=== PATIENT | male | born 1960 | race American Indian/Alaskan Native ===

== ENCOUNTER 2016-11-25 07:31 | Day surgery (SDC) | payer MEDICARE ==
[2016-11-18 06:47] VITALS: BMI 37.3
[2016-11-25 08:10] VITALS: TEMP 98
[2016-11-25] MEDS ORDERED: Midazolam 2 MG/2 ML VIAL ONE (08:36)
[2016-11-25] MEDS ORDERED: Etomidate 20 mg/10ml Inj IV ONE (08:42)
[2016-11-25] MEDS ORDERED: Sodium Chloride 0.9% 1,000 ML IV SCH (09:30)
[2016-11-25 09:35] VITALS: PULSE 64; RESP 23
[2016-11-25 09:47] VITALS: BP 152/62; O2SAT 99
== END 2016-11-25 10:39 | disposition home or self-care (01) ==
LOC: ENDO 07:31
PROVIDERS: ATTEND Specialist
DX: Z12.11 Encounter for screening for malignant neoplasm of colon (principal); K57.30 Diverticulosis of large intestine without perforation or abscess without bleeding; K64.8 Other hemorrhoids; I25.10 Atherosclerotic heart disease of native coronary artery without angina pectoris; I10 Essential (primary) hypertension; E78.5 Hyperlipidemia, unspecified; I25.2 Old myocardial infarction

== ENCOUNTER 2017-06-08 13:42 | Inpatient (IN) | payer MEDICARE, OTHER ==
[2017-06-08 13:46] VITALS: BMI 38.0
--- NOTE | 2017-06-08 14:18 | ED PDOC ---
Arrival/HPI - General Historian: Patient - History of Present Illness Time/Duration: 24 hours Symptom Course: Worsening Activities at Onset: Rest Context: Sitting, Standing, Walking <Orion Rodriguez - Last Filed: 06/08/17 15:40> <Silvino Moe - Last Filed: 06/08/17 21:10> - General Chief Complaint: Shortness Of Breath Time Seen by Provider: 06/08/17 13:45 - History of Present Illness Narrative History of Present Illness (Text): 06/08/17 14:15 patient is a 56M with a PMH of sarcoidosis and [place] (2013 stent in mid RCA and Prox RCA) who comes in complaining of sob associated with chest pain described as tight. Usually when he is SOB it is relieved with rest. This time the SOB was not relieved with rest. It was made worse with minimal activity (walking approx 10 feet from bathroom to kitchen). The SOB has been constant since its onset. Patient denies any fever, chills, diaphoresis, lightheadedness, vision changes, syncope. (Orion Rodriguez) Past Medical History - Past History Past History: No Previous - Infectious Disease Hx of Infectious Diseases: None - Tetanus Immunization Tetanus Immunization: Unknown - Cardiac Hx Pacemaker: No - Pulmonary Hx Respiratory Disorders: Yes Hx Sleep Apnea: Yes Other/Comment: sarcoidosis - Neurological Hx Paralysis: No - HEENT Hx HEENT Disorder: No - Renal Hx Renal Failure: No - Endocrine/Metabolic Hx Hyperthyroidism: No Hx Hypothyroidism: No - Hematological/Oncological Hx Blood Transfusions: No Hx Blood Transfusion Reaction: No - Integumentary Hx Dermatological Disorder: No - Musculoskeletal/Rheumatological Hx Musculoskeletal Disorders: Yes - Gastrointestinal Hx Crohn's Disease: No Hx Diverticulitis: No Hx Gastroesophageal Reflux: No Hx Gastrointestinal Ulcer: No Hx Liver Failure: No - Genitourinary/Gynecological Hx Prostate Problems: Yes (cancer) - Psychiatric Hx Emotional Abuse: No Hx Physical Abuse: No Hx Substance Use: No - Surgical History Hx Amputation: No Hx Appendectomy: No Hx Cardiac Catheterization: No Hx Cholecystectomy: No Hx Coronary Stent: Yes (2) Hx Gastric Bypass Surgery: No Hx Hysterectomy: No Hx Inguinal Hernia Repair: No Hx Joint Replacement: No Hx Kidney Transplant: No Hx Liver Transplant: No Hx Mastectomy: No Hx Open Heart Surgery: No Hx Orthopedic Surgery: No Hx Splenectomy: No Hx Valve Replacement: No - Anesthesia Hx Anesthesia Reactions: Yes (DIFFICULTY WAKING UP;SEVERE NAUSEA) Hx Malignant Hyperthermia: No - Suicidal Assessment Feels Threatened In Home Enviroment: No <Orion Rodriguez - Last Filed: 06/08/17 15:40> Family/Social History Family/Social History: No Known Family HX Smoking Status: Never Smoked Hx Alcohol Use: No Hx Substance Use: No Hx Substance Use Treatment: No <Orion Rodriguez - Last Filed: 06/08/17 15:40> Allergies/Home Meds <Orion Rodriguez - Last Filed: 06/08/17 15:40> <Silvino Moe - Last Filed: 06/08/17 21:10> Allergies/Adverse Reactions: Allergies No Known Allergies Allergy (Verified 08/16/12 06:19) Home Medications: Home Meds Medication Instructions Recorded Confirmed Albuterol Sulfate [Proair 2 puff IH BID PRN 11/01/15 11/25/16 Respiclick] Amlodipine Besylate [Norvasc] 10 mg PO QAM 11/01/15 11/25/16 Aspirin [Aspirin EC] 81 mg PO DAILY 11/01/15 11/25/16 Benzonatate 200 mg PO TID PRN 11/01/15 11/25/16 Clopidogrel Bisulfate [Plavix] 75 mg PO DAILY 11/01/15 11/25/16 Cyanocobalamin [Vitamin B12 1000 1 ml IM Q30D 11/01/15 11/25/16 mcg/ml Inj] Ergocalciferol (Vitamin D2) 50,000 iu PO 2XW 11/01/15 11/25/16 [Vitamin D] Folic Acid 1 mg PO DAILY 11/01/15 11/25/16 Linaclotide [Linzess] 145 mcg PO QOTHERDAY 11/01/15 11/25/16 Nebivolol [Bystolic] 5 mg PO HS 11/01/15 11/18/16 Simvastatin 20 mg PO HS 11/01/15 11/18/16 Terazosin [Hytrin] 2 mg PO HS 11/01/15 11/18/16 cloNIDine 0.3 mg/24 hr 0.3 mg TD Wed11/01/15 11/18/16 [catapres-TTS3 0.3 mg/24 hr] Ranolazine [Ranexa] 500 mg PO DAILY 09/23/16 11/18/16 Potassium Chloride [K-Dur 20] 20 meq PO BID 11/18/16 11/18/16 Valsartan/Hydrochlorothiazide 1 tab PO DAILY 11/18/16 11/18/16 [Valsartan and Hydrochlorothiazide 25 mg-320 M] predniSONE [Prednisone] 10 mg PO DAILY PRN 11/18/16 11/18/16 Hydrocortisone 2.5% (Rectal) 1 appl [place] BID 11/25/16 11/25/16 [Anusol-Hc] Review of Systems - Review of Systems Constitutional: Normal. absent: Fevers, Night Sweats Eyes: absent: Vision Changes, Photophobia, Eye Pain ENT: Normal Respiratory: SOB. absent: Cough, Wheezing Cardiovascular: Chest Pain. absent: Palpitations, Syncope Gastrointestinal: absent: Abdominal Pain Genitourinary Male: absent: Dysuria, Frequency Musculoskeletal: Normal Skin: Normal Neurological: Normal Endocrine: Normal Hemo/Lymphatic: Normal Psychiatric: Normal <Orion Rodriguez - Last Filed: 06/08/17 15:40> Physical Exam Vital Signs Reviewed: Yes Temperature: Afebrile Blood Pressure: Hypertensive Pulse: Regular Respiratory Rate: Normal Appearance: Positive for: Well-Appearing Pain Distress: None Mental Status: Positive for: Alert and Oriented X 3 - Systems Exam Head: Present: Atraumatic Pupils: Present: PERRL Extroacular Muscles: Present: EOMI Conjunctiva: Present: Normal Mouth: Present: Moist Mucous Membranes Neck: Present: Normal Range of Motion Respiratory/Chest: Present: Clear to Auscultation, Accessory Muscle Use. No: Good Air Exchange, Respiratory Distress Cardiovascular: Present: Regular Rate and Rhythm Abdomen: Present: Normal Bowel Sounds. No: Tenderness, Distention, Peritoneal Signs Neurological: Present: GCS=15, CN II-XII Intact Skin: Present: Warm, Dry, Normal Color. No: Rashes Psychiatric: Present: Alert, Oriented x 3, Normal Insight <Orion Rodriguez - Last Filed: 06/08/17 15:40> - Systems Exam Respiratory/Chest: Present: Wheezes <Silvino Moe - Last Filed: 06/08/17 21:10> Vital Signs Temp Pulse Resp BP Pulse Ox 06/08/17 18:13 91 H 16 147/89 97 06/08/17 17:21 97 H 18 148/71 96 06/08/17 15:34 88 18 150/76 96 06/08/17 13:51 16 96 06/08/17 13:49 98.1 F 85 18 150/105 H 96 Medical Decision Making <Orion Rodriguez - Last Filed: 06/08/17 15:40> <Silvino Moe - Last Filed: 06/08/17 21:10> ED Course and Treatment: 06/08/17 21:06 Patient is a 56 yo male with past medical of sarcoidosis presents to ED with progressive shortness of breath for past several days. He was seen and examined with medical administrative. Patient is typically on 4 liters of nasal cannula. He denies any chest pain or acute leg pain or swelling. On exam he has bilateral expiratory wheezing. He is dyspneic with exertion. No pleuritic discomfort. Chest xray is abnormal, reveals interstitial changes although radiology interpretation is unchanged from previous. He has significant past cardiac history but denies chest pain. Initial BNP and EKG unremarakable. Initial troponin unremarkable. Case d/w Dr. Ceballos, will admit for monitoring, cardiac evaluation, nebuilzers, steroids, treatment for bronchospasm, sarcoid exacerbation. (Silvino Moe) - Lab Interpretations Lab Results: 06/08/17 14:08 06/08/17 14:08 Lab Results 06/08/17 14:08: NT-Pro-B Natriuret Pep 173 06/08/17 14:08: PT 12.1, INR 1.06, APTT 29.1 06/08/17 14:08: WBC 6.8, RBC 4.56, Hgb 11.3 L, Hct 36.6 L, MCV 80.3, MCH 24.8 L , MCHC 30.9 L, RDW 14.8 H, Plt Count 217, MPV 9.7, Gran % 65.7, Lymph % (Auto) 19.9 L, Lanier % (Auto) 7.6 H, Eos % (Auto) 6.2 H, Baso % (Auto) 0.6, Gran # 4.48 , Lymph # (Auto) 1.4, Lanier # (Auto) 0.5, Eos # (Auto) 0.4, Baso # (Auto) 0.04 06/08/17 14:08: Sodium 142, Potassium 3.5 L, Chloride 101, Carbon Dioxide 32, Anion Gap 12, BUN 14, Creatinine 1.1, Est GFR ( Amer) > 60, Est GFR (Non- Af Amer) > 60, Random Glucose 96, Calcium 9.7, Total Bilirubin 0.4, AST 28, ALT 18, Alkaline Phosphatase 82, Lactate Dehydrogenase 508, Total Creatine Kinase 107, Troponin I < 0.01, Total Protein 7.5, Albumin 3.9, Globulin 3.6, Albumin/ Globulin Ratio 1.1 06/08/17 14:08: Influenza Typ A,B (EIA) Negative for flu a/b - RAD Interpretation Radiology Orders: 06/08/17 13:48 CHEST PORTABLE [RAD] Stat - Medication Orders Current Medication Orders: Acetylcysteine (Acetylcysteine 20%) 4 ml IH [id number] [facility] Last Admin: 06/08/17 18:13 Dose: 4 ml Arformoterol Tartrate (Brovana) 15 mcg IH [id number] [facility] Aspirin (Ecotrin) 81 mg PO DAILY [facility] Last Admin: 06/08/17 18:03 Dose: 81 mg Atorvastatin Calcium (Lipitor) 10 mg PO HS [facility] Benzonatate (Tessalon Perles) 200 mg PO TID PRN PRN Reason: Cough Budesonide (Pulmicort Respules) 0.5 mg IH [id number] [facility] Clonidine HCl (Catapres-Tts3 0.3 Mg/24 Hr) 1 patch TD FRI [facility] Clopidogrel Bisulfate (Plavix) 75 mg PO DAILY [facility] Cyanocobalamin (Vitamin B12 1000 Mcg/Ml Inj) 1,000 mcg IM Q30D [facility] Docusate Sodium (Colace) 100 mg PO TID [facility] Ergocalciferol (Drisdol 50,000 Intl Units Cap) 1 cap PO 2XW [facility] Folic Acid (Folic Acid) 1 mg PO DAILY [facility] Last Admin: 06/08/17 18:04 Dose: 1 mg Furosemide (Lasix) 20 mg IVP DAILY [facility] Levalbuterol HCl (Xopenex) 0.63 mg IH [id number] [facility] Last Admin: 06/08/17 18:04 Dose: 0.63 mg Methylprednisolone (Solu-Medrol) 40 mg IVP Q8H [facility] Last Admin: 06/08/17 18:03 Dose: 40 mg IVP Administration Document 06/08/17 18:03 [place] (Rec: 06/08/17 18:03 [id number] Charges for Administration # of IVP Administrations 1 Non-Formulary Medication (Ranolazine [Ranexa]) 500 mg PO DAILY [facility] Non-Formulary Medication (Terazosin [Hytrin]) 2 mg PO HS [facility] Pantoprazole Sodium (Protonix Ec Tab) 20 mg PO 0600,1600 [facility] Potassium Chloride (K-Dur 20 Meq Er Tab) 20 meq PO BID [facility] Last Admin: 06/08/17 18:04 Dose: Valsartan (Diovan) 320 mg PO DAILY [facility] Discontinued Medications Albuterol/Ipratropium (Duoneb 3 Mg/0.5 Mg (3 Ml) Ud) 3 ml IH Q30M [facility] Stop: 06/08/17 15:01 Last Admin: 06/08/17 14:58 Dose: 3 ml Famotidine (Pepcid) 20 mg PO STAT [facility]A Stop: 06/08/17 14:48 Last Admin: 06/08/17 15:18 Dose: 20 mg Methylprednisolone (Solu-Medrol) 125 mg IVP STAT STA Stop: 06/08/17 14:06 Last Admin: 06/08/17 14:28 Dose: 125 mg IVP Administration Document 06/08/17 14:28 [place] (Rec: 06/08/17 14:28 [id number] Charges for Administration # of IVP Administrations 1 Potassium Chloride (K-Dur 20 Meq Er Tab) 40 meq PO STAT STA Stop: 06/08/17 14:47 Last Admin: 06/08/17 15:18 Dose: 40 meq Potassium Chloride (K-Dur 20 Meq Er Tab) 20 meq PO STAT STA Stop: 06/08/17 16:18 Last Admin: 06/08/17 16:22 Dose: - PA / SENIOR RESEARCH ASSOCIATE / Resident Statement THOMPSON has reviewed & agrees with the documentation as recorded. THOMPSON has examined the patient and agrees with the treatment plan. <Orion Rodriguez - Last Filed: 06/08/17 15:40> Disposition/Present on Arrival - Present on Arrival Any Indicators Present on Arrival: No History of DVT/PE: No History of Uncontrolled Diabetes: No Urinary Catheter: No History of Decub. Ulcer: No History Surgical Site Infection Following: None - Disposition Have Diagnosis and Disposition been Completed?: Yes Disposition Time: 15:41 Patient Plan: Observation <Orion Rodriguez - Last Filed: 06/08/17 15:40> - Disposition Patient Plan: Admission, Telemetry <Silvino Moe - Last Filed: 06/08/17 21:10> - Disposition Diagnosis: Sarcoidosis, Shortness of breath Disposition: HOSPITALIZED Condition: SERIOUS
[2017-06-08] MEDS: Albuterol-Ipratrop 3 mg / 0.5 (3 ml) UD IH SCH ×3 (14:28→14:58)
[2017-06-08 14:31] LABS: BASO # 0.04 K/mm3 (0.0-2.0); BASO % 0.6 % (0.0-3.0); EOS # 0.4 (0.0-0.7); EOS % 6.2 % (1.5-5.0); GRAN # 4.48 (1.4-6.5); GRAN % 65.7 % (50.0-68.0); HEMOGLOBIN 11.3 g/dL (14.0-18.0); LYMPH # 1.4 (1.2-3.4); LYMPH % 19.9 % (22.0-35.0); MEAN CELL VOLUME 80.3 fl (80.0-105.0); MEAN CORPUSCULAR HEMOGLOBIN 24.8 pg (25.0-35.0); MEAN CORPUSCULAR HGB CONC 30.9 g/dl (31.0-37.0); MEAN PLATELET VOLUME 9.7 fl (7.0-11.0); MONO # 0.5 (0.1-0.6); MONO % 7.6 % (1.0-6.0); RBC 4.56 10^6/uL (3.5-6.1); RED CELL DISTRIBUTION WIDTH 14.8 % (11.5-14.5); WHITE BLOOD COUNT 6.8 10^3/ul (4.5-11.0)
[2017-06-08 14:39] LABS: ALB/GLOB RATIO 1.1 (1.1-1.8); ALBUMIN 3.9 g/dL (3.0-4.8); ALT/SGPT 18 U/L (7-56); AST/SGOT 28 U/L (17-59); BLOOD UREA NITROGEN 14 mg/dL (7-21); CALCIUM 9.7 mg/dL (8.4-10.5); GFR AFRICAN-AMERICAN > 60; GFR NON-AFRICAN AMERICAN > 60
[2017-06-08 14:43] LABS: INR 1.06 (0.93-1.08); PARTIAL THROMBOPLASTIN TIME 29.1 Seconds (25.1-36.5); PROTHROMBIN TIME 12.1 SECONDS (9.4-12.5)
[2017-06-08] MEDS ORDERED: Potassium Chloride 20 mEq ER Tab PO STA ×2 (14:46→16:17)
[2017-06-08 14:50] LABS: TROPONIN I < 0.01 ng/mL
--- NOTE | 2017-06-08 15:52 | RAD ---
HISTORY: SOB COMPARISON: 07/19/2015 FINDINGS: LUNGS: There is a chronic interstitial infiltrate. Findings are unchanged. There is no acute infiltrate PLEURA: No significant pleural effusion identified, no pneumothorax apparent. CARDIOVASCULAR: Normal. OSSEOUS STRUCTURES: No significant abnormalities. VISUALIZED UPPER ABDOMEN: Normal. OTHER FINDINGS: None. IMPRESSION: There is a chronic interstitial infiltrate. Findings are unchanged. There is no acute infiltrate
[2017-06-08] MEDS: MethylPREDNISolone 40 mg Vial IVP SCH (18:03)
[2017-06-08] MEDS: Potassium Chloride 20 mEq ER Tab PO SCH (18:04)
[2017-06-08] MEDS: Levalbuterol 0.63 MG/3 ML Inhal Soln UD IH SCH (18:04)
[2017-06-08] MEDS: Acetylcysteine 20% Inhal Soln (4ml) IH SCH (18:13)
--- NOTE | 2017-06-08 20:02 | CT ---
EXAM: CT Chest Without Intravenous Contrast EXAM DATE/TIME: 06/08/2017 4:39 PM CLINICAL HISTORY: 56 years old, male; Signs and symptoms; Shortness of breath; Additional info: Sob/sarcoidosis TECHNIQUE: Axial computed tomography images of the chest without intravenous contrast. All CT scans at this facility use one or more dose reduction techniques, viz.: automated exposure control; ma/kV adjustment per patient size (including targeted exams where dose is matched to indication; i.e. head); or iterative reconstruction technique. Coronal and sagittal reformatted images were created and reviewed. COMPARISON: Prior CT chest of 2016-09-30 FINDINGS: LIMITATIONS: Mild streak/motion artifact. LUNGS: Stable appearance of abnormal cystic and bronchiectatic changes in the lungs bilaterally, greater in the right lung, and overall having an upper lobe predominance, especially involving the right upper lobe, which demonstrates extensive cystic changes. Stable appearance of a small density in the left lower lobe anteriorly, image 61/series 3, most likely representing a focus of scarring or chronic consolidation. This measures 1 cm kidney No definite focal consolidation/infiltrate is seen in the lungs. No evidence of diffuse pulmonary vascular congestion. PLEURAL SPACE: No pneumothorax or significant pleural effusions seen. HEART: Coronary artery calcification. Heart appears mildly enlarged. No evidence of significant pericardial effusion. BONES/JOINTS: No acute fractures or other acute bony abnormality noted. SOFT TISSUES: Bilateral gynecomastia. VASCULATURE: Main pulmonary artery segment again appears enlarged, a finding which can be seen with pulmonary hypertension. Exam is nondiagnostic for aortic dissection and pulmonary emboli, secondary to unenhanced technique. LYMPH NODES: Multiple small lymph nodes seen in the mediastinum, none appearing pathologically enlarged. This is a nonspecific finding. No evidence of diffuse pathologic lymphadenopathy. KIDNEYS AND URETERS: Nonobstructing left renal stone. IMPRESSION: - No definite acute process seen on this unenhanced exam. - Stable findings compared to a 09/30/[address] - Significant chronic-appearing cystic and bronchiectatic changes in the lungs bilaterally, greatest in the right upper lobe, where there are extensive cystic changes. Findings are presumably related to the known diagnosis of sarcoidosis. - Finding suspicious for pulmonary hypertension. - See above for remaining findings.
--- NOTE | 2017-06-08 20:26 | CP.PCM.HP ---
History of Present Illness - History of Present Illness History of Present Illness: CC: SOB HPI: Pt is a 56 yo M with PMH of sarcoidosis, O2 dependence on 4L at home, prostate CA, [place] (2012 with 2 stents in prox and mid RCA), HTN, HLD, and prostate CA presents to ED due to dyspnea on exertion. Pt states that at 2 am he went to the bathroom and became short of breath that lasted 5 minutes. Then throughout the day patient would get short of breath intermittently at rest. Patient became anxious and proceeded to the ED to be evaluated. Pt states that he is SOB at baseline, which is why he requires 4L of O2 via NC at home. However , this was worse than baseline. Pt denied CP, n/v/d, abdominal pain, fever, chills, THEODORE, or dizziness. PMH: as above PSH: Prostatectomy All: NKDA FHx: HTN, DM, CAD SH: Denied tobacco, EtOH, and illicit drug use PMD: Tucker Present on Admission - Present on Admission Any Indicators Present on Admission: No Review of Systems - Review of Systems Review of Systems: 12 point ROS reviewed and is negative other than what is stated in HPI. Past Patient History - Infectious Disease Hx of Infectious Diseases: None - Tetanus Immunizations Tetanus Immunization: Unknown - Past Social History Smoking Status: Never Smoked - CARDIAC Hx Pacemaker: No - PULMONARY Hx Respiratory Disorders: Yes Hx Sleep Apnea: Yes Other/Comment: sarcoidosis - NEUROLOGICAL Hx Paralysis: No - HEENT Hx HEENT Problems: No - RENAL Hx Renal Failure: No - ENDOCRINE/METABOLIC Hx Hyperthyroidism: No Hx Hypothyroidism: No - HEMATOLOGICAL/ONCOLOGICAL Hx Blood Transfusions: No Hx Blood Transfusion Reaction: No - INTEGUMENTARY Hx Dermatological Problems: No - MUSCULOSKELETAL/RHEUMATOLOGICAL Hx Musculoskeletal Disorders: Yes - GASTROINTESTINAL Hx Crohn's Disease: No Hx Diverticulitis: No Hx Gastroesophageal Reflux: No Hx Liver Failure: No - GENITOURINARY/GYNECOLOGICAL Hx Prostate Problems: Yes (cancer) - PSYCHIATRIC Hx Emotional Abuse: No Hx Physical Abuse: No Hx Substance Use: No - SURGICAL HISTORY Hx Amputation: No Hx Appendectomy: No Hx Cardiac Catheterization: No Hx Cholecystectomy: No Hx Coronary Stent: Yes (2) Hx Gastric Bypass Surgery: No Hx Hysterectomy: No Hx Joint Replacement: No Hx Kidney Transplant: No Hx Liver Transplant: No Hx Mastectomy: No Hx Open Heart Surgery: No Hx Orthopedic Surgery: No Hx Splenectomy: No Hx Valve Replacement: No - ANESTHESIA Hx Anesthesia Reactions: Yes (DIFFICULTY WAKING UP;SEVERE NAUSEA) Hx Malignant Hyperthermia: No Meds Allergies/Adverse Reactions: Allergies Allergy/AdvReac Type Severity Reaction Status Date / Time No Known Allergies Allergy Verified 08/16/12 06:19 Physical Exam - Head Exam Head Exam: NORMAL INSPECTION - Eye Exam Eye Exam: Normal appearance - ENT Exam ENT Exam: Normal Exam - Neck Exam Neck exam: Positive for: Normal Inspection - Respiratory Exam Respiratory Exam: Clear to Auscultation Bilateral. absent: Rales, Rhonchi, Wheezes - Cardiovascular Exam Cardiovascular Exam: RRR, +S1, +S2. absent: Diastolic murmur, Gallop, Rubs, Systolic Murmur - GI/Abdominal Exam GI & Abdominal Exam: Soft. absent: Distended, Guarding, Rebound - Back Exam Back exam: NORMAL INSPECTION - Neurological Exam Neurological exam: Alert, Oriented x3 - Psychiatric Exam Psychiatric exam: Normal Affect, Normal Mood - Skin Skin Exam: Dry, Intact, Normal Color, Warm Results - Vital Signs Recent Vital Signs: Last Vital Signs Temp 98.1 F 06/08/17 13:49 Pulse 91 H 06/08/17 18:13 Resp 16 06/08/17 18:13 BP 147/89 06/08/17 18:13 Pulse Ox 97 06/08/17 18:13 - Labs Result Diagrams: 06/08/17 14:08 06/08/17 14:08 Assessment & Plan - Assessment and Plan (Free Text) Assessment: 56 yo M admitted for evaluation and treatment for dyspnea at rest. Plan: 1. Dyspnea with h/o sarcoidosis - F/u ABG on room air - CXR showed chronic interstitial infiltrate - Chest CT showed stable findings suggestive of sarcoidosis: chronic cystic and bronchiectatic changes in lungs bilaterally, possible pulm HTN - Solumedrol 40mg Q8h - Colace 100 mg TID - Mucormyst, Brovana, Tessalon perles, pulmicort, Xopenex 2. HTN - Clonidine patch, Diovan 3. Possible CHF - Lasix, Ranexa - Echo - Cardio consulted 4. CAD - F/u troponin trend - F/u thyroid panel - F/u A1c - ASA 81 - Lipitor - Plavix 5. Anemia - F/u Anemia workup 6. H/o Prostate CA - F/u PSA - Terazosin GI/DVT PPx - Protonix Pt discussed in detail with Dr. Ceballos. Paresh Patterson, PGY1
[2017-06-08 20:50] LABS: ARTERIAL BLOOD GAS HCO3 24.1 mmol/L (21-28); ARTERIAL BLOOD GAS O2 SAT 93.4 % (95-98); ARTERIAL BLOOD GAS PCO2 38 mm/Hg (35-45); ARTERIAL BLOOD GAS TCO2 25.3 mmol.L (22-28)
[2017-06-08 20:57] LABS: ARTERIAL BLOOD GAS PH 7.41 (7.35-7.45)
[2017-06-08 21:30] LABS: TROPONIN I < 0.01 ng/mL
[2017-06-08] MEDS: TERAZOSIN 2 MG PO SCH (22:23)
[2017-06-08] MEDS: Magnesium Oxide 400 mg Tab UD PO SCH (23:16)
[2017-06-09 00:52] LABS: VENOUS BLOOD GAS PO2 47 mm/Hg (30-55)
[2017-06-09] MEDS: Levalbuterol 0.63 MG/3 ML Inhal Soln UD IH SCH ×4 (00:57→21:55)
[2017-06-09] MEDS: Acetylcysteine 20% Inhal Soln (4ml) IH SCH ×4 (00:57→21:54)
[2017-06-09] MEDS: MethylPREDNISolone 40 mg Vial IVP SCH ×4 (01:00→22:12)
[2017-06-09 01:08] LABS: TROPONIN I < 0.01 ng/mL
[2017-06-09 04:56] LABS: GRAN # 6.01 (1.4-6.5); GRAN % 89.6 % (50.0-68.0); HEMOGLOBIN 11.1 g/dL (14.0-18.0); LYMPH # 0.6 (1.2-3.4); LYMPH % 9.4 % (22.0-35.0); MEAN CORPUSCULAR HEMOGLOBIN 24.5 pg (25.0-35.0); MEAN PLATELET VOLUME 10.5 fl (7.0-11.0); MONO # 0.1 (0.1-0.6); RBC 4.53 10^6/uL (3.5-6.1); RED CELL DISTRIBUTION WIDTH 14.9 % (11.5-14.5); WHITE BLOOD COUNT 6.7 10^3/ul (4.5-11.0)
[2017-06-09 05:10] LABS: LDL CHOLESTEROL 63 mg/dL (0-129)
[2017-06-09 05:11] LABS: ALB/GLOB RATIO 1.1 (1.1-1.8); ALT/SGPT 20 U/L (7-56); AST/SGOT 34 U/L (17-59); BILIRUBIN,DIRECT 0.2 mg/dL (0.0-0.4); BLOOD UREA NITROGEN 20 mg/dL (7-21); CALCIUM 9.7 mg/dL (8.4-10.5); GFR AFRICAN-AMERICAN > 60; GFR NON-AFRICAN AMERICAN 57; HDL CHOLESTEROL 54 mg/dL (29-60)
[2017-06-09 05:12] LABS: TROPONIN I < 0.01 ng/mL
[2017-06-09] MEDS: Pantoprazole 20 mg EC Tab PO SCH ×2 (05:26→17:43)
[2017-06-09 05:54] LABS: FREE T4 0.96 ng/dL (0.78-2.19); T4 6.4 ug/dL (5.5-11.0)
--- NOTE | 2017-06-09 07:22 | CARD ---
APPROVED REPORT EKG Measurement Heart [id number] IA [id number] <Conclusion> Sinus rhythm with one premature ventricular complex Possible Left atrial enlargement IRBBB
--- NOTE | 2017-06-09 07:44 | HP ---
HISTORY OF PRESENT ILLNESS: The patient is a 56-year-old morbidly obese male, patient came into the emergency room as an ambulatory walk-in complaining of chest tightness, heaviness, shortness of breath despite oxygen therapy and nebulizer treatment. According to the triage note, patient reported above symptoms. According to the ER physician evaluation, patient reported symptoms of shortness of breath, chest pain, chest heaviness and shortness of breath relieved with rest. Patient also had dyspnea on exertion according to the medical services coordinator evaluation. Patient stated that he got up this morning around 2:00 in the morning to go to the bathroom and became very short of breath and during throughout the day, patient was short of breath with dyspnea on exertion and became anxious and came to the emergency room. Patient is taking oxygen 4 L at home continuous. REVIEW OF SYSTEMS: A 13-system review was done, pertinent positives and negatives dictated above. CODE STATUS: Full code. LIVING WILL ADVANCE DIRECTIVE: None. Height is 6 feet. Weight is 280 pounds. BMI is 38. OCCUPATIONAL HISTORY: Disabled. FAMILY HISTORY: Not available. HOME MEDICATIONS: 1. Catapres patch 0.3 mg weekly. 2. Diovan HCT 320/25 daily. 3. Hytrin 2 mg at bedtime. 4. Zocor 60 mg daily. 5. Ranexa 500 mg twice a day. 6. K-Dur 20 mEq twice a day. 7. Folic acid 1 mg daily. 8. Drisdol 50,000 units weekly. 9. Vitamin B12 of 1000 mcg. 10. . 11. Plavix 75 mg daily. 12. Tessalon Perles 200 three times a day. 13. Aspirin 81 mg daily. 14. Prednisone 10 mg daily. 15. Bystolic 5 mg daily. 16. Linzess 145 mcg daily. 17. Anusol suppository. 18. Norvasc 10 mg daily. 19. Albuterol 2 puffs twice a day. 20. Patient is also on nebulizer medicine, which he did not list. SOCIAL HISTORY: Never smoked. Never drank. No substance abuse. PAST MEDICAL AND SURGICAL HISTORY: History of coronary artery disease, history of myocardial infarction, history of code heart, history of angioplasty and stent placement, history of morbid obesity, history of sarcoidosis, history of hypertension, history of vitamin B12 deficiency, history of iron-deficiency anemia, history of probable stage III sarcoidosis, history of unstable angina, history of hypokalemia, history of hypovitaminosis D, history of constipation, history of pulmonary fibrosis, history of interstitial lung disease secondary to sarcoidosis, history of prostatectomy, history of severe interstitial lung disease with honeycombing, history of distended gallbladder, history of bilateral non-obstructing nephrolithiasis, history of inguinal hernia, history of right renal dromedary hump, history of code heart in 2013, history of angina, history of successful angioplasty and stent placement of the occluded RCA, history of left ventricular ejection fraction of 55%, history of pulmonary arterial hypertension with elevated right ventricular systolic pressure of 44 mmHg, history of concentric left ventricular hypertrophy, history of acute inferior wall myocardial infarction, history of post cardiac catheterization and angioplasty, right groin hematoma, history of hypoxemia, history of bilateral upper lobe interstitial fibrosis, history of prostate carcinoma, history of incomplete right bundle-branch block, history of hypercholesterolemia, history of sigmoid and descending colon diverticulosis and history of bleeding internal hemorrhoid. PHYSICAL EXAMINATION: GENERAL: The patient is seen in room 260, bed 1. Patient is sitting up in the bed. VITAL SIGNS: T-max 98.1. Telemetry shows sinus rhythm. Heart rate 93, 92, 91 and 88; blood pressure is 150/105, 150/76, 148/71, 147/89 and 152/95; respirations 16 to 18 and O2 sat 97% to 96%. HEENT: Head examination, normocephalic and atraumatic. HEENT examination shows pinkish pale conjunctivae. Anicteric sclerae. No oropharyngeal lesion. NECK: No neck rigidity. CHEST: Kyphosis. LUNGS: Shows decreased air entry. While he was in the ER, patient's pulmonary examination was significant for decreased breath sound, positive rhonchi and wheezing. CARDIOVASCULAR: S1, S2, regular rhythm. ABDOMEN: Protuberant, obese. Positive bowel sound. GENITALIA: Male. RECTAL: Deferred. EXTREMITIES: Lower extremity shows trace to 1+ pitting edema of the lower extremity. No calf tenderness, no Homans sign. NEUROLOGIC: Patient is alert, awake, oriented x3. Cranial nerves II through XII grossly intact. Gait examination is not tested. MUSCULOSKELETAL: Shows a body mass index of 38. DIAGNOSTICS: Abnormal diagnostics. Hemoglobin and hematocrit 11.3 and 36.6. PT/PTT is normal. ABG on room air pH of 7.41, pCO2 of 38, pO2 of 54, bicarb 24, saturation 94% on room air. Chemistry is significant for 3.5 potassium. Troponin is negative. BNP is negative. Influenza A and B negative. Patient had a chest x-ray and CAT scan of the chest done. EKG was done, the results which were reviewed. The patient was treated in the emergency room by the ER physician, Dr. Silvino Moe. Patient was treated with Solu-Medrol 125 in the emergency room. Patient was given nebulizer treatment. Patient was given potassium supplementation and was admitted. IMPRESSION AND PLAN: 1. Acute exacerbation of interstitial lung disease and pulmonary fibrosis with history of possible stage III versus stage IV sarcoidosis. 2. Tachycardia. 3. Hypoxemia. 4. Morbid obesity with the elevated body mass index of 38. 5. Vitamin B deficient. 5. History of iron deficiency anemia. 6. Vitamin B12 deficiency. 7. Bilateral lower extremity venous stasis. 8. Lactic acidosis. 9. Hypokalemia. 10. Morbid obesity. 11. Bilateral pulmonary cystic and bronchiectatic changes of the lungs, right more than the left with upper lobe predominance, including right upper lobe with extensive cystic changes. 12. Left lower lobe density with scarring. 13. Cardiomegaly with coronary artery calcification. 14. Pulmonary hypertension. 15. Mediastinal lymphadenopathy. 16. Non-obstructing left nephrolithiasis. 17. Oxygen-dependent sarcoidosis. 18. Sinus tachycardia with possible incomplete right bundle-branch block. 19. Hypokalemia. 20. Normocytic iron-deficiency anemia with history of vitamin B12 deficiency. Plan at this time, patient is to be admitted to telemetry. Patient has been ordered iron profile, vitamin B12, serial CPK, serial troponin, repeat CMP, LFTs, magnesium, phosphorus, lipid panel, hemoglobin A1c. PSA has been ordered. Thyroid panel has been ordered. Vitamin D level ordered. Repeat CBC ordered. Lactic acid will be ordered for the morning. Patient has been ordered blood cultures, urine cultures. Consultation, Cardiology. Referral to TCU ordered. Patient is started on, 1. Mucomyst nebulizer with Xopenex nebulizer every 6 hours [id number]. 2. Patient is started on Brovana 15 mcg nebulizer q.12 hours. 3. Clonidine patch 0.3 mg weekly. 4. Colace 100 mg three times a day. 5. Diovan 320 mg daily with vitamin D 50,000 twice a week. 6. Ecotrin 81 mg daily. 7. Folic acid 1 mg daily. 8. Patient is resumed on K-Dur 20 mEq twice a day. 9. Lasix 20 mg IV daily. 10. Lipitor 10 mg at bedtime. 11. Magnesium oxide 400 mg twice a day. 12. Plavix 75 mg daily. 13. Protonix 40 mg daily. 14. Pulmicort nebulizer 0.5 mg q.12 hours. 15. Ranexa 500 mg daily. 16. Patient received Solu-Medrol 125 in the ER. Patient is started on Solu-Medrol 40 mg IV q.8. 17. Hytrin 2 mg at bedtime. 18. Tessalon Perles 200 mg three times a day [id number] for coughing. The patient will be also ordered chest PT. Homocysteine level has been ordered. Patient has been ordered head of the bed at 30 degrees, out of bed, KEVIN stockings, sequential compression devices. Occupational therapy and physical therapy ordered. Patient has been explained about the details of his medical condition, need for continuation of the treatment, need for Cardiology evaluation, need for further testing and workup. Patient was also advised the need for echocardiogram. Patient at present has been ordered repeat EKG also. Patient will be ordered chest PT q.6 hours. At present, patient's further management will be dependent upon the patient's clinical condition, hemodynamic status and as per the patient response to therapeutic intervention, as per the patient's diagnostic test results and as per further recommendation by Cardiology. Patient's condition, diagnoses, need for further diagnostic therapeutic intervention and need for inpatient treatment was discussed and explained to the patient and the patient's who was present at the bedside. All of the above details patient's acknowledged and understood and all questions answered. Dictated and electronically signed, not read. Britton Ceballos MD
[2017-06-09] MEDS: Budesonide 0.5 mg/2 ml Inhal Susp UD IH SCH ×2 (07:55→21:55)
[2017-06-09] MEDS: Arformoterol 15 mcg/2 ml Inh Sol IH SCH ×2 (07:55→21:54)
[2017-06-09] MEDS: Potassium Chloride 20 mEq ER Tab PO SCH ×2 (09:24→17:43)
[2017-06-09] MEDS: Magnesium Oxide 400 mg Tab UD PO SCH ×2 (09:24→17:43)
--- NOTE | 2017-06-09 09:26 | CP.PCM.PN ---
Subjective - Date & Time of Evaluation Date of Evaluation: 06/09/17 Time of Evaluation: 09:20 - Subjective Subjective: Medicine Progress Note for Dr. Ceballos Pt seen and examined at bedside. No acute overnight events. Pt currently using CPAP during exam. Pt reports no episodes of dyspnea overnight. Pt offers no complaints at this time. Pt denied CP, SOB, n/v/d, abdominal pain, fever, chills , THEODORE, or dizziness. Objective - Vital Signs/Intake and Output Vital Signs (last 24 hours): Temp Pulse Resp BP Pulse Ox 97.8 F 80 20 135/84 97 06/09/17 06:00 06/09/17 06:00 06/09/17 06:00 06/09/17 06:00 06/09/17 06:00 Intake and Output: 06/09/17 06/09/17 06:59 18:59 Intake Total 240 Balance 240 - Medications Medications: Current Medications Acetylcysteine (Acetylcysteine 20%) 4 ml IH [id number] [facility] Last Admin: 06/09/17 00:57 Dose: Not Given Arformoterol Tartrate (Brovana) 15 mcg IH [id number] [facility] Last Admin: 06/09/17 07:55 Dose: 15 mcg Aspirin (Ecotrin) 81 mg PO DAILY [facility] Last Admin: 06/08/17 18:03 Dose: 81 mg Atorvastatin Calcium (Lipitor) 10 mg PO HS [facility] Last Admin: 06/08/17 22:20 Dose: 10 mg Benzonatate (Tessalon Perles) 200 mg PO TID [facility] Budesonide (Pulmicort Respules) 0.5 mg IH [id number] [facility] Last Admin: 06/09/17 07:55 Dose: 0.5 mg Clonidine HCl (Catapres-Tts3 0.3 Mg/24 Hr) 1 patch TD FRI [facility] Clopidogrel Bisulfate (Plavix) 75 mg PO DAILY [facility] Cyanocobalamin (Vitamin B12 1000 Mcg/Ml Inj) 1,000 mcg IM DAILY [facility] Stop: 06/11/17 10:01 Docusate Sodium (Colace) 100 mg PO TID [facility] Ergocalciferol (Drisdol 50,000 Intl Units Cap) 1 cap PO 2XW ARLEN Folic Acid (Folic Acid) 1 mg PO DAILY [facility] Last Admin: 06/08/17 18:04 Dose: 1 mg Furosemide (Lasix) 20 mg IVP DAILY [facility] Iron Sucrose 200 mg/ Sodium (Chloride) 110 mls @ 110 mls/hr IVPB DAILY [facility] Stop: 06/11/17 10:59 Levalbuterol HCl (Xopenex) 0.63 mg IH [id number] [facility] Last Admin: 06/09/17 07:58 Dose: 0.63 mg Magnesium Oxide (Mag-Ox) 400 mg PO BID [facility] Last Admin: 06/08/17 23:16 Dose: 400 mg Methylprednisolone (Solu-Medrol) 40 mg IVP Q8H [facility] Last Admin: 06/09/17 01:00 Dose: 40 mg Non-Formulary Medication (Ranolazine [Ranexa]) 500 mg PO DAILY [facility] Non-Formulary Medication (Terazosin [Hytrin]) 2 mg PO HS [facility] Last Admin: 06/08/17 22:23 Dose: Not Given Pantoprazole Sodium (Protonix Ec Tab) 20 mg PO 0600,1600 [facility] Last Admin: 06/09/17 05:26 Dose: 20 mg Potassium Chloride (K-Dur 20 Meq Er Tab) 20 meq PO BID [facility] Last Admin: 06/08/17 18:04 Dose: Not Given Valsartan (Diovan) 320 mg PO DAILY [facility] - Labs Labs: 06/09/17 04:08 06/09/17 04:08 PT 12.1 SECONDS (9.4-12.5) 06/08/17 14:08 INR 1.06 (0.93-1.08) 06/08/17 14:08 APTT 29.1 Seconds (25.1-36.5) 06/08/17 14:08 - Constitutional Appears: No Acute Distress - Head Exam Head Exam: NORMAL INSPECTION - Eye Exam Eye Exam: Normal appearance - ENT Exam ENT Exam: Mucous Membranes Moist - Neck Exam Neck Exam: Normal Inspection - Respiratory Exam Respiratory Exam: Clear to Ausculation Bilateral. absent: Rales, Rhonchi, Wheezes - Cardiovascular Exam Cardiovascular Exam: RRR, +S1, +S2. absent: Gallop, Rubs, Murmur - GI/Abdominal Exam GI & Abdominal Exam: Soft. absent: Distended, Guarding, Tenderness, Rebound - Rectal Exam Rectal Exam: NORMAL INSPECTION - Extremities Exam Extremities Exam: Normal Inspection - Back Exam Back Exam: NORMAL INSPECTION - Neurological Exam Neurological Exam: Alert, Awake, Oriented x3 - Psychiatric Exam Psychiatric exam: Normal Affect, Normal Mood - Skin Skin Exam: Dry, Intact, Normal Color, Warm Assessment and Plan - Assessment and Plan (Free Text) Assessment: 56 yo M admitted for evaluation and treatment for dyspnea at rest. Plan: 1. Dyspnea with h/o sarcoidosis - ABG showed normal pH with some hypoxia, lactate 3.5 - CXR showed chronic interstitial infiltrate - Chest CT showed stable findings suggestive of sarcoidosis: chronic cystic and bronchiectatic changes in lungs bilaterally, possible pulm HTN - Decreased Solumedrol to 30mg Q8h - Colace 100 mg TID - Mucormyst, Brovana, Tessalon perles, pulmicort, Xopenex - Cont CPAP 2. HTN - Clonidine patch, Diovan 3. Possible CHF - Lasix, Ranexa - Echo - Cardio consulted - BNP normal 4. CAD - Troponin negative x4 - Thyroid panel WNL - F/u A1c - ASA 81 - Lipitor - Plavix 5. Anemia - Likely 2/2 iron deficiency Fe 16, TIBC 390, %sat 4 - F/u Anemia workup 6. H/o Prostate CA - PSA WNL - Terazosin GI/DVT PPx - Protonix - AE hose, SCD Pt discussed in detail with Dr. Ceballos. Paresh Patterson, PGY1
[2017-06-09] MEDS: Non Formulary Medication (Ranolazine [Ranexa] 500 MG) PO SCH (09:28)
[2017-06-09] MEDS: POLYETHYLENE GLYCOL 3350 17 GM/Dose PACKET PO SCH (10:39)
[2017-06-09 13:03] LABS: FERRITIN 6.5 ng/mL
[2017-06-09 13:33] LABS: FOLATE > 20.0 ng/mL
--- NOTE | 2017-06-09 15:48 | CARD ---
APPROVED REPORT EXAM: Two-dimensional and M-mode echocardiogram with Doppler and color Doppler. INDICATION Dyspnea 2D DIMENSIONS Left Atrium (2D)4.9 (1.6-4.0cm)IVSd1.5 (0.7-1.1cm) LVDd4.3 (3.9-5.9cm)PWd1.4 (0.7-1.1cm) LVDs2.7 (2.5-4.0cm)FS (%) 36.4 % LVEF (%)66.3 (>50%) M-Mode DIMENSIONS Aortic Root3.70 (2.2-3.7cm)Aortic Cusp Exc.2.10 (1.5-2.0cm) Aortic Valve AoV Peak Zmykykgc848.0cm/sAoV VTI32.4cmAO Peak GR.16mmHg LVOT Peak Rciqfxak612.0cm/sLVOT VTI30.30cmAO Mean GR.8mmHg Mitral Valve MV E Hygrvswn83.8cm/sMV A Esedvbgr39.9cm/sE/A ratio0.7 TDI Lateral E' Peak V6.04cm/sMedial E' Peak V4.68cm/sE/Lateral E'9.6 E/Medial E'12.4 Pulmonary Valve PV Peak Iejqezwm92.3cm/sPV Peak Grad.4mmHg Tricuspid Valve TR Peak Pkqokjps894si/sRAP [id number] Peak Gr.42mmHg [id number] LEFT VENTRICLE There is mild concentric left ventricular hypertrophy. The left ventricular function is normal. The left ventricular ejection fraction is within the normal range. RIGHT VENTRICLE The right ventricle is normal size. ATRIA The left atrium is mildly dilated. The right atrium size is normal. AORTIC VALVE The aortic valve is thickened but opens well. MITRAL VALVE The mitral valve is thickened but opens well. TRICUSPID VALVE The tricuspid valve leaflets are thickened , but open well. There is mild tricuspid regurgitation. There is mild to moderate pulmonary hypertension. PULMONIC VALVE The pulmonic valve is mildly thickened. PERICARDIAL EFFUSION There is no pericardial effusion. <Conclusion> LVH with good LV function Dilated LA Mild TR Mild to moderate pulmonary hypertension
--- NOTE | 2017-06-09 18:18 | CON ---
DATE: 06/09/2017 CARDIOLOGY CONSULTATION HISTORY OF PRESENT ILLNESS: The patient is a 56-year-old male who presents with progressive shortness of breath. PAST MEDICAL HISTORY: Notable for sarcoidosis. In 2014, the patient suffered an inferior wall NC, treated with emergency PTCA and stent of the RCA. His cardiac risk factors includes hypertension, hypercholesterolemia, and documented CAD in the past. Negative diabetes mellitus. He does complain of occasional exertional pressure in his chest. SOCIAL HISTORY: The patient does not smoke. REVIEW OF SYSTEMS: A 14-point review of systems reviewed in detail. Other than the exertional chest pain, the patient denies edema in the lower extremities. He does complain of chest pain. PHYSICAL EXAMINATION: VITAL SIGNS: Blood pressure is 135/84, the heart rate is in the 80s. NECK: Negative JVD. LUNGS: Without rales. HEART: S1, S2. EXTREMITIES: Without edema. LABORATORY DATA: EKG shows nonspecific ST-T changes. Troponins are negative x2. Hemoglobin is 11.1. IMPRESSION: 1. Sarcoidosis. 2. Exertional angina. 3. Coronary artery disease. 4. Old inferior wall myocardial infarction. 5. Anemia. 6. Hypertension. 7. Hypercholesterolemia. PLAN: Given these findings, depending on the patient's symptoms, the patient may need to proceed to cardiac catheterization once his breathing is better. Wood Rainey MD
[2017-06-09] MEDS: TERAZOSIN 2 MG PO SCH (22:14)
[2017-06-10] MEDS: Acetylcysteine 20% Inhal Soln (4ml) IH SCH ×5 (04:35→19:29)
[2017-06-10] MEDS: Levalbuterol 0.63 MG/3 ML Inhal Soln UD IH SCH ×4 (04:37→19:29)
--- NOTE | 2017-06-10 04:37 | PN ---
DATE: 06/09/2017 SUBJECTIVE: Patient is seen in room 260, bed 1. Patient is lying in the bed. Patient appears to be much comfortable from breathing perspective. Patient is lying in the bed communicating to the family. Patient does not appear to be in any distress. Overnight nurse's notes were reviewed. PHYSICAL EXAMINATION: VITAL SIGNS: T-max 98.7 to 97.1. Telemetry shows sinus rhythm, heart rate in 70s and 80s. Heart rate 79, 82 , 89, 92, 96, 95. Blood pressure 147/92, 137/88, 151/97, 135/84; respirations 20; O2 sat is 95% to 97% on oxygen. HEENT: Head examination normocephalic, atraumatic. HEENT examination shows pinkish conjunctivae. Anicteric sclerae. No oropharyngeal lesion. No neck rigidity. CHEST: Kyphosis. LUNGS: Examination shows improved air entry. No wheezing, rales or crackles. CARDIOVASCULAR: S1, S2, regular rhythm. Questionable soft systolic murmur left sternal border, right second intercostal space, left second intercostal space. ABDOMEN: Protuberant. Positive bowel sounds. No hepatosplenomegaly noted. GENITALIA: Male. RECTAL: Deferred. EXTREMITIES: Still shows trace swelling of the lower extremity. Positive ankle swelling. MUSCULOSKELETAL: Shows a body mass index of 38.5. Cranial nerves II through XII grossly intact. Gait examination is not tested. VASCULAR: Palpable pulses. DIAGNOSTICS: On 06/09, WBC 6.7, hemoglobin/hematocrit 11.1 and 35.8, platelet 243. Granulocytes, 89% segs. Sodium 139, potassium 4.3, chloride 101, CO2 31, anion gap 11, BUN 20, creatinine 1.3, GFR greater than 60, glucose 136, hemoglobin A1c 6.0, lactic acid is 1.6, iron 16, saturation is 4. C-reactive protein is 10.6. Cardiac enzymes four sets are negative. Cholesterol 147, LDL 63, HDL 54. PSA is less than 0.1. B12 534. Vitamin D 33.1, folate greater than 20. Thyroid profile shows TSH of slightly low. Influenza negative. Blood cultures, no growth. IMPRESSION AND PLAN: 1. Acute exacerbation of oxygen-dependent interstitial lung disease and pulmonary fibrosis with history of possible stage III versus stage IV sarcoidosis. 2. Tachycardia. 3. Hypoxemia. 4. Hypertension. 5. Normocytic iron-deficiency anemia with granulocytosis. 6. History of vitamin B12 deficiency. 7. Lactic acidosis. 8. Steroid-induced hyperglycemia with prediabetes and hemoglobin A1c of 6.0. 9. Elevated C-reactive protein. 10. Decreased thyroid stimulating hormone level. 11. Questionable incomplete right bundle-branch block versus right ventricular conduction delay. 12. Left ventricular ejection fraction of 66%. 13. Moderate pulmonary arterial hypertension with right ventricular systolic pressure of 52 mmHg. 14. Mild tricuspid regurgitation. 15. Exertional angina. 16. History of coronary artery disease, history of code heart and history of old inferior wall myocardial infarction. 17. Morbid obesity with elevated body mass index of 39. 18. Bilateral lower extremity venous stasis. 19. Right-sided diastolic congestive heart failure with pulmonary arterial hypertension and elevated right ventricular systolic pressure. 20. History of prostate carcinoma status post prostatectomy. 21. Questionable incomplete right bundle-branch block versus right ventricular conduction delay. 22. Hypovitaminosis D. 23. Iron deficiency. 24. Hypokalemia. 25. Dyslipidemia. 26. Hypomagnesemia. 27. Constipation. 28. Angina pectoris. 29. Prostatic hypertrophy. 1. Acute exacerbation of interstitial lung disease and pulmonary fibrosis with history of possible stage III versus stage IV sarcoidosis. 2. Tachycardia. 3. Hypoxemia. 4. Morbid obesity with the elevated body mass index of 38. 5. Vitamin B deficient. 5. History of iron deficiency anemia. 6. Vitamin B12 deficiency. 7. Bilateral lower extremity venous stasis. 8. Lactic acidosis. 9. Hypokalemia. 10. Morbid obesity. 11. Bilateral pulmonary cystic and bronchiectatic changes of the lungs, right more than the left with upper lobe predominance, including right upper lobe with extensive cystic changes. 12. Left lower lobe density with scarring. 13. Cardiomegaly with coronary artery calcification. 14. Pulmonary hypertension. 15. Mediastinal lymphadenopathy. 16. Non-obstructing left nephrolithiasis. 17. Oxygen-dependent sarcoidosis. 18. Sinus tachycardia with possible incomplete right bundle-branch block. 19. Hypokalemia. 20. Normocytic iron-deficiency anemia with history of vitamin B12 deficiency. Plan at this time, patient was seen with the er medical technician. Patient was evaluated by physical therapist, their recommendation is home with services. Patient seen by Cardiology. Their recommendation is to have a cardiac catheterization once pulmonary status is improved and better. Patient is ordered serial labs. Blood urine cultures, final report pending. Cardiology recommendations noted. TCU referral made. CURRENT MEDICATIONS: Patient is on current medications: 1. Mucomyst nebulizer 20% 4 mL q. 6 hours. 2. Brovana 15 mcg q. 12. 3. Clonidine patch 0.3 mg weekly. 4. Colace 100 mg three times a day. 5. Diovan 320 mg daily. 6. Drisdol 50,000 units twice a week. 7. Aspirin 81 mg daily. 8. Folic acid 1 mg daily. 9. Venofer 200 mg IV daily. 10. K-Dur 20 mEq twice a day. 11. Lasix 20 mg IV push daily. 12. Lipitor 10 mg at bedtime. 13. Magnesium oxide 400 mg twice a day. 14. MiraLax 17 g daily. 15. Plavix 75 mg daily. 16. Protonix 40 mg daily. 17. Pulmicort nebulizer 0.5 mg q. 12 hours. 18. Ranexa 500 mg daily. 19. Solu-Medrol decreased to 30 mg IV q. 8 because patient's breathing status has improved significantly. 20. Hytrin 2 mg at bedtime. 21. Tessalon Perles 200 three times a day. 22. Vitamin B12 1000 mcg IM daily. 23. Xopenex nebulizer 0.63 mg every 6 hours. The patient is on CPAP at night at CPAP pressure of 12. Patient has been ordered out of bed to chair. The patient has been ordered elevation of the lower extremity on two pillows, SCDs, KEVIN stockings, occupational therapy, physical therapy ordered. Dictated and electronically signed, not read. Britton Ceballos MD [id number]
[2017-06-10] MEDS: MethylPREDNISolone 40 mg Vial IVP SCH ×4 (05:07→23:32)
[2017-06-10] MEDS: Pantoprazole 20 mg EC Tab PO SCH ×2 (05:08→15:51)
[2017-06-10 05:48] LABS: GRAN # 12.76 (1.4-6.5); GRAN % 90.7 % (50.0-68.0); HEMOGLOBIN 10.7 g/dL (14.0-18.0); LYMPH # 0.6 (1.2-3.4); LYMPH % 4.3 % (22.0-35.0); MEAN CELL VOLUME 78.7 fl (80.0-105.0); MEAN CORPUSCULAR HEMOGLOBIN 23.9 pg (25.0-35.0); MEAN CORPUSCULAR HGB CONC 30.4 g/dl (31.0-37.0); MEAN PLATELET VOLUME 10.1 fl (7.0-11.0); MONO # 0.7 (0.1-0.6); PLATELET COUNT 252 10^3/uL (120.0-450.0); RBC 4.47 10^6/uL (3.5-6.1); RED CELL DISTRIBUTION WIDTH 15.1 % (11.5-14.5); WHITE BLOOD COUNT 14.1 10^3/ul (4.5-11.0)
[2017-06-10 06:40] LABS: LYMPHOCYTE 2 % (22.0-35.0); MONOCYTE 1 % (1.0-6.0); NEUTROPHIL 96 % (50.0-70.0)
[2017-06-10 06:41] LABS: EOSINOPHIL 1 % (0.0-3.0); PLATELET ESTIMATE NORMAL (NORMAL)
[2017-06-10] MEDS ORDERED: Iodixanol 320 MG/ML 200 ML BOTTLE IV ONE (06:41)
[2017-06-10] MEDS ORDERED: Iodixanol 320 MG/ML 100 ML BOTTLE IV ONE (06:41)
[2017-06-10] MEDS ORDERED: Phenylephrine 10 mg/ml Inj ONE (06:41)
[2017-06-10] MEDS ORDERED: Iohexol 350mgl/ml 50 ML ONE (06:41)
[2017-06-10] MEDS ORDERED: Lidocaine 2% Inj (20ml) ONE (06:41)
[2017-06-10] MEDS ORDERED: HEPARIN SODIUM/NS 2,000 ML IV ONE (06:42)
[2017-06-10] MEDS ORDERED: Midazolam 2 MG/2 ML VIAL ONE ×2 (07:11→07:23)
[2017-06-10 07:19] LABS: ALB/GLOB RATIO 1.1 (1.1-1.8); ALBUMIN 3.8 g/dL (3.0-4.8); BILIRUBIN,DIRECT 0.2 mg/dL (0.0-0.4); CALCIUM 9.5 mg/dL (8.4-10.5)
--- NOTE | 2017-06-10 07:38 | CP.PCM.PN ---
Subjective - Date & Time of Evaluation Date of Evaluation: 06/10/17 Time of Evaluation: 07:35 - Subjective Subjective: Medicine Progress Note for Dr. Ceballos: Pt seen and examined at bedside. No acute overnight events. Pt seen after cardiac catherization today. Pt denies CP, SOB, n/v/d, abdominal pain, fevers, THEODORE, or dizziness. Objective - Vital Signs/Intake and Output Vital Signs (last 24 hours): Temp Pulse Resp BP Pulse Ox 98.0 F 67 20 148/92 H 95 06/10/17 06:00 06/10/17 06:00 06/10/17 06:00 06/10/17 06:00 06/10/17 06:00 Intake and Output: 06/10/17 06/10/17 06:59 18:59 Intake Total 0 Output Total 400 Balance -400 - Medications Medications: Current Medications Acetylcysteine (Acetylcysteine 20%) 4 ml IH [id number] [facility] Last Admin: 06/10/17 04:35 Dose: Not Given Arformoterol Tartrate (Brovana) 15 mcg IH [id number] [facility] Last Admin: 06/09/17 21:54 Dose: 15 mcg Aspirin (Ecotrin) 81 mg PO DAILY [facility] Last Admin: 06/10/17 06:35 Dose: 81 mg Atorvastatin Calcium (Lipitor) 10 mg PO HS [facility] Last Admin: 06/09/17 22:11 Dose: 10 mg Benzonatate (Tessalon Perles) 200 mg PO TID [facility] Last Admin: 06/09/17 17:43 Dose: 200 mg Budesonide (Pulmicort Respules) 0.5 mg IH [id number] [facility] Last Admin: 06/09/17 21:55 Dose: 0.5 mg Clonidine HCl (Catapres-Tts3 0.3 Mg/24 Hr) 1 patch TD FRI [facility] Clopidogrel Bisulfate (Plavix) 75 mg PO DAILY [facility] Last Admin: 06/10/17 06:35 Dose: 75 mg Cyanocobalamin (Vitamin B12 1000 Mcg/Ml Inj) 1,000 mcg IM DAILY [facility] Stop: 06/11/17 10:01 Last Admin: 06/09/17 09:30 Dose: 1,000 mcg Docusate Sodium (Colace) 100 mg PO TID [facility] Last Admin: 06/09/17 17:42 Dose: 100 mg Ergocalciferol (Drisdol 50,000 Intl Units Cap) 1 cap PO 2XW [facility] Folic Acid (Folic Acid) 1 mg PO DAILY [facility] Last Admin: 06/09/17 09:24 Dose: 1 mg Furosemide (Lasix) 20 mg IVP DAILY [facility] Last Admin: 06/09/17 09:31 Dose: 20 mg Iron Sucrose 200 mg/ Sodium (Chloride) 110 mls @ 110 mls/hr IVPB DAILY [facility] Stop: 06/11/17 10:59 Last Admin: 06/09/17 10:35 Dose: 110 mls/hr Levalbuterol HCl (Xopenex) 0.63 mg IH [id number] [facility] Last Admin: 06/10/17 04:37 Dose: 0.63 mg Magnesium Oxide (Mag-Ox) 400 mg PO BID [facility] Last Admin: 06/09/17 17:43 Dose: 400 mg Methylprednisolone (Solu-Medrol) 30 mg IVP Q8H [facility] Last Admin: 06/10/17 05:07 Dose: 30 mg Non-Formulary Medication (Ranolazine [Ranexa]) 500 mg PO DAILY [facility] Last Admin: 06/09/17 09:28 Dose: Not Given Non-Formulary Medication (Terazosin [Hytrin]) 2 mg PO HS [facility] Last Admin: 06/09/17 22:14 Dose: Not Given Pantoprazole Sodium (Protonix Ec Tab) 20 mg PO 0600,1600 [facility] Last Admin: 06/10/17 05:08 Dose: 20 mg Polyethylene Glycol (Miralax) 17 gm PO DAILY [facility] Last Admin: 06/09/17 10:39 Dose: 17 gm Potassium Chloride (K-Dur 20 Meq Er Tab) 20 meq PO BID [facility] Last Admin: 06/09/17 17:43 Dose: 20 meq Valsartan (Diovan) 320 mg PO DAILY [facility] Last Admin: 06/09/17 09:25 Dose: 320 mg - Labs Labs: 06/10/17 05:20 06/10/17 05:20 PT 12.1 SECONDS (9.4-12.5) 06/08/17 14:08 INR 1.06 (0.93-1.08) 06/08/17 14:08 APTT 29.1 Seconds (25.1-36.5) 06/08/17 14:08 - Constitutional Appears: No Acute Distress - Head Exam Head Exam: NORMAL INSPECTION - Eye Exam Eye Exam: Normal appearance - ENT Exam ENT Exam: Normal Exam - Neck Exam Neck Exam: Normal Inspection - Respiratory Exam Respiratory Exam: Clear to Ausculation Bilateral. absent: Rales, Rhonchi, Wheezes, Respiratory Distress - Cardiovascular Exam Cardiovascular Exam: RRR, +S1, +S2. absent: Gallop, Rubs, Murmur - GI/Abdominal Exam GI & Abdominal Exam: Soft. absent: Distended, Guarding, Tenderness, Rebound - Extremities Exam Additional comments: Right groin catherization site dressings clean, dry, intact. No signs of bleeding or hematoma. - Back Exam Back Exam: NORMAL INSPECTION - Neurological Exam Neurological Exam: Alert, Awake, Oriented x3 - Psychiatric Exam Psychiatric exam: Normal Affect, Normal Mood - Skin Skin Exam: Dry, Intact, Normal Color, Warm Assessment and Plan - Assessment and Plan (Free Text) Assessment: 56 yo M admitted for evaluation and treatment for progressive dyspnea with h/o sarcoidosis. Plan: 1. Dyspnea with h/o sarcoidosis - ABG showed normal pH with some hypoxia Lactate 3.5 initially, now 1.7 - CXR showed chronic interstitial infiltrate - Chest CT showed stable findings suggestive of sarcoidosis: chronic cystic and bronchiectatic changes in lungs bilaterally, possible pulm HTN - Solumedrol 30mg Q8h - Colace 100 mg TID - Mucormyst, Brovana, Tessalon perles, pulmicort, Xopenex - Cont CPAP 2. CAD - Cardio consulted Cardiac catherization showed 50% stenosis of RCA, medical therapy indicated - Echo showed EF 66.35, dilated RA, mild to moderate pulm HTN, LVH, mild TR - Troponin negative x4, BNP WNL - Thyroid panel WNL - A1c 6.0 - ASA 81 - Lipitor, Plavix, Lasix, Ranexa 3. Anemia - Likely 2/2 iron deficiency Fe 16, TIBC 390, %sat 4 - B12, folate WNL 4. HTN - Clonidine patch, Diovan 5. H/o Prostate CA - PSA WNL - Terazosin GI/DVT PPx - Protonix - AE hose, SCD Pt discussed in detail with Dr. Ceballos. Paresh Patterson, PGY1
[2017-06-10] MEDS ORDERED: Sodium Chloride 0.9% 1,000 ML IV SCH (08:00)
[2017-06-10] MEDS: Budesonide 0.5 mg/2 ml Inhal Susp UD IH SCH ×2 (08:17→19:32)
[2017-06-10] MEDS: Arformoterol 15 mcg/2 ml Inh Sol IH SCH ×2 (08:17→19:28)
[2017-06-10] MEDS: Magnesium Oxide 400 mg Tab UD PO SCH ×2 (09:45→17:38)
[2017-06-10] MEDS: POLYETHYLENE GLYCOL 3350 17 GM/Dose PACKET PO SCH (09:53)
[2017-06-10] MEDS: Non Formulary Medication (Ranolazine [Ranexa] 500 MG) PO SCH (10:00)
--- NOTE | 2017-06-10 10:48 | CARD ---
APPROVED REPORT EKG Measurement Heart [id number] MA [id number] <Conclusion> Normal sinus rhythm Possible Left atrial enlargement RVCD Q in 3 No change
--- NOTE | 2017-06-10 12:45 | CARDCATH ---
PROCEDURE DATE: 06/10/2017 HISTORY: The patient is a 56-year-old male who presents with exacerbation of sarcoidosis. In addition, the patient complains of exertional angina including angina at rest. The patient has had documented coronary artery disease with stents placed in the past. Because of this, a cardiac catheterization was recommended. PROCEDURE: Left heart catheterization with coronary arteriography and left ventriculogram and supra-aortic valvular injection. The right femoral artery was cannulated with a 6-Russian sheath. There were no complications. I performed moderate sedation which included the presence of an independent trained observer who assisted in monitoring the patient's level of consciousness and physiologic status. After administration of Versed and fentanyl, my intra-service time was 15 minutes. The findings on catheterization revealed a left ventricle that contracted normally. Estimated ejection fraction was 70%. Supra-aortic valvular injection revealed no aortic insufficiency. The patient's coronary arteries revealed a right dominant circulation. The RCA was a kywwa-tn-gejaadfr vessel with a patent stent in the mid portion. The left main artery was unremarkable. The LAD revealed diffuse atherosclerosis throughout its course with 50% stenosis in the distal portion. The diagonal vessels revealed intimal irregularities without critical lesions. The circumflex artery and obtuse marginal branches revealed diffuse atherosclerosis. There was 50% to 60% stenosis in the proximal portion of OM1. The patient tolerated the procedure well. Angio-Seal was used to close the femoral artery site. In summary, the procedure revealed a patent stent in the mebgx-zf-oehfsnct sized RCA. There was 50% stenosis in OM1 as well as 50% stenosis in distal LAD. LV function was normal. Given these findings, the patient's treatment will be medical therapy. We will increase his statin therapy dosage. In addition, the patient needs to participate in a cardiac risk-reduction program which needs aggressive weight loss. Wood Rainey MD
--- NOTE | 2017-06-10 14:03 | PN ---
DATE: 06/10/2017 SUBJECTIVE: The patient is seen in now 266, bed 2. The patient is post cardiac catheterization, which the patient tolerated well. The patient is lying in the bed. The patient is comfortable. The patient underwent cardiac catheterization. PHYSICAL EXAMINATION: VITAL SIGNS: At this time, the patient's T-max is 99.7. Telemetry shows normal sinus rhythm. Heart rate is 67, 73, 74. Blood pressure in the last 24 hours averaging around systolic average 130s and 140s, diastolic in 70s and 80s. Respiration 18, O2 sat on overnight CPAP and nasal cannula 95-97%. Intake/output does not seem to be accurate or documented incorrectly, which appears to be 600 yesterday, 400 today. HEENT: Head examination normocephalic, atraumatic. HEENT examination shows pinkish pale conjunctivae. Anicteric sclerae. No oropharyngeal lesion. No neck rigidity. CHEST: Kyphosis. LUNGS: Shows improved air entry since admission and even yesterday. There is no audible wheezing, rhonchi, rales, crackles. CARDIOVASCULAR: S1, S2. Regular rhythm. ABDOMEN: Protuberant, obese. GENITALIA: Male. Positive right groin dressing noted. No palpable hematoma noted. EXTREMITIES: Show no pitting edema, no calf tenderness. No ankle swelling noted. MUSCULOSKELETAL: Shows a body mass index of 39. Gait examination is not tested as the patient is on post cardiac catheterization bedrest. DIAGNOSTICS: On 06/10/2017, WBC count is 14.1, hemoglobin and hematocrit are 10.7 and 35.2, platelets 252. Granulocytes 91% segs. ESR is 45. Sodium 141, potassium 4.7, chloride 102, CO2 of 32, anion gap 11, BUN 37, creatinine 1.5, GFR 58, creatinine 1.5 which has gone up from 1.1, glucose 125, hemoglobin A1c 6.0. Lactic acid is 1.7, magnesium 2.6. LFTs are normal. C-reactive protein is greater than 10 and 11. Influenza serologies are negative. Blood cultures are negative. IMPRESSION AND PLAN: 1. Status post cardiac catheterization. 2. Patent right coronary artery stent with 50% obtuse marginal 1 lesion. 3. Acute exacerbation of oxygen-dependent interstitial lung disease and pulmonary fibrosis and possible stage III versus stage IV sarcoidosis. 4. Morbid obesity with elevated body mass index of 38.5. 5. Leukocytosis and granulocytosis, probably reactive secondary to intravenous steroids. 6. Elevated ESR of 45. 7. Lactic acidosis. 8. Prerenal kidney injury with underlying chronic kidney disease stage 3. 9. Prediabetes with hyperglycemia and hemoglobin A1c of 6.0. 10. Elevated C-reactive protein. 11. Iron-deficiency anemia. 12. Status post cardiac catheterization. 13. Incomplete right bundle-branch block versus right ventricular conduction delay. 1. Acute exacerbation of oxygen-dependent interstitial lung disease and pulmonary fibrosis with history of possible stage III versus stage IV sarcoidosis. 2. Tachycardia. 3. Hypoxemia. 4. Hypertension. 5. Normocytic iron-deficiency anemia with granulocytosis. 6. History of vitamin B12 deficiency. 7. Lactic acidosis. 8. Steroid-induced hyperglycemia with prediabetes and hemoglobin A1c of 6.0. 9. Elevated C-reactive protein. 10. Decreased thyroid stimulating hormone level. 11. Questionable incomplete right bundle-branch block versus right ventricular conduction delay. 12. Left ventricular ejection fraction of 66%. 13. Moderate pulmonary arterial hypertension with right ventricular systolic pressure of 52 mmHg. 14. Mild tricuspid regurgitation. 15. Exertional angina. 16. History of coronary artery disease, history of code heart and history of old inferior wall myocardial infarction. 17. Morbid obesity with elevated body mass index of 39. 18. Bilateral lower extremity venous stasis. 19. Right-sided diastolic congestive heart failure with pulmonary arterial hypertension and elevated right ventricular systolic pressure. 20. History of prostate carcinoma status post prostatectomy. 21. Questionable incomplete right bundle-branch block versus right ventricular conduction delay. 22. Hypovitaminosis D. 23. Iron deficiency. 24. Hypokalemia. 25. Dyslipidemia. 26. Hypomagnesemia. 27. Constipation. 28. Angina pectoris. 29. Prostatic hypertrophy. 1. Acute exacerbation of interstitial lung disease and pulmonary fibrosis with history of possible stage III versus stage IV sarcoidosis. 2. Tachycardia. 3. Hypoxemia. 4. Morbid obesity with the elevated body mass index of 38. 5. Vitamin B deficient. 5. History of iron deficiency anemia. 6. Vitamin B12 deficiency. 7. Bilateral lower extremity venous stasis. 8. Lactic acidosis. 9. Hypokalemia. 10. Morbid obesity. 11. Bilateral pulmonary cystic and bronchiectatic changes of the lungs, right more than the left with upper lobe predominance, including right upper lobe with extensive cystic changes. 12. Left lower lobe density with scarring. 13. Cardiomegaly with coronary artery calcification. 14. Pulmonary hypertension. 15. Mediastinal lymphadenopathy. 16. Non-obstructing left nephrolithiasis. 17. Oxygen-dependent sarcoidosis. 18. Sinus tachycardia with possible incomplete right bundle-branch block. 19. Hypokalemia. 20. Normocytic iron-deficiency anemia with history of vitamin B12 deficiency. Plan at this time, the patient is on post cardiac catheterization bedrest. Repeat labs ordered. Awaiting final results of blood cultures and urine cultures. Referral to TCU. Current medications: Mucomyst nebulizer 20% 4 mL q. 6, Brovana 15 mcg q. 12, Catapres patch 0.3 mg weekly, Colace 100 mg three times a day, Diovan 320 mg daily, Drisdol 50,000 twice a week, IV Lasix was discontinued by Dr. Wood Rainey yesterday. The patient is on aspirin 81 mg daily, folic acid 1 mg daily, Venofer 200 mg IV daily, Lipitor 40 mg daily, magnesium oxide 400 twice a day, MiraLax 17 g daily, Plavix 75 mg daily, Protonix 20 mg twice a day, Pulmicort 0.5 mg inhaler q. 12, Ranexa 500 mg daily. The patient is on post cardiac cath IV fluid 0.9 normal saline at 100 mL an hour. Solu-Medrol is to be kept at 30 IV q. 8. We will consider decreasing the Solu-Medrol tomorrow once the patient is relatively more stable. At present, the patient is on bedrest post cardiac cath - 2 mg daily, Tessalon 200 three times a day, vitamin B12 at 1000 mcg IM daily for three doses, Xopenex nebulizer 0.63 q. 6. The patient will be followed up later in the day or tomorrow. The patient will be resumed on physical therapy after post cardiac catheterization stability criteria met. The patient is updated about his diagnosis, test results, recommendation. Advised weight loss. Advised strict diet. Advised weight loss to under 200 pounds. Dictated and electronically signed, not read. Britton Ceballos MD [facility] # [id number] [place]
[2017-06-11] MEDS: Levalbuterol 0.63 MG/3 ML Inhal Soln UD IH SCH ×5 (01:26→20:52)
[2017-06-11] MEDS: TERAZOSIN 2 MG PO SCH ×2 (03:32→21:33)
[2017-06-11] MEDS: Pantoprazole 20 mg EC Tab PO SCH ×2 (05:10→15:43)
[2017-06-11 06:58] LABS: GRAN # 10.46 (1.4-6.5); GRAN % 86.9 % (50.0-68.0); HEMOGLOBIN 10.4 g/dL (14.0-18.0); LYMPH # 0.7 (1.2-3.4); LYMPH % 5.4 % (22.0-35.0); MEAN CELL VOLUME 79.9 fl (80.0-105.0); MEAN CORPUSCULAR HEMOGLOBIN 23.8 pg (25.0-35.0); MEAN CORPUSCULAR HGB CONC 29.8 g/dl (31.0-37.0); MEAN PLATELET VOLUME 10.2 fl (7.0-11.0); MONO # 0.9 (0.1-0.6); MONO % 7.7 % (1.0-6.0); RBC 4.37 10^6/uL (3.5-6.1); RED CELL DISTRIBUTION WIDTH 15.4 % (11.5-14.5)
[2017-06-11] MEDS: Budesonide 0.5 mg/2 ml Inhal Susp UD IH SCH (07:15)
[2017-06-11] MEDS: Acetylcysteine 20% Inhal Soln (4ml) IH SCH ×3 (07:15→20:55)
[2017-06-11] MEDS: Arformoterol 15 mcg/2 ml Inh Sol IH SCH ×2 (07:15→20:55)
[2017-06-11 07:43] LABS: ALB/GLOB RATIO 1.1 (1.1-1.8); ALBUMIN 3.4 g/dL (3.0-4.8); ALT/SGPT 22 U/L (7-56); AST/SGOT 25 U/L (17-59); BLOOD UREA NITROGEN 30 mg/dL (7-21); CALCIUM 8.8 mg/dL (8.4-10.5); GFR AFRICAN-AMERICAN > 60; GFR NON-AFRICAN AMERICAN > 60
--- NOTE | 2017-06-11 08:05 | CP.PCM.PN ---
Subjective - Date & Time of Evaluation Date of Evaluation: 06/11/17 Time of Evaluation: 08:02 - Subjective Subjective: Medicine Progress Note for Dr. Ceballos: Pt seen and examined at bedside. No acute overnight events. Pt states that breathing has improved. Pt prefers home CPAP to hospital provided one. Pt denies CP, SOB, n/v/d, abdominal pain, fever, chills, THEODORE, and dizziness. Objective - Vital Signs/Intake and Output Vital Signs (last 24 hours): Temp Pulse Resp BP Pulse Ox 97.8 F 86 19 154/97 H 98 06/11/17 05:23 06/11/17 05:23 06/11/17 05:23 06/11/17 05:23 06/11/17 05:23 Intake and Output: 06/11/17 06/11/17 06:59 18:59 Intake Total 120 Output Total 0 Balance 120 - Medications Medications: Current Medications Acetylcysteine (Acetylcysteine 20%) 4 ml IH [id number] [facility] Last Admin: 06/11/17 07:15 Dose: Not Given Arformoterol Tartrate (Brovana) 15 mcg IH [id number] [facility] Last Admin: 06/11/17 07:15 Dose: 15 mcg Aspirin (Ecotrin) 81 mg PO DAILY [facility] Last Admin: 06/10/17 06:35 Dose: 81 mg Atorvastatin Calcium (Lipitor) 40 mg PO HS [facility] Last Admin: 06/10/17 22:05 Dose: 40 mg Benzonatate (Tessalon Perles) 200 mg PO TID [facility] Last Admin: 06/10/17 17:37 Dose: 200 mg Budesonide (Pulmicort Respules) 0.5 mg IH [id number] [facility] Last Admin: 06/11/17 07:15 Dose: 0.5 mg Clonidine HCl (Catapres-Tts3 0.3 Mg/24 Hr) 1 patch TD FRI [facility] Clopidogrel Bisulfate (Plavix) 75 mg PO DAILY [facility] Last Admin: 06/10/17 06:35 Dose: 75 mg Cyanocobalamin (Vitamin B12 1000 Mcg/Ml Inj) 1,000 mcg IM DAILY [facility] Stop: 06/11/17 10:01 Last Admin: 06/10/17 09:46 Dose: 1,000 mcg Docusate Sodium (Colace) 100 mg PO TID [facility] Last Admin: 06/10/17 17:38 Dose: 100 mg Ergocalciferol (Drisdol 50,000 Intl Units Cap) 1 cap PO 2XW [facility] Folic Acid (Folic Acid) 1 mg PO DAILY [facility] Last Admin: 06/10/17 09:45 Dose: 1 mg Iron Sucrose 200 mg/ Sodium (Chloride) 110 mls @ 110 mls/hr IVPB DAILY [facility] Stop: 06/11/17 10:59 Last Admin: 06/10/17 09:46 Dose: 110 mls/hr Levalbuterol HCl (Xopenex) 0.63 mg IH [id number] [facility] Last Admin: 06/11/17 07:15 Dose: 0.63 mg Magnesium Oxide (Mag-Ox) 400 mg PO BID [facility] Last Admin: 06/10/17 17:38 Dose: 400 mg Methylprednisolone (Solu-Medrol) 20 mg IVP Q8H [facility] Last Admin: 06/10/17 23:32 Dose: Not Given Non-Formulary Medication (Ranolazine [Ranexa]) 500 mg PO DAILY [facility] Last Admin: 06/10/17 10:00 Dose: Not Given Non-Formulary Medication (Terazosin [Hytrin]) 2 mg PO HS [facility] Last Admin: 06/11/17 03:32 Dose: Not Given Pantoprazole Sodium (Protonix Ec Tab) 20 mg PO 0600,1600 [facility] Last Admin: 06/11/17 05:10 Dose: 20 mg Polyethylene Glycol (Miralax) 17 gm PO DAILY [facility] Last Admin: 06/10/17 09:53 Dose: 17 gm Valsartan (Diovan) 320 mg PO DAILY [facility] Last Admin: 06/10/17 09:46 Dose: 320 mg - Labs Labs: 06/11/17 06:30 06/11/17 06:30 PT 12.1 SECONDS (9.4-12.5) 06/08/17 14:08 INR 1.06 (0.93-1.08) 06/08/17 14:08 APTT 29.1 Seconds (25.1-36.5) 06/08/17 14:08 - Constitutional Appears: No Acute Distress - Head Exam Head Exam: NORMAL INSPECTION - Eye Exam Eye Exam: Normal appearance - ENT Exam ENT Exam: Normal Exam - Neck Exam Neck Exam: Normal Inspection - Respiratory Exam Respiratory Exam: Clear to Ausculation Bilateral. absent: Rales, Rhonchi, Wheezes - Cardiovascular Exam Cardiovascular Exam: RRR, +S1, +S2. absent: Gallop, Rubs, Murmur - GI/Abdominal Exam GI & Abdominal Exam: Soft. absent: Distended, Guarding, Tenderness, Rebound - Extremities Exam Extremities Exam: Normal Inspection - Back Exam Back Exam: NORMAL INSPECTION - Neurological Exam Neurological Exam: Alert, Awake, Oriented x3 - Psychiatric Exam Psychiatric exam: Normal Affect, Normal Mood - Skin Skin Exam: Dry, Intact, Normal Color, Warm Assessment and Plan - Assessment and Plan (Free Text) Assessment: 56 yo M admitted for evaluation and treatment for progressive dyspnea with h/o sarcoidosis. Plan: 1. Dyspnea with h/o sarcoidosis - ABG showed normal pH with some hypoxia (lactate 1.7) - CXR showed chronic interstitial infiltrate - Chest CT showed stable findings suggestive of sarcoidosis: chronic cystic and bronchiectatic changes in lungs bilaterally, possible pulm HTN - Decrease Solumedrol to 20mg Q8H - Colace 100 mg TID - Mucormyst, Brovana, Tessalon perles, pulmicort, Xopenex - Cont CPAP 2. CAD - D/c tele - Cardio consulted Cardiac cath showed patent stent in RCA, 50% stenosis of OM1 and distal LAD, medical therapy indicated - Echo showed EF 66.35, dilated RA, mild to moderate pulm HTN, LVH, mild TR - Troponin negative x4, BNP WNL - Thyroid panel WNL - A1c 6.0 - ASA 81 - Lipitor, Plavix, Lasix, Ranexa 3. Anemia - Likely 2/2 iron deficiency Fe 16, TIBC 390, %sat 4 - B12, folate WNL 4. HTN - Clonidine patch, Diovan 5. H/o Prostate CA - PSA WNL - Terazosin GI/DVT PPx - Protonix - AE hose, SCD Pt discussed in detail with Dr. Ceballos. Paresh Patterson, PGY1
[2017-06-11 08:32] LABS: BILIRUBIN,DIRECT 0.1 mg/dL (0.0-0.4)
[2017-06-11] MEDS: MethylPREDNISolone 40 mg Vial IVP SCH ×3 (08:53→22:02)
[2017-06-11] MEDS ORDERED: Ergocalciferol 50,000 Intl Units Cap PO SCH (10:00)
--- NOTE | 2017-06-11 10:16 | CARD ---
APPROVED REPORT EKG Measurement Heart [id number] <Conclusion> Normal sinus rhythm RVCD No change
[2017-06-11] MEDS: Non Formulary Medication (Ranolazine [Ranexa] 500 MG) PO SCH (10:27)
[2017-06-11] MEDS: POLYETHYLENE GLYCOL 3350 17 GM/Dose PACKET PO SCH (10:28)
[2017-06-11] MEDS: Magnesium Oxide 400 mg Tab UD PO SCH ×2 (10:32→18:06)
--- NOTE | 2017-06-11 12:28 | PN ---
DATE: 06/11/2017 SUBJECTIVE: The patient is seen in room 266, bed 2. The patient is sitting up in the bed. The patient is alert, awake, responsive. Overnight nurse's notes were reviewed. The patient was without any adverse event overnight. The patient tolerated post cardiac catheterization protocol. Right groin site was intact. PHYSICAL EXAMINATION: VITAL SIGNS: T-max 97.8; telemetry normal sinus rhythm, heart rate 65, 66, 79, 86; blood pressure is 154/97, 154/89, 128/73, 136/77; respirations 19; O2 sat on nasal cannula 98%. HEENT: Head examination normocephalic, atraumatic. HEENT examination shows pinkish pale conjunctivae. Anicteric sclerae. No oropharyngeal lesion. No neck rigidity. CHEST: Kyphosis. LUNGS: As mentioned, shows improved air entry as compared to day of admission. No wheezing, rhonchi, crackles, rales. CARDIOVASCULAR: S1, S2, regular rhythm. ABDOMEN: Protuberant, obese. Positive bowel sound. GENITALIA: Male. RECTAL: Deferred. EXTREMITY: Shows complete resolution of the pitting edema of the lower extremity. No ankle swelling. MUSCULOSKELETAL: Shows a body mass index of 37. Gait examination is not tested. Right groin examination is intact. DIAGNOSTICS: From 06/11/2017, WBC 12.0, hemoglobin and hematocrit 10.4 and 35, platelets 241. Granulocytes 87% segs. Sodium 144, potassium 4.6, chloride 105, CO2 of 33, anion gap 10, BUN 30, creatinine 1.2, GFR greater than 60, glucose 116, calcium 8.8, magnesium 2.6. LFTs are normal. Influenza serologies negative. Microbiology is negative. The patient's cardiac catheterization official report is available, which is reviewed. IMPRESSION AND PLAN: 1. 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 2. Status post cardiac catheterization. 3. Left ventricular ejection fraction of 70% on cardiac catheterization. 4. Patent stent in the mid right coronary artery. 5. 50% stenosis of the distal left anterior descending artery with diffuse atherosclerosis. 6. 50-60% stenosis of the proximal obtuse marginal 1 artery. 7. Morbid obesity with elevated body mass index of 37.4. 8. Bilateral lower extremity venous stasis (resolved). 9. Hypertension. 10. Moderate pulmonary arterial hypertension with tricuspid regurgitation. 11. Mildly dilated left atrium. 12. Concentric left ventricular hypertrophy. 13. Thickened aortic and mitral valve. 14. Normocytic anemia. 15. Elevated erythrocyte sedimentation rate of 45. 16. Granulocytosis. 17. Transient lactic acidosis. 18. History of iron-deficiency anemia and vitamin B12 deficiency. 19. Elevated C-reactive protein of greater than 10. 20. Hyperglycemia with prediabetes and hemoglobin A1c of 6.0. 21. Right ventricular conduction delay versus incomplete right bundle-branch block. 22. Morbid obesity. 23. History of coronary artery disease, history of code heart, history of angioplasty and stent placement. 24. Constipation. 25. Hypovitaminosis D. 26. Hyperlipidemia. 27. Hypomagnesemia. 1. Status post cardiac catheterization. 2. Patent right coronary artery stent with 50% obtuse marginal 1 lesion. 3. Acute exacerbation of oxygen-dependent interstitial lung disease and pulmonary fibrosis and possible stage III versus stage IV sarcoidosis. 4. Morbid obesity with elevated body mass index of 38.5. 5. Leukocytosis and granulocytosis, probably reactive secondary to intravenous steroids. 6. Elevated ESR of 45. 7. Lactic acidosis. 8. Prerenal kidney injury with underlying chronic kidney disease stage 3. 9. Prediabetes with hyperglycemia and hemoglobin A1c of 6.0. 10. Elevated C-reactive protein. 11. Iron-deficiency anemia. 12. Status post cardiac catheterization. 13. Incomplete right bundle-branch block versus right ventricular conduction delay. 1. Acute exacerbation of oxygen-dependent interstitial lung disease and pulmonary fibrosis with history of possible stage III versus stage IV sarcoidosis. 2. Tachycardia. 3. Hypoxemia. 4. Hypertension. 5. Normocytic iron-deficiency anemia with granulocytosis. 6. History of vitamin B12 deficiency. 7. Lactic acidosis. 8. Steroid-induced hyperglycemia with prediabetes and hemoglobin A1c of 6.0. 9. Elevated C-reactive protein. 10. Decreased thyroid stimulating hormone level. 11. Questionable incomplete right bundle-branch block versus right ventricular conduction delay. 12. Left ventricular ejection fraction of 66%. 13. Moderate pulmonary arterial hypertension with right ventricular systolic pressure of 52 mmHg. 14. Mild tricuspid regurgitation. 15. Exertional angina. 16. History of coronary artery disease, history of code heart and history of old inferior wall myocardial infarction. 17. Morbid obesity with elevated body mass index of 39. 18. Bilateral lower extremity venous stasis. 19. Right-sided diastolic congestive heart failure with pulmonary arterial hypertension and elevated right ventricular systolic pressure. 20. History of prostate carcinoma status post prostatectomy. 21. Questionable incomplete right bundle-branch block versus right ventricular conduction delay. 22. Hypovitaminosis D. 23. Iron deficiency. 24. Hypokalemia. 25. Dyslipidemia. 26. Hypomagnesemia. 27. Constipation. 28. Angina pectoris. 29. Prostatic hypertrophy. 1. Acute exacerbation of interstitial lung disease and pulmonary fibrosis with history of possible stage III versus stage IV sarcoidosis. 2. Tachycardia. 3. Hypoxemia. 4. Morbid obesity with the elevated body mass index of 38. 5. Vitamin B deficient. 5. History of iron deficiency anemia. 6. Vitamin B12 deficiency. 7. Bilateral lower extremity venous stasis. 8. Lactic acidosis. 9. Hypokalemia. 10. Morbid obesity. 11. Bilateral pulmonary cystic and bronchiectatic changes of the lungs, right more than the left with upper lobe predominance, including right upper lobe with extensive cystic changes. 12. Left lower lobe density with scarring. 13. Cardiomegaly with coronary artery calcification. 14. Pulmonary hypertension. 15. Mediastinal lymphadenopathy. 16. Non-obstructing left nephrolithiasis. 17. Oxygen-dependent sarcoidosis. 18. Sinus tachycardia with possible incomplete right bundle-branch block. 19. Hypokalemia. 20. Normocytic iron-deficiency anemia with history of vitamin B12 deficiency. Plan at this time, the patient's steroid, Solu-Medrol will be tapered down to 20 mg IV q. 8. The patient will be continued on Mucomyst nebulizer. The patient's case was referred to [employer]. The patient was recommended discharge plan as home. The patient's current medications: Mucomyst nebulizer 20% 4 mL q. 6 hours with Xopenex nebulizer every 6 hours, Brovana 15 mcg q. 12, clonidine patch 0.3 mg 24 hours, Colace 100 mg three times a day, Diovan 320 mg p.o. daily, Drisdol 50,000 weekly, Ecotrin 81 mg daily, folic acid 1 mg daily. The patient is currently on iron, Venofer 200 mg daily for a total of 3 bags, today will be the last day; Lipitor 40 mg daily; magnesium oxide 400 mg twice a day; MiraLax 17 g p.o. daily; Plavix 75 mg daily; Protonix 40 mg daily; Pulmicort nebulizer 0.5 mg q. 12; Ranexa 500 mg daily; Solu-Medrol decreased to 20 mg IV q. 8; Hytrin 2 mg at bedtime; Tessalon Perles 200 three times a day, Xopenex 0.63 mg every 6 hours; continuous positive airway pressure to be placed at night. Chest physical therapy, oxygen nasal cannula, out of bed. Elevate legs, lower extremity. Occupational therapy, physical therapy ordered. It seems like the patient's antibiotic has been stopped. The patient will be discharged in the very near future once the patient starts improving further. The patient will be considered for discharge very soon. The patient will be discharged once the patient is more stable, possibly in the next 24-48 hours. Dictated and electronically signed, not read. Britton Ceballos MD [facility]
[2017-06-12 00:36] VITALS: RESP 20
[2017-06-12] MEDS: Acetylcysteine 20% Inhal Soln (4ml) IH SCH ×2 (01:37→09:24)
[2017-06-12] MEDS: Levalbuterol 0.63 MG/3 ML Inhal Soln UD IH SCH ×2 (01:38→09:25)
[2017-06-12 05:56] VITALS: BP 148/75; PULSE 76; TEMP 97.8; O2SAT 97
[2017-06-12] MEDS: Pantoprazole 20 mg EC Tab PO SCH (06:27)
[2017-06-12] MEDS: MethylPREDNISolone 40 mg Vial IVP SCH (06:27)
[2017-06-12] MEDS: Arformoterol 15 mcg/2 ml Inh Sol IH SCH (09:24)
[2017-06-12] MEDS: Budesonide 0.5 mg/2 ml Inhal Susp UD IH SCH (09:24)
--- NOTE | 2017-06-13 02:06 | DS ---
FINAL PROGRESS NOTE AND DISCHARGE SUMMARY HISTORY OF PRESENT ILLNESS: The patient was seen in room 266, bed 2. The patient's is at bedside. The patient is seen sitting up in the bed. The patient is alert, awake, responsive. The patient states that his breathing is much significantly improved and he feels that his breathing is beyond the baseline of his. The patient denies any chest pain. Denies shortness of breath. Denies any hemoptysis and denies melena. Overnight nurse's notes were reviewed. The patient slept well without any adverse reaction. PHYSICAL EXAMINATION: VITAL SIGNS: T-max 97.5; heart rate 75; blood pressure 147/93, 148/78; O2 sat 97% on 2-3 L of nasal cannula. HEENT: Head examination normocephalic, atraumatic. HEENT examination shows pinkish pale conjunctivae. Anicteric sclerae. No oropharyngeal lesion. No jugular venous distention. CHEST: Kyphosis. LUNGS: Shows significantly improved air entry. No wheezing, rhonchi, crackles noted. No rales noted. CARDIOVASCULAR: S1, S2. Regular rhythm. Questionable soft systolic murmur, left sternal border, left second intercostal space, right second intercostal space. ABDOMEN: Obese, protuberant. Positive bowel sound. GENITALIA: Male. RECTAL: Deferred. EXTREMITY: Shows very faint swelling of the ankles. No pitting edema noted of the legs. Right groin cardiac catheterization site is intact without any hematoma with positive pulses. Gait examination is independent. The patient was able to ambulate independently without assistance. DIAGNOSTICS: None. MICROBIOLOGY: None. IMAGING: None. The patient was seen by [facility] [facility]. Their recommendation was noted. FINAL IMPRESSION, PLAN AND DISCHARGE DIAGNOSES: 1. Acute exacerbation of interstitial lung disease and pulmonary fibrosis secondary to stage III/stage IV sarcoidosis with severe interstitial lung disease and fibrosis. 2. Hypoxemia. 3. Severe symptomatic acute exacerbation of interstitial lung disease and fibrotic lung disease and acute exacerbation of stage III or stage IV sarcoidosis. 4. Hypertension. 5. Morbid obesity. 6. Steroid-induced leukocytosis. 7. Normocytic anemia. 8. Status post cardiac catheterization. 9. Coronary artery disease. 10. History of right coronary artery angioplasty. 11. Left anterior descending and obtuse marginal 1, 50-60% stenosis. 12. Hypokalemia. 13. Normocytic anemia. 14. Hyperlipidemia. 15. Vitamin B12 deficiency. 16. History of iron deficiency. 17. History of iron-deficiency anemia. 18. Hypercholesteremia. 19. Coronary artery disease. 20. History of myocardial infarction. Plan at this time, the patient was cleared by Cardiology for discharge. The patient is tolerating low-dose steroids. The patient will be discharged home with steroid tapering. The patient will be discharged home on updated revised ambulatory with medication ordered. In addition, the patient will be advised to resume Brovana nebulizer treatment twice a day and Xopenex nebulizer treatment 0.63 mg four times a day and q. 2 hours p.r.n. for shortness of breath. In addition, the patient was given prednisone 40 mg daily for 3 days, 30 mg daily for 3 days, 20 mg daily for 3 days and then 10 mg daily to be maintained. The patient was advised to resume all home medications as per ambulatory orders. Discharge followup with Dr. Ceballos within 1 week. The patient was advised weight loss of about 50 pounds. The patient was advised Cardiology followup, Hematology followup and Gastroenterology followup for evaluation of anemia. The patient was advised strict compliance with diet, medications, increased activity. Time spent in the entire discharge process more than 45 minutes. Dictated and electronically signed, not read. Britton Ceballos MD
== END 2017-06-12 10:03 | disposition home or self-care (01) | DRG 197 ==
LOC: ED 13:42 → ERH 16:39 → 2RNO 18:59
PROVIDERS: ADMIT Internal Medicine; ATTEND Internal Medicine
PROC: 4A023N7 Measurement of Cardiac Sampling and Pressure, Left Heart, Percutaneous Approach (ICD-10-PCS; principal; 2017-06-10)
PROC: B2111ZZ Fluoroscopy of Multiple Coronary Arteries using Low Osmolar Contrast (ICD-10-PCS; 2017-06-10)
PROC: B2151ZZ Fluoroscopy of Left Heart using Low Osmolar Contrast (ICD-10-PCS; 2017-06-10)
DX: D86.0 Sarcoidosis of lung (principal); E87.2 Acidosis; E11.22 Type 2 diabetes mellitus with diabetic chronic kidney disease; E11.65 Type 2 diabetes mellitus with hyperglycemia; E66.01 Morbid (severe) obesity due to excess calories; I07.1 Rheumatic tricuspid insufficiency; I13.0 Hypertensive heart and chronic kidney disease with heart failure and stage 1 through stage 4 chronic kidney disease, or unspecified chronic kidney disease; I50.40 Unspecified combined systolic (congestive) and diastolic (congestive) heart failure; J84.10 Pulmonary fibrosis, unspecified; D50.9 Iron deficiency anemia, unspecified; D72.829 Elevated white blood cell count, unspecified; N18.3 Chronic kidney disease, stage 3 (moderate); E53.8 Deficiency of other specified B group vitamins; E55.9 Vitamin D deficiency, unspecified; E78.00 Pure hypercholesterolemia, unspecified; E78.5 Hyperlipidemia, unspecified; E83.42 Hypomagnesemia; E87.6 Hypokalemia; G47.30 Sleep apnea, unspecified; I25.119 Atherosclerotic heart disease of native coronary artery with unspecified angina pectoris; I25.2 Old myocardial infarction; I27.21 Secondary pulmonary arterial hypertension; I87.8 Other specified disorders of veins; J47.9 Bronchiectasis, uncomplicated; K57.30 Diverticulosis of large intestine without perforation or abscess without bleeding; K59.00 Constipation, unspecified; N20.0 Calculus of kidney; N40.0 Benign prostatic hyperplasia without lower urinary tract symptoms; R09.02 Hypoxemia; T38.0X5A Adverse effect of glucocorticoids and synthetic analogues, initial encounter; Z68.39 Body mass index [BMI] 39.0-39.9, adult; Z79.02 Long term (current) use of antithrombotics/antiplatelets; Z79.82 Long term (current) use of aspirin; Z79.899 Other long term (current) drug therapy; Z85.46 Personal history of malignant neoplasm of prostate; Z87.442 Personal history of urinary calculi; Z90.79 Acquired absence of other genital organ(s); Z95.5 Presence of coronary angioplasty implant and graft; Z99.81 Dependence on supplemental oxygen

== ENCOUNTER 2017-07-26 16:13 | Inpatient (IN) | payer MEDICARE, OTHER ==
[2017-07-26 16:13] VITALS: BMI 38.0
--- NOTE | 2017-07-26 16:51 | ED PDOC ---
Arrival/HPI - General Chief Complaint: Shortness Of Breath Time Seen by Provider: 07/26/17 16:25 - History of Present Illness Narrative History of Present Illness (Text): 07/26/17 16:49 57 yo male, hx of cad s/p stent, sarcoid, presents with sob/cough/right sided cp. cough productive of yellow sputum. recent cardiac cath s/p stent. no fevers , no vomiting, no abd pain. no other complaitns. Past Medical History - Past History Past History: No Previous - Infectious Disease Hx of Infectious Diseases: None - Tetanus Immunization Tetanus Immunization: Unknown - Cardiac Hx Cardiac Disorders: Yes Hx Hypertension: Yes - Pulmonary Hx Respiratory Disorders: Yes Hx Asthma: Yes Hx Sleep Apnea: Yes Other/Comment: sarcoidosis - Neurological Hx Neurological Disorder: No - HEENT Hx HEENT Disorder: No - Renal Hx Renal Disorder: Yes Hx Kidney Stones: Yes - Endocrine/Metabolic Hx Endocrine Disorders: No - Hematological/Oncological Hx Blood Disorders: No - Integumentary Hx Dermatological Disorder: No - Musculoskeletal/Rheumatological Hx Falls: No - Gastrointestinal Hx Gastrointestinal Disorders: Yes - Genitourinary/Gynecological Hx Genitourinary Disorders: No - Psychiatric Hx Emotional Abuse: No Hx Physical Abuse: No Hx Substance Use: No - Surgical History Hx Cardiac Catheterization: Yes Hx Coronary Stent: Yes - Anesthesia Hx Anesthesia Reactions: Yes (DIFFICULTY WAKING UP;SEVERE NAUSEA) Hx Malignant Hyperthermia: No - Suicidal Assessment Feels Threatened In Home Enviroment: No Family/Social History Family/Social History: Unknown Family HX Smoking Status: Never Smoked Hx Alcohol Use: No Hx Substance Use: No Hx Substance Use Treatment: No Allergies/Home Meds Allergies/Adverse Reactions: Allergies No Known Allergies Allergy (Verified 08/16/12 06:19) Home Medications: Home Meds Medication Instructions Recorded Confirmed Albuterol Sulfate [Proair 2 puff IH BID PRN 11/01/15 11/25/16 Respiclick] Amlodipine Besylate [Norvasc] 10 mg PO QAM 11/01/15 11/25/16 Aspirin [Aspirin EC] 81 mg PO DAILY 11/01/15 11/25/16 Benzonatate 200 mg PO TID PRN 11/01/15 11/25/16 Clopidogrel Bisulfate [Plavix] 75 mg PO DAILY 11/01/15 11/25/16 Cyanocobalamin [Vitamin B12 1000 1 ml IM Q30D 11/01/15 11/25/16 mcg/ml Inj] Ergocalciferol (Vitamin D2) 50,000 iu PO 2XW 11/01/15 11/25/16 [Vitamin D2] Folic Acid 1 mg PO DAILY 11/01/15 11/25/16 Linaclotide [Linzess] 145 mcg PO QOTHERDAY 11/01/15 11/25/16 Nebivolol [Bystolic] 5 mg PO HS 11/01/15 11/18/16 Terazosin [Hytrin] 2 mg PO HS 11/01/15 11/18/16 cloNIDine 0.3 mg/24 hr 0.3 mg TD Wed11/01/15 11/18/16 [catapres-TTS3 0.3 mg/24 hr] Potassium Chloride [K-Dur 20 mEq 20 meq PO BID 11/18/16 11/18/16 ER Tab] Valsartan/Hydrochlorothiazide 1 tab PO DAILY 11/18/16 11/18/16 [Valsartan-Hctz 320-25 mg Tab] Hydrocortisone 2.5% (Rectal) 1 appl TX BID 11/25/16 11/25/16 [Anusol-Hc] Review of Systems - Review of Systems Constitutional: Normal Eyes: Normal ENT: Normal Respiratory: SOB, Cough, Sputum Cardiovascular: Normal Gastrointestinal: Normal Genitourinary Male: Normal Musculoskeletal: Normal Skin: Normal Neurological: Normal Endocrine: Normal Hemo/Lymphatic: Normal Psychiatric: Normal Physical Exam Vital Signs Temp Pulse Resp BP Pulse Ox 07/26/17 21:40 98.2 F 82 18 121/81 94 L 07/26/17 20:58 76 18 93 L 07/26/17 17:00 21 07/26/17 16:40 99.7 F H 91 H 26 H 110/65 93 L Temperature: Afebrile Blood Pressure: Normal Pulse: Regular Respiratory Rate: Normal Appearance: Positive for: Well-Appearing, Non-Toxic, Comfortable Pain Distress: None Mental Status: Positive for: Alert and Oriented X 3 - Systems Exam Head: Present: Atraumatic, Normocephalic Pupils: Present: PERRL Extroacular Muscles: Present: EOMI Conjunctiva: Present: Normal Mouth: Present: Moist Mucous Membranes Neck: Present: Normal Range of Motion Respiratory/Chest: Present: Good Air Exchange, Rales (right base). No: Respiratory Distress, Accessory Muscle Use, Wheezes Cardiovascular: Present: Regular Rate and Rhythm, Normal S1, S2. No: Murmurs Abdomen: No: Tenderness, Distention, Peritoneal Signs Back: Present: Normal Inspection Upper Extremity: Present: Normal Inspection. No: Cyanosis, Edema Lower Extremity: Present: Normal Inspection. No: Edema Neurological: Present: GCS=15, CN II-XII Intact, Speech Normal Skin: Present: Warm, Dry, Normal Color. No: Rashes Psychiatric: Present: Alert, Oriented x 3, Normal Insight, Normal Concentration Medical Decision Making ED Course and Treatment: 07/26/17 17:04 ekg nsr 92 incompletet rbbb. 07/27/17 17:55 pt with interstitla lung disese, possible undelrying infiltrate vs chronic interstital changes on cxr. antibiotics, steriods started. accepted by dr koo. - Lab Interpretations Lab Results: 07/26/17 17:30 07/26/17 17:30 Lab Results 07/26/17 17:30: Influenza Typ A,B (EIA) Negative for flu a/b 07/26/17 17:30: Sodium 142, Potassium 4.2, Chloride 100, Carbon Dioxide 33, Anion Gap 13, BUN 21, Creatinine 1.5, Est GFR ( Amer) 58, Est GFR (Non- Af Amer) 48, Random Glucose 194 H, Calcium 9.1, Magnesium 2.3 H, Total Bilirubin 0.3, AST 46, ALT 14, Alkaline Phosphatase 82, Lactate Dehydrogenase 540, Total Creatine Kinase 36, Troponin I < 0.01, NT-Pro-B Natriuret Pep 470 H, Total Protein 6.9, Albumin 3.7, Globulin 3.2, Albumin/Globulin Ratio 1.2 07/26/17 17:30: PT 14.1 H, INR 1.23 H, APTT 28.3 07/26/17 17:30: WBC 9.8, RBC 4.55, Hgb 11.1 L, Hct 35.6 L, MCV 78.2 L, MCH 24.4 L, MCHC 31.2, RDW 17.8 H, Plt Count 288, MPV 10.5, Gran % 88.0 H, Lymph % (Auto ) 5.2 L, [place] % (Auto) 6.5 H, Eos % (Auto) 0.2 L, Baso % (Auto) 0.1, Gran # 8.62 H, Lymph # (Auto) 0.5 L, [place] # (Auto) 0.6, Eos # (Auto) 0.0, Baso # (Auto ) 0.01 - RAD Interpretation Radiology Orders: 07/26/17 16:43 CHEST PORTABLE [RAD] Stat - Medication Orders Current Medication Orders: Acetylcysteine (Acetylcysteine 20%) 4 ml IH [id number] [facility] Last Admin: 07/27/17 13:46 Dose: 4 ml Amlodipine Besylate (Norvasc) 10 mg PO QAM [facility] Last Admin: 07/27/17 10:02 Dose: 10 mg MAR Blood Pressure Document 07/27/17 10:02 (Rec: 07/27/17 10:02 [id number]) Blood Pressure Blood Pressure (100/60-150/90) 131/80 Arformoterol Tartrate (Brovana) 15 mcg IH [id number] [facility] Last Admin: 07/27/17 07:54 Dose: 15 mcg Aspirin (Ecotrin) 81 mg PO DAILY [facility] Last Admin: 07/27/17 10:01 Dose: 81 mg Atorvastatin Calcium (Lipitor) 40 mg PO DIN [facility] Last Admin: 07/27/17 17:17 Dose: 40 mg Benzonatate (Tessalon Perles) 200 mg PO TID [facility] Last Admin: 07/27/17 17:47 Dose: 200 mg Budesonide (Pulmicort Respules) 0.5 mg IH [id number] [facility] Last Admin: 07/27/17 07:54 Dose: 0.5 mg Clonidine HCl (Catapres-Tts3 0.3 Mg/24 Hr) 1 patch TD Q7D@1000 [facility] Clopidogrel Bisulfate (Plavix) 75 mg PO DAILY [facility] Last Admin: 07/27/17 10:01 Dose: 75 mg Cyanocobalamin (Vitamin B12 1000 Mcg/Ml Inj) 1,000 mcg IM Q30D [facility] Last Admin: 07/27/17 10:00 Dose: 1,000 mcg IM Administration Charges Document 07/27/17 10:00 KL (Rec: 07/27/17 10:00 [id number]) Injection Site MAR Injection Site Right Arm Charges for Administration # of IM Administrations 1 Docusate Sodium (Colace) 100 mg PO TID [facility] Last Admin: 07/27/17 17:17 Dose: 100 mg Ergocalciferol (Drisdol 50,000 Intl Units Cap) 1 cap PO 2XW [facility] Last Admin: 07/27/17 10:02 Dose: 1 cap Folic Acid (Folic Acid) 1 mg PO DAILY [facility] Last Admin: 07/27/17 10:01 Dose: 1 mg Hydrocortisone (Anusol-Hc) 0 gm TX BID [facility] Last Admin: 07/27/17 17:18 Dose: Not Given Non-Admin Reason: Patient Refused Doxycycline Hyclate 100 mg/ (Sodium Chloride) 100 mls @ 100 mls/hr IVPB Q12 [facility] PRN Reason: Protocol Last Admin: 07/27/17 08:45 Dose: 100 mls/hr eMAR Start Stop Document 07/27/17 08:45 KL (Rec: 07/27/17 08:45 [place] [facility] [id number] Intravenous Solution Start Date 07/27/17 Start Time 08:45 Cefepime HCl (Maxipime 2gm) 2 gm in 100 mls @ 100 mls/hr IVPB Q12 [facility] PRN Reason: Protocol Stop: 08/01/17 10:01 Last Admin: 07/27/17 13:15 Dose: 100 mls/hr eMAR Start Stop Document 07/27/17 13:15 KL (Rec: 07/27/17 13:15 [place] [facility] [id number][place] Intravenous Solution Start Date 07/27/17 Start Time 13:15 Levalbuterol HCl (Xopenex) 0.63 mg IH [id number] [facility] Last Admin: 07/27/17 13:46 Dose: 0.63 mg Magnesium Oxide (Mag-Ox) 400 mg PO BID [facility] Last Admin: 07/27/17 17:18 Dose: 400 mg Methylprednisolone (Solu-Medrol) 40 mg IVP Q12 [facility] Last Admin: 07/27/17 10:00 Dose: 40 mg IVP Administration Document 07/27/17 10:00 KL (Rec: 07/27/17 10:00 [id number]) Charges for Administration # of IVP Administrations 1 Terazosin [Hytrin] 2 (Mg) 2 mg PO [facility] (Linaclotide [ Linzess] 145 Mcg ( Home Med) 145 mcg PO QOTHERDAY [facility] Last Admin: 07/27/17 10:03 Dose: Ranolazine [Ranexa] (500 Mg (Home Med)) 500 mg PO DAILY [facility] Last Admin: 07/27/17 10:03 Dose: Pantoprazole Sodium (Protonix Ec Tab) 20 mg PO 0600,1600 [facility] Last Admin: 07/27/17 17:18 Dose: 20 mg Polyethylene Glycol (Miralax) 17 gm PO TID [facility] Last Admin: 07/27/17 17:16 Dose: Not Given Non-Admin Reason: Patient Refused Potassium Chloride (K-Dur 20 Meq Er Tab) 20 meq PO BID [facility] Last Admin: 07/27/17 17:17 Dose: 20 meq Discontinued Medications Benzonatate (Tessalon Perles) 100 mg PO TID PRN PRN Reason: Cough Vancomycin HCl (Vancomycin 1gm) 1 gm in 250 mls @ 167 mls/hr IVPB STAT STA PRN Reason: Protocol Stop: 07/26/17 18:30 Last Admin: 07/26/17 19:46 Dose: 167 mls/hr eMAR Start Stop Document 07/26/17 19:46 IT (Rec: 07/26/17 19:46 IT [id number]) Intravenous Solution Start Date 07/26/17 Start Time 19:46 Piperacillin Sod/Tazobactam Sod (Zosyn 3.375 In Ns 100ml) 100 mls @ 200 mls/hr IVPB STAT STA PRN Reason: Protocol Stop: 07/26/17 17:30 Last Admin: 07/26/17 17:09 Dose: 200 mls/hr eMAR Start Stop Document 07/26/17 17:09 OCS (Rec: 07/26/17 17:10 OCS [id number]) Intravenous Solution Start Date 07/26/17 Start Time 17:09 End Date 07/26/17 End time 17:39 Total Infusion Time 30 Magnesium Hydroxide (Milk Of Magnesia) 30 ml PO STAT STA Stop: 07/27/17 10:16 Last Admin: 07/27/17 10:22 Dose: 30 ml Methylprednisolone (Solu-Medrol) 125 mg IVP STAT STA Stop: 07/26/17 17:02 Last Admin: 07/26/17 17:09 Dose: 125 mg IVP Administration Document 07/26/17 17:09 OCS (Rec: 07/26/17 17:09 OCS [id number]) Charges for Administration # of IVP Administrations 1 Pneumococcal Polyvalent Vaccine (Pneumovax 23 Vaccine) 0.5 ml IM .ONCE ONE Stop: 07/27/17 03:49 Disposition/Present on Arrival - Present on Arrival Any Indicators Present on Arrival: No History of DVT/PE: No History of Uncontrolled Diabetes: No Urinary Catheter: No History of Decub. Ulcer: No History Surgical Site Infection Following: None - Disposition Have Diagnosis and Disposition been Completed?: Yes Diagnosis: Interstitial lung disease Disposition: HOSPITALIZED Disposition Time: 05:00 Condition: FAIR
[2017-07-26] MEDS ORDERED: Vancomycin 1gm in NS 250ml 1 GM/250 ML BAG IVPB STA (17:01)
[2017-07-26] MEDS ORDERED: Piperacillin/Tazobact 3.375 gm 100 ML IVPB STA (17:01)
[2017-07-26 17:49] LABS: BASO # 0.01 K/mm3 (0.0-2.0); BASO % 0.1 % (0.0-3.0); EOS % 0.2 % (1.5-5.0); GRAN # 8.62 (1.4-6.5); HEMOGLOBIN 11.1 g/dL (14.0-18.0); LYMPH # 0.5 (1.2-3.4); LYMPH % 5.2 % (22.0-35.0); MEAN CELL VOLUME 78.2 fl (80.0-105.0); MEAN CORPUSCULAR HEMOGLOBIN 24.4 pg (25.0-35.0); MEAN CORPUSCULAR HGB CONC 31.2 g/dl (31.0-37.0); MEAN PLATELET VOLUME 10.5 fl (7.0-11.0); MONO # 0.6 (0.1-0.6); MONO % 6.5 % (1.0-6.0); RBC 4.55 10^6/uL (3.5-6.1); RED CELL DISTRIBUTION WIDTH 17.8 % (11.5-14.5); WHITE BLOOD COUNT 9.8 10^3/ul (4.5-11.0)
[2017-07-26 17:56] LABS: ALB/GLOB RATIO 1.2 (1.1-1.8); ALBUMIN 3.7 g/dL (3.0-4.8); ALT/SGPT 14 U/L (7-56); AST/SGOT 46 U/L (17-59); BLOOD UREA NITROGEN 21 mg/dL (7-21); CALCIUM 9.1 mg/dL (8.4-10.5); GFR AFRICAN-AMERICAN 58; GFR NON-AFRICAN AMERICAN 48
[2017-07-26 18:05] LABS: B-TYPE NATRIURETIC PEPTIDE 470 pg/mL (0-450)
[2017-07-26 18:10] LABS: TROPONIN I < 0.01 ng/mL
[2017-07-26 18:30] LABS: INR 1.23 (0.93-1.08); PARTIAL THROMBOPLASTIN TIME 28.3 Seconds (25.1-36.5); PROTHROMBIN TIME 14.1 SECONDS (9.4-12.5)
--- NOTE | 2017-07-26 18:53 | RAD ---
HISTORY: Shortness of breath COMPARISON: 06/08/2017. FINDINGS: LUNGS: Again seen are cystic changes/bronchiectasis in the lungs, worse in the right lung. PLEURA: No significant pleural effusion identified, no pneumothorax apparent. CARDIOVASCULAR: The cardiomediastinal silhouette is stable with mild cardiomegaly. OSSEOUS STRUCTURES: No significant abnormalities. VISUALIZED UPPER ABDOMEN: Normal. OTHER FINDINGS: None. IMPRESSION: Stable cystic changes/bronchiectasis in the lungs, worse on the right. No acute findings.
[2017-07-26] MEDS ORDERED: TERAZOSIN 2 MG PO SCH (22:00)
[2017-07-26] MEDS: MethylPREDNISolone 40 mg Vial IVP SCH (23:03)
[2017-07-27] MEDS ORDERED: Pneumococcal 23-Valent Vaccine IM ONE (03:48)
--- NOTE | 2017-07-27 06:11 | HP ---
HISTORY OF PRESENT ILLNESS: The patient is a 57-year-old man. He was seen in the emergency room with shortness of breath, cough, and patient also has a history of recent constipation, and patient has past history of chronic constipation also. Patient has shortness of breath and patient was evaluated in the emergency room by the emergency room physician. PAST MEDICAL HISTORY: Patient's past history is significant. Patient has history of chronic lung disease from sarcoidosis. Patient also has history of coronary artery disease, has one stent placed. Patient is on Ranexa for unstable angina. Patient also takes medication for blood pressure, constipation. Patient is on medications for chronic obstructive lung disease and bronchiectasis. MEDICATIONS: Patient's list of medication is broad. He does have multiple medicines for blood pressure, multiple medications for chronic lung disease, and medications for hyperlipidemia. PHYSICAL EXAMINATION: GENERAL: He is comfortable. He has treatment in the emergency room and he is breathing well. VITAL SIGNS: The pulse is 91, blood pressure was 110/65, respirations are 26 per minute. The patient's temperature is 99.7. Blood cultures were taken in the emergency room. Patient was started on antibiotics by the emergency room physician. Vancomycin and Zosyn were given to the patient for pulmonary infection. LUNGS: Bilateral rhonchi and crepitations are heard. HEART: Normal sinus rhythm. Sinus tachycardia. ABDOMEN: Soft. Liver and spleen not palpable. No ascites. No masses. CENTRAL NERVOUS SYSTEM: Conscious, rational, oriented. No focal deficit. LABORATORY DATA: Patient's blood work done in the emergency room shows a white count of 9800, hemoglobin of 11.1. Patient's differential shows shift to the left with 88% granulocytes. Patient also has 8.6% toxic granulocytes. Chemistry: Patient's sodium is 142, patient's glucose is 194, magnesium is 2.3, patient's BNP is . Patient was treated with respiratory treatment in the emergency room. Oxygen was given. Antibiotic was given. Patient is admitted for further management and further evaluation of the clinical condition. Patient will be seen by Infectious Disease furniture sales consultant and followup care for pulmonary condition will be done with a stock checker of choice by Dr. Ceballos in the a.m. The patient's medications at this time, patient is on Brovana 15 mcg every 12 hours by inhalation therapy. Patient gets clonidine patch 0.3 mg TTS-3 once a week. Patient will get Colace for constipation, aspirin 81 mg daily, folic acid 1 mg daily, potassium chloride 20 mEq b.i.d., Lipitor 40 mg daily, methylprednisolone 40 mg every 12 hours. Patient will be getting Tessalon 100 mg t.i.d. for cough, and patient will get medications for blood pressure. The patient was on Norvasc. We will introduce that. Patient is also getting bisoprolol, but we will hold that medicine right now. The patient's blood pressure seemed to be very reasonably controlled. Patient's clinical condition is acute. We will provide current therapy plan, then followup with aftercare. Jeyson Livingston MD
[2017-07-27 07:00] LABS: GRAN # 8.83 (1.4-6.5); GRAN % 89.2 % (50.0-68.0); HEMOGLOBIN 11.9 g/dL (14.0-18.0); LYMPH # 0.8 (1.2-3.4); LYMPH % 7.7 % (22.0-35.0); MEAN CELL VOLUME 77.8 fl (80.0-105.0); MEAN CORPUSCULAR HEMOGLOBIN 24.3 pg (25.0-35.0); MEAN CORPUSCULAR HGB CONC 31.2 g/dl (31.0-37.0); MEAN PLATELET VOLUME 10.1 fl (7.0-11.0); MONO # 0.3 (0.1-0.6); MONO % 3.1 % (1.0-6.0); RBC 4.9 10^6/uL (3.5-6.1); RED CELL DISTRIBUTION WIDTH 17.9 % (11.5-14.5); WHITE BLOOD COUNT 9.9 10^3/ul (4.5-11.0)
[2017-07-27 07:45] LABS: ALB/GLOB RATIO 1.2 (1.1-1.8); ALBUMIN 4.3 g/dL (3.0-4.8); CALCIUM 9.3 mg/dL (8.4-10.5)
[2017-07-27] MEDS: Arformoterol 15 mcg/2 ml Inh Sol IH SCH ×2 (07:54→19:31)
[2017-07-27] MEDS: Levalbuterol 0.63 MG/3 ML Inhal Soln UD IH SCH ×3 (07:54→19:31)
[2017-07-27] MEDS: Budesonide 0.5 mg/2 ml Inhal Susp UD IH SCH ×2 (07:54→19:31)
[2017-07-27] MEDS: Acetylcysteine 20% Inhal Soln (4ml) IH SCH ×3 (07:55→19:30)
[2017-07-27] MEDS ORDERED: cefTRIAXone 2 GM IN NS 2 GM/100 ML BAG IVPB SCH (08:00)
[2017-07-27] MEDS: Pantoprazole 20 mg EC Tab PO SCH ×2 (08:45→17:18)
[2017-07-27] MEDS ORDERED: Ergocalciferol 50,000 Intl Units Cap PO SCH (10:00)
[2017-07-27] MEDS ORDERED: POLYETHYLENE GLYCOL 3350 17 GM/Dose PACKET PO SCH (10:00)
[2017-07-27] MEDS: MethylPREDNISolone 40 mg Vial IVP SCH ×2 (10:00→21:07)
[2017-07-27] MEDS: Potassium Chloride 20 mEq ER Tab PO SCH ×2 (10:01→17:17)
[2017-07-27] MEDS: POLYETHYLENE GLYCOL 3350 17 GM/Dose PACKET PO SCH ×3 (10:01→17:16)
[2017-07-27] MEDS: Magnesium Oxide 400 mg Tab UD PO SCH ×2 (10:01→17:18)
[2017-07-27] MEDS: Ranolazine [Ranexa] 500 MG (HOME MED) PO SCH (10:03)
[2017-07-27] MEDS: Hydrocortisone 2.5% Rectal Cream(30 gm) PR SCH ×2 (10:03→17:18)
[2017-07-27] MEDS: LINACLOTIDE 145 MCG PO SCH (10:03)
[2017-07-27] MEDS ORDERED: Magnesium Hydroxide Susp 30 ml UD PO STA (10:15)
--- NOTE | 2017-07-27 12:55 | CP.PCM.CON ---
History of Present Illness - History of Present Illness History of Present Illness: 57 year old male with PMH of sarcoidosis, oxygen dependence at home, prostate cancer, CAD S/P PCI, HTN, dyslipidemia, obesity with BMI 34 came in to [facility] complaining of shortness of breath at rest and dyspnea on exertion, which started 4 days ago, and has been worsening. He also has been having productive cough with yellowish phlegm. He denies sick contacts but has been in the hospital last month. He denies fever but has chills, no headache or dizziness, no nausea or vomiting, no chest pain, no rhinorrhea, no sore throat, no abdominal pain, no diarrhea, no dysuria. CXR is showing cystic changes and chronic bronchiectasis. Infectious diseases consult is requested to further evaluate and manage. Review of Systems - Review of Systems All systems: reviewed and no additional remarkable complaints except (as per HPI ) Past Patient History - Infectious Disease Hx of Infectious Diseases: None - Tetanus Immunizations Tetanus Immunization: Unknown - Past Social History Smoking Status: Former Smoker - CARDIAC Hx Cardiac Disorders: Yes Hx Hypertension: Yes - PULMONARY Hx Respiratory Disorders: Yes Hx Asthma: Yes Hx Sleep Apnea: Yes Other/Comment: sarcoidosis - NEUROLOGICAL Hx Neurological Disorder: No - HEENT Hx HEENT Problems: No - RENAL Hx Chronic Kidney Disease: Yes Hx Kidney Stones: Yes - ENDOCRINE/METABOLIC Hx Endocrine Disorders: No - HEMATOLOGICAL/ONCOLOGICAL Hx Blood Disorders: No - INTEGUMENTARY Hx Dermatological Problems: No - MUSCULOSKELETAL/RHEUMATOLOGICAL Hx Falls: No - GASTROINTESTINAL Hx Gastrointestinal Disorders: Yes - GENITOURINARY/GYNECOLOGICAL Hx Genitourinary Disorders: No - PSYCHIATRIC Hx Emotional Abuse: No Hx Physical Abuse: No Hx Substance Use: Yes - SURGICAL HISTORY Hx Amputation: No Hx Appendectomy: No Hx Cardiac Catheterization: Yes Hx Cholecystectomy: No Hx Coronary Stent: Yes Hx Gastric Bypass Surgery: No Hx Hysterectomy: No Hx Joint Replacement: No Hx Kidney Transplant: No Hx Liver Transplant: No Hx Mastectomy: No Hx Open Heart Surgery: No Hx Orthopedic Surgery: No Hx Splenectomy: No Hx Valve Replacement: No - ANESTHESIA Hx Anesthesia Reactions: Yes (DIFFICULTY WAKING UP;SEVERE NAUSEA) Hx Malignant Hyperthermia: No Meds Allergies/Adverse Reactions: Allergies Allergy/AdvReac Type Severity Reaction Status Date / Time No Known Allergies Allergy Verified 08/16/12 06:19 - Medications Medications: Current Medications Acetylcysteine (Acetylcysteine 20%) 4 ml IH [id number] [facility] Amlodipine Besylate (Norvasc) 10 mg PO QAM [facility] Arformoterol Tartrate (Brovana) 15 mcg IH [id number] [facility] Aspirin (Ecotrin) 81 mg PO DAILY [facility] Atorvastatin Calcium (Lipitor) 40 mg PO DIN [facility] Benzonatate (Tessalon Perles) 100 mg PO TID PRN PRN Reason: Cough Budesonide (Pulmicort Respules) 0.5 mg IH [id number] [facility] Clonidine HCl (Catapres-Tts3 0.3 Mg/24 Hr) 1 patch TD Q7D@1000 [facility] Clopidogrel Bisulfate (Plavix) 75 mg PO DAILY [facility] Cyanocobalamin (Vitamin B12 1000 Mcg/Ml Inj) mcg IM Q30D [facility] Docusate Sodium (Colace) 100 mg PO TID [facility] Ergocalciferol (Drisdol 50,000 Intl Units Cap) cap PO 2XW [facility] Folic Acid (Folic Acid) 1 mg PO DAILY [facility] Hydrocortisone (Anusol-Hc) gm MO BID [facility] Doxycycline Hyclate 100 mg/ (Sodium Chloride) 100 mls @ 100 mls/hr IVPB Q12 [facility] PRN Reason: Protocol Ceftriaxone Sodium (Rocephin 2 Gm Ivpb) 2 gm in 100 mls @ 100 mls/hr IVPB DAILY [facility] PRN Reason: Protocol Levalbuterol HCl (Xopenex) 0.63 mg IH Q2CFUOD [facility] Magnesium Oxide (Mag-Ox) 400 mg PO BID [facility] Methylprednisolone (Solu-Medrol) 40 mg IVP Q12 [facility] Last Admin: 07/26/17 23:03 Dose: 40 mg Non-Formulary Medication (Terazosin [Hytrin]) 2 mg PO HS [facility] Non-Formulary Medication (Linaclotide [Linzess]) 145 mcg PO QOTHERDAY [facility] Non-Formulary Medication (Ranolazine [Ranexa]) 500 mg PO DAILY [facility] Non-Formulary Medication (Valsartan/Hydrochlorothiazide [Valsartan-Hctz 320-25 Mg Tab]) 1 tab PO DAILY [facility] Pantoprazole Sodium (Protonix Ec Tab) 20 mg PO 0600,1600 [facility] Polyethylene Glycol (Miralax) 17 gm PO DAILY [facility] Potassium Chloride (K-Dur 20 Meq Er Tab) 20 meq PO BID [facility] Physical Exam - Constitutional Appears: Non-toxic, Chronically Ill - Head Exam Head Exam: NORMAL INSPECTION - ENT Exam ENT Exam: Mucous Membranes Moist - Neck Exam Neck exam: Negative for: Lymphadenopathy, Meningismus - Respiratory Exam Respiratory Exam: Rales (scattered) - Cardiovascular Exam Cardiovascular Exam: +S1, +S2 - GI/Abdominal Exam GI & Abdominal Exam: Soft. absent: Tenderness Results - Vital Signs Recent Vital Signs: Last Vital Signs Temp 98.8 F 07/27/17 00:01 Pulse 67 07/27/17 02:00 Resp 20 07/27/17 00:01 BP 124/74 07/27/17 00:01 Pulse Ox 95 07/27/17 00:01 - Labs Result Diagrams: 07/27/17 05:30 07/27/17 05:30 Assessment & Plan - Assessment and Plan (Free Text) Plan: Assessment consider lower respiratory tract infection, acute, in this patient with chronic bronchiectasis sarcoidosis, oxygen dependence at home prostate cancer CAD S/P PCI HTN dyslipidemia obesity with BMI 34 Plan Started the patient on a dose of IV Vancomycin and started Cefepime and Doxycycline pending blood, sputum cx, PCT; reviewed CXR will monitor clinically
[2017-07-27] MEDS: Cefepime IV 2 gm in NS 2 GM/100 ML BAG IVPB SCH ×2 (13:15→21:07)
--- NOTE | 2017-07-27 19:08 | CARD ---
APPROVED REPORT EKG Measurement Heart [id number] <Conclusion> Normal sinus rhythm Possible Left atrial enlargement Incomplete right bundle branch block Borderline ECG
--- NOTE | 2017-07-27 19:50 | PN ---
DATE: 07/27/2017 LOCATION: The patient is seen in room 268, bed 1. SUBJECTIVE: The patient is lying in the bed. The patient states that his breathing is better, but complaining of constipation. Overnight nurse's notes were reviewed. The patient is requesting to use CPAP from home, which was placed at CPAP of 12. The patient denies any chest pain. PHYSICAL EXAMINATION: VITAL SIGNS: T-max in the last 24 hour 98.8, telemetry shows sinus rhythm, heart rate 70, 77, 67, blood pressure in the last 24 hours, 127/78, 131/80, 121/81, 124/74, O2 sat is averaging 93-95% on oxygen nasal cannula 3 liters per minute. HEENT: Head: Normocephalic, atraumatic. HEENT examination shows pinkish conjunctivae. Anicteric sclerae. No oropharyngeal lesion. No neck rigidity. CHEST: Kyphosis. LUNGS: Shows decreasing rhonchi with decreasing wheezing. CARDIOVASCULAR: S1 and S2, regular rhythm. Questionable soft systolic murmur, left sternal border, right second intercostal space. ABDOMEN: Protuberant. Positive bowel sounds. No hepatosplenomegaly noted. GENITALIA: Male. RECTAL: Deferred. EXTREMITIES: Shows trace swelling of the lower extremity. No pitting edema, no calf tenderness, no Homans' signs. NEUROLOGICAL: The patient is alert, awake and oriented x3. Cranial nerves II through XII intact. MUSCULOSKELETAL: Shows a body mass index of 34. Motor strength is 5/5 in upper and lower extremity. Gait examination is not tested. VASCULAR: Palpable pulses. DIAGNOSTIC DATA: On July 27, hemoglobin and hematocrit 11.9 and 38.1, MCV 77.8, platelets 301. Chemistry: Significant for BUN 30, creatinine 1.8, glucose 144. Rest of the chemistry is normal. Procalcitonin level 0.12. Influenza serology negative. The patient's chest x-ray was reviewed. EKG was reviewed. IMPRESSION: 1. Acute exacerbation of sarcoidosis with symptoms of shortness of breath and cough. 2. Constipation. 3. Hypoxemia oxygen-dependent. 4. History of sleep apnea, continuous positive airway pressure dependent. 5. Bronchiectasis versus acute exacerbation of bronchiectasis. 6. Hypertension. 7. Hypoxemia. 8. Microcytic anemia. 9. Granulocytosis. 10. Acute kidney injury. 11. Hyperglycemia. 12. Bilateral cystic and bronchiectasis of the lungs, right more than the left. 13. Mild cardiomegaly. 14. Incomplete right bundle-branch block. 15. Obesity. 16. Constipation. 17. History of coronary artery disease and history of myocardial infarction and angioplasty. 18. Deconditioning. 19. Hypovitaminosis D. 20. Hyperlipidemia. 21. Hypomagnesemia. 22. Hypertension. 23. History of coronary artery disease. 24. History of vitamin B12 deficiency. PLAN AT THIS TIME: The patient is to be continued to be monitored on telemetry. The patient has been ordered repeat labs, CMP, lipid panel, vitamin D and B12. Blood cultures are received. Sputum cultures are still pending. Consultation Cardiology regarding need for continuation of Plavix, Infectious Disease. The patient's case referred to TCU. The patient was started on Xopenex nebulizer plus Mucomyst nebulizer 20% every 6 hours, Anusol suppository per rectum twice a day, Brovana nebulizer 15 mcg every 12, clonidine TTS patch 0.3 mg weekly, Colace 100 three times a day, Vibramycin 100 mg twice a day, Drisdol 50,000 units twice a week, aspirin 81 mg daily, folic acid 1 mg daily, K-Dur 20 mEq twice a day, Linzess 145 mcg every other day, Lipitor 40 mg daily, magnesium oxide 400 twice a day, cefepime 2 g IV every 12. The patient was given a stat dose of milk of magnesia 30 mL, MiraLax 17 g three times a day, Norvasc 10 mg daily, Plavix 75 daily till further recommendation by Cardiology whether we can discontinue or continue it, Protonix 40 mg daily. The patient is to be resumed on Pulmicort 0.5 every 12, Ranexa 500 daily. The patient is on Solu-Medrol 40 mg IV every 12, which will be considered to decrease by tomorrow, Hytrin 2 mg at bedtime, Tessalon Perles 200 mg three times a day. The patient has also been ordered vitamin B12 1000 mcg monthly. The patient received in the ER Zosyn 3.375 yesterday, vancomycin 1 g in the emergency room yesterday. The patient has been ordered chest PT, CPAP ordered at 12. The patient has been ordered heart-healthy diet, KEVIN stockings, SCDs, occupational therapy, physical therapy ordered. At present, the patient's further management will be dependent upon the patient's clinical condition, hemodynamic status and as per the patient's response to therapeutic intervention, as per the patient's diagnostic test results and as per recommendation by Cardiology and Infectious Disease. Dictated and electronically signed, not read. Britton Ceballos MD
[2017-07-28] MEDS: Levalbuterol 0.63 MG/3 ML Inhal Soln UD IH SCH ×4 (01:07→20:21)
[2017-07-28] MEDS: Acetylcysteine 20% Inhal Soln (4ml) IH SCH ×4 (01:07→20:21)
[2017-07-28] MEDS: Pantoprazole 20 mg EC Tab PO SCH ×2 (05:39→16:38)
[2017-07-28 07:04] LABS: LDL CHOLESTEROL 84 mg/dL (0-129)
[2017-07-28 07:07] LABS: ALB/GLOB RATIO 1.1 (1.1-1.8); ALT/SGPT 26 U/L (7-56); AST/SGOT 28 U/L (17-59); BLOOD UREA NITROGEN 44 mg/dL (7-21); CALCIUM 9.7 mg/dL (8.4-10.5); GFR AFRICAN-AMERICAN 44; GFR NON-AFRICAN AMERICAN 36; HDL CHOLESTEROL 42 mg/dL (29-60)
[2017-07-28] MEDS: Arformoterol 15 mcg/2 ml Inh Sol IH SCH ×2 (07:18→20:21)
[2017-07-28] MEDS: Budesonide 0.5 mg/2 ml Inhal Susp UD IH SCH ×2 (07:18→20:21)
[2017-07-28] MEDS: MethylPREDNISolone 40 mg Vial IVP SCH ×3 (08:21→21:27)
[2017-07-28] MEDS ORDERED: Sodium Chloride 0.9% 1,000 ML IV SCH (09:45)
[2017-07-28] MEDS: Magnesium Oxide 400 mg Tab UD PO SCH ×2 (09:50→18:11)
[2017-07-28] MEDS: Potassium Chloride 20 mEq ER Tab PO SCH ×2 (09:51→18:11)
[2017-07-28] MEDS: POLYETHYLENE GLYCOL 3350 17 GM/Dose PACKET PO SCH ×3 (09:51→18:12)
[2017-07-28] MEDS: Hydrocortisone 2.5% Rectal Cream(30 gm) PR SCH ×2 (09:52→19:03)
[2017-07-28] MEDS: Ranolazine [Ranexa] 500 MG (HOME MED) PO SCH (09:52)
[2017-07-28] MEDS: Cefepime IV 2 gm in NS 2 GM/100 ML BAG IVPB SCH ×2 (11:46→22:19)
[2017-07-28 12:54] LABS: FOLATE > 20.0 ng/mL
--- NOTE | 2017-07-28 13:09 | PN ---
DATE: 07/28/2017 LOCATION: The patient is seen in room 268, bed 1. SUBJECTIVE: Overnight nurse's notes were reviewed. The patient refused KEVIN stocking and SCDs. The patient did not offer any complaints of shortness of breath or chest pain. PHYSICAL EXAMINATION: VITAL SIGNS: T-max 97.9; telemetry shows sinus rhythm, heart rate 70, 74, 75; blood pressure 126/76, 132/84; respirations 18-20; O2 sat is 94-95%. HEENT: Head examination normocephalic, atraumatic. HEENT examination shows pinkish pale conjunctivae. Anicteric sclerae. No oropharyngeal lesion. No neck rigidity. CHEST: Kyphosis. LUNGS: Shows no wheezing, but occasional rhonchi bilaterally. CARDIOVASCULAR: S1, S2. Regular rhythm. Questionable soft systolic murmur, left sternal border, right second intercostal space. ABDOMEN: Soft, protuberant. Positive bowel sound. No hepatosplenomegaly noted. GENITALIA: Male. RECTAL: Deferred. EXTREMITY: Shows trace swelling of the lower extremity. No pitting edema, no calf tenderness, no Homans' sign. NEUROLOGIC: The patient is alert, awake, oriented x3. Cranial nerves II through XII grossly intact. MUSCULOSKELETAL: Shows a body mass index of almost 37. Gait examination is not tested. VASCULAR: Palpable pulses. DIAGNOSTICS: CBC, none from today. Chemistry shows significant abnormal chemistry, BUN 44, creatinine 1.9, GFR 44, glucose 144, uric acid 8.8. LFTs are normal. Cholesterol 159, LDL 84, HDL 42, triglyceride 64. Blood cultures negative. IMPRESSION AND PLAN: 1. Questionable acute lower respiratory tract infection with acute exacerbation of chronic bronchiectasis and sarcoidosis. 2. Oxygen-dependent sarcoidosis. 3. Acute kidney injury. 4. Microcytic anemia. 5. History of iron-deficiency vitamin B12 deficiency. 6. Acute kidney injury with underlying chronic kidney disease stage 3. 7. Steroid-induced hyperglycemia. 8. Hyperuricemia. 9. Morbid obesity with elevated body mass index of 37. 10. Bilateral cystic bronchiectasis of the lung, right more than the left. 11. Mild cardiomegaly. 12. History of coronary artery disease. 13. Left ventricular ejection fraction of 70% by cardiac catheterization. 14. Patent stent of the mid right coronary artery. 15. 50% stenosis of the distal left anterior descending artery. 16. 50-60% stenosis of the proximal obtuse marginal 1. 17. Coronary artery disease. 18. Morbid obesity. 19. Constipation. 20. Hypertension. 21. Incomplete right bundle-branch block. 22. Hypokalemia. 23. Hypercholesteremia. 24. Hypomagnesemia. 25. History of angina. 26. History of prostate carcinoma. Plan at this time, the patient's telemetry will be considered to be discontinued. The patient will be transferred off the telemetry. The patient has been ordered repeat labs. CURRENT CONSULTATION: Cardiology and Infectious Disease. CURRENT MEDICATIONS: Mucomyst nebulizer every 6 hours, hydrocortisone suppository per rectal twice a day, Brovana nebulizer 15 mcg every 12, clonidine patch 0.3 mg weekly, Colace 100 mg three times a day, doxycycline 100 mg IV every 12, Drisdol 50,000 twice a week, Ecotrin 162 mg daily. As per Cardiology, Dr. Rainey, Plavix stopped as per Dr. Rainey's recommendation. Folic acid 1 mg daily, K-Dur 20 mEq twice a day, Linzess 145 mcg every other day, Lipitor 40 mg daily, magnesium oxide 400 twice a day, cefepime 2 g IV every 12, MiraLax 17 g three times a day, Norvasc 10 mg daily, Protonix 40 mg daily, Pulmicort nebulizer 0.5 mg every 12, Ranexa 500 mg daily, Solu-Medrol decreased to 30 mg IV every 12, Hytrin 2 mg at bedtime, Tessalon Perles 200 three times a day, vitamin B12 of 1000 mcg IM monthly, Xopenex nebulizer 0.63 mg every 6 hours, allopurinol 100 mg daily. Renal ultrasound ordered for elevated creatinine. Chest PT ordered. The patient is on CPAP. Oxygen 2 L continuous. Out of bed, KEVIN sapp, SCDs, occupational therapy, physical therapy ordered. Dictated and electronically signed, not read. Britton Ceballos MD
--- NOTE | 2017-07-28 13:37 | US ---
PROCEDURE: Ultrasound of the Kidneys HISTORY: elevated creatinine COMPARISON: 12/07/2012 renal ultrasound. 12/01/2016 CT abdomen and pelvis. TECHNIQUE: Sonogram of the kidneys. FINDINGS: RIGHT KIDNEY: Measures: 5.3 x 10.6 cm. Normal in size, contour and echogenicity. Midpole calculus 1 x 0.5 cm nonobstructing Incidental finding(s): Upper pole cyst 1.1 x 1.3 cm and 1.8 x 1.6 cm LEFT KIDNEY: Measures: 5.2 x 10 cm. Normal in size, contour and echogenicity. Lower pole stone 5 x 7 mm. Incidental finding(s): Midpole cyst 1.4 x 1.3 cm OTHER FINDINGS: None. IMPRESSION: Bilateral nonobstructing renal calculus. Additional benign and/or incidental findings described above.
--- NOTE | 2017-07-28 16:37 | CP.PCM.PN ---
Subjective - Date & Time of Evaluation Date of Evaluation: 07/28/17 Time of Evaluation: 10:45 - Subjective Subjective: Breathing better, no fevers, no nausea, no diarrhea. Objective - Vital Signs/Intake and Output Vital Signs (last 24 hours): Temp Pulse Resp BP Pulse Ox 97.5 F L 74 20 132/84 92 L 07/28/17 05:33 07/28/17 05:33 07/28/17 05:33 07/28/17 05:33 07/28/17 05:33 Intake and Output: 07/28/17 07/28/17 06:59 18:59 Intake Total 0 Balance 0 - Medications Medications: Current Medications Acetylcysteine (Acetylcysteine 20%) 4 ml IH [id number] [facility] Last Admin: 07/28/17 07:17 Dose: 4 ml Amlodipine Besylate (Norvasc) 10 mg PO QAM [facility] Last Admin: 07/27/17 10:02 Dose: 10 mg Arformoterol Tartrate (Brovana) 15 mcg IH [id number] [facility] Last Admin: 07/28/17 07:18 Dose: 15 mcg Aspirin (Ecotrin) 81 mg PO DAILY [facility] Last Admin: 07/27/17 10:01 Dose: 81 mg Atorvastatin Calcium (Lipitor) 40 mg PO DIN [facility] Last Admin: 07/27/17 17:17 Dose: 40 mg Benzonatate (Tessalon Perles) 200 mg PO TID [facility] Last Admin: 07/27/17 17:47 Dose: 200 mg Budesonide (Pulmicort Respules) 0.5 mg IH [id number] [facility] Last Admin: 07/28/17 07:18 Dose: 0.5 mg Clonidine HCl (Catapres-Tts3 0.3 Mg/24 Hr) 1 patch TD Q7D@1000 [facility] Clopidogrel Bisulfate (Plavix) 75 mg PO DAILY [facility] Last Admin: 07/27/17 10:01 Dose: 75 mg Cyanocobalamin (Vitamin B12 1000 Mcg/Ml Inj) 1,000 mcg IM Q30D [facility] Last Admin: 07/27/17 10:00 Dose: 1,000 mcg Docusate Sodium (Colace) 100 mg PO TID [facility] Last Admin: 07/27/17 17:17 Dose: 100 mg Ergocalciferol (Drisdol 50,000 Intl Units Cap) 1 cap PO 2XW [facility] Last Admin: 07/27/17 10:02 Dose: 1 cap Folic Acid (Folic Acid) 1 mg PO DAILY [facility] Last Admin: 07/27/17 10:01 Dose: 1 mg Hydrocortisone (Anusol-Hc) 0 gm MA BID [facility] Last Admin: 07/27/17 17:18 Dose: Not Given Doxycycline Hyclate 100 mg/ (Sodium Chloride) 100 mls @ 100 mls/hr IVPB Q12 [facility] PRN Reason: Protocol Last Admin: 07/27/17 21:56 Dose: 100 mls/hr Cefepime HCl (Maxipime 2gm) 2 gm in 100 mls @ 100 mls/hr IVPB Q12 [facility] PRN Reason: Protocol Stop: 08/01/17 10:01 Last Admin: 07/27/17 21:07 Dose: 100 mls/hr Levalbuterol HCl (Xopenex) 0.63 mg IH [id number] [facility] Last Admin: 07/28/17 07:18 Dose: 0.63 mg Magnesium Oxide (Mag-Ox) 400 mg PO BID [facility] Last Admin: 07/27/17 17:18 Dose: 400 mg Methylprednisolone (Solu-Medrol) 30 mg IVP Q12 [facility] Last Admin: 07/28/17 08:21 Dose: 30 mg Terazosin [Hytrin] 2 (Mg) 2 mg PO HS [facility] Last Admin: 07/27/17 21:07 Dose: Not Given (Linaclotide [ Linzess] 145 Mcg ( Home Med) 145 mcg PO QOTHERDAY [facility] Last Admin: 07/27/17 10:03 Dose: Not Given Ranolazine [Ranexa] (500 Mg (Home Med)) 500 mg PO DAILY [facility] Last Admin: 07/27/17 10:03 Dose: Not Given Terazosin [Hytrin] 2 (Mg) 0 mg PO HS [facility] Pantoprazole Sodium (Protonix Ec Tab) 20 mg PO 0600,1600 [facility] Last Admin: 07/28/17 05:39 Dose: 20 mg Polyethylene Glycol (Miralax) 17 gm PO TID [facility] Last Admin: 07/27/17 17:16 Dose: Not Given Potassium Chloride (K-Dur 20 Meq Er Tab) 20 meq PO BID [facility] Last Admin: 07/27/17 17:17 Dose: 20 meq - Labs Labs: 07/27/17 05:30 07/28/17 06:15 PT 14.1 SECONDS (9.4-12.5) H 07/26/17 17:30 INR 1.23 (0.93-1.08) H 07/26/17 17:30 APTT 28.3 Seconds (25.1-36.5) 07/26/17 17:30 - Constitutional Appears: Chronically Ill - Head Exam Head Exam: NORMAL INSPECTION - ENT Exam ENT Exam: Mucous Membranes Moist - Respiratory Exam Respiratory Exam: Decreased Breath Sounds - Cardiovascular Exam Cardiovascular Exam: +S1, +S2 - GI/Abdominal Exam GI & Abdominal Exam: Soft. absent: Tenderness Assessment and Plan - Assessment and Plan (Free Text) Plan: Assessment consider lower respiratory tract infection, acute, in this patient with chronic bronchiectasis sarcoidosis, oxygen dependence at home prostate cancer CAD S/P PCI HTN dyslipidemia obesity with BMI 34 Plan continue Cefepime and Doxycycline day 2 to complete 4-7 days of therapy - may switch to PO antibiotics (ie. Levaquin) when ready for discharge
[2017-07-28 17:20] LABS: PH,URINE 5.5 (4.7-8.0); URINE BILIRUBIN NEGATIVE (NEGATIVE); URINE BLOOD NEGATIVE (NEGATIVE); URINE GLUCOSE (UA) NEGATIVE (NEGATIVE); URINE LEUKOCYTE ESTERASE NEGATIVE Leu/uL (NEGATIVE); URINE PROTEIN TRACE mg/dL (<30 mg/dL); URINE UROBILINOGEN 0.2 E.U./dL (<1 E.U./dL)
[2017-07-28 17:23] LABS: URINE APPEARANCE CLEAR (CLEAR); URINE COLOR YELLOW (YELLOW)
[2017-07-28 18:00] LABS: URINE RBC NEGATIVE /hpf (0-2)
[2017-07-28 18:01] LABS: URINE BACTERIA MOD (NEG)
[2017-07-28 18:02] LABS: URINE WHITE BLOOD CELL CAST 0 - 2 /hpf
[2017-07-28] MEDS ORDERED: TERAZOSIN 2 MG PO SCH ×2 (22:00)
[2017-07-29] MEDS: Levalbuterol 0.63 MG/3 ML Inhal Soln UD IH SCH ×2 (01:14→07:56)
[2017-07-29] MEDS: Acetylcysteine 20% Inhal Soln (4ml) IH SCH ×2 (01:14→07:56)
[2017-07-29] MEDS: Pantoprazole 20 mg EC Tab PO SCH (06:34)
--- NOTE | 2017-07-29 07:41 | CON ---
DATE: 07/28/2017 CARDIOLOGY CONSULTATION HISTORY OF PRESENT ILLNESS: The patient is a 56-year-old male who presented with shortness of breath. The patient's past cardiac history includes a history of an old inferior wall OK. Patient underwent cardiac catheterization on 06/10/2017 in which his stent in the RCA was found to be patent. There was a 50% stenosis in the obtuse marginal branch as well as a 50% stenosis in the distal LAD. His overall ejection fraction was greater than 65%. Patient denies chest pain, but complains of shortness of breath and is much better since yesterday. His cardiac risk factors include hypertension, hypercholesterolemia. SOCIAL HISTORY: He denies smoking. REVIEW OF SYSTEMS: Fourteen-point review of systems was reviewed in detail. Other than dyspnea, there is no other cardiac symptoms. PHYSICAL EXAMINATION: VITAL SIGNS: Blood pressure is 126/76, heart rate is in the 70s. NECK: Negative JVD. LUNGS: No rales noted. No wheezing noted. HEART: Reveal S1, S2. EXTREMITIES: Without edema. LABORATORY DATA: EKG shows no acute changes from his previous. Hemoglobin is 11.9. BUN and creatinine is 44 and 1.9. IMPRESSION: 1. Dyspnea, likely secondary to exacerbation of his sarcoidosis. 2. No evidence for congestive heart failure. 3. Stable angina. 4. Old inferior wall myocardial infarction. 5. Patent stents in the right coronary artery. 6. Renal insufficiency. 7. History of hypertension. 8. History of hypercholesterolemia. PLAN: Given these findings, the patient's cardiac status is stable. We will discontinue his Plavix. We will continue on aspirin. From a cardiac perspective, his telemetry can be discontinued. Wood Rainey MD
[2017-07-29] MEDS: Arformoterol 15 mcg/2 ml Inh Sol IH SCH (07:55)
[2017-07-29] MEDS: Budesonide 0.5 mg/2 ml Inhal Susp UD IH SCH (07:56)
[2017-07-29 08:13] VITALS: BP 119/82; PULSE 74; RESP 20; TEMP 97.7; O2SAT 98
[2017-07-29] MEDS: Potassium Chloride 20 mEq ER Tab PO SCH (10:40)
[2017-07-29] MEDS: Magnesium Oxide 400 mg Tab UD PO SCH (10:40)
[2017-07-29] MEDS: MethylPREDNISolone 40 mg Vial IVP SCH (10:41)
[2017-07-29] MEDS: Cefepime IV 2 gm in NS 2 GM/100 ML BAG IVPB SCH (10:42)
[2017-07-29] MEDS: POLYETHYLENE GLYCOL 3350 17 GM/Dose PACKET PO SCH ×2 (10:45→10:53)
[2017-07-29] MEDS: LINACLOTIDE 145 MCG PO SCH (10:52)
[2017-07-29] MEDS: Hydrocortisone 2.5% Rectal Cream(30 gm) PR SCH (10:52)
[2017-07-29] MEDS: Ranolazine [Ranexa] 500 MG (HOME MED) PO SCH (10:53)
--- NOTE | 2017-07-29 12:38 | DS ---
FINAL PROGRESS NOTE AND DISCHARGE SUMMARY LOCATION: The patient is seen in room 574, bed 1. HISTORY OF PRESENT ILLNESS: The patient is sitting up in the bed, anxiously wanting to go home. The patient denies any chest pain. Denies any shortness of breath. Denies nausea, vomiting, diarrhea, constipation. Overnight nurse's notes documented that the patient slept well without any respiratory complaints. PHYSICAL EXAMINATION: VITAL SIGNS: T-max 97.8, heart rate 74 and 82, blood pressure 119/82, respiration 18, O2 sat 94-98% on 2-3 L of nasal cannula. Intake/output not documented. HEENT: Head examination normocephalic, atraumatic. The patient is seen sitting up in the bed in room 574, bed 1. HEENT examination shows pinkish conjunctivae. Anicteric sclerae. No oropharyngeal lesion. No neck rigidity. CHEST: Kyphosis. LUNGS: Shows no audible wheezing or rhonchi. Decreased breath sounds. CARDIOVASCULAR: S1, S2. Regular rhythm. Questionable soft systolic murmur. ABDOMEN: Protuberant, obese. Positive bowel sound. No hepatosplenomegaly noted. GENITALIA: Male. RECTAL: Examination is deferred. EXTREMITY: Shows no pitting edema, no calf tenderness, no Homans' sign. MUSCULOSKELETAL: Shows a body mass index of 37. NEUROLOGIC: The patient is alert, awake, oriented x3. Cranial nerves II through XII grossly intact. Motor strength is 5/5. DIAGNOSTICS: On 07/29/2017, diagnostics none. Uric acid was 8.8 yesterday. Renal ultrasound was reviewed. FINAL IMPRESSION, PLAN AND DISCHARGE DIAGNOSES: 1. Acute exacerbation of sarcoidosis and acute exacerbation of bronchiectasis. 2. Acute exacerbation of asthmatic bronchitis (resolved). 3. Hypertension. 4. Hypoxemia. 5. Microcytic anemia. 6. Granulocytosis. 7. History of vitamin B12 deficiency and iron deficiency. 8. Acute kidney injury with underlying chronic kidney disease stage 3. 9. Hyperuricemia. 10. Hyperglycemia. 11. History of vitamin B12 deficiency. 12. Hypovitaminosis D. 13. Hyperlipidemia. 14. Trace proteinuria, ketonuria. 15. Bacteriuria. 16. Bilateral renal cyst. 17. Bilateral nonobstructing nephrolithiasis. 18. History of coronary artery disease, history of [id number] myocardial infarction, history of angioplasty and stent placement. 19. Incomplete right bundle-branch block. 20. Morbid obesity with elevated body mass index of 37. 21. Constipation. 22. Hypokalemia. 23. Hypomagnesemia. 24. Unstable angina. 25. History of prostate carcinoma. 26. Hyperuricemia. Plan at this time, the patient is presently being treated in the hospital with Mucomyst nebulizer 20% 4 mL every 6 hours, Anusol suppository twice a day, Brovana nebulizer 15 mcg every 12, clonidine patch 0.3 mg weekly, Colace 100 mg three times a day, doxycycline 100 mg p.o. every 12, Drisdol 50,000 twice a week, Ecotrin 162 mg daily which is increased from 81, folic acid 1 mg daily, K-Dur 20 mEq twice a day, Linzess 145 mcg every other day, Lipitor 40 mg daily, magnesium oxide 400 twice a day, cefepime 2 g IV every 12, MiraLax 17 g three times a day, Norvasc 10 mg daily, Protonix 40 mg daily, Pulmicort 0.5 mg nebulizer every 12 hours, Ranexa 500 mg daily, Solu-Medrol 30 IV every 12, Hytrin 2 mg at bedtime, Tessalon 200 three times a day, vitamin B12 of 1000 mcg IM monthly, Xopenex nebulizer 0.63 mg every 6 hours and allopurinol 100 mg daily. The patient is discharged home today with discharge medications as per the ambulatory orders, which are Mucomyst nebulizer every 6 hours, ProAir HFA, allopurinol 100 mg daily, Norvasc 10 mg daily, Brovana 15 mcg every 12, Ecotrin 162 mg daily, Lipitor 40 mg daily, Tessalon Perles 200 three times a day, Pulmicort nebulizer 0.5 mg every 12 hours, clonidine patch 0.3 mg weekly, vitamin B12 of 1000 mcg monthly, Colace 100 mg three times a day, Drisdol 50,000 weekly or twice weekly, folic acid 1 mg daily, Anusol rectal suppository twice a day, Xopenex nebulizer 0.63 mg every 6 hours, Levaquin 500 mg daily for 7 days, Linzess 145 mcg once daily or every 48 hours, magnesium oxide 400 twice a day, Bystolic 5 mg daily, Protonix 40 mg daily, MiraLax 17 g daily 2-3 times a day or K-Dur 20 mEq twice a day. Prednisone tapering dose 40 mg daily for 5 days, 30 mg daily for 5 days, 20 mg daily for 5 days, 10 mg daily for 5 days. Ranexa 500 mg once or twice a day, Hytrin 2 mg at bedtime, Diovan HCTZ 320/25 daily. The patient is discharged home. Discharge followup with Dr. Ceballos within 1 week. Discharge referral to [facility] home health aide and home PT. Copy of the diet to the patient upon discharge. Time spent in the entire discharge process more than 45 minutes. During this hospitalization, the patient was extensively explained about the details of his medical condition, diagnosis, test results, recommendation, limitations, restrictions, activity. All details discussed and explained to the patient at length. All questions concerned answered. Time spent in the entire discharge process more than 45 minutes. Dictated and electronically signed, not read. Britton Ceballos MD cc: MD Megan (Delete if not dictated.)
--- NOTE | 2017-07-29 16:26 | PN ---
DATE: 07/29/2017 SUBJECTIVE: The patient was seen earlier this morning in room 574, bed 1. The patient is in bed, in no acute distress, nontoxic, ready to go home. PHYSICAL EXAMINATION: VITAL SIGNS: Temperature is 98, blood pressure is 119/80, respiratory rate is 20, heart rate of 74. HEENT: Unremarkable. NECK: Supple. LUNGS: Decreased breath sounds. HEART: Normal S1, S2. ABDOMEN: Soft, nontender. LABORATORY EXAMINATION: Reveals a white count of 9.8, hemoglobin of 11. Chemistries are noted and creatinine is 1.9. Urinalysis is noted. Serology: Influenza is negative. Microbiology: The cultures are negative. ASSESSMENT AND PLAN: This is a 57-year-old male seen earlier today in 574, bed 1, with acute bronchitis, chronic bronchiectasis and sarcoidosis, chronic respiratory failure on oxygen dependence at home, with a prostate cancer, coronary artery disease status post percutaneous coronary intervention, hypertension, dyslipidemia, obesity with body mass index of 34. Now, may switch to p.o. Levaquin for discharge. The patient is doing better. Flash Magdaleno MD
== END 2017-07-29 13:19 | disposition home or self-care (01) | DRG 197 ==
LOC: ED 16:13 → ERH 18:36 → 2RNO 21:45 → 5RSO 07-28 17:21
PROVIDERS: ADMIT Internal Medicine; ATTEND Internal Medicine
DX: D86.9 Sarcoidosis, unspecified (principal); J47.1 Bronchiectasis with (acute) exacerbation; J45.901 Unspecified asthma with (acute) exacerbation; J96.11 Chronic respiratory failure with hypoxia; N17.9 Acute kidney failure, unspecified; J20.9 Acute bronchitis, unspecified; I12.9 Hypertensive chronic kidney disease with stage 1 through stage 4 chronic kidney disease, or unspecified chronic kidney disease; N18.3 Chronic kidney disease, stage 3 (moderate); E55.9 Vitamin D deficiency, unspecified; E66.01 Morbid (severe) obesity due to excess calories; D50.9 Iron deficiency anemia, unspecified; E53.8 Deficiency of other specified B group vitamins; N20.0 Calculus of kidney; N28.1 Cyst of kidney, acquired; C61 Malignant neoplasm of prostate; I45.10 Unspecified right bundle-branch block; I25.119 Atherosclerotic heart disease of native coronary artery with unspecified angina pectoris; E87.6 Hypokalemia; K59.00 Constipation, unspecified; E78.5 Hyperlipidemia, unspecified; R73.9 Hyperglycemia, unspecified; G47.30 Sleep apnea, unspecified; E78.00 Pure hypercholesterolemia, unspecified; Z95.5 Presence of coronary angioplasty implant and graft; I25.2 Old myocardial infarction; Z99.81 Dependence on supplemental oxygen; Z79.82 Long term (current) use of aspirin; Z68.37 Body mass index [BMI] 37.0-37.9, adult; Z87.891 Personal history of nicotine dependence

== ENCOUNTER 2017-08-16 13:24 | Inpatient (IN) | payer MEDICARE, OTHER ==
--- NOTE | 2017-08-16 14:13 | ED PDOC ---
Arrival/HPI - General Chief Complaint: Chest Pain Time Seen by Provider: 08/16/17 13:53 Historian: Patient - History of Present Illness Narrative History of Present Illness (Text): 08/16/17 14:09 A 57 year old male, whose past medical history includes sarcoidosis, O2 dependence on 4L at home, prostate CA, GA (2012 with 2 stents in prox and mid RCA), HTN, HLD, and prostate CA, presents to the emergency department complaining of shortness of breath and sub-sternal chest tightness over the last 24 hours. The patient states that he attempted to sleep with his symptoms last night but was unable to sleep well. He notes that he has never been diagnosed with arrhythmias, but has been evaluated in the past for acute chest syndrome. He was sent into the emergency department for further evaluation. The patient denies fevers, chills, LOC, headache, dizziness, palpitations, dyspnea on exertion, cough, abdominal pain, nausea, vomiting, diarrhea, back pain, neck pain, urinary/bowel changes, or any other complaint. pt denied other complaints pt is here for further eval PMD: Dr. Ceballos Surgical Assistant Certified: Dr. Rainey Time/Duration: Other (24 hours) Symptom Onset: Sudden Symptom Course: Unchanged Activities at Onset: Rest, Light Context: Home Past Medical History - Provider Review Nursing Documentation Reviewed: Yes - Travel History Have you recently traveled outside [place] w/in the past 3 mons?: No - Past History Past History: No Previous - Infectious Disease Hx of Infectious Diseases: None - Tetanus Immunization Tetanus Immunization: Unknown - Cardiac Hx Cardiac Disorders: Yes Hx GA: Yes Hx Hypertension: Yes - Pulmonary Hx Respiratory Disorders: Yes Hx Asthma: Yes Hx Sleep Apnea: Yes Other/Comment: sarcoidosis - Neurological Hx Neurological Disorder: No - HEENT Hx HEENT Disorder: No - Renal Hx Renal Disorder: Yes Hx Kidney Stones: Yes - Endocrine/Metabolic Hx Endocrine Disorders: No - Hematological/Oncological Hx Blood Disorders: No - Integumentary Hx Dermatological Disorder: No - Musculoskeletal/Rheumatological Hx Falls: No - Gastrointestinal Hx Gastrointestinal Disorders: Yes - Genitourinary/Gynecological Hx Genitourinary Disorders: No - Psychiatric Hx Emotional Abuse: No Hx Physical Abuse: No Hx Substance Use: No - Surgical History Hx Cardiac Catheterization: Yes Hx Coronary Stent: Yes - Anesthesia Hx Anesthesia Reactions: Yes (DIFFICULTY WAKING UP;SEVERE NAUSEA) Hx Malignant Hyperthermia: No - Suicidal Assessment Feels Threatened In Home Enviroment: No Family/Social History - Physician Review Nursing Documentation Reviewed: Yes Family/Social History: No Known Family HX Smoking Status: Never Smoked Hx Alcohol Use: No Hx Substance Use: No Hx Substance Use Treatment: No Allergies/Home Meds Allergies/Adverse Reactions: Allergies No Known Allergies Allergy (Verified 08/16/17 13:34) Home Medications: Home Meds Medication Instructions Recorded Confirmed Albuterol Sulfate [Proair 2 puff IH BID PRN 11/01/15 11/25/16 Respiclick] Amlodipine Besylate [Norvasc] 10 mg PO QAM 11/01/15 11/25/16 Benzonatate 200 mg PO TID PRN 11/01/15 11/25/16 Cyanocobalamin [Vitamin B12 1000 1 ml IM Q30D 11/01/15 11/25/16 mcg/ml Inj] Ergocalciferol (Vitamin D2) 50,000 iu PO 2XW 11/01/15 11/25/16 [Vitamin D2] Folic Acid 1 mg PO DAILY 11/01/15 11/25/16 Linaclotide [Linzess] 145 mcg PO QOTHERDAY 11/01/15 11/25/16 Nebivolol [Bystolic] 5 mg PO HS 11/01/15 11/18/16 Terazosin [Hytrin] 2 mg PO HS 11/01/15 11/18/16 cloNIDine 0.3 mg/24 hr 0.3 mg TD Wed11/01/15 11/18/16 [catapres-TTS3 0.3 mg/24 hr] Potassium Chloride [K-Dur 20 mEq 20 meq PO BID 11/18/16 11/18/16 ER Tab] Valsartan/Hydrochlorothiazide 1 tab PO DAILY 11/18/16 11/18/16 [Valsartan-Hctz 320-25 mg Tab] Hydrocortisone 2.5% (Rectal) 1 appl OH BID 11/25/16 11/25/16 [Anusol-Hc] Review of Systems - Physician Review All systems were reviewed & negative as marked: Yes - Review of Systems Constitutional: absent: Fevers, Night Sweats Eyes: Normal ENT: Normal Respiratory: SOB Cardiovascular: Chest Pain (Sub-sternal chest tightness). absent: Palpitations , CARNEY Gastrointestinal: absent: Abdominal Pain, Stool Changes, Diarrhea, Nausea, Vomiting Genitourinary Male: absent: Urinary Output Changes Musculoskeletal: absent: Back Pain, Neck Pain Skin: Normal Neurological: absent: Headache, Dizziness Endocrine: Normal Hemo/Lymphatic: Normal Psychiatric: Normal Physical Exam - Physical Exam Narrative Physical Exam (Text): 08/16/17 14:14 General: alert/awake, GCS = 15, oriented x 3, resting in bed, uncomfortable, cooperative, interactive; NAD Head: NC/AT EYE: PERRLA, EOMI, sclera anicteric, no nystagmus, no photophobia; visual field intact b/l Facial: WNL Oral: uvula/tongue are midline, no exudate/lesions, no drooling/stridor, no dysphonia; intact dentitions NECK: intact ROM, no midline tenderness, no nuchal rigidity, no meningeal signs ; no step off Chest: CTA b/l, no w/r/r; no tachypenia, no accessory muscle use noted Cardiac: +S1, +S2, regularly irregular, no m/r/r, + tachycardia Abdominal: +BS, soft/nd/nt, well nourished patient; no masses/rebound/guarding/ rigidity; no white's sign, no mcburney's point tenderness Extremities: intact ROM, strength 5/5 grossly intact in all limbs, neurovasc intact b/l; + ambulatory; reflex +2/2; no pitting edema noted b/l BACK: no step off, no midline tenderness, NO crepitus, no gross deformities noted; Intact ROM SKIN: cap refill < 1 sec, no ulcerations, no petechiae, no rashes; mild pallor is noted NEURO: CNII-XII WNL, no facial asymmetries, no slurr speech, oriented x 3 NIH stroke scale ~ 0 Psych: normal insight, normal affect; follows command with ease Vital Signs Reviewed: Yes Vital Signs Temp Pulse Resp BP Pulse Ox 08/16/17 15:16 94 H 18 119/69 95 08/16/17 13:38 97.9 F 114 H 20 126/67 94 L Temperature: Afebrile Blood Pressure: Normal Pulse: Tachycardic Respiratory Rate: Normal Appearance: Positive for: Well-Appearing, Non-Toxic, Uncomfortable, Other ( mildly uncomfortable, resting in bed, alert/awake, GCS = 15, oriented x 3) Pain Distress: None Mental Status: Positive for: Alert and Oriented X 3 - Systems Exam Head: Present: Atraumatic, Normocephalic Medical Decision Making ED Course and Treatment: 08/16/17 14:14 Impression: A 57 year old male presents to the emergency department complaining of 24 hour duration shortness of breath and sub-sternal chest tightness. r/o ACS, unlikely coagulopathy, new onset arrhythmia Plan: -- EKG -- Chest X-ray -- Labs -- Cardizem -- Urinalysis -- Reassess and disposition Progress Notes: 08/16/17 14:15: Patient states that he took his Aspirin and Plavix prior to arrival to the emergency department. pt is currently chest pain free 08/16/17 15:02: Case discussed in detail with Dr. Rainey who agrees with emergency department management. He has been made aware. Recommends Q1 hour x 3 of 0.25mg Digoxin and start anticoagulation and will continue to monitor as well. pt's hr is < 100 with verapamil pt remained chest pain free pt is not in acute distress vital signs are stable 08/16/17 [address] Ceballos, made aware, agrees with Emergency department mgt/txt and will admit patient; would like his resident paged and will continue to monitor patient 1611 I spoke to resident service coordinator, made aware, will see patient in the ED Re-evaluation Time: 15:45 Reassessment Condition: Improved - Critical Care Critical Care Minutes: 45 minutes Critical Care Time: Excluding Proc Time Narrative Critical Care (Text): 08/16/17 16:06 critical care time: 45min, excluding procedure time, excluding time teaching residents/students/mid-level providers; including initial eval/diagnosis, diagnostic interpretation, re-eval, consultations, final disposition - Lab Interpretations Lab Results: 08/16/17 13:40 08/16/17 13:40 Lab Results 08/16/17 13:40: Sodium 144, Potassium 4.2, Chloride 104, Carbon Dioxide 30, Anion Gap 14, BUN 24 H, Creatinine 1.2, Est GFR ( Amer) > 60, Est GFR ( Non-Af Amer) > 60, Random Glucose 120 H, Calcium 9.0, Magnesium 1.8, Total Bilirubin 0.3, AST 27, ALT 27, Alkaline Phosphatase 54, Lactate Dehydrogenase 525, Total Creatine Kinase 52, Troponin I 0.01, NT-Pro-B Natriuret Pep 2280 H, Total Protein 6.6, Albumin 3.7, Globulin 2.9, Albumin/Globulin Ratio 1.3 08/16/17 13:40: PT 11.0, INR 0.97, APTT 37.2 H 08/16/17 13:40: WBC 7.5 D, RBC 4.65, Hgb 11.3 L, Hct 36.5 L, MCV 78.5 L, MCH 24.3 L, MCHC 31.0, RDW 20.0 H, Plt Count 218, MPV 10.3, Gran % 92.3 H, Lymph % ( Auto) 4.9 L, Roberts % (Auto) 2.7, Eos % (Auto) 0.1 L, Baso % (Auto) 0.0, Gran # 6.90 H, Lymph # (Auto) 0.4 L, Roberts # (Auto) 0.2, Eos # (Auto) 0.0, Baso # (Auto ) 0.00, Neutrophils % (Manual) 91 H, Lymphocytes % (Manual) 7 L, Monocytes % ( Manual) 2, Platelet Evaluation Normal, Large Platelets Present, Poikilocytosis ( manual Slight, Anisocytosis (manual) Slight I have reviewed the lab results: Yes Interpretation: Abnormal lab values (elevated BNP) - RAD Interpretation Narrative RAD Interpretations (Text): Chest X-ray Dictator : José Miguel Mcclure MD Report Date : 08/16/2017 14:46:27 IMPRESSION: Improvement in right upper lobe infiltrate. Chronic interstitial infiltrate Radiology Orders: 08/16/17 14:03 CHEST PORTABLE [RAD] Stat Board Filler: Radiologist - EKG Interpretation EKG Interpretation (Text): 08/16/17 14:26 Aftrial fib at 140 bpm, normal axis, + ectopy, non-specific st-t changes, ABNL EKG; changes compare with old ekg 06/2017 Interpreted by ED Physician: Yes Type: 12 lead EKG Comparison: Different from prev. EKG - Medication Orders Current Medication Orders: Heparin Sodium/Sodium Chloride (Heparin 02821 Units/250ml 1/2 Normal Saline) 25 ,000 units in 250 mls @ 22.861 mls/hr IV .[id number] PRN; Protocol; 18 UNITS/KG/HR PRN Reason: ADJUST RATE PER PROTOCOL Discontinued Medications Digoxin (Lanoxin) 0.25 mg IVP ONCE ONE Stop: 08/16/17 15:01 Digoxin (Lanoxin) 0.25 mg IVP ONCE ONE Stop: 08/16/17 16:01 Heparin Sodium (Porcine) (Heparin) 5,000 units IV ONCE ONE PRN Reason: Protocol Stop: 08/16/17 16:01 Verapamil HCl (Verapamil Inj) 5 mg IVP STAT STA Stop: 08/16/17 14:57 - Scribe Statement The provider has reviewed the documentation as recorded by the Liliaibburton Bernardo Provider Scribe Attestation: All medical record entries made by the Scribe were at my direction and personally dictated by me. I have reviewed the chart and agree that the record accurately reflects my personal performance of the history, physical exam, medical decision making, and the department course for this patient. I have also personally directed, reviewed, and agree with the discharge instructions and disposition. Disposition/Present on Arrival - Present on Arrival Any Indicators Present on Arrival: No History of DVT/PE: No History of Uncontrolled Diabetes: No Urinary Catheter: No History of Decub. Ulcer: No History Surgical Site Infection Following: None - Disposition Have Diagnosis and Disposition been Completed?: Yes Diagnosis: New onset atrial fibrillation, Chest pain with moderate risk of acute coronary syndrome, Shortness of breath, CHF (congestive heart failure), Sarcoidosis Disposition: HOSPITALIZED Disposition Time: 15:45 Patient Plan: Admission, Telemetry Patient Problems: Current Active Problems Problem Status Onset New onset atrial fibrillation Acute Condition: STABLE Discharge Instructions (ExitCare): Chest Pain (ED), Heart Failure (ED) Print Language: CITIZEN OF [place] Forms: [employer] ([place] ([place])
[2017-08-16 14:20] LABS: EOS % 0.1 % (1.5-5.0); GRAN % 92.3 % (50.0-68.0); HEMOGLOBIN 11.3 g/dL (14.0-18.0); LYMPH # 0.4 (1.2-3.4); LYMPH % 4.9 % (22.0-35.0); MEAN CELL VOLUME 78.5 fl (80.0-105.0); MEAN CORPUSCULAR HEMOGLOBIN 24.3 pg (25.0-35.0); MEAN PLATELET VOLUME 10.3 fl (7.0-11.0); MONO # 0.2 (0.1-0.6); MONO % 2.7 % (1.0-6.0); PLATELET COUNT 218 10^3/uL (120.0-450.0); RBC 4.65 10^6/uL (3.5-6.1); WHITE BLOOD COUNT 7.5 10^3/ul (4.5-11.0)
[2017-08-16 14:41] LABS: B-TYPE NATRIURETIC PEPTIDE 2280 pg/mL (0-450); TROPONIN I 0.01 ng/mL
--- NOTE | 2017-08-16 14:48 | RAD ---
HISTORY: sob/palpitations/chest pain COMPARISON: 07/26/2017 FINDINGS: LUNGS: There is improvement in the right upper lobe infiltrate. There is a persistent interstitial infiltrate bilaterally. PLEURA: No significant pleural effusion identified, no pneumothorax apparent. CARDIOVASCULAR: Mild cardiomegaly. Prominent pulmonary arteries OSSEOUS STRUCTURES: No significant abnormalities. VISUALIZED UPPER ABDOMEN: Normal. OTHER FINDINGS: None. IMPRESSION: Improvement in right upper lobe infiltrate. Chronic interstitial infiltrate
[2017-08-16 14:59] LABS: INR 0.97 (0.93-1.08); PARTIAL THROMBOPLASTIN TIME 37.2 Seconds (25.1-36.5)
[2017-08-16] MEDS ORDERED: Digoxin 500 mcg/2ml (0.5 mg/2ml) Inj IVP ONE ×3 (15:00→17:00)
[2017-08-16 15:13] LABS: ANISOCYTOSIS SLIGHT; LARGE PLATELETS PRESENT; LYMPHOCYTE 7 % (22.0-35.0); MONOCYTE 2 % (1.0-6.0); NEUTROPHIL 91 % (50.0-70.0); POIKILOCYTOSIS SLIGHT
[2017-08-16 15:14] LABS: PLATELET ESTIMATE NORMAL (NORMAL)
[2017-08-16 16:52] LABS: ALB/GLOB RATIO 1.3 (1.1-1.8); ALBUMIN 3.7 g/dL (3.0-4.8); ALT/SGPT 27 U/L (7-56); AST/SGOT 27 U/L (17-59); BLOOD UREA NITROGEN 24 mg/dL (7-21); GFR AFRICAN-AMERICAN > 60; GFR NON-AFRICAN AMERICAN > 60
[2017-08-16] MEDS: Heparin25000 units/250ml 1/2NS 25,000 UNITS/250 ML BAG IV PRN (16:56)
--- NOTE | 2017-08-16 17:41 | CP.PCM.HP ---
<Orion Rodriguez - Last Filed: 08/16/17 18:12> History of Present Illness - History of Present Illness History of Present Illness: HPI: Patient is a 57M with a PMH of end stage sarcoidosis, CAD with 2 stents, HTN, HLD who comes in with a CC of SOB associated with chest tightness. States that it started this morning around 1 am and progressively became worse. He states that the SOB is worse with exertion and was not relieved with his nebulized albuterol as it usually is. He describes the chest pain as "tightness ". Denies radiation. It has been constant since its onset. He states he ran out of his albuterol today and had previously been taking it 2-3 times per day for about one month. Denies any palpations or diaphoresis. No nausea, vomiting or abdominal pain. No diarrhea, fevers or chills. He states that his legs are swollen but no more than usual. No other complaints at this time. On 4 L NC at home and CPAP. PMH: end stage sarcoidosis, CAD with 2 stents, HTN, HLD PSH: Radical Prostatectomy FH: denies SH: Denies smoking, drinking or illegal drugs All: none PMD: Tucker Cardio: Redd Present on Admission - Present on Admission Any Indicators Present on Admission: No Review of Systems - Review of Systems Review of Systems: per HPI Past Patient History - Infectious Disease Hx of Infectious Diseases: None - Tetanus Immunizations Tetanus Immunization: Unknown - Past Social History Smoking Status: Never Smoked - CARDIAC Hx Cardiac Disorders: Yes Hx Heart Attack: Yes Hx Hypertension: Yes - PULMONARY Hx Respiratory Disorders: Yes Hx Asthma: Yes Hx Sleep Apnea: Yes Other/Comment: sarcoidosis - NEUROLOGICAL Hx Neurological Disorder: No - HEENT Hx HEENT Problems: No - RENAL Hx Chronic Kidney Disease: Yes Hx Kidney Stones: Yes - ENDOCRINE/METABOLIC Hx Endocrine Disorders: No - HEMATOLOGICAL/ONCOLOGICAL Hx Blood Disorders: No - INTEGUMENTARY Hx Dermatological Problems: No - MUSCULOSKELETAL/RHEUMATOLOGICAL Hx Falls: No - GASTROINTESTINAL Hx Gastrointestinal Disorders: Yes - GENITOURINARY/GYNECOLOGICAL Hx Genitourinary Disorders: No - PSYCHIATRIC Hx Emotional Abuse: No Hx Physical Abuse: No Hx Substance Use: No - SURGICAL HISTORY Hx Cardiac Catheterization: Yes Hx Coronary Stent: Yes - ANESTHESIA Hx Anesthesia Reactions: Yes (DIFFICULTY WAKING UP;SEVERE NAUSEA) Hx Malignant Hyperthermia: No Meds Allergies/Adverse Reactions: Allergies Allergy/AdvReac Type Severity Reaction Status Date / Time No Known Allergies Allergy Verified 08/16/17 13:34 Physical Exam - Constitutional Appears: Well - Head Exam Head Exam: ATRAUMATIC, NORMAL INSPECTION, NORMOCEPHALIC - Eye Exam Eye Exam: EOMI, Normal appearance, PERRL Pupil Exam: NORMAL ACCOMODATION, PERRL - ENT Exam ENT Exam: Mucous Membranes Moist, Normal Exam - Neck Exam Neck exam: Positive for: Normal Inspection - Respiratory Exam Respiratory Exam: Clear to Auscultation Bilateral, NORMAL BREATHING PATTERN - Cardiovascular Exam Cardiovascular Exam: Tachycardia, Irregular Rhythm - GI/Abdominal Exam GI & Abdominal Exam: Normal Bowel Sounds, Soft. absent: Distended, Tenderness - Extremities Exam Extremities exam: Positive for: normal inspection - Back Exam Back exam: NORMAL INSPECTION - Neurological Exam Neurological exam: Alert, CN II-XII Intact, Normal Gait, Oriented x3, Reflexes Normal - Psychiatric Exam Psychiatric exam: Normal Affect, Normal Mood - Skin Skin Exam: Dry, Intact, Normal Color, Warm Results - Vital Signs Recent Vital Signs: Last Vital Signs Temp 97.9 F 08/16/17 13:38 Pulse 80 08/16/17 17:01 Resp 18 08/16/17 17:01 BP 118/77 08/16/17 17:01 Pulse Ox 94 L 08/16/17 17:01 - Labs Result Diagrams: 08/16/17 13:40 08/16/17 13:40 Labs: Laboratory Results - last 24 hr 08/16/17 16:10 Blood Type A POSITIVE Antibody Screen Negative BBK History Checked Patient has bt Assessment & Plan (1) New onset atrial fibrillation Assessment and Plan: Cardio (Rainey) Admit to tele F/U D-Dimer, If positive will need CTA F/U Venous Doppler F/U Trops Q4H x3 Daily EKGs Verapamil 5 mg Once Dig 0.25 Q1H x3 Heparin Drip Status: Acute Priority: High (2) Sarcoidosis Assessment and Plan: F/U ABG Duonebs Q6H PRN Brovana Q12H Pulmicort Q12 Home o2 4L CPAP at home, prefers to bring his personal CPAP to hospital Status: Acute (3) CAD (coronary artery disease) Assessment and Plan: ASA 162 PO QD Status: Chronic Priority: Medium (4) HTN (hypertension) Assessment and Plan: Norvasc 10mg PO QD Clonidine patch Valsartan 320 PO QD Status: Acute (5) Hyperlipidemia Assessment and Plan: Lipitor 10mg PO HS Zetia 10 PO QD Status: Chronic Priority: Medium (6) Prophylactic measure Status: Acute <Britton Ceballos - Last Filed: 08/17/17 20:12> Results - Vital Signs Recent Vital Signs: Last Vital Signs Temp 98 F 08/17/17 17:22 Pulse 81 08/17/17 18:38 Resp 20 08/17/17 17:22 BP 126/76 08/17/17 18:38 Pulse Ox 93 L 08/17/17 06:00 - Labs Result Diagrams: 08/17/17 06:00 08/17/17 06:00 Labs: Laboratory Results - last 24 hr 08/16/17 08/16/17 08/17/17 21:35 21:35 01:25 WBC RBC Hgb Hct MCV MCH MCHC RDW Plt Count MPV Gran % Lymph % (Auto) Davidson % (Auto) Eos % (Auto) Baso % (Auto) Gran # Lymph # (Auto) Davidson # (Auto) Eos # (Auto) Baso # (Auto) APTT 92.4 H Sodium Potassium Chloride Carbon Dioxide Anion Gap BUN Creatinine Est GFR ( Amer) Est GFR (Non-Af Amer) Random Glucose Calcium Phosphorus Magnesium Total Bilirubin AST ALT Alkaline Phosphatase Troponin I 0.03 D 0.04 D Total Protein Albumin Globulin Albumin/Globulin Ratio 08/17/17 08/17/17 08/17/17 06:00 06:00 06:00 WBC 7.2 RBC 4.57 Hgb 11.1 L Hct 35.7 L MCV 78.1 L MCH 24.3 L MCHC 31.1 RDW 20.3 H Plt Count 223 MPV 10.6 Gran % 92.0 H Lymph % (Auto) 6.2 L Davidson % (Auto) 1.8 Eos % (Auto) 0.0 L Baso % (Auto) 0.0 Gran # 6.65 H Lymph # (Auto) 0.5 L Davidson # (Auto) 0.1 Eos # (Auto) 0.0 Baso # (Auto) 0.00 APTT 143.1 H* Sodium 144 Potassium 4.2 Chloride 103 Carbon Dioxide 32 Anion Gap 13 BUN 28 H Creatinine 1.2 Est GFR ( Amer) > 60 Est GFR (Non-Af Amer) > 60 Random Glucose 123 H Calcium 8.9 Phosphorus 3.1 Magnesium 2.2 Total Bilirubin 0.3 AST 21 ALT 26 Alkaline Phosphatase 58 Troponin I Total Protein 6.4 Albumin 3.4 Globulin 3.0 Albumin/Globulin Ratio 1.1 Assessment & Plan - Assessment and Plan (Free Text) Assessment: IMPRESSION & PLAN: 1.New Onset atrial fibrillation with rapid ventricle response, and questionable incomplete right bundle branch block with right ventricular conduction delay. 2. New-onset paroxysmal atrial fibrillation 3. Acute exacerbation of sarcoidosis and acute exacerbation of interstitial pulmonary fibrosis. 4. Stage III-stage IV sarcoidosis, oxygen and steroid dependent. 5. Obstructive sleep apnea, CPAP dependent. 6. History of coronary artery disease, history of angioplasty, history of myocardial infarction. 7. Hypertension. 8. Microcytic anemia with granulocytosis. 9. Elevated D-dimer. 10. Hyperglycemia. 11. Pulmonary hypertension. 12. Bilateral extensive interstitial lung disease with cystic honeycombing and bronchiectasis, right more than the left. 13. Coronary artery disease. 14. Thoracic spondylosis. 15. Right renal cyst. 16. Bilateral nonobstructing nephrolithiasis. 17. Extensive bilateral pulmonary parenchymal cystic honeycombing changes with traction bronchiectasis and linear pulmonary fibrosis, right more than the left. 18. Bilateral nonobstructing nephrolithiasis with right renal cystic mass and left renal cyst. 19. Morbid obesity with elevated body mass index. 20. Hypertension. 21. Hypovitaminosis D. 22. History of iron deficiency and vitamin B12 deficiency. 23. History of prostate carcinoma, status post prostatectomy. 24. Hypokalemia. 25. Constipation. 26. Dyslipidemia. 27. Unstable angina. 28. Vitamin B12 deficiency. 29. Deconditioning secondary to advanced stage III versus stage IV sarcoidosis. plan: as per orders
[2017-08-16] MEDS ORDERED: Albuterol-Ipratrop 3 mg / 0.5 (3 ml) UD IH SCH ×2 (18:00→19:30)
[2017-08-16] MEDS: Magnesium Oxide 400 mg Tab UD PO SCH (18:18)
[2017-08-16] MEDS: Potassium Chloride 20 mEq ER Tab PO SCH (18:18)
--- NOTE | 2017-08-16 18:21 | CARD ---
APPROVED REPORT EKG Measurement Heart [id number] <Conclusion> Atrial fibrillation with rapid ventricular response with premature ventricular or aberrantly conducted complexes RSR' or QR pattern in V1 suggests right ventricular conduction delay Abnormal ECG
[2017-08-16 19:00] VITALS: PULSE 101
[2017-08-16] MEDS ORDERED: Iohexol 350 MG/100 ML VIAL ONE (19:03)
[2017-08-16] MEDS ORDERED: Promethazine DM 6.25 mg-15 mg/5 ml Syrup PO PRN (19:09)
[2017-08-16] MEDS: Arformoterol 15 mcg/2 ml Inh Sol IH SCH (19:58)
[2017-08-16] MEDS: Budesonide 0.5 mg/2 ml Inhal Susp UD IH SCH (19:58)
[2017-08-16] MEDS: Levalbuterol 0.63 MG/3 ML Inhal Soln UD IH SCH (19:59)
[2017-08-16] MEDS ORDERED: TERAZOSIN 2 MG PO SCH (22:00)
[2017-08-16] MEDS: MethylPREDNISolone 40 mg Vial IVP SCH (22:13)
[2017-08-16] MEDS: POLYETHYLENE GLYCOL 3350 17 GM/Dose PACKET PO SCH (22:17)
[2017-08-16 23:54] VITALS: BMI 32.3
[2017-08-16] MEDS ORDERED: Pneumococcal 23-Valent Vaccine IM ONE (23:55)
[2017-08-16] MEDS: Non Formulary Medication (Ranolazine [Ranexa] 500 MG) PO SCH (23:58)
[2017-08-17] MEDS: Levalbuterol 0.63 MG/3 ML Inhal Soln UD IH SCH ×4 (02:41→20:35)
[2017-08-17] MEDS: Heparin25000 units/250ml 1/2NS 25,000 UNITS/250 ML BAG IV PRN (05:50)
[2017-08-17 06:27] LABS: GRAN # 6.65 (1.4-6.5); HEMOGLOBIN 11.1 g/dL (14.0-18.0); LYMPH # 0.5 (1.2-3.4); LYMPH % 6.2 % (22.0-35.0); MEAN CELL VOLUME 78.1 fl (80.0-105.0); MEAN CORPUSCULAR HEMOGLOBIN 24.3 pg (25.0-35.0); MEAN CORPUSCULAR HGB CONC 31.1 g/dl (31.0-37.0); MEAN PLATELET VOLUME 10.6 fl (7.0-11.0); MONO # 0.1 (0.1-0.6); MONO % 1.8 % (1.0-6.0); RBC 4.57 10^6/uL (3.5-6.1); RED CELL DISTRIBUTION WIDTH 20.3 % (11.5-14.5); WHITE BLOOD COUNT 7.2 10^3/ul (4.5-11.0)
[2017-08-17 07:21] LABS: ALB/GLOB RATIO 1.1 (1.1-1.8); ALBUMIN 3.4 g/dL (3.0-4.8); ALT/SGPT 26 U/L (7-56); AST/SGOT 21 U/L (17-59); BLOOD UREA NITROGEN 28 mg/dL (7-21); CALCIUM 8.9 mg/dL (8.4-10.5); GFR AFRICAN-AMERICAN > 60; GFR NON-AFRICAN AMERICAN > 60
[2017-08-17] MEDS: Non Formulary Medication (Ranolazine [Ranexa] 500 MG) PO SCH ×2 (07:55→22:39)
[2017-08-17] MEDS: Arformoterol 15 mcg/2 ml Inh Sol IH SCH ×2 (07:57→20:35)
[2017-08-17] MEDS: Budesonide 0.5 mg/2 ml Inhal Susp UD IH SCH ×2 (07:58→20:35)
--- NOTE | 2017-08-17 09:29 | CT ---
PROCEDURE: CT Chest with contrast (Pulmonary Angiogram) HISTORY: Elevated D Dimer new onset Afib COMPARISON: 06/08/2017 TECHNIQUE: Axial computed tomography images were obtained of the chest in the pulmonary arterial phase of enhancement. Coronal and sagittal reformatted images were created and reviewed. Intravenous contrast dose: 100 mL of Omnipaque 350 administered intravenously. Radiation dose: Total exam DLP = 574 mGy-cm. This CT exam was performed using one or more of the following dose reduction techniques: Automated exposure control, adjustment of the mA and/or kV according to patient size, and/or use of iterative reconstruction technique. FINDINGS: PULMONARY ARTERIES: Main pulmonary artery borderline prominent - pulmonary arterial hypertension-a consideration. . No pulmonary embolism. AORTA: No acute findings. No thoracic aortic aneurysm. LUNGS: As before there is extensive bilateral interstitial lung disease mostly manifesting as cystic/honeycomb like changes and bronchiectasis. The right lung is most notably affected and mostly nearly completely replaced by the cystic changes. There is much lesser involvement of the left lung. These findings are similar to the prior study. Traction bronchiectasis and scattered linear fibrotic like changes at each lung base also noted -an element of pulmonary fibrosis is inferred. PLEURAL SPACES: No pneumothorax seen. HEART: Mild cardiomegaly. A few atherosclerotic coronary artery vascular calcifications are present No pericardial effusion. . No significant pericardial effusion. LYMPH NODES: No lymphadenopathy. BONES, CHEST WALL: Minimal thoracic spondylosis. No fracture or destructive lesion OTHER FINDINGS: Unremarkable. Upper pole the right kidney a partially visualize low-density probable cystic mass is present. As per the 07/28/2017 renal ultrasound study an incidental right upper renal pole cyst here is present. Also noted are bilateral renal calculi -full extent of which are not visually included on this exam. At least some left renal calculi were noted on the prior CT. The renal ultrasound from 07/28/2017 references midpole calculus nonobstructing as well. IMPRESSION: No central or segmental pulmonary arterial emboli noted. Similar extensive pulmonary parenchymal cystic/honeycomb like changes, blending traction bronchiectasis and associated linear pulmonary fibrotic like changes. Findings have been present previously and are much more notable and extensive throughout the right lung. No interval pneumothorax or gross consolidation noted. No interval significant appearing pleural effusion Bilateral renal calculi. For this exam a right renal cyst cystic mass is noted this was noted on the prior renal ultrasound. Also noted on the same renal ultrasound study was a left midpole renal cyst which is not visually included on this field of view Regarding pulmonary emboli, the preliminary V rad interpretation results are concordant. Additional findings regarding the kidneys are as noted above.
[2017-08-17] MEDS: cefTRIAXone 2 GM IN NS 2 GM/100 ML BAG IVPB SCH (09:34)
[2017-08-17] MEDS: Magnesium Oxide 400 mg Tab UD PO SCH ×2 (09:42→18:38)
[2017-08-17] MEDS: Potassium Chloride 20 mEq ER Tab PO SCH ×3 (09:42→18:38)
[2017-08-17] MEDS: MethylPREDNISolone 40 mg Vial IVP SCH ×2 (09:43→22:39)
[2017-08-17] MEDS: POLYETHYLENE GLYCOL 3350 17 GM/Dose PACKET PO SCH ×2 (09:48→18:38)
[2017-08-17] MEDS ORDERED: Non Formulary Medication (Nebivolol [Bystolic] 10 MG) PO SCH (10:00)
[2017-08-17] MEDS: Non Formulary Medication (Linaclotide [Linzess] 290 MCG) PO SCH (10:07)
--- NOTE | 2017-08-17 10:14 | CON ---
DATE: 08/17/2017 CARDIOLOGY CONSULTATION HISTORY: The patient is a 57-year-old male who presented with an episode of chest discomfort, dyspnea and is found to be in rapid atrial fibrillation. The patient's past medical history includes a history of sarcoidosis and severe COPD, for which he is on home O2. The patient underwent cardiac catheterization in May of this year, which revealed a patent stent in RCA. There was a 50% stenosis in the obtuse marginal branch as well as 50% stenosis in the distal LAD. His ejection fraction was normal with an EF of 65%. He suffers from hypertension as well as hypercholesterolemia. Currently, the patient is asymptomatic and is back to normal sinus rhythm. SOCIAL HISTORY: The patient does not smoke. The 14-point review of systems was reviewed in detail. No cardiac symptoms are noted. PHYSICAL EXAMINATION: VITAL SIGNS: Blood pressure is 145/89, heart rate is in the 80s. NECK: Negative JVD. LUNGS: Without rales. HEART: Reveal S1, S2. EXTREMITIES: Without edema. DATA: EKG on admission yesterday showed atrial fibrillation with nonspecific ST-T changes. Currently, the patient is in normal sinus rhythm. LABORATORY DATA: BUN and creatinine are unremarkable. Glucose is 123. Troponins are indeterminate. Hemoglobin is 11.1. IMPRESSION: 1. New-onset atrial fibrillation, which is now converted back to normal sinus rhythm. 2. Coronary artery disease with a documented patent stent in the right coronary artery and 50% lesions in the distal left anterior descending artery. 3. Hypertension. 4. Sarcoidosis. 5. Hypercholesterolemia. 6. Lung disease, which is home oxygen dependent. Given these findings, we will start the patient on p.o. Cardizem. We will avoid amiodarone because of his preexisting lung disease. We will discontinue anticoagulation. Wood Rainey MD
--- NOTE | 2017-08-17 10:38 | CARD ---
APPROVED REPORT EKG Measurement Heart [id number] <Conclusion> Normal sinus rhythm Possible Left atrial enlargement Nonspecific T wave abnormality Abnormal ECG
--- NOTE | 2017-08-17 10:38 | CARD ---
APPROVED REPORT EKG Measurement Heart [id number] <Conclusion> Atrial fibrillation with rapid ventricular response with premature ventricular or aberrantly conducted complexes RSR' or QR pattern in V1 suggests right ventricular conduction delay Abnormal ECG
--- NOTE | 2017-08-17 11:12 | US ---
HISTORY: Leg pain and swelling. Evaluate for DVT PHYSICIAN(S): Wood Paez MD. TECHNIQUE: Duplex sonography and color-flow Doppler with graded compression were used to evaluate the deep venous systems of both lower extremities. FINDINGS: The visualized deep venous systems of both lower extremities are sonographically normal and compressible. Normal wave forms and augmentation are seen. There is no sonographic evidence for deep venous thrombosis in the visualized segments of both lower extremities. IMPRESSION: No sonographic evidence for deep venous thrombosis in the visualized segments of both lower extremities.
--- NOTE | 2017-08-17 13:18 | CP.PCM.PN ---
Subjective - Date & Time of Evaluation Date of Evaluation: 08/17/17 Time of Evaluation: 14:47 - Subjective Subjective: Medicine progress note: Dr. Ceballos Patient seen and examined at bedside. Patient states that he feels much better today after medications and that his shortness of breath is improved. No new complaints. Objective - Vital Signs/Intake and Output Vital Signs (last 24 hours): Temp Pulse Resp BP Pulse Ox 97.6 F 73 20 122/73 93 L 08/17/17 12:00 08/17/17 12:00 08/17/17 12:00 08/17/17 12:00 08/17/17 06:00 Intake and Output: 08/17/17 08/17/17 06:59 18:59 Intake Total 1242.0 200 Output Total 1200 Balance 42.0 200 - Medications Medications: Current Medications Acetaminophen (Tylenol 325mg Tab) 650 mg PO Q6 PRN PRN Reason: TEMP>=99.5F Acetaminophen (Tylenol 650 Mg Supp) 650 mg RC Q6H PRN PRN Reason: TEMP>=99.5F Arformoterol Tartrate (Brovana) 15 mcg IH [id number] [facility] Last Admin: 08/17/17 07:57 Dose: 15 mcg Aspirin (Ecotrin) 81 mg PO DAILY [facility] Last Admin: 08/17/17 09:42 Dose: 81 mg Atorvastatin Calcium (Lipitor) 10 mg PO HS [facility] Benzonatate (Tessalon Perles) 200 mg PO TID [facility] Last Admin: 08/17/17 10:30 Dose: 200 mg Budesonide (Pulmicort Respules) 0.5 mg IH [id number] [facility] Last Admin: 08/17/17 07:58 Dose: 0.5 mg Clonidine HCl (Catapres-Tts3 0.3 Mg/24 Hr) 1 patch TD FRI [facility] Cyanocobalamin (Vitamin B12 1000 Mcg/Ml Inj) 1,000 mcg IM Q30D [facility] Diltiazem HCl (Cardizem) 60 mg PO TID [facility] Last Admin: 08/17/17 09:42 Dose: 60 mg Docusate Sodium (Colace) 100 mg PO TID [facility] Doxycycline Hyclate (Doryx) 100 mg PO Q12 [facility] Ezetimibe (Zetia) 10 mg PO DAILY [facility] Last Admin: 08/17/17 09:42 Dose: 10 mg Ergocalciferol (Drisdol 50,000 Intl Units Cap) 1 cap PO SuTh@1000 [facility] Folic Acid (Folic Acid) 1 mg PO DAILY [facility] Last Admin: 08/17/17 09:42 Dose: 1 mg Ceftriaxone Sodium (Rocephin 2 Gm Ivpb) 2 gm in 100 mls @ 100 mls/hr IVPB DAILY [facility] PRN Reason: Protocol Last Admin: 08/17/17 09:34 Dose: 100 mls/hr Levalbuterol HCl (Xopenex) 0.63 mg IH [id number] [facility] Last Admin: 08/17/17 07:58 Dose: 0.63 mg Magnesium Oxide (Mag-Ox) 400 mg PO BID [facility] Last Admin: 08/17/17 09:42 Dose: 400 mg Methylprednisolone (Solu-Medrol) 40 mg IVP Q12 [facility] Last Admin: 08/17/17 09:43 Dose: 40 mg Non-Formulary Medication (Linaclotide [Linzess]) 290 mcg PO DAILY [facility] Last Admin: 08/17/17 10:07 Dose: Not Given Non-Formulary Medication (Ranolazine [Ranexa]) 500 mg PO Q12H [facility] Last Admin: 08/17/17 07:55 Dose: Not Given Non-Formulary Medication (Terazosin [Hytrin]) 2 mg PO HS [facility] Last Admin: 08/16/17 23:58 Dose: Not Given Ondansetron HCl (Zofran Inj) 4 mg IVP Q4H PRN PRN Reason: Nausea/Vomiting Polyethylene Glycol (Miralax) 17 gm PO BID [facility] Last Admin: 08/17/17 09:48 Dose: 17 gm Potassium Chloride (K-Dur 20 Meq Er Tab) 20 meq PO TID [facility] Last Admin: 08/17/17 09:42 Dose: 20 meq Promethazine HCl/Dextromethorphan (Phenergan Dm Syrup) 5 ml PO QID PRN PRN Reason: Cough Valsartan (Diovan) 320 mg PO DAILY [facility] Last Admin: 08/17/17 09:42 Dose: 320 mg - Labs Labs: 08/17/17 06:00 08/17/17 06:00 PT 11.0 SECONDS (9.4-12.5) 08/16/17 13:40 INR 0.97 (0.93-1.08) 08/16/17 13:40 APTT 143.1 Seconds (25.1-36.5) H* 08/17/17 06:00 - Constitutional Appears: Well - Head Exam Head Exam: ATRAUMATIC, NORMAL INSPECTION, NORMOCEPHALIC - Eye Exam Eye Exam: EOMI, Normal appearance, PERRL Pupil Exam: NORMAL ACCOMODATION, PERRL - ENT Exam ENT Exam: Mucous Membranes Moist, Normal Exam - Neck Exam Neck Exam: Full ROM, Normal Inspection. absent: Lymphadenopathy - Respiratory Exam Respiratory Exam: Clear to Ausculation Bilateral, NORMAL BREATHING PATTERN - Cardiovascular Exam Cardiovascular Exam: REGULAR RHYTHM, +S1, +S2. absent: Murmur - GI/Abdominal Exam GI & Abdominal Exam: Soft, Normal Bowel Sounds. absent: Tenderness - Extremities Exam Extremities Exam: Full ROM, Normal Capillary Refill, Normal Inspection. absent : Joint Swelling, Pedal Edema - Back Exam Back Exam: NORMAL INSPECTION - Neurological Exam Neurological Exam: Alert, Awake, CN II-XII Intact, Normal Gait, Oriented x3 - Psychiatric Exam Psychiatric exam: Normal Affect, Normal Mood - Skin Skin Exam: Dry, Intact, Normal Color, Warm Assessment and Plan - Assessment and Plan (Free Text) Assessment: 57 year old male presented with shortness of breath. Further evaluation revealed new onset atrial fibrillation with RVR, and patient was started on a heparin drip, given verapamil and digoxin X 3, and was back in normal sinus rhythm this morning. Troponins were trended X 3, and trended upwards but within an indeterminate range, likely secondary to ischemia from RVR. BNP was mildly elevated, likely secondary to A-Fib. D-Dimer mildly elevated, suspicion for pulmonary embolism is low, and patient was started on heparin drip for A- Fib anyway. Patient's shortness of breath was also likely 2/2 to his Stage 4 Sarcoidosis. Chronic medical problems as below. Plan: New Onset A-Fib, likely 2/2 duoneb use - Continue Diltiazem tid, Discontinue heparin drip - Cardiology Consult: Dr. Rainey - Daily EKGs Dyspnea, likely 2/2 A-Fib and Sarcoidsois - As per other assessments History CAD - Ecotrin; Ranexa for symptomatic relief History of Sarcoidosis - Xopenex Q6H PRN, Brovana Q12H, Pulmicort Q12, Tessalon Perles, Mg Oxide - NC O2 4L History HTN - Norvasc 10mg PO QD, Clonidine patch, Valsartan 320 PO QD History Hyperlipidemia - Lipitor 10mg PO HS, Zetia 10 PO QD History LAYLA - CPAP daily History BPH - Terazosin History Irritable Bowel Syndrome - Linzess Prophylaxis - Heparin/Protonix
--- NOTE | 2017-08-17 15:54 | PN ---
DATE: 08/17/2017 SUBJECTIVE: The patient is seen lying in the bed in room 260 bed 2. The patient is comfortable. Denies chest pain or shortness of breath. The patient's symptoms improved significantly since yesterday. REVIEW OF SYSTEMS: The 13 system review was done, pertinent positive and negative are dictated above. OBJECTIVE: VITAL SIGNS: T-max 98.7. Telemetry shows the patient converted to sinus rhythm overnight between 11:00 to 02:00 a.m. last night. Pulse rate 82 to 87; blood pressure 123/68, 145/89, 129/87; respirations 20, O2 sat on nasal cannula 4 liters. Intake and output, output is 1200. HEENT: Head examination, normocephalic and atraumatic. HEENT examination shows pinkish pale conjunctivae. Anicteric sclerae. No oropharyngeal lesion. No neck rigidity. CHEST: Examination, kyphosis. LUNGS: Examination shows decreased air entry. Occasional rhonchi, upper lung shipman predominantly anteriorly more than posteriorly. CARDIOVASCULAR: S1, S2. Regular rhythm. Positive systolic murmur, right second intercostal space, left second intercostal space and left sternal border. No audible S3, S4 gallop noted at present. ABDOMEN: Soft, protuberant. Positive bowel sounds. GENITALIA: Male. RECTAL: Examination is deferred. EXTREMITIES: Shows positive swelling of the lower extremity. VASCULAR: Palpable pulses. MUSCULOSKELETAL: Shows a body mass index of 38. NEUROLOGIC: The patient is alert, awake, oriented x3. Cranial nerves II-XII grossly intact. Gait examination is not tested. DIAGNOSTIC DATA: 08/17, WBC 7.2, hemoglobin and hematocrit 11.1 and 35.7, platelets 223. Granulocytes 92% segs. PTT is 143.1. The patient is now off heparin drip. Chemistry: Sodium 144, potassium 4.2, chloride 103, CO2 32, anion gap 13, BUN 28, creatinine 1.2. GFR greater than 60, glucose 123, calcium 8.9, phosphorus 3.1, magnesium 2.2. LFTs are normal. Peak troponin is 0.04. Blood type is A+. CAT scan of the chest: We had reading of pulmonary hypertension and interstitial pulmonary fibrosis with honeycombing with left ventricle hypertrophy and bilateral nonobstructing nephrolithiasis with right renal cyst. Final CT chest reading was negative for pulmonary embolism. Extensive bilateral interstitial lung disease with cystic and honeycombing like changes with bronchiectasis, right more than the left. Findings similar to prior studies, positive bronchiectasis noted. Repeat EKG is pending from this morning. The patient's last EKG was done yesterday at 05:15 p.m. IMPRESSION AND PLAN: 1. Paroxysmal atrial fibrillation with rapid ventricle response, converting to normal sinus rhythm and questionable incomplete right bundle branch block with right ventricular conduction delay. 2. New-onset paroxysmal atrial fibrillation, converting to normal sinus rhythm. 3. Acute exacerbation of sarcoidosis and acute exacerbation of interstitial pulmonary fibrosis. 4. Stage III-stage IV sarcoidosis, oxygen and steroid dependent. 5. Obstructive sleep apnea, CPAP dependent. 6. History of coronary artery disease, history of angioplasty, history of myocardial infarction. 7. Hypertension. 8. Microcytic anemia with granulocytosis. 9. Elevated D-dimer. 10. Hyperglycemia. 11. Pulmonary hypertension. 12. Bilateral extensive interstitial lung disease with cystic honeycombing and bronchiectasis, right more than the left. 13. Coronary artery disease. 14. Thoracic spondylosis. 15. Right renal cyst. 16. Bilateral nonobstructing nephrolithiasis. 17. Extensive bilateral pulmonary parenchymal cystic honeycombing changes with traction bronchiectasis and linear pulmonary fibrosis, right more than the left. 18. Bilateral nonobstructing nephrolithiasis with right renal cystic mass and left renal cyst. 19. Morbid obesity with elevated body mass index. 20. Hypertension. 21. Hypovitaminosis D. 22. History of iron deficiency and vitamin B12 deficiency. 23. History of prostate carcinoma, status post prostatectomy. 24. Hypokalemia. 25. Constipation. 26. Dyslipidemia. 27. Unstable angina. 28. Vitamin B12 deficiency. 29. Deconditioning secondary to advanced stage III versus stage IV sarcoidosis. PLAN: At this time, the patient's IV heparin drip stopped. CURRENT MEDICATIONS: Brovana 15 mcg every 12 hours, Cardizem 60 three times a day, clonidine patch 0.3 mg weekly, Colace 100 mg three times a day, Diovan 320 mg daily, Vibramycin 100 mg IV every 12 hours, Drisdol 50,000 units weekly, Ecotrin 81 mg daily, folic acid 1 mg daily, K-Dur 20 mEq three times a day, Linzess 290 mcg daily, Lipitor 10 mg at bedtime, magnesium oxide 400 twice a day, MiraLax 17 g twice a day, Phenergan DM 5 mL four times a day p.r.n., Pulmicort nebulizer 0.5 mg every 12 hours, Ranexa 500 mg every 12 hours, Rocephin 2 g IV daily, Solu-Medrol 40 mg IV every 12 hours, Hytrin 2 mg at bedtime, Tessalon Perles 200 three times a day scheduled, Tylenol p.o. or suppository every 6 hours p.r.n., vitamin B12 1000 mcg monthly, Xopenex nebulizer 0.63 mg every 6 hours, Zetia 10 mg daily, Zofran 4 mg IV every 4 hours p.r.n. The patient will be maintained on the present dose of IV steroids and antibiotics. The patient has been started by Cardiology on Cardizem p.o. 60 every 8 hours three times a day. The patient will be monitored on Telemetry for changes in any rhythm. Venous Doppler results preliminary was reviewed, this was negative for DVT. Chest PT, incentive spirometry, oxygen has been ordered. Repeat EKG has been ordered. Heart-healthy diet, out of bed, KEVIN stockings, SCDs, physical therapy, occupational therapy and TCU evaluation ordered. The patient updated about his condition, diagnosis, treatment plan, management plan at length and all questions concerned answered to his satisfaction. Dictated and electronically signed, not read. Britton Ceballos MD
[2017-08-17] MEDS: TERAZOSIN 2 MG PO SCH (22:39)
[2017-08-18] MEDS: Levalbuterol 0.63 MG/3 ML Inhal Soln UD IH SCH ×4 (02:40→20:30)
[2017-08-18] MEDS: Pantoprazole 40 mg EC Tab PO SCH (06:28)
[2017-08-18] MEDS: Budesonide 0.5 mg/2 ml Inhal Susp UD IH SCH ×2 (08:22→20:30)
[2017-08-18] MEDS: Arformoterol 15 mcg/2 ml Inh Sol IH SCH ×2 (08:22→20:30)
[2017-08-18] MEDS: cefTRIAXone 2 GM IN NS 2 GM/100 ML BAG IVPB SCH (09:22)
[2017-08-18] MEDS: POLYETHYLENE GLYCOL 3350 17 GM/Dose PACKET PO SCH ×2 (09:23→18:00)
[2017-08-18] MEDS: diltiaZEM 180 mg/24 Hours CD Cap PO SCH (09:23)
[2017-08-18] MEDS: Magnesium Oxide 400 mg Tab UD PO SCH ×2 (09:24→18:00)
[2017-08-18] MEDS: Potassium Chloride 20 mEq ER Tab PO SCH ×3 (09:26→17:18)
[2017-08-18] MEDS: MethylPREDNISolone 40 mg Vial IVP SCH ×2 (09:27→22:36)
--- NOTE | 2017-08-18 10:52 | PN ---
DATE: 08/18/2017 CARDIOLOGY FOLLOWUP SUBJECTIVE: The patient remains in normal sinus rhythm. He is being receiving bronchodilators for his dyspnea. PHYSICAL EXAMINATION: VITAL SIGNS: Blood pressure is 129/71, heart rates in the 60s, normal sinus rhythm. NECK: Negative JVD. LUNGS: Without rales. HEART: Reveals S1, S2. EXTREMITIES: Without edema. LABORATORY DATA: Laboratories were not drawn. IMPRESSION: 1. Transient atrial fibrillation, patient remains in normal sinus rhythm. 2. History of sarcoidosis. 3. Hypercholesterolemia. 4. Stable angina. 5. Hypertension. PLAN: Given these findings, the patient's blood pressure is better, he remains in normal sinus rhythm. We will change the short-acting Cardizem to long-acting Cardizem. Wood Rainey MD
[2017-08-18] MEDS: Non Formulary Medication (Linaclotide [Linzess] 290 MCG) PO SCH (11:46)
[2017-08-18] MEDS: Non Formulary Medication (Ranolazine [Ranexa] 500 MG) PO SCH ×2 (11:47→23:12)
--- NOTE | 2017-08-18 12:02 | CARD ---
APPROVED REPORT EKG Measurement Heart [id number] <Conclusion> Normal sinus rhythm Possible Left atrial enlargement Incomplete RBBB Pattern.
--- NOTE | 2017-08-18 19:45 | CP.PCM.PN ---
Subjective - Date & Time of Evaluation Date of Evaluation: 08/18/17 Time of Evaluation: 10:30 - Subjective Subjective: Medicine progress note: Dr. Ceballos Patient seen and examined at bedside. Patient is doing well and shortness of breath has resolved. Patient denies any symptoms at present. Objective - Vital Signs/Intake and Output Vital Signs (last 24 hours): Temp Pulse Resp BP Pulse Ox 97.4 F L 64 18 122/67 98 08/18/17 18:00 08/18/17 18:00 08/18/17 18:00 08/18/17 18:00 08/18/17 06:00 Intake and Output: 08/18/17 08/19/17 18:59 06:59 Intake Total 480 Output Total 500 Balance -20 - Medications Medications: Current Medications Acetaminophen (Tylenol 325mg Tab) 650 mg PO Q6 PRN PRN Reason: TEMP>=99.5F Acetaminophen (Tylenol 650 Mg Supp) 650 mg RC Q6H PRN PRN Reason: TEMP>=99.5F Arformoterol Tartrate (Brovana) 15 mcg IH [id number] [facility] Last Admin: 08/18/17 08:22 Dose: 15 mcg Aspirin (Ecotrin) 81 mg PO DAILY [facility] Last Admin: 08/18/17 09:23 Dose: 81 mg Atorvastatin Calcium (Lipitor) 10 mg PO HS [facility] Last Admin: 08/17/17 22:38 Dose: 10 mg Benzonatate (Tessalon Perles) 200 mg PO TID [facility] Last Admin: 08/18/17 17:15 Dose: 200 mg Budesonide (Pulmicort Respules) 0.5 mg IH [id number] [facility] Last Admin: 08/18/17 08:22 Dose: 0.5 mg Clonidine HCl (Catapres-Tts3 0.3 Mg/24 Hr) 1 patch TD FRI [facility] Cyanocobalamin (Vitamin B12 1000 Mcg/Ml Inj) 1,000 mcg IM Q30D [facility] Diltiazem HCl (Cardizem Cd) 180 mg PO DAILY [facility] Last Admin: 08/18/17 09:23 Dose: 180 mg Docusate Sodium (Colace) 100 mg PO TID [facility] Last Admin: 08/18/17 17:17 Dose: 100 mg Doxycycline Hyclate (Doryx) 100 mg PO Q12 [facility] Last Admin: 08/18/17 09:25 Dose: 100 mg Ezetimibe (Zetia) 10 mg PO DAILY [facility] Last Admin: 08/18/17 09:24 Dose: 10 mg Ergocalciferol (Drisdol 50,000 Intl Units Cap) 1 cap PO SuTh@1000 [facility] Folic Acid (Folic Acid) 1 mg PO DAILY [facility] Last Admin: 08/18/17 09:25 Dose: 1 mg Heparin Sodium (Porcine) (Heparin) 5,000 units SC Q12 [facility] PRN Reason: Protocol Last Admin: 08/18/17 09:26 Dose: 5,000 units Ceftriaxone Sodium (Rocephin 2 Gm Ivpb) 2 gm in 100 mls @ 100 mls/hr IVPB DAILY [facility] PRN Reason: Protocol Last Admin: 08/18/17 09:22 Dose: 100 mls/hr Levalbuterol HCl (Xopenex) 0.63 mg IH [id number] [facility] Last Admin: 08/18/17 13:07 Dose: 0.63 mg Magnesium Oxide (Mag-Ox) 400 mg PO BID [facility] Last Admin: 08/18/17 18:00 Dose: 400 mg Methylprednisolone (Solu-Medrol) 40 mg IVP Q12 [facility] Last Admin: 08/18/17 09:27 Dose: 40 mg Non-Formulary Medication (Linaclotide [Linzess]) 290 mcg PO DAILY [facility] Last Admin: 08/18/17 11:46 Dose: Not Given Non-Formulary Medication (Ranolazine [Ranexa]) 500 mg PO Q12H [facility] Last Admin: 08/18/17 11:47 Dose: Not Given Terazosin [Hytrin] 2 (Mg) 2 mg PO HS [facility] Last Admin: 08/17/17 22:39 Dose: 2 mg Ondansetron HCl (Zofran Inj) 4 mg IVP Q4H PRN PRN Reason: Nausea/Vomiting Pantoprazole Sodium (Protonix Ec Tab) 40 mg PO 0600 [facility] Last Admin: 08/18/17 06:28 Dose: 40 mg Polyethylene Glycol (Miralax) 17 gm PO BID [facility] Last Admin: 08/18/17 18:00 Dose: 17 gm Potassium Chloride (K-Dur 20 Meq Er Tab) 20 meq PO TID [facility] Last Admin: 08/18/17 17:18 Dose: 20 meq Promethazine HCl/Dextromethorphan (Phenergan Dm Syrup) 5 ml PO QID PRN PRN Reason: Cough Valsartan (Diovan) 320 mg PO DAILY [facility] Last Admin: 08/18/17 09:24 Dose: 320 mg - Labs Labs: 08/17/17 06:00 08/17/17 06:00 PT 11.0 SECONDS (9.4-12.5) 08/16/17 13:40 INR 0.97 (0.93-1.08) 08/16/17 13:40 APTT 143.1 Seconds (25.1-36.5) H* 08/17/17 06:00 - Constitutional Appears: Well - Head Exam Head Exam: ATRAUMATIC, NORMAL INSPECTION, NORMOCEPHALIC - Eye Exam Eye Exam: EOMI, Normal appearance, PERRL Pupil Exam: NORMAL ACCOMODATION, PERRL - ENT Exam ENT Exam: Mucous Membranes Moist, Normal Exam - Neck Exam Neck Exam: Full ROM, Normal Inspection. absent: Lymphadenopathy - Respiratory Exam Respiratory Exam: Clear to Ausculation Bilateral, NORMAL BREATHING PATTERN - Cardiovascular Exam Cardiovascular Exam: REGULAR RHYTHM, +S1, +S2. absent: Murmur - GI/Abdominal Exam GI & Abdominal Exam: Soft, Normal Bowel Sounds. absent: Tenderness - Extremities Exam Extremities Exam: Full ROM, Normal Capillary Refill, Normal Inspection. absent : Joint Swelling, Pedal Edema - Back Exam Back Exam: NORMAL INSPECTION - Neurological Exam Neurological Exam: Alert, Awake, CN II-XII Intact, Normal Gait, Oriented x3 - Psychiatric Exam Psychiatric exam: Normal Affect, Normal Mood - Skin Skin Exam: Dry, Intact, Normal Color, Warm Assessment and Plan - Assessment and Plan (Free Text) Assessment: 57 year old male presented with shortness of breath. Further evaluation revealed new onset atrial fibrillation with RVR, and patient was started on a heparin drip, given verapamil and digoxin X 3, and was back in normal sinus rhythm this morning. Troponins were trended X 3, and trended upwards but within an indeterminate range, likely secondary to ischemia from RVR. BNP was mildly elevated, likely secondary to A-Fib. D-Dimer mildly elevated, suspicion for pulmonary embolism is low, and patient was started on heparin drip for A- Fib anyway. Patient's shortness of breath was also likely 2/2 to his Stage 4 Sarcoidosis. Chronic medical problems as below. Plan: New Onset A-Fib, likely 2/2 duoneb use - - Continue Diltiazem tid, Discontinue heparin drip - Cardiology Consult: Dr. Rainey - Daily EKGs Dyspnea, likely 2/2 A-Fib and Sarcoidsois - As per other assessments History CAD - Ecotrin; Ranexa for symptomatic relief History of Sarcoidosis - Xopenex Q6H PRN, Brovana Q12H, Pulmicort Q12, Tessalon Perles, Mg Oxide - NC O2 4L History HTN - Norvasc 10mg PO QD, Clonidine patch, Valsartan 320 PO QD History Hyperlipidemia - Lipitor 10mg PO HS, Zetia 10 PO QD History LAYLA - CPAP daily History BPH - Terazosin History Irritable Bowel Syndrome - Linzess Prophylaxis - Heparin/Protonix
[2017-08-18] MEDS: TERAZOSIN 2 MG PO SCH (22:34)
--- NOTE | 2017-08-19 00:39 | PN ---
DATE: 08/18/2017 SUBJECTIVE: Patient is seen lying in room 260, bed 2. Patient's overnight nurse's notes were reviewed.. Telemetry shows sinus rhythm. Patient converted to sinus rhythm from AFib more than 24 hours ago. REVIEW OF SYSTEMS: Thirteen system review was positive for rhonchi and cough today. PHYSICAL EXAMINATION: VITAL SIGNS: T max is 97.4, pulse 64, 73, 69, blood pressure 132/79, 122/67, respiration is 18 to 20 to 16, O2 sat is 93%, 94%, 98%. HEENT: Head examination normocephalic, atraumatic. HEENT examination shows pinkish conjunctivae. Anicteric sclerae. No oropharyngeal lesion. NECK: No neck rigidity. CHEST: Kyphosis. LUNGS: Shows positive rhonchi upper lung shipman anteriorly. Decreased breath sounds bilaterally. CARDIOVASCULAR: S1, S2, regular rhythm. Positive systolic murmur left sternal border, right second intercostal space, left second intercostal space. ABDOMEN: Protuberant, obese. Positive bowel sounds. GENITALIA: Male. RECTAL: Deferred. EXTREMITIES: Shows trace swelling of the lower extremity. MUSCULOSKELETAL: Shows a body mass index of 38.5. NEUROLOGIC: Cranial nerves II-XII intact. Gait examination is independent. VASCULAR: Palpable pulses. DIAGNOSTICS: None from today. IMPRESSION: 1. Acute exacerbation of sarcoidosis with acute exacerbation of interstitial pulmonary fibrosis and bronchiectasis. 2. Paroxysmal atrial fibrillation, converting to normal sinus rhythm. 3. Probable stage III/stage IV sarcoidosis. 4. Dyslipidemia. 5. Incomplete right bundle-branch block. 6. Pulmonary hypertension. 7. Extensive bilateral interstitial lung disease with cystic and honeycombing and bronchiectasis, right more than the left. 8. Bibasilar traction bronchiectasis and interstitial pulmonary fibrosis. 9. Cardiomegaly with coronary artery calcification. 10. Thoracic spondylosis. 11. Right renal cystic mass. 12. Bilateral nephrolithiasis. 13. Morbid obesity. 14. Microcytic anemia. 15. granulocytosis. 16. Prerenal kidney injury. 17. Hyperglycemia. PLAN: At this time, patient's repeat EKG continues to shows the patient is staying in sinus rhythm. The patient is seen by Human Resources Coordinator. Their recommendation was to continue patient on Cardizem at present and aspirin. CURRENT MEDICATIONS: Brovana 15 mcg twice a day; Cardizem is now changed to Cardizem CD 180 mg daily; clonidine 0.3 mg patch weekly, Colace 100 mg three times a day, Diovan 320 mg daily, doxycycline 100 mg p.o. every 12 hours, Drisdol 50,000 units weekly, Ecotrin 81 mg daily, folic acid 1 mg daily, heparin 5000 subcu every 12 hours, K-Dur 20 mEq three times a day, Linzess 290 mcg daily, Lipitor 10 mg at bedtime., magnesium oxide 400 mg twice a day, MiraLax 17 g twice a day, Phenergan DM 5 mL four times a day p.r.n., Protonix 40 mg daily, Pulmicort nebulizer 0.5 mg every 12 hours, Ranexa 500 mg every 12 hours, Rocephin 2 g IV daily, Solu-Medrol 40 mg IV every 12 hours, Hytrin 2 mg at bedtime, Tessalon Perles 200 mg three times a day, Tylenol 650 mg every 6 hours p.r.n., vitamin B12 1000 mcg IM monthly, Xopenex nebulizer 0.63 mg every 6 hours, Zetia 10 mg daily, Zofran 4 mg IV every 4 hours p.r.n. Chest PT, incentive spirometry, nasal cannula, EKG. Heart healthy diet ordered. Out of bed, Liz Wiggins. ordered. Patient will be continued on above therapeutic intervention as the patient has been complaining of shortness of breath and examination shows rhonchi. Patient's steroids will not be tapered today. Patient will be continued on the above therapeutic intervention until patient improves significantly. Dictated and electronically signed, not read. Britton Ceballos MD
[2017-08-19] MEDS: Levalbuterol 0.63 MG/3 ML Inhal Soln UD IH SCH ×5 (02:05→19:23)
[2017-08-19] MEDS: Pantoprazole 40 mg EC Tab PO SCH (05:41)
[2017-08-19] MEDS: Budesonide 0.5 mg/2 ml Inhal Susp UD IH SCH ×2 (07:25→19:23)
[2017-08-19] MEDS: Arformoterol 15 mcg/2 ml Inh Sol IH SCH ×2 (07:25→19:23)
--- NOTE | 2017-08-19 08:49 | CARD ---
APPROVED REPORT EKG Measurement Heart [id number] <Conclusion> Normal sinus rhythm Nonspecific T wave abnormality Incomplete RBBB.
[2017-08-19] MEDS: cefTRIAXone 2 GM IN NS 2 GM/100 ML BAG IVPB SCH (09:11)
[2017-08-19] MEDS: POLYETHYLENE GLYCOL 3350 17 GM/Dose PACKET PO SCH ×2 (09:12→17:49)
[2017-08-19] MEDS: Magnesium Oxide 400 mg Tab UD PO SCH ×2 (09:12→17:49)
[2017-08-19] MEDS: diltiaZEM 180 mg/24 Hours CD Cap PO SCH (09:12)
[2017-08-19] MEDS: Potassium Chloride 20 mEq ER Tab PO SCH ×3 (09:12→17:49)
[2017-08-19] MEDS: Non Formulary Medication (Ranolazine [Ranexa] 500 MG) PO SCH ×2 (09:13→19:27)
[2017-08-19] MEDS: Ergocalciferol 50,000 Intl Units Cap PO SCH (09:13)
[2017-08-19] MEDS: MethylPREDNISolone 40 mg Vial IVP SCH ×2 (09:13→21:35)
[2017-08-19] MEDS: Non Formulary Medication (Linaclotide [Linzess] 290 MCG) PO SCH (09:14)
[2017-08-19 09:54] LABS: GRAN # 8.64 (1.4-6.5); GRAN % 90.4 % (50.0-68.0); HEMOGLOBIN 11.1 g/dL (14.0-18.0); LYMPH # 0.7 (1.2-3.4); LYMPH % 7.3 % (22.0-35.0); MEAN CELL VOLUME 78.7 fl (80.0-105.0); MEAN CORPUSCULAR HEMOGLOBIN 24.4 pg (25.0-35.0); MEAN PLATELET VOLUME 10.2 fl (7.0-11.0); MONO # 0.2 (0.1-0.6); MONO % 2.3 % (1.0-6.0); RBC 4.55 10^6/uL (3.5-6.1); RED CELL DISTRIBUTION WIDTH 19.8 % (11.5-14.5); WHITE BLOOD COUNT 9.6 10^3/ul (4.5-11.0)
[2017-08-19 10:03] LABS: ALB/GLOB RATIO 1.3 (1.1-1.8); ALBUMIN 3.7 g/dL (3.0-4.8); ALT/SGPT 29 U/L (7-56); AST/SGOT 15 U/L (17-59); BILIRUBIN,DIRECT 0.1 mg/dL (0.0-0.4); BLOOD UREA NITROGEN 38 mg/dL (7-21); CALCIUM 8.9 mg/dL (8.4-10.5); GFR AFRICAN-AMERICAN > 60; GFR NON-AFRICAN AMERICAN 57
--- NOTE | 2017-08-19 10:39 | PN ---
DATE: 08/19/2017 CARDIOLOGY FOLLOWUP SUBJECTIVE: The patient's breathing is much improved. PHYSICAL EXAMINATION: VITAL SIGNS: Blood pressure is 120/60, the heart rate remains in normal sinus rhythm in the 70s. NECK: Negative JVD. LUNGS: Without rales. HEART: Reveals S1, S2. EXTREMITIES: Without edema. LABORATORY DATA: Hemoglobin is 11.1. Chemistries: BUN and creatinine are unremarkable. IMPRESSION: 1. Paroxysmal atrial fibrillation, which the patient has remained in normal sinus rhythm. 2. Sarcoidosis. 3. Diabetes mellitus. 4. Hypertension. 5. Resolution of palpitations. PLAN: Given these findings, we will discontinue telemetry today. We will continue on his Cardizem. Wood Rainey MD
[2017-08-19] MEDS: Acetylcysteine 20% Inhal Soln (4ml) IH SCH ×2 (13:09→19:25)
[2017-08-19] MEDS: BENZONATATE 200 MG PO SCH ×2 (14:39→17:49)
--- NOTE | 2017-08-19 17:24 | PN ---
DATE: 08/19/2017 SUBJECTIVE: The patient is seen lying in the bed in room 260, bed 2. The patient is lying in the bed watching videos on the phone. The patient is comfortable. The patient complains of some cough and phlegm, which he is unable to expectorate and requesting Mucomyst nebulizer. Overnight nurses' notes were reviewed. OBJECTIVE: VITAL SIGNS: T-max 98.4. Telemetry shows sinus rhythm, heart rate 60s and 70s. Blood pressure 135/75, 120/60, 132/84, 122/73, 132/79; respirations 18; O2 sat 97%. HEENT: Head examination, normocephalic and atraumatic. HEENT examination shows pinkish conjunctivae. Anicteric sclerae. No oropharyngeal lesion. No neck rigidity. CHEST: Examination, kyphosis. LUNGS: Examination shows positive crackles, crepitus, rhonchi in upper lung shipman are bilaterally. Questionable decreased breath sound at the bases, left more than the right. CARDIOVASCULAR: S1, S2, regular rhythm. Positive systolic murmur, left sternal border, right second intercostal space. ABDOMEN: Soft. Positive bowel sound. GENITALIA: Male. RECTAL: Examination is deferred. EXTREMITIES: Shows 1+ pitting edema of the lower extremity. VASCULAR: Examination, palpable pulses. PSYCHIATRIC: Examination is negative. MUSCULOSKELETAL: Examination shows elevated body mass index of 38.5. NEUROLOGIC: The patient is alert, awake, oriented x3. Motor strength is 5/5. Gait examination not tested. DIAGNOSTICS: 08/19, WBC 9.6, hemoglobin and hematocrit 11.1, 35.8; MCV 78.7, platelets 203. Granulocytes 90.4. Sodium 144, potassium 4.4, chloride 104, CO2 of 29, anion gap 15, BUN 38, creatinine 1.3, GFR greater than 60, glucose 153, calcium 8.9, magnesium 2.5. LFTs are normal. Troponin all three sets are negative. Microbiology is negative. Blood type A+. EKG done on 08/19 shows sinus rhythm, incomplete right bundle-branch block. IMPRESSION AND PLAN: 1. Paroxysmal atrial fibrillation with rapid ventricle response converting to normal sinus rhythm. 2. Incomplete right bundle-branch block. 3. History of stage III to IV sarcoidosis. 4. Hypertension. 5. Prerenal kidney injury. 6. Steroid-induced hyperglycemia. 7. Questionable volume overload versus congestive heart failure. 8. Microcytic anemia with granulocytosis. 9. Difficulty expectoration of phlegm. 10. Bilateral lower extremity venous stasis. 11. Constipation. 12. Acute exacerbation of interstitial pulmonary fibrosis. 13. Hyperlipidemia. 14. Hypomagnesemia. 15. History of coronary artery disease, coronary angioplasty and angina. 16. History of prostate carcinoma, status post surgery. 17. History of vitamin B12 deficiency. 18. History of iron deficiency. PLAN: At this time, the patient is to be continued on . The patient's Telemetry has been discontinued. The patient has been added Mucomyst 20% 4 mL to the Xopenex nebulizer treatment every 6 hours, aspirin 325 mg daily, Brovana 15 mcg every 12 hours, Cardizem CD 180 mg daily, clonidine patch 0.3 mg weekly, Colace 100 mg three times a day, Diovan 320 mg daily, doxycycline 100 mg p.o. every 12 hours, Drisdol 50,000 units weekly, folic acid 1 mg daily, heparin 5000 subcutaneous every 12 hours, K-Dur 20 mEq twice a day, Lasix 40 mg IV x1 stat, Linzess 290 mcg daily, Lipitor 10 mg at bedtime, magnesium oxide 400 mg twice a day, MiraLax 17 g twice a day, Phenergan DM 5 mL four times a day p.r.n., Protonix 40 mg daily, Pulmicort nebulizer 0.5 mg twice a day, Ranexa 500 mg twice a day, Rocephin 2 g IV daily, Solu-Medrol decreased to 30 mg IV every 12 hours, Hytrin 2 mg at bedtime, Tessalon Perles 200 three times a day, Tylenol 650 mg p.o. every 6 hours suppository and p.o. every 6 hours p.r.n. for temperature greater than 99.5, vitamin B12 1000 mcg monthly, Xopenex nebulizer 0.63 mg four times a day, Zetia 10 mg daily, Zofran 4 mg IV every 4 hours p.r.n. Chest PT, incentive spirometry all ordered. The patient will be considered for early discharge if the patient is cleared by Cardiology for discharge. The patient at present is to be continued on above therapeutic intervention which was discussed. The patient updated about his condition, diagnosis, treatment plan, management plan at length. All questions concerned answered. Dictated and electronically signed, not read. Britton Ceballos MD
--- NOTE | 2017-08-19 17:27 | CP.PCM.PN ---
Subjective - Date & Time of Evaluation Date of Evaluation: 08/19/17 Time of Evaluation: 08:00 - Subjective Subjective: Medicine progress note: Dr. Ceballos Patient seen and examined at bedside. No acute overnight events. Patient states that his breathing is fine, but he does feel a little congestion. No further complaints. Objective - Vital Signs/Intake and Output Vital Signs (last 24 hours): Temp Pulse Resp BP Pulse Ox 97.6 F 66 18 135/75 97 08/19/17 06:00 08/19/17 10:00 08/19/17 06:00 08/19/17 11:45 08/19/17 06:00 Intake and Output: 08/19/17 08/19/17 06:59 18:59 Intake Total 480 300 Output Total 200 600 Balance 280 -300 - Medications Medications: Current Medications Acetaminophen (Tylenol 325mg Tab) 650 mg PO Q6 PRN PRN Reason: TEMP>=99.5F Acetaminophen (Tylenol 650 Mg Supp) 650 mg RC Q6H PRN PRN Reason: TEMP>=99.5F Acetylcysteine (Acetylcysteine 20%) 4 ml IH [id number] [facility] Last Admin: 08/19/17 13:09 Dose: 4 ml Arformoterol Tartrate (Brovana) 15 mcg IH [id number] [facility] Last Admin: 08/19/17 07:25 Dose: 15 mcg Aspirin (Aspirin) 325 mg PO DAILY [facility] Last Admin: 08/19/17 11:46 Dose: 325 mg Atorvastatin Calcium (Lipitor) 10 mg PO HS [facility] Last Admin: 08/18/17 22:35 Dose: 10 mg Budesonide (Pulmicort Respules) 0.5 mg IH [id number] [facility] Last Admin: 08/19/17 07:25 Dose: 0.5 mg Clonidine HCl (Catapres-Tts3 0.3 Mg/24 Hr) 1 patch TD FRI [facility] Cyanocobalamin (Vitamin B12 1000 Mcg/Ml Inj) 1,000 mcg IM Q30D [facility] Diltiazem HCl (Cardizem Cd) 180 mg PO DAILY [facility] Last Admin: 08/19/17 09:12 Dose: 180 mg Docusate Sodium (Colace) 100 mg PO TID [facility] Last Admin: 08/19/17 14:39 Dose: 100 mg Doxycycline Hyclate (Doryx) 100 mg PO Q12 [facility] Last Admin: 08/19/17 09:12 Dose: 100 mg Ezetimibe (Zetia) 10 mg PO DAILY [facility] Last Admin: 08/19/17 09:12 Dose: 10 mg Ergocalciferol (Drisdol 50,000 Intl Units Cap) 1 cap PO SuTh@1000 [facility] Last Admin: 08/19/17 09:13 Dose: 1 cap Folic Acid (Folic Acid) 1 mg PO DAILY [facility] Last Admin: 08/19/17 09:12 Dose: 1 mg Heparin Sodium (Porcine) (Heparin) 5,000 units SC Q12 [facility] PRN Reason: Protocol Last Admin: 08/19/17 09:13 Dose: 5,000 units Home Med (Home Med) 1 unit PO TID [facility] Last Admin: 08/19/17 14:39 Dose: 1 unit Ceftriaxone Sodium (Rocephin 2 Gm Ivpb) 2 gm in 100 mls @ 100 mls/hr IVPB DAILY [facility] PRN Reason: Protocol Last Admin: 08/19/17 09:11 Dose: 100 mls/hr Levalbuterol HCl (Xopenex) 0.63 mg IH [id number] [facility] Last Admin: 08/19/17 13:10 Dose: 0.63 mg Magnesium Oxide (Mag-Ox) 400 mg PO BID [facility] Last Admin: 08/19/17 09:12 Dose: 400 mg Methylprednisolone (Solu-Medrol) 30 mg IVP Q12 [facility] Non-Formulary Medication (Linaclotide [Linzess]) 290 mcg PO DAILY [facility] Last Admin: 08/19/17 09:14 Dose: Not Given Non-Formulary Medication (Ranolazine [Ranexa]) 500 mg PO Q12H [facility] Last Admin: 08/19/17 09:13 Dose: Not Given Terazosin [Hytrin] 2 (Mg) 2 mg PO HS [facility] Last Admin: 08/18/17 22:34 Dose: 2 mg Ondansetron HCl (Zofran Inj) 4 mg IVP Q4H PRN PRN Reason: Nausea/Vomiting Pantoprazole Sodium (Protonix Ec Tab) 40 mg PO 0600 [facility] Last Admin: 08/19/17 05:41 Dose: 40 mg Polyethylene Glycol (Miralax) 17 gm PO BID [facility] Last Admin: 08/19/17 09:12 Dose: 17 gm Potassium Chloride (K-Dur 20 Meq Er Tab) 20 meq PO TID [facility] Last Admin: 08/19/17 14:39 Dose: 20 meq Promethazine HCl/Dextromethorphan (Phenergan Dm Syrup) 5 ml PO QID PRN PRN Reason: Cough Valsartan (Diovan) 320 mg PO DAILY [facility] Last Admin: 08/19/17 09:13 Dose: 320 mg - Labs Labs: 08/19/17 09:40 08/19/17 09:40 PT 11.0 SECONDS (9.4-12.5) 08/16/17 13:40 INR 0.97 (0.93-1.08) 08/16/17 13:40 APTT 143.1 Seconds (25.1-36.5) H* 08/17/17 06:00 - Constitutional Appears: Well - Head Exam Head Exam: ATRAUMATIC, NORMAL INSPECTION, NORMOCEPHALIC - Eye Exam Eye Exam: EOMI, Normal appearance, PERRL Pupil Exam: NORMAL ACCOMODATION, PERRL - ENT Exam ENT Exam: Mucous Membranes Moist, Normal Exam - Neck Exam Neck Exam: Full ROM, Normal Inspection. absent: Lymphadenopathy - Respiratory Exam Respiratory Exam: Clear to Ausculation Bilateral, NORMAL BREATHING PATTERN - Cardiovascular Exam Cardiovascular Exam: REGULAR RHYTHM, +S1, +S2. absent: Murmur - GI/Abdominal Exam GI & Abdominal Exam: Soft, Normal Bowel Sounds. absent: Tenderness - Extremities Exam Extremities Exam: Full ROM, Normal Capillary Refill, Normal Inspection. absent : Joint Swelling, Pedal Edema - Back Exam Back Exam: NORMAL INSPECTION - Neurological Exam Neurological Exam: Alert, Awake, CN II-XII Intact, Normal Gait, Oriented x3 - Psychiatric Exam Psychiatric exam: Normal Affect, Normal Mood - Skin Skin Exam: Dry, Intact, Normal Color, Warm Assessment and Plan - Assessment and Plan (Free Text) Assessment: 57 year old male presented with shortness of breath. Further evaluation revealed new onset atrial fibrillation with RVR, and patient was started on a heparin drip, given verapamil and digoxin X 3, and was back in normal sinus rhythm this morning. Troponins were trended X 3, and trended upwards but within an indeterminate range, likely secondary to ischemia from RVR. BNP was mildly elevated, likely secondary to A-Fib. D-Dimer mildly elevated, suspicion for pulmonary embolism is low, and patient was started on heparin drip for A- Fib anyway. Patient's shortness of breath was also likely 2/2 to his Stage 4 Sarcoidosis. Chronic medical problems as below. Today, patient has been in NSR for over 24 hours. His labs and vitals are stable. New Onset A-Fib, likely 2/2 duoneb use - Resolved - Cardiology Consult: Dr. Rainey - Daily EKGs - Discontinue telemetry - Added ASA 325, discontinued ASA 81; Discontinue Diltiazem tid, changed to Diltiazem 180 daily Dyspnea, likely 2/2 A-Fib and Sarcoidsois - As per other assessments History CAD - ASA 325 (changed from ASA 81); Ranexa for symptomatic relief History of Sarcoidosis - Xopenex Q6H PRN, Brovana Q12H, Pulmicort Q12, Tessalon Perles, Mg Oxide; add mucomyst - NC O2 4L History HTN - Norvasc 10mg PO QD, Clonidine patch, Valsartan 320 PO QD History Hyperlipidemia - Lipitor 10mg PO HS, Zetia 10 PO QD History LAYLA - CPAP daily History BPH - Terazosin History Irritable Bowel Syndrome - Linzess Prophylaxis - Heparin/Protonix
[2017-08-19] MEDS: TERAZOSIN 2 MG PO SCH (21:36)
[2017-08-20] MEDS: Levalbuterol 0.63 MG/3 ML Inhal Soln UD IH SCH ×4 (01:01→19:59)
[2017-08-20] MEDS: Acetylcysteine 20% Inhal Soln (4ml) IH SCH ×4 (01:01→19:55)
[2017-08-20] MEDS: Pantoprazole 40 mg EC Tab PO SCH (05:58)
[2017-08-20] MEDS: Arformoterol 15 mcg/2 ml Inh Sol IH SCH ×2 (07:58→19:55)
[2017-08-20] MEDS: Budesonide 0.5 mg/2 ml Inhal Susp UD IH SCH ×2 (07:58→19:55)
[2017-08-20] MEDS: Non Formulary Medication (Ranolazine [Ranexa] 500 MG) PO SCH ×2 (08:36→20:01)
[2017-08-20] MEDS: BENZONATATE 200 MG PO SCH ×3 (10:17→17:24)
[2017-08-20] MEDS: cefTRIAXone 2 GM IN NS 2 GM/100 ML BAG IVPB SCH (10:17)
[2017-08-20] MEDS: MethylPREDNISolone 40 mg Vial IVP SCH ×2 (10:17→21:23)
[2017-08-20] MEDS: POLYETHYLENE GLYCOL 3350 17 GM/Dose PACKET PO SCH ×2 (10:17→17:26)
[2017-08-20] MEDS: diltiaZEM 180 mg/24 Hours CD Cap PO SCH (10:18)
[2017-08-20] MEDS: Potassium Chloride 20 mEq ER Tab PO SCH ×3 (10:18→17:25)
[2017-08-20] MEDS: Magnesium Oxide 400 mg Tab UD PO SCH ×2 (10:19→17:27)
[2017-08-20] MEDS: Non Formulary Medication (Linaclotide [Linzess] 290 MCG) PO SCH (10:20)
--- NOTE | 2017-08-20 12:59 | PN ---
DATE: 08/20/2017 CARDIOLOGY FOLLOWUP SUBJECTIVE: The patient is comfortable. No shortness of breath, no chest pain. PHYSICAL EXAMINATION: VITAL SIGNS: Blood pressure 127/73, heart rate is in the 70s, normal sinus rhythm. NECK: Negative JVD. LUNGS: Without rales. HEART: Reveal S1 and S2. EXTREMITIES: Without edema. LABORATORY DATA: Hemoglobin is 11.1. Chemistries, BUN and creatinine are unremarkable. IMPRESSION: 1. Paroxysmal atrial fibrillation. The patient remains in normal sinus rhythm. 2. History of sarcoidosis. 3. Diabetes mellitus. 4. Hypertension. 5. No more palpitations. Given these findings, the patient is doing well, from a cardiac perspective. No anticoagulation is necessary at this time. The patient is to follow up as an outpatient in four to five weeks. Wood Rainey MD
--- NOTE | 2017-08-20 16:34 | CP.PCM.PN ---
Subjective - Date & Time of Evaluation Date of Evaluation: 08/20/17 Time of Evaluation: 07:00 - Subjective Subjective: Medicine progress note: Dr. Ceballos Patient seen and examined at bedside. No acute events overnight. Patient states his breathing is better, but he states that he does have some dyspnea on exertion. Objective - Vital Signs/Intake and Output Vital Signs (last 24 hours): Temp Pulse Resp BP Pulse Ox 97.2 F L 74 20 127/73 99 08/20/17 07:46 08/20/17 13:22 08/20/17 07:46 08/20/17 13:22 08/20/17 10:00 Intake and Output: 08/20/17 08/20/17 06:59 18:59 Intake Total 240 Balance 240 - Medications Medications: Current Medications Acetaminophen (Tylenol 325mg Tab) 650 mg PO Q6 PRN PRN Reason: TEMP>=99.5F Acetaminophen (Tylenol 650 Mg Supp) 650 mg RC Q6H PRN PRN Reason: TEMP>=99.5F Acetylcysteine (Acetylcysteine 20%) 4 ml IH [id number] [facility] Last Admin: 08/20/17 13:45 Dose: 4 ml Arformoterol Tartrate (Brovana) 15 mcg IH [id number] [facility] Last Admin: 08/20/17 07:58 Dose: 15 mcg Aspirin (Aspirin) 325 mg PO DAILY [facility] Last Admin: 08/20/17 10:19 Dose: 325 mg Atorvastatin Calcium (Lipitor) 10 mg PO HS [facility] Last Admin: 08/19/17 21:36 Dose: 10 mg Budesonide (Pulmicort Respules) 0.5 mg IH [id number] [facility] Last Admin: 08/20/17 07:58 Dose: 0.5 mg Clonidine HCl (Catapres-Tts3 0.3 Mg/24 Hr) 1 patch TD FRI [facility] Last Admin: 08/20/17 13:22 Dose: Not Given Cyanocobalamin (Vitamin B12 1000 Mcg/Ml Inj) 1,000 mcg IM Q30D [facility] Diltiazem HCl (Cardizem Cd) 180 mg PO DAILY [facility] Last Admin: 08/20/17 10:18 Dose: 180 mg Docusate Sodium (Colace) 100 mg PO TID [facility] Last Admin: 08/20/17 13:52 Dose: 100 mg Doxycycline Hyclate (Doryx) 100 mg PO Q12 [facility] Last Admin: 08/20/17 10:18 Dose: 100 mg Ezetimibe (Zetia) 10 mg PO DAILY [facility] Last Admin: 08/20/17 10:18 Dose: 10 mg Ergocalciferol (Drisdol 50,000 Intl Units Cap) 1 cap PO SuTh@1000 [facility] Last Admin: 08/19/17 09:13 Dose: 1 cap Folic Acid (Folic Acid) 1 mg PO DAILY [facility] Last Admin: 08/20/17 10:19 Dose: 1 mg Heparin Sodium (Porcine) (Heparin) 5,000 units SC Q12 [facility] PRN Reason: Protocol Last Admin: 08/20/17 13:23 Dose: Not Given Home Med (Home Med) 1 unit PO TID [facility] Last Admin: 08/20/17 13:53 Dose: 1 unit Ceftriaxone Sodium (Rocephin 2 Gm Ivpb) 2 gm in 100 mls @ 100 mls/hr IVPB DAILY [facility] PRN Reason: Protocol Stop: 08/21/17 10:59 Last Admin: 08/20/17 10:17 Dose: 100 mls/hr Levalbuterol HCl (Xopenex) 0.63 mg IH [id number] [facility] Last Admin: 08/20/17 13:45 Dose: 0.63 mg Magnesium Oxide (Mag-Ox) 400 mg PO BID [facility] Last Admin: 08/20/17 10:19 Dose: 400 mg Methylprednisolone (Solu-Medrol) 30 mg IVP Q12 [facility] Last Admin: 08/20/17 10:17 Dose: 30 mg Non-Formulary Medication (Linaclotide [Linzess]) 290 mcg PO DAILY [facility] Last Admin: 08/20/17 10:20 Dose: Not Given Non-Formulary Medication (Ranolazine [Ranexa]) 500 mg PO Q12H [facility] Last Admin: 08/20/17 08:36 Dose: Not Given Terazosin [Hytrin] 2 (Mg) 2 mg PO HS [facility] Last Admin: 08/19/17 21:36 Dose: 2 mg Ondansetron HCl (Zofran Inj) 4 mg IVP Q4H PRN PRN Reason: Nausea/Vomiting Pantoprazole Sodium (Protonix Ec Tab) 40 mg PO 0600 [facility] Last Admin: 08/20/17 05:58 Dose: 40 mg Polyethylene Glycol (Miralax) 17 gm PO BID [facility] Last Admin: 08/20/17 10:17 Dose: 17 gm Potassium Chloride (K-Dur 20 Meq Er Tab) 20 meq PO TID [facility] Last Admin: 08/20/17 13:52 Dose: 20 meq Promethazine HCl/Dextromethorphan (Phenergan Dm Syrup) 5 ml PO QID PRN PRN Reason: Cough Valsartan (Diovan) 320 mg PO DAILY [facility] Last Admin: 08/20/17 10:18 Dose: 320 mg - Labs Labs: 08/19/17 09:40 08/19/17 09:40 PT 11.0 SECONDS (9.4-12.5) 08/16/17 13:40 INR 0.97 (0.93-1.08) 08/16/17 13:40 APTT 143.1 Seconds (25.1-36.5) H* 08/17/17 06:00 - Constitutional Appears: Well - Head Exam Head Exam: ATRAUMATIC, NORMAL INSPECTION, NORMOCEPHALIC - Eye Exam Eye Exam: EOMI, Normal appearance, PERRL Pupil Exam: NORMAL ACCOMODATION, PERRL - ENT Exam ENT Exam: Mucous Membranes Moist, Normal Exam - Neck Exam Neck Exam: Full ROM, Normal Inspection. absent: Lymphadenopathy - Respiratory Exam Respiratory Exam: Clear to Ausculation Bilateral, NORMAL BREATHING PATTERN - Cardiovascular Exam Cardiovascular Exam: REGULAR RHYTHM, +S1, +S2. absent: Murmur - GI/Abdominal Exam GI & Abdominal Exam: Soft, Normal Bowel Sounds. absent: Tenderness - Extremities Exam Extremities Exam: Full ROM, Normal Capillary Refill, Normal Inspection. absent : Joint Swelling, Pedal Edema - Back Exam Back Exam: NORMAL INSPECTION - Neurological Exam Neurological Exam: Alert, Awake, CN II-XII Intact, Normal Gait, Oriented x3 - Psychiatric Exam Psychiatric exam: Normal Affect, Normal Mood - Skin Skin Exam: Dry, Intact, Normal Color, Warm Assessment and Plan - Assessment and Plan (Free Text) Assessment: 57 year old male presented with shortness of breath. Further evaluation revealed new onset atrial fibrillation with RVR, and patient was started on a heparin drip, given verapamil and digoxin X 3, and was back in normal sinus rhythm this morning. Troponins were trended X 3, and trended upwards but within an indeterminate range, likely secondary to ischemia from RVR. BNP was mildly elevated, likely secondary to A-Fib. D-Dimer mildly elevated, suspicion for pulmonary embolism is low, and patient was started on heparin drip for A- Fib anyway. Patient's shortness of breath was also likely 2/2 to his Stage 4 Sarcoidosis. Chronic medical problems as below. Today, patient has been in NSR for over 48 hours. His labs and vitals are stable. Patient will benefit for a few more days of inpatient treatment and steroids before he is discharged. Will be discharged on steroid taper. New Onset A-Fib, likely 2/2 duoneb use - Resolved - Daily EKGs - Continue ASA 325, Diltiazem 180 daily Dyspnea, likely 2/2 A-Fib and Sarcoidosis - Added one dose of solumedrol 125 today - Mucormyst, xopenex treatments History CAD - ASA 325; Ranexa for symptomatic relief History of Sarcoidosis - Xopenex Q6H PRN, Brovana Q12H, Pulmicort Q12, Tessalon Perles, Mg Oxide; add mucomyst - [place] O2 4L History HTN - Norvasc 10mg PO QD, Clonidine patch, Valsartan 320 PO QD History Hyperlipidemia - Lipitor 10mg PO HS, Zetia 10 PO QD History LAYLA - CPAP daily History BPH - Terazosin History Irritable Bowel Syndrome - Linzess Prophylaxis - Heparin/Protonix
[2017-08-20] MEDS: TERAZOSIN 2 MG PO SCH (21:29)
[2017-08-21] MEDS: Levalbuterol 0.63 MG/3 ML Inhal Soln UD IH SCH ×4 (01:34→20:01)
[2017-08-21] MEDS: MethylPREDNISolone 40 mg Vial IVP SCH ×3 (07:09→20:53)
[2017-08-21] MEDS: Acetylcysteine 20% Inhal Soln (4ml) IH SCH ×2 (07:21→20:00)
[2017-08-21] MEDS: Arformoterol 15 mcg/2 ml Inh Sol IH SCH ×2 (07:21→20:00)
[2017-08-21] MEDS: Budesonide 0.5 mg/2 ml Inhal Susp UD IH SCH ×2 (07:21→20:01)
[2017-08-21] MEDS: Pantoprazole 40 mg EC Tab PO SCH (07:45)
[2017-08-21] MEDS: diltiaZEM 180 mg/24 Hours CD Cap PO SCH (10:08)
[2017-08-21] MEDS: POLYETHYLENE GLYCOL 3350 17 GM/Dose PACKET PO SCH ×2 (10:08→17:30)
[2017-08-21] MEDS: Potassium Chloride 20 mEq ER Tab PO SCH ×3 (10:09→17:30)
[2017-08-21] MEDS: cefTRIAXone 2 GM IN NS 2 GM/100 ML BAG IVPB SCH (10:10)
[2017-08-21] MEDS: Non Formulary Medication (Ranolazine [Ranexa] 500 MG) PO SCH ×2 (10:11→20:47)
[2017-08-21] MEDS: Non Formulary Medication (Linaclotide [Linzess] 290 MCG) PO SCH (10:11)
[2017-08-21] MEDS: BENZONATATE 200 MG PO SCH ×3 (10:15→17:30)
[2017-08-21] MEDS: Magnesium Oxide 400 mg Tab UD PO SCH ×2 (10:16→17:30)
--- NOTE | 2017-08-21 12:36 | PN ---
DATE: 08/21/2017 SUBJECTIVE: The patient is seen in room 365, bed #1. The patient is seen lying in the bed. The patient is alert, awake, responsive. The patient is using CPAP. The patient complained to me that the patient has been having wheezing episodes, and also the patient still has. PHYSICAL EXAMINATION: VITAL SIGNS: T-max 97.7, pulse of 64 and 74, blood pressure 114/72 to 127/73, respiration 20, O2 sat 96%. HEENT: Head examination normocephalic, atraumatic. HEENT examination shows pinkish pale conjunctivae, anicteric sclerae. No oropharyngeal lesion. NECK: No neck rigidity. CHEST: Examination kyphosis. LUNGS: Shows positive rhonchi and wheezing, upper lung shipman bilaterally, anterior, posteriorly and some wheezing at the left base posteriorly. CARDIOVASCULAR: S1, S2, regular rhythm. Positive systolic murmur left sternal border, right second intracostal space, left second intercostal space. ABDOMEN: Soft. Positive bowel sounds. No hepatosplenomegaly noted. No guarding. No rigidity. No rebound tenderness. GENITALIA: Male. RECTAL: Examination deferred. Extremity shows no pitting edema, no calf tenderness, no Homans' sign. NEUROLOGIC: The patient is alert, awake, oriented x3, is able to move upper and lower extremity without assistance. MUSCULOSKELETAL: Examination shows a body mass index of 39. Cranial nerves II-XII intact. Gait examination is independent. VASCULAR: Examination palpable pulses. DIAGNOSTICS: None from today. IMPRESSION AND PLAN: 1. Acute exacerbation of sarcoidosis and interstitial pulmonary disease with episodic wheezing and possible bronchospasm. 2. Morbid obesity with elevated body mass index of 39. 3. Microcytic anemia. 4. Granulocytosis. 5. Steroid-induced hyperglycemia. 6. Prerenal kidney injury. 7. A+ blood type. 8. Pulmonary hypertension. 9. Advanced stage III versus stage IV sarcoidosis with extensive bilateral interstitial lung disease with cystic and honeycombing bronchiectasis, right more than the left. 10. Traction bronchiectasis and scattered with pulmonary fibrosis. 11. Cardiomegaly. 12. Coronary artery calcification. 13. Thoracic spondylosis. 14. Bilateral renal cyst. 15. Bilateral nonobstructing nephrolithiasis. 16. New onset paroxysmal atrial fibrillation converted to normal sinus rhythm. 17. Incomplete right bundle-branch block. 18. Atrial fibrillation with rapid ventricular response. 19. Constipation. 20. Hypovitaminosis D. 21. Hypokalemia. 22. Constipation. 23. Hyperlipidemia. 24. Hypomagnesemia. 25. History of coronary artery disease, history of non-ST elevation myocardial infarction, history of angioplasty stent placement, history of angina. 26. Vitamin B12 deficiency. PLAN: At this time, the patient will be kept in the hospital with adjustment of IV Solu-Medrol up to 40 mg IV every 8 hours. The patient will be continued on: 1. Mucomyst nebulizer 20% 4 ml every 6 hours to be mixed with Xopenex nebulizer 0.63 mg every 6 hours. 2. Aspirin 325 mg p.o. daily. 3. Brovana 15 mcg every 12 hours. 4. Cardizem CD 180 mg daily. 5. Clonidine patch 0.3 mg weekly. 6. Colace 100 mg three times a day. 7. Diovan 320 mg daily. 8. Doxycycline 100 mg p.o. every 12 hours. 9. Drisdol 50,000 weekly. 10. Folic acid 1 mg daily. 11. Heparin 5000 subcu every 12 hours. 12. Tessalon Perles 200 mg three times a day. 13. K-Dur 20 mEq three times a day. 14. Linzess 290 mcg daily. 15. Lipitor 10 mg at bedtime. 16. Magnesium oxide 400 mg twice a day. 17. MiraLax 17 g twice a day. 18. Phenergan DM 5 mL 4 times a day p.r.n. 19. Protonix 40 mg daily. 20. Pulmicort nebulizer 0.5 mg every 12 hours. 21. Ranexa 500 mg every 12 hours. 22. Rocephin 2 g IV daily. 23. Solu-Medrol 40 mg IV every 8 hours. 24. Hytrin 2 mg every bedtime. 25. Tylenol 650 p.o. every 6 hours suppository, every 6 hours p.r.n. 26. Vitamin B12 1000 mcg IM monthly. 27. Xopenex nebulizer 0.63 mg every 6 hours. 28. Zetia 10 mg daily. 29. Zofran 4 mg IV every 4 hours p.r.n. In addition, the patient has been ordered out of bed, KEVIN stockings, SCDs, occupational therapy, physical therapy ordered. The patient at present will be continued to be treated with the above therapeutic intervention with close monitoring of his pulmonary and cardiac status. If the patient improves with the above therapeutic intervention, the patient will be considered for discharge soon. The patient updated about his condition, diagnosis, test results, recommendation and reinforced about all above which has been done almost on a daily basis. Today, I also spoke to the patient's and explained and reinforced all the patient's diagnostic details, test results and recommendation by all the physicians involved in the care of the patient. Dictated and electronically signed, not read. . Britton Ceballos MD
[2017-08-21] MEDS: TERAZOSIN 2 MG PO SCH (21:28)
[2017-08-22] MEDS: Levalbuterol 0.63 MG/3 ML Inhal Soln UD IH SCH ×4 (01:58→21:30)
[2017-08-22] MEDS: Acetylcysteine 20% Inhal Soln (4ml) IH SCH ×4 (01:59→21:30)
[2017-08-22] MEDS: MethylPREDNISolone 40 mg Vial IVP SCH ×3 (05:01→20:40)
[2017-08-22] MEDS: Pantoprazole 40 mg EC Tab PO SCH (05:05)
[2017-08-22] MEDS: Arformoterol 15 mcg/2 ml Inh Sol IH SCH ×2 (07:59→21:30)
[2017-08-22] MEDS: Budesonide 0.5 mg/2 ml Inhal Susp UD IH SCH ×2 (07:59→21:30)
--- NOTE | 2017-08-22 08:47 | CP.PCM.PN ---
Subjective - Date & Time of Evaluation Date of Evaluation: 08/22/17 Time of Evaluation: 08:15 - Subjective Subjective: (covering for Dr. Ceballos) Patient is seen this morning in room 365 bed 1. He is feeling better he says, although he has cough and shortness of breath. Objective - Vital Signs/Intake and Output Vital Signs (last 24 hours): Temp Pulse Resp BP Pulse Ox 97.0 F L 73 20 142/83 98 08/22/17 06:00 08/22/17 06:00 08/22/17 06:00 08/22/17 06:00 08/22/17 06:00 Intake and Output: 08/22/17 08/22/17 06:59 18:59 Intake Total 480 Balance 480 - Medications Medications: Current Medications Acetaminophen (Tylenol 325mg Tab) 650 mg PO Q6 PRN PRN Reason: TEMP>=99.5F Acetaminophen (Tylenol 650 Mg Supp) 650 mg RC Q6H PRN PRN Reason: TEMP>=99.5F Acetylcysteine (Acetylcysteine 20%) 4 ml IH [id number] [facility] Last Admin: 08/22/17 07:59 Dose: 4 ml Arformoterol Tartrate (Brovana) 15 mcg IH [id number] [facility] Last Admin: 08/22/17 07:59 Dose: 15 mcg Aspirin (Aspirin) 325 mg PO DAILY [facility] Last Admin: 08/21/17 10:09 Dose: 325 mg Atorvastatin Calcium (Lipitor) 10 mg PO HS [facility] Last Admin: 08/21/17 21:27 Dose: 10 mg Budesonide (Pulmicort Respules) 0.5 mg IH [id number] [facility] Last Admin: 08/22/17 07:59 Dose: 0.5 mg Clonidine HCl (Catapres-Tts3 0.3 Mg/24 Hr) 1 patch TD FRI [facility] Last Admin: 08/20/17 13:22 Dose: Not Given Cyanocobalamin (Vitamin B12 1000 Mcg/Ml Inj) 1,000 mcg IM Q30D [facility] Diltiazem HCl (Cardizem Cd) 180 mg PO DAILY [facility] Last Admin: 08/21/17 10:08 Dose: 180 mg Docusate Sodium (Colace) 100 mg PO TID [facility] Last Admin: 08/21/17 17:30 Dose: 100 mg Doxycycline Hyclate (Doryx) 100 mg PO Q12 [facility] Last Admin: 08/21/17 21:24 Dose: 100 mg Ezetimibe (Zetia) 10 mg PO DAILY [facility] Last Admin: 08/21/17 10:08 Dose: 10 mg Ergocalciferol (Drisdol 50,000 Intl Units Cap) 1 cap PO SuTh@1000 [facility] Last Admin: 08/19/17 09:13 Dose: 1 cap Folic Acid (Folic Acid) 1 mg PO DAILY [facility] Last Admin: 08/21/17 10:08 Dose: 1 mg Heparin Sodium (Porcine) (Heparin) 5,000 units SC Q12 [facility] PRN Reason: Protocol Last Admin: 08/21/17 21:24 Dose: 5,000 units Home Med (Home Med) 1 unit PO TID [facility] Last Admin: 08/21/17 17:30 Dose: 1 unit Levalbuterol HCl (Xopenex) 0.63 mg IH [id number] [facility] Last Admin: 08/22/17 07:59 Dose: 0.63 mg Magnesium Oxide (Mag-Ox) 400 mg PO BID [facility] Last Admin: 08/21/17 17:30 Dose: 400 mg Methylprednisolone (Solu-Medrol) 40 mg IVP Q8H [facility] Last Admin: 08/22/17 05:01 Dose: 40 mg Non-Formulary Medication (Linaclotide [Linzess]) 290 mcg PO DAILY [facility] Last Admin: 08/21/17 10:11 Dose: Not Given Non-Formulary Medication (Ranolazine [Ranexa]) 500 mg PO Q12H [facility] Last Admin: 08/21/17 20:47 Dose: Not Given Terazosin [Hytrin] 2 (Mg) 2 mg PO HS [facility] Last Admin: 08/21/17 21:28 Dose: 2 mg Ondansetron HCl (Zofran Inj) 4 mg IVP Q4H PRN PRN Reason: Nausea/Vomiting Pantoprazole Sodium (Protonix Ec Tab) 40 mg PO 0600 [facility] Last Admin: 08/22/17 05:05 Dose: 40 mg Polyethylene Glycol (Miralax) 17 gm PO BID [facility] Last Admin: 08/21/17 17:30 Dose: 17 gm Potassium Chloride (K-Dur 20 Meq Er Tab) 20 meq PO TID [facility] Last Admin: 08/21/17 17:30 Dose: 20 meq Promethazine HCl/Dextromethorphan (Phenergan Dm Syrup) 5 ml PO QID PRN PRN Reason: Cough Valsartan (Diovan) 320 mg PO DAILY [facility] Last Admin: 08/21/17 10:09 Dose: 320 mg - Labs Labs: 08/19/17 09:40 08/19/17 09:40 PT 11.0 SECONDS (9.4-12.5) 08/16/17 13:40 INR 0.97 (0.93-1.08) 08/16/17 13:40 APTT 143.1 Seconds (25.1-36.5) H* 08/17/17 06:00 - Constitutional Appears: No Acute Distress - Head Exam Head Exam: ATRAUMATIC, NORMOCEPHALIC - Respiratory Exam Respiratory Exam: Rhonchi, Wheezes - Cardiovascular Exam Cardiovascular Exam: REGULAR RHYTHM, +S1, +S2 - GI/Abdominal Exam GI & Abdominal Exam: Soft, Normal Bowel Sounds. absent: Tenderness - Neurological Exam Neurological Exam: Alert, Awake, Oriented x3 Assessment and Plan - Assessment and Plan (Free Text) Assessment: Acute exacerbation of sarcoidosis and interstitial lung disease Obesity Diabetes HTN AFib now in sinus rhythm Plan: Patient was seen this morning while receiving nebulizer treatment. continue respiratory treatments and solumedrol IV. Patient continues to wheeze. Patient is now in sinus rhythm. Heart rate controlled with cardizem. continue PT. Dr. Ceballos will see the patient tomorrow.
[2017-08-22] MEDS: BENZONATATE 200 MG PO SCH ×3 (09:42→17:08)
[2017-08-22] MEDS: POLYETHYLENE GLYCOL 3350 17 GM/Dose PACKET PO SCH ×2 (09:43→17:08)
[2017-08-22] MEDS: diltiaZEM 180 mg/24 Hours CD Cap PO SCH (09:43)
[2017-08-22] MEDS: Magnesium Oxide 400 mg Tab UD PO SCH ×2 (09:45→17:08)
[2017-08-22] MEDS: Ergocalciferol 50,000 Intl Units Cap PO SCH (09:46)
[2017-08-22] MEDS: Potassium Chloride 20 mEq ER Tab PO SCH ×3 (09:47→17:07)
[2017-08-22] MEDS: Non Formulary Medication (Linaclotide [Linzess] 290 MCG) PO SCH (09:47)
[2017-08-22] MEDS: Non Formulary Medication (Ranolazine [Ranexa] 500 MG) PO SCH ×2 (09:48→19:15)
[2017-08-22] MEDS: TERAZOSIN 2 MG PO SCH (21:48)
[2017-08-23] MEDS: Acetylcysteine 20% Inhal Soln (4ml) IH SCH ×4 (02:12→20:45)
[2017-08-23] MEDS: Levalbuterol 0.63 MG/3 ML Inhal Soln UD IH SCH ×4 (02:13→20:45)
[2017-08-23] MEDS: Pantoprazole 40 mg EC Tab PO SCH (05:20)
[2017-08-23] MEDS: MethylPREDNISolone 40 mg Vial IVP SCH ×4 (05:20→21:16)
[2017-08-23] MEDS: Arformoterol 15 mcg/2 ml Inh Sol IH SCH ×2 (07:38→20:45)
[2017-08-23] MEDS: Budesonide 0.5 mg/2 ml Inhal Susp UD IH SCH ×2 (07:38→20:45)
[2017-08-23] MEDS: POLYETHYLENE GLYCOL 3350 17 GM/Dose PACKET PO SCH ×2 (10:34→17:03)
[2017-08-23] MEDS: diltiaZEM 180 mg/24 Hours CD Cap PO SCH (10:36)
[2017-08-23] MEDS: Magnesium Oxide 400 mg Tab UD PO SCH ×2 (10:37→17:03)
[2017-08-23] MEDS: Potassium Chloride 20 mEq ER Tab PO SCH ×3 (10:37→17:03)
[2017-08-23] MEDS: BENZONATATE 200 MG PO SCH ×3 (10:38→17:03)
[2017-08-23] MEDS: Non Formulary Medication (Ranolazine [Ranexa] 500 MG) PO SCH ×2 (10:40→21:16)
[2017-08-23] MEDS: Non Formulary Medication (Linaclotide [Linzess] 290 MCG) PO SCH (10:40)
--- NOTE | 2017-08-23 11:20 | PN ---
DATE: 08/23/2017 CARDIOLOGY FOLLOWUP SUBJECTIVE: The patient's breathing is unchanged. PHYSICAL EXAMINATION: VITAL SIGNS: Blood pressure is 127/73, heart rates in the 60s, regular. NECK: Negative JVD. LUNGS: Decreased breath sounds. HEART: Reveals S1, S2. EXTREMITIES: Without edema. LABORATORY DATA: Laboratories were not done. IMPRESSION: 1. Paroxysmal atrial fibrillation. The patient remains in normal sinus rhythm. 2. Sarcoidosis. 3. Interstitial lung disease. 4. Diabetes mellitus. 5. Hypertension. PLAN: Given these findings, the patient's heart rhythm remained stable on p.o. Cardizem. Wood Rainey MD
[2017-08-23 13:29] LABS: GRAN # 7.08 (1.4-6.5); GRAN % 88.1 % (50.0-68.0); LYMPH # 0.7 (1.2-3.4); LYMPH % 8.7 % (22.0-35.0); MEAN CORPUSCULAR HEMOGLOBIN 24.3 pg (25.0-35.0); MEAN CORPUSCULAR HGB CONC 30.8 g/dl (31.0-37.0); MEAN PLATELET VOLUME 10.2 fl (7.0-11.0); MONO # 0.3 (0.1-0.6); MONO % 3.2 % (1.0-6.0); RBC 4.52 10^6/uL (3.5-6.1)
[2017-08-23 13:46] LABS: ALB/GLOB RATIO 1.2 (1.1-1.8); ALBUMIN 3.3 g/dL (3.0-4.8); ALT/SGPT 33 U/L (7-56); AST/SGOT 20 U/L (17-59); BILIRUBIN,DIRECT 0.1 mg/dL (0.0-0.4); BLOOD UREA NITROGEN 31 mg/dL (7-21); CALCIUM 8.6 mg/dL (8.4-10.5); GFR AFRICAN-AMERICAN > 60; GFR NON-AFRICAN AMERICAN > 60
--- NOTE | 2017-08-23 19:16 | PN ---
DATE: 08/23/2017 SUBJECTIVE: The patient is seen sitting up in the bed, playing cards with his . The patient is sitting up in the bed. Patient is alert, awake, responsive. Overnight nurse's notes were reviewed. The patient had some wheezing overnight, but now the patient is feeling better. PHYSICAL EXAMINATION: VITAL SIGNS: T-max is 97.9. Telemetry shows sinus rhythm. Blood pressure 130/75, 127/73, respiration 20, O2 sat 97-98%. HEENT: Head: Normocephalic, atraumatic. HEENT examination shows pink conjunctivae. Anicteric sclerae. No oropharyngeal lesion. NECK: No neck rigidity. CHEST: Kyphosis. LUNGS: Shows no wheezing noted. Occasional rhonchi in upper lung shipman. Improved air entry noted. CARDIOVASCULAR: S1 and S2, regular rhythm. ABDOMEN: Protuberant, obese. Positive bowel sound. GENITALIA: Male. RECTAL: Deferred. EXTREMITIES: Shows trace swelling of the lower extremity. No pitting edema, no calf numbness, no Homans' sign. MUSCULOSKELETAL: Shows a body mass index of 38.5. Cranial nerves II-XII limited. Gait examination is independent. VASCULAR: Palpable pulses. PSYCHIATRIC: Not applicable. DIAGNOSTICS: On 08/23/2017, WBC 8, hemoglobin and hematocrit 11 and 35.7, platelet 172. Granulocytes 88% segs. Sodium 144, potassium 4.8, chloride 102, CO2 34, anion gap 13, BUN 31, creatinine 1.1, GFR greater than 60, glucose 140, calcium 8.6, phosphorus 2.8, magnesium 2.8. LFTs are normal. IMPRESSION: 1. Acute exacerbation of sarcoidosis and interstitial lung disease. 2. Paroxysmal atrial fibrillation converted to normal sinus rhythm. 3. Advanced age of 1 or 4 sarcoidosis. 4. Interstitial pulmonary disease and lung disease. 5. Bronchospasm. 6. Hypoxemia. 7. Microcytic anemia. 8. Granulocytosis. 9. Prerenal kidney injury. 10. Steroid-induced hyperglycemia. 11. A+ blood type. 12. Pulmonary hypertension. 13. Bilateral extensive interstitial lung disease with cystic and honeycombing and bronchiectasis, right more than the left. 14. Traction bronchiectasis and linear fibrotic scars of the bases and pulmonary fibrosis. 15. Coronary artery disease with coronary artery calcification. 16. Mild cardiomegaly. 17. Minimal thoracic spondylosis. 18. Bilateral renal cyst. 19. Bilateral nonobstructing nephrolithiasis. 20. Morbid obesity with elevated body mass index of 39. 21. Paroxysmal atrial fibrillation converted to normal sinus rhythm. 22. Incomplete right bundle-branch block. 23. Atrial fibrillation with rapid ventricular response. 24. Incomplete right bundle-branch block and right ventricular conduction delay. 25. Constipation. 26. Hyperlipidemia. 27. Vitamin B12 deficiency. 28. Hypovitaminosis D. 29. Hypomagnesemia. 30. Hypokalemia. 31. Hypertension. PLAN AT THIS TIME: The patient's lab work were from 08/23/2017 were reviewed. The patient's current medications are Tylenol 650 mg p.o. suppository every 6 p.r.n., Mucomyst nebulizer 20% 4 mL every 6 hours to be mixed with Xopenex nebulizer 0.63 mg every 6 hours, Brovana 15 mcg every 12, aspirin 325 mg daily, Lipitor 10 mg daily, Pulmicort nebulizer 0.5 mg every 12, clonidine patch 0.3 mg weekly, vitamin B12 1000 mcg IM monthly, Cardizem CD 180 mg daily, Colace 100 mg three times a day, doxycycline 100 mg p.o. every 12, Drisdol 50,000 units weekly, Zetia 10 mg daily, folic acid 1 mg daily, heparin 5000 subcu every 12, Tessalon Perles 200 three times a day, Xopenex nebulizer 0.63 mg every 6 hours, Linzess 290 mcg daily, magnesium oxide 400 mg twice a day, Solu-Medrol decreased to 30 mg IV every 8 starting today, Zofran 4 IV every 4, Protonix 40 mg daily, MiraLax 17 g twice a day, K-Dur 20 mEq three times a day, Phenergan DM 5 mL q.i.d. p.r.n., Ranexa 500 mg every 12, Hytrin 2 mg at bedtime, Diovan 320 mg daily. Chest PT ordered. Incentive spirometer and oxygen 2-4 liters nasal cannula 4 liters continuous humidified ordered. KEVIN stockings, SCDs, out of bed, physical therapy, occupational therapy ordered. The patient's condition, diagnosis, management, treatment plan, titration of medication discussed and explained with the patient and the patient's at length and all questions concern answered. Dictated and electronically signed, not read. Britton Ceballos MD
[2017-08-23] MEDS: TERAZOSIN 2 MG PO SCH (21:21)
[2017-08-24] MEDS: Acetylcysteine 20% Inhal Soln (4ml) IH SCH ×4 (02:55→19:44)
[2017-08-24] MEDS: Levalbuterol 0.63 MG/3 ML Inhal Soln UD IH SCH ×4 (02:55→19:44)
[2017-08-24] MEDS: Pantoprazole 40 mg EC Tab PO SCH (05:20)
[2017-08-24] MEDS: MethylPREDNISolone 40 mg Vial IVP SCH ×3 (05:21→21:38)
[2017-08-24] MEDS: Budesonide 0.5 mg/2 ml Inhal Susp UD IH SCH ×2 (07:40→19:44)
[2017-08-24] MEDS: Arformoterol 15 mcg/2 ml Inh Sol IH SCH ×2 (07:40→19:44)
--- NOTE | 2017-08-24 09:44 | PN ---
DATE: 08/20/2017 SUBJECTIVE: The patient is seen in room 365 bed 1. The patient is lying in the bed. The patient was made to stand up and take a few steps. The patient was found to be dyspneic on exertion with minimal exertion. The patient still has some cough with clear phlegm. Overnight nurses' notes were reviewed. The patient slept well without any adverse event. OBJECTIVE: VITAL SIGNS: T-max is 98, heart rate 74-69, blood pressure 127/73, 115/79, 135/75, 120/60; respirations 20; O2 sat 95, 99% on 3 to 4 liters. HEENT: Head examination, normocephalic and atraumatic. HEENT examination shows pinkish conjunctivae. Anicteric sclerae. No oropharyngeal lesion. No neck rigidity. CHEST: Examination, kyphosis. LUNGS: Examination shows positive upper lung shipman rhonchi. Decreased air entry at the bases. CARDIOVASCULAR: Examination, S1, S2, regular rhythm. Questionable soft systolic murmur, left sternal border, right second intercostal space, left second intercostal space. ABDOMEN: Soft, protuberant. Positive bowel sounds. GENITALIA: Male. RECTAL: Examination, deferred. EXTREMITIES: Shows trace swelling of the lower extremity. MUSCULOSKELETAL: Examination shows a body mass index of 39. NEUROLOGIC: The patient is alert, awake, oriented x3. Cranial nerves II-XII intact. Motor strength is 5/5 in upper and lower extremities. PSYCHIATRIC: Examination, not applicable. VASCULAR: Examination, palpable pulses. DIAGNOSTICS: None from today. Microbiology, none. Blood type A+. IMPRESSION AND PLAN: 1. New-onset paroxysmal atrial fibrillation, converting to normal sinus rhythm. 2. Advanced sarcoidosis and interstitial pulmonary disease, oxygen requiring and steroid dependent. 3. Dyspnea on exertion secondary to advanced sarcoidosis. 4. Coronary artery disease. 5. Coronary angioplasty. 6. Incomplete right bundle-branch block. 7. Hypertension. 8. History of prostate carcinoma. 9. Microcytic anemia. 10. Granulocytosis. 11. Prerenal kidney injury. 12. Morbid obesity with elevated body mass index of 39. 13. Constipation. 14. Hypovitaminosis D. 15. Hypokalemia. 16. Hyperlipidemia. 17. Hypomagnesemia. 18. Unstable angina. 19. Vitamin B12 deficiency. PLAN: At this time, the patient will be given a stat dose of Solu-Medrol 125 booster dose. The patient will be continued on Mucomyst nebulizer with Xopenex nebulizer every 6 hours, aspirin 325 daily Brovana 15 mcg every 12 hours, Cardizem CD 180 mg daily, clonidine 0.3 mg patch weekly, Colace 100 mg three times a day, Diovan 320 mg daily, doxycycline 100 mg p.o. every 12 hours, Drisdol 50,000 weekly, folic acid 1 mg daily, heparin 5000 subcutaneously every 12 hours, K-Dur 20 mEq three times a day, Tessalon Perles 200 mg three times a day, Linzess 290 mcg daily, Lipitor 10 mg daily, magnesium oxide 400 twice a day, MiraLax 17 g twice a day, Phenergan DM 5 mL four times a day p.r.n., Protonix 40 mg daily, Pulmicort 0.5 mg every 12 hours , Ranexa 500 every 12 hours, Rocephin 2 g IV daily, Solu-Medrol 125 mg IV booster dose ordered, Solu-Medrol 30 mg IV every 12 hours to be maintained, Hytrin 2 mg p.o. at bedtime, Tylenol 650 p.o. suppository every 6 hours p.r.n., vitamin B12 1000 mcg IM monthly, Xopenex nebulizer 0.63 mg every 6 hours, Zetia 10 mg daily, Zofran 4 mg IV every 4 hours p.r.n.; chest PT every 6 hours, incentive spirometry, out of bed to chair, KEVIN stockings, occupational therapy, physical therapy, SCDs. At present, the patient will be continued to be observed and maintained on the above therapy. The patient will be monitored closely. If the patient's respiratory status improves over the next 48 hours, the patient will be considered for discharge soon. Dictated and electronically signed, not read. Britton Ceballos MD
[2017-08-24] MEDS: Potassium Chloride 20 mEq ER Tab PO SCH ×3 (11:03→19:40)
[2017-08-24] MEDS: diltiaZEM 180 mg/24 Hours CD Cap PO SCH (11:03)
[2017-08-24] MEDS: POLYETHYLENE GLYCOL 3350 17 GM/Dose PACKET PO SCH ×2 (11:03→19:40)
[2017-08-24] MEDS: Magnesium Oxide 400 mg Tab UD PO SCH ×2 (11:04→19:40)
[2017-08-24] MEDS: BENZONATATE 200 MG PO SCH ×3 (11:05→19:40)
[2017-08-24] MEDS: Non Formulary Medication (Ranolazine [Ranexa] 500 MG) PO SCH ×2 (11:06→21:38)
[2017-08-24] MEDS: Non Formulary Medication (Linaclotide [Linzess] 290 MCG) PO SCH (11:06)
--- NOTE | 2017-08-24 13:30 | CP.PCM.PN ---
Subjective - Date & Time of Evaluation Date of Evaluation: 08/24/17 Time of Evaluation: 06:00 - Subjective Subjective: Medicine progress note: Dr. Ceballos Patient seen and examined at bedside. No acute overnight events. Patient states he is feeling well and is not feeling short of breath, sputum production is decreased. No acute complaints. Objective - Vital Signs/Intake and Output Vital Signs (last 24 hours): Temp Pulse Resp BP Pulse Ox 97.6 F 74 21 140/82 96 08/24/17 07:40 08/24/17 07:40 08/24/17 07:40 08/24/17 07:40 08/24/17 07:40 Intake and Output: 08/24/17 08/24/17 06:59 18:59 Intake Total 300 240 Balance 300 240 - Medications Medications: Current Medications Acetaminophen (Tylenol 325mg Tab) 650 mg PO Q6 PRN PRN Reason: TEMP>=99.5F Acetaminophen (Tylenol 650 Mg Supp) 650 mg RC Q6H PRN PRN Reason: TEMP>=99.5F Acetylcysteine (Acetylcysteine 20%) 4 ml IH [id number] [facility] Last Admin: 08/24/17 07:39 Dose: 4 ml Arformoterol Tartrate (Brovana) 15 mcg IH [id number] [facility] Last Admin: 08/24/17 07:40 Dose: 15 mcg Aspirin (Aspirin) 325 mg PO DAILY [facility] Last Admin: 08/24/17 11:04 Dose: 325 mg Atorvastatin Calcium (Lipitor) 10 mg PO HS [facility] Last Admin: 08/23/17 21:14 Dose: 10 mg Budesonide (Pulmicort Respules) 0.5 mg IH [id number] [facility] Last Admin: 08/24/17 07:40 Dose: 0.5 mg Clonidine HCl (Catapres-Tts3 0.3 Mg/24 Hr) 1 patch TD FRI [facility] Last Admin: 08/20/17 13:22 Dose: Not Given Cyanocobalamin (Vitamin B12 1000 Mcg/Ml Inj) 1,000 mcg IM Q30D [facility] Diltiazem HCl (Cardizem Cd) 180 mg PO DAILY [facility] Last Admin: 08/24/17 11:03 Dose: 180 mg Docusate Sodium (Colace) 100 mg PO TID [facility] Last Admin: 08/24/17 11:03 Dose: 100 mg Doxycycline Hyclate (Doryx) 100 mg PO Q12 [facility] Last Admin: 08/24/17 11:03 Dose: 100 mg Ezetimibe (Zetia) 10 mg PO DAILY [facility] Last Admin: 08/24/17 11:03 Dose: 10 mg Ergocalciferol (Drisdol 50,000 Intl Units Cap) 1 cap PO SuTh@1000 [facility] Last Admin: 08/22/17 09:46 Dose: 1 cap Folic Acid (Folic Acid) 1 mg PO DAILY [facility] Last Admin: 08/24/17 11:03 Dose: 1 mg Heparin Sodium (Porcine) (Heparin) 5,000 units SC Q12 [facility] PRN Reason: Protocol Last Admin: 08/24/17 11:04 Dose: 5,000 units Home Med (Home Med) 1 unit PO TID [facility] Last Admin: 08/24/17 11:05 Dose: 1 unit Levalbuterol HCl (Xopenex) 0.63 mg IH [id number] [facility] Last Admin: 08/24/17 07:40 Dose: 0.63 mg Magnesium Oxide (Mag-Ox) 400 mg PO BID [facility] Last Admin: 08/24/17 11:04 Dose: 400 mg Methylprednisolone (Solu-Medrol) 30 mg IVP Q8 [facility] Last Admin: 08/24/17 05:21 Dose: 30 mg Non-Formulary Medication (Linaclotide [Linzess]) 290 mcg PO DAILY [facility] Last Admin: 08/24/17 11:06 Dose: Not Given Non-Formulary Medication (Ranolazine [Ranexa]) 500 mg PO Q12H [facility] Last Admin: 08/24/17 11:06 Dose: Not Given Terazosin [Hytrin] 2 (Mg) 2 mg PO HS [facility] Last Admin: 08/23/17 21:21 Dose: 2 mg Ondansetron HCl (Zofran Inj) 4 mg IVP Q4H PRN PRN Reason: Nausea/Vomiting Pantoprazole Sodium (Protonix Ec Tab) 40 mg PO 0600 [facility] Last Admin: 08/24/17 05:20 Dose: 40 mg Polyethylene Glycol (Miralax) 17 gm PO BID [facility] Last Admin: 08/24/17 11:03 Dose: 17 gm Potassium Chloride (K-Dur 20 Meq Er Tab) 20 meq PO TID [facility] Last Admin: 08/24/17 11:03 Dose: 20 meq Promethazine HCl/Dextromethorphan (Phenergan Dm Syrup) 5 ml PO QID PRN PRN Reason: Cough Valsartan (Diovan) 320 mg PO DAILY [facility] Last Admin: 08/24/17 11:03 Dose: 320 mg - Labs Labs: 08/23/17 13:00 08/23/17 13:00 PT 11.0 SECONDS (9.4-12.5) 08/16/17 13:40 INR 0.97 (0.93-1.08) 08/16/17 13:40 APTT 143.1 Seconds (25.1-36.5) H* 08/17/17 06:00 - Constitutional Appears: Well - Head Exam Head Exam: ATRAUMATIC, NORMAL INSPECTION, NORMOCEPHALIC - Eye Exam Eye Exam: EOMI, Normal appearance, PERRL Pupil Exam: NORMAL ACCOMODATION, PERRL - ENT Exam ENT Exam: Mucous Membranes Moist, Normal Exam - Neck Exam Neck Exam: Full ROM, Normal Inspection. absent: Lymphadenopathy - Respiratory Exam Respiratory Exam: Decreased Breath Sounds, Rales, NORMAL BREATHING PATTERN - Cardiovascular Exam Cardiovascular Exam: REGULAR RHYTHM, +S1, +S2. absent: Murmur - GI/Abdominal Exam GI & Abdominal Exam: Soft, Normal Bowel Sounds. absent: Tenderness - Extremities Exam Extremities Exam: Full ROM, Normal Capillary Refill, Normal Inspection. absent : Joint Swelling, Pedal Edema - Back Exam Back Exam: NORMAL INSPECTION - Neurological Exam Neurological Exam: Alert, Awake, CN II-XII Intact, Normal Gait, Oriented x3 - Psychiatric Exam Psychiatric exam: Normal Affect, Normal Mood - Skin Skin Exam: Dry, Intact, Normal Color, Warm Assessment and Plan - Assessment and Plan (Free Text) Assessment: 57 year old male presented with shortness of breath. Further evaluation revealed new onset atrial fibrillation with RVR, and patient was started on a heparin drip, given verapamil and digoxin X 3, and was back in normal sinus rhythm the following weekend. Troponins were trended X 3, and trended upwards but within an indeterminate range, likely secondary to ischemia from RVR. BNP was mildly elevated, likely secondary to A-Fib. D-Dimer mildly elevated but suspicion for pulmonary embolism was low because there was a secondary explanation for shortness of breath. Patient was started on heparin drip for A- Fib anyway, so CTA was unnecessary. Patient's shortness of breath was also likely 2/2 to his Stage 4 Sarcoidosis. Chronic medical problems as below. Patient was seen over the weekend by Dr. Livingston, who stated that patient was wheezing. Patient is currently on 4L of oxygen satting at 96%. Plan: New Onset A-Fib, likely 2/2 duoneb use - Resolved - Daily EKGs - Continue ASA 325, Diltiazem 180 daily Dyspnea, likely 2/2 A-Fib and Sarcoidosis - Improving - Maintain solu-medrol dose today, may start tapering tomorrow - Mucormyst, xopenex treatments History CAD - ASA 325; Ranexa for symptomatic relief History of Sarcoidosis - Xopenex Q6H PRN, Brovana Q12H, Pulmicort Q12, Tessalon Perles, Mg Oxide, Mucormyst - NC O2 4L History HTN - Norvasc 10mg PO QD, Clonidine patch, Valsartan 320 PO QD History Hyperlipidemia - Lipitor 10mg PO HS, Zetia 10 PO QD History LAYLA - CPAP daily History BPH - Terazosin History Irritable Bowel Syndrome - Linzess Prophylaxis - Heparin/Protonix
--- NOTE | 2017-08-24 15:46 | PN ---
DATE: 08/24/2017 CARDIOLOGY FOLLOWUP SUBJECTIVE: The patient is without dyspnea. No chest pain noted. PHYSICAL EXAMINATION: VITAL SIGNS: Blood pressure is 140/82, the heart rates in 70s and regular. NECK: Negative JVD. LUNGS: Without rales. HEART: Reveals S1, S2. EXTREMITIES: Without edema. LABORATORY DATA: Hemoglobin is 11. Chemistries, BUN and creatinine are 31 and 1.1. IMPRESSION: 1. Paroxysmal atrial fibrillation in which the patient remains in normal sinus rhythm. 2. Sarcoidosis. 3. Bronchospasm. 4. Diabetes mellitus. 5. Hypertension. Given these findings, we will continue the patient on p.o. Cardizem. No indication for anticoagulation at this time. Wood Rainey MD
[2017-08-24] MEDS: TERAZOSIN 2 MG PO SCH (21:39)
[2017-08-25] MEDS: Acetylcysteine 20% Inhal Soln (4ml) IH SCH ×4 (01:40→19:33)
--- NOTE | 2017-08-25 02:12 | PN ---
DATE: 08/24/2017 LOCATION: Patient is seen in room 365, bed 1. SUBJECTIVE: Patient is out lying in the bed watching a video on his phone. Overnight nurse's notes were reviewed. Patient slept well without any adverse events noted. OBJECTIVE: VITAL SIGNS: T-max 97.8 to 97.6; heart rate 74 to 78; blood pressure 130/75, 140/82, 135/83; respiration 20; O2 sat 97 to 96% on 3 to 4 liters of nasal cannula. HEENT: Head: Normocephalic, atraumatic. HEENT examination shows pinkish conjunctivae. Anicteric sclerae. No oropharyngeal lesion. NECK: No neck rigidity. CHEST: Kyphosis. LUNGS: Shows occasional rhonchi in the upper lung field posteriorly. No wheezing noted today. CARDIOVASCULAR: S1, S2, regular rhythm. No questionable soft systolic murmur, left sternal border, right second intercostal space, left second intercostal space. ABDOMEN: Soft, positive bowel sounds, protuberant. No hepatosplenomegaly noted. No guarding. No rigidity. No rebound tenderness. GENITALIA: Male. RECTAL: Deferred. EXTREMITY: Shows no pitting edema, no calf numbness, no Homans' sign. MUSCULOSKELETAL: Shows a body mass index of 38.5. Cranial nerves II through XII intact and limited. Gait examination is independent. VASCULAR: Palpable pulses. DIAGNOSTICS STUDIES: On August 23 was reviewed and discussed with the patient. IMPRESSION: 1. Acute exacerbation of interstitial lung disease and pulmonary fibrosis with bronchospasm and wheezing. 2. New-onset paroxysmal atrial fibrillation, converted to normal sinus rhythm. 3. Stage III or IV sarcoidosis. 4. Bronchospasm. 5. Hypertension. 6. History of coronary artery disease, coronary angioplasty and stent placement. 7. History of [id number] myocardial function. 8. Hypoxemia. 9. Normocytic anemia. 10. History of prostate carcinoma. 11. Microcytic anemia. 12. Granulocytosis. 13. History of iron deficiency. 14. Vitamin B12 deficiency. 15. Prerenal kidney injury. 16. Steroid-induced hyperglycemia. 17. Constipation. 18. Hypovitaminosis D. 19. Hypokalemia. 20. History of unstable angina. PLAN: At this time, patient is to be continued . CURRENT MEDICATIONS: 1. Mucomyst nebulizer treatment 20%, 4 mL every 6 hours. 2. Aspirin 325 daily. 3. Brovana 15 mcg every 12. 4. Cardizem CD 180 mg daily. 5. Clonidine patch 0.3 mg weekly. 6. Colace 100 mg three times a day. 7. Diovan 320 mg daily. 8. Doxycycline 100 mg p.o. every 12. 9. Drisdol 50,000 weekly. 10. Folic acid 1 mg daily. 11. Heparin 5000 subcu every 12. 12. Tessalon Perles 200 three times a day. 13. K-Dur 20 mEq three times a day. 14. Linzess 290 mcg daily. 15. Lipitor 10 mg at bedtime. 16. Magnesium oxide 400 mg twice a day. 17. MiraLax 17 g twice a day. 18. Phenergan DM 5 mL four times a day p.r.n. 19. Protonix enteric-coated 40 mg daily. 20. Pulmicort nebulizer 0.5 mg every 12. 21. Ranexa 500 every 12. 22. Solu-Medrol is to be kept at 30 IV every eight which will be considered for decrease tomorrow if the patient has no wheezing and patient's pulmonary status is stable. 23. Patient is on Hytrin 2 mg at bedtime. 24. Tylenol 650 p.r.n. 25. Vitamin B12 1000 mcg IM monthly. 26. Xopenex nebulizer 0.63 mg every 6 hours. 27. Zetia 10 mg daily. 28. Zofran 4 IV every 4 hours. Chest PT, incentive spirometry. Patient has been ordered out of bed, KEVIN stockings, ambulation out of bed to chair, increased activity. Patient updated about his condition, diagnosis, treatment plan, management plan at length and all questions concerned answered to the patient's satisfaction. Dictated and electronically signed, not read. Britton Ceballos MD
[2017-08-25] MEDS: Pantoprazole 40 mg EC Tab PO SCH (05:33)
[2017-08-25] MEDS: MethylPREDNISolone 40 mg Vial IVP SCH ×3 (05:33→21:26)
[2017-08-25] MEDS: Levalbuterol 0.63 MG/3 ML Inhal Soln UD IH SCH ×2 (07:50→13:30)
[2017-08-25] MEDS: Budesonide 0.5 mg/2 ml Inhal Susp UD IH SCH ×2 (07:50→19:33)
[2017-08-25] MEDS: Arformoterol 15 mcg/2 ml Inh Sol IH SCH ×2 (07:50→19:33)
[2017-08-25] MEDS: diltiaZEM 180 mg/24 Hours CD Cap PO SCH (10:05)
[2017-08-25] MEDS: Magnesium Oxide 400 mg Tab UD PO SCH ×2 (10:05→19:06)
[2017-08-25] MEDS: BENZONATATE 200 MG PO SCH ×3 (10:05→19:07)
[2017-08-25] MEDS: Potassium Chloride 20 mEq ER Tab PO SCH ×3 (10:06→19:06)
[2017-08-25] MEDS: POLYETHYLENE GLYCOL 3350 17 GM/Dose PACKET PO SCH ×2 (10:06→19:06)
[2017-08-25] MEDS: Non Formulary Medication (Ranolazine [Ranexa] 500 MG) PO SCH ×2 (10:07→19:57)
[2017-08-25] MEDS: Non Formulary Medication (Linaclotide [Linzess] 290 MCG) PO SCH (10:07)
--- NOTE | 2017-08-25 12:55 | CP.PCM.PN ---
Subjective - Date & Time of Evaluation Date of Evaluation: 08/25/17 Time of Evaluation: 07:00 - Subjective Subjective: Medicine progress note: Dr. Ceballos Patient seen and examined at bedside. No acute overnight events. Patient states he is ready to go home. No acute complaints. Objective - Vital Signs/Intake and Output Vital Signs (last 24 hours): Temp Pulse Resp BP Pulse Ox 97.2 F L 74 21 138/80 95 08/25/17 06:00 08/25/17 10:05 08/25/17 06:00 08/25/17 10:05 08/25/17 06:00 Intake and Output: 08/25/17 08/25/17 06:59 18:59 Intake Total 240 Balance 240 - Medications Medications: Current Medications Acetaminophen (Tylenol 325mg Tab) 650 mg PO Q6 PRN PRN Reason: TEMP>=99.5F Acetaminophen (Tylenol 650 Mg Supp) 650 mg RC Q6H PRN PRN Reason: TEMP>=99.5F Acetylcysteine (Acetylcysteine 20%) 4 ml IH [id number] [facility] Last Admin: 08/25/17 07:50 Dose: 4 ml Arformoterol Tartrate (Brovana) 15 mcg IH [id number] [facility] Last Admin: 08/25/17 07:50 Dose: 15 mcg Aspirin (Aspirin) 325 mg PO DAILY [facility] Last Admin: 08/25/17 10:05 Dose: 325 mg Atorvastatin Calcium (Lipitor) 10 mg PO HS [facility] Last Admin: 08/24/17 21:37 Dose: 10 mg Budesonide (Pulmicort Respules) 0.5 mg IH [id number] [facility] Last Admin: 08/25/17 07:50 Dose: 0.5 mg Clonidine HCl (Catapres-Tts3 0.3 Mg/24 Hr) 1 patch TD FRI [facility] Last Admin: 08/20/17 13:22 Dose: Not Given Cyanocobalamin (Vitamin B12 1000 Mcg/Ml Inj) 1,000 mcg IM Q30D [facility] Diltiazem HCl (Cardizem Cd) 180 mg PO DAILY [facility] Last Admin: 08/25/17 10:05 Dose: 180 mg Docusate Sodium (Colace) 100 mg PO TID [facility] Last Admin: 08/25/17 10:06 Dose: 100 mg Doxycycline Hyclate (Doryx) 100 mg PO Q12 [facility] Last Admin: 08/25/17 10:05 Dose: 100 mg Ezetimibe (Zetia) 10 mg PO DAILY [facility] Last Admin: 08/25/17 10:05 Dose: 10 mg Ergocalciferol (Drisdol 50,000 Intl Units Cap) 1 cap PO SuTh@1000 [facility] Last Admin: 08/22/17 09:46 Dose: 1 cap Folic Acid (Folic Acid) 1 mg PO DAILY [facility] Last Admin: 08/25/17 10:05 Dose: 1 mg Heparin Sodium (Porcine) (Heparin) 5,000 units SC Q12 [facility] PRN Reason: Protocol Last Admin: 08/25/17 10:06 Dose: 5,000 units Home Med (Home Med) 1 unit PO TID [facility] Last Admin: 08/25/17 10:05 Dose: 1 unit Levalbuterol HCl (Xopenex) 0.63 mg IH [id number] [facility] Last Admin: 08/25/17 07:50 Dose: 0.63 mg Magnesium Oxide (Mag-Ox) 400 mg PO BID [facility] Last Admin: 08/25/17 10:05 Dose: 400 mg Methylprednisolone (Solu-Medrol) 20 mg IVP Q8 [facility] Non-Formulary Medication (Linaclotide [Linzess]) 290 mcg PO DAILY [facility] Last Admin: 08/25/17 10:07 Dose: Not Given Non-Formulary Medication (Ranolazine [Ranexa]) 500 mg PO Q12H [facility] Last Admin: 08/25/17 10:07 Dose: Not Given Terazosin [Hytrin] 2 (Mg) 2 mg PO HS [facility] Last Admin: 08/24/17 21:39 Dose: 2 mg Ondansetron HCl (Zofran Inj) 4 mg IVP Q4H PRN PRN Reason: Nausea/Vomiting Pantoprazole Sodium (Protonix Ec Tab) 40 mg PO 0600 [facility] Last Admin: 08/25/17 05:33 Dose: 40 mg Polyethylene Glycol (Miralax) 17 gm PO BID [facility] Last Admin: 08/25/17 10:06 Dose: 17 gm Potassium Chloride (K-Dur 20 Meq Er Tab) 20 meq PO TID [facility] Last Admin: 08/25/17 10:06 Dose: 20 meq Promethazine HCl/Dextromethorphan (Phenergan Dm Syrup) 5 ml PO QID PRN PRN Reason: Cough Valsartan (Diovan) 320 mg PO DAILY [facility] Last Admin: 08/25/17 10:05 Dose: 320 mg - Labs Labs: 08/23/17 13:00 08/23/17 13:00 PT 11.0 SECONDS (9.4-12.5) 08/16/17 13:40 INR 0.97 (0.93-1.08) 08/16/17 13:40 APTT 143.1 Seconds (25.1-36.5) H* 08/17/17 06:00 - Constitutional Appears: Well - Head Exam Head Exam: ATRAUMATIC, NORMAL INSPECTION, NORMOCEPHALIC - Eye Exam Eye Exam: EOMI, Normal appearance, PERRL Pupil Exam: NORMAL ACCOMODATION, PERRL - ENT Exam ENT Exam: Mucous Membranes Moist, Normal Exam - Neck Exam Neck Exam: Full ROM, Normal Inspection. absent: Lymphadenopathy - Respiratory Exam Respiratory Exam: Clear to Ausculation Bilateral, NORMAL BREATHING PATTERN - Cardiovascular Exam Cardiovascular Exam: REGULAR RHYTHM, +S1, +S2. absent: Murmur - GI/Abdominal Exam GI & Abdominal Exam: Soft, Normal Bowel Sounds. absent: Tenderness - Extremities Exam Extremities Exam: Full ROM, Normal Capillary Refill, Normal Inspection. absent : Joint Swelling, Pedal Edema - Back Exam Back Exam: NORMAL INSPECTION - Neurological Exam Neurological Exam: Alert, Awake, CN II-XII Intact, Normal Gait, Oriented x3 - Psychiatric Exam Psychiatric exam: Normal Affect, Normal Mood - Skin Skin Exam: Dry, Intact, Normal Color, Warm Assessment and Plan - Assessment and Plan (Free Text) Assessment: 57 year old male presented with shortness of breath. Further evaluation revealed new onset atrial fibrillation with RVR, and patient was started on a heparin drip, given verapamil and digoxin X 3, and was back in normal sinus rhythm the following weekend. Troponins were trended X 3, and trended upwards but within an indeterminate range, likely secondary to ischemia from RVR. BNP was mildly elevated, likely secondary to A-Fib. D-Dimer mildly elevated but suspicion for pulmonary embolism was low because there was a secondary explanation for shortness of breath. Patient was started on heparin drip for A- Fib anyway, so CTA was unnecessary. Patient's shortness of breath was also likely 2/2 to his Stage 4 Sarcoidosis. Chronic medical problems as below. Patient is satting well right now at rest on 3L O2 NC and on exertion 4L O2 NC. Plan: New Onset A-Fib, likely 2/2 duoneb use - Resolved - Continue ASA 325, Diltiazem 180 daily Dyspnea, likely 2/2 A-Fib and Sarcoidosis - Improving - Started soumederol taper - 20 q12 today - Mucormyst, xopenex treatments History CAD - ASA 325; Ranexa for symptomatic relief History of Sarcoidosis - Xopenex Q6H PRN, Brovana Q12H, Pulmicort Q12, Tessalon Perles, Mg Oxide, Mucormyst - NC O2 4L History HTN - Norvasc 10mg PO QD, Clonidine patch, Valsartan 320 PO QD History Hyperlipidemia - Lipitor 10mg PO HS, Zetia 10 PO QD History LAYLA - CPAP daily History BPH - Terazosin History Irritable Bowel Syndrome - Linzess Prophylaxis - Heparin/Protonix
[2017-08-25] MEDS: TERAZOSIN 2 MG PO SCH (21:27)
[2017-08-26] MEDS: Acetylcysteine 20% Inhal Soln (4ml) IH SCH ×3 (01:10→13:25)
[2017-08-26] MEDS: Levalbuterol 0.63 MG/3 ML Inhal Soln UD IH SCH ×3 (01:10→13:25)
[2017-08-26] MEDS: Pantoprazole 40 mg EC Tab PO SCH (05:46)
[2017-08-26] MEDS: MethylPREDNISolone 40 mg Vial IVP SCH (05:47)
[2017-08-26 05:55] VITALS: BP 149/88
[2017-08-26 07:35] VITALS: PULSE 64; RESP 20; TEMP 97.7; O2SAT 96
[2017-08-26] MEDS: Budesonide 0.5 mg/2 ml Inhal Susp UD IH SCH (07:35)
[2017-08-26] MEDS: Arformoterol 15 mcg/2 ml Inh Sol IH SCH (07:35)
[2017-08-26] MEDS: Non Formulary Medication (Ranolazine [Ranexa] 500 MG) PO SCH (08:03)
[2017-08-26] MEDS: BENZONATATE 200 MG PO SCH (10:00)
[2017-08-26] MEDS: Potassium Chloride 20 mEq ER Tab PO SCH (10:01)
[2017-08-26] MEDS: Ergocalciferol 50,000 Intl Units Cap PO SCH (10:02)
[2017-08-26] MEDS: diltiaZEM 180 mg/24 Hours CD Cap PO SCH (10:02)
[2017-08-26] MEDS: Magnesium Oxide 400 mg Tab UD PO SCH (10:03)
[2017-08-26] MEDS: Non Formulary Medication (Linaclotide [Linzess] 290 MCG) PO SCH (10:03)
[2017-08-26] MEDS: POLYETHYLENE GLYCOL 3350 17 GM/Dose PACKET PO SCH (10:03)
--- NOTE | 2017-08-26 13:17 | PN ---
DATE: 08/26/2017 SUBJECTIVE: The patient is feeling well. No shortness of breath. PHYSICAL EXAMINATION: VITAL SIGNS: Blood pressure is 149/88, heart rate is in the 60s, normal sinus rhythm. NECK: Negative JVD. LUNGS: Without rales. HEART: S1 and S2. EXTREMITIES: Without edema. LABORATORY DATA: Hemoglobin is 11. Chemistries: BUN and creatinine are unchanged. IMPRESSION: 1. Paroxysmal atrial fibrillation, which the patient has remained in normal sinus rhythm. 2. Sarcoidosis. 3. Resolution of bronchospasm. 4. Hypertension. PLAN: Given these findings, the patient is doing well. He is scheduled for discharge today. Followup instructions have been given to the patient in detail. We will track his blood pressure at home. Wood Rainey MD
--- NOTE | 2017-08-26 20:11 | PN ---
DATE: 08/25/2017 SUBJECTIVE: The patient is seen in room 365, bed 1. The patient is seen sitting up in the bed. The patient's T-max is 97.6. The overnight nurse's notes were reviewed. No adverse events were documented. OBJECTIVE: VITAL SIGNS: Heart rate 74, 68, 69, 78; blood pressure is 138/80, 140/82; respirations 20; O2 sat is 95%, 96%. HEENT: Head: Normocephalic, atraumatic. Pinkish conjunctivae. Anicteric sclerae. No oropharyngeal lesion. NECK: No neck rigidity. CHEST: Symmetrical. LUNGS: Show no wheezing or rhonchi, improved air entry. CARDIOVASCULAR: Shows S1 and S2, regular rhythm. Questionable soft systolic murmur at the left sternal border, right second intercostal space, left second intercostal space. ABDOMEN: Protuberant. Positive bowel sounds. No hepatosplenomegaly noted. No guarding. No rigidity. No rebound tenderness. GENITALIA: Male. RECTAL: Deferred. EXTREMITIES: Show positive swelling of the lower extremity. Trace pitting edema. MUSCULOSKELETAL: Shows a body mass index of 39. NEUROLOGIC: The patient is alert, awake, AND oriented x3. Cranial nerves II-XII is intact. Gait examination is independent. PSYCHIATRIC: Not applicable. DIAGNOSTICS: From 08/23/2017, noted and explained to the patient. IMPRESSION: 1. Slow resolving acute exacerbation of interstitial lung disease and exacerbation of stage III/stage IV sarcoidosis with wheezing and bronchospasm. 2. Bilateral lower extremity mild venous stasis. 3. Hypertension. 4. Microcytic anemia. 5. Granulocytosis. 6. History of prostate carcinoma. 7. History of iron-deficiency anemia, vitamin B12 deficiency. 8. New onset paroxysmal atrial fibrillation, converting to normal sinus rhythm. 9. Prerenal kidney injury. 10. Steroid-induced hyperglycemia. 11. Morbid obesity. 12. Constipation. 13. History of obstructive sleep apnea. 14. Continuous positive airway pressure dependent obstructive sleep apnea. 15. Hypovitaminosis D. 16. Hypokalemia. 17. Hyperlipidemia. 18. Hypomagnesemia. PLAN: At this time, The patient will be given a dose of IV Lasix 40 mg x1. The patient will be considered for decreasing the Solu-Medrol to 20 IV every 8 hours. The patient will be continued on Mucomyst nebulizer 20% 4 mL every 6 hours with Xopenex nebulizer 0.63 mg every 6 hours, aspirin 325 mg daily, Brovana 15 mcg every 12 hours, Cardizem CD 180 mg daily, clonidine patch 0.3 mg weekly. The patient is to be continued on Colace 100 three times a day, Diovan 320 mg daily, doxycycline 100 mg p.o. every 12 hours, vitamin D 50,000 units weekly, folic acid 1 mg daily, heparin 5000 subcu every 12 hours, Tessalon Perles 200 mg three times a day, K-Dur 20 mEq three times a day, Lasix 40 mg IV x1 dose, Linzess 290 mcg daily, Lipitor 10 mg daily, magnesium oxide 400 mg twice a day, MiraLax 17 g twice a day, Phenergan DM 5 mL four times daily p.r.n., Protonix 40 mg daily, Pulmicort nebulizer 0.5 mg every 12, Ranexa 500 mg every 12 hours, Solu-Medrol decreased to 20 mg IV every 8 hours, Hytrin 2 mg daily, Tylenol 650 mg p.o. suppository every 6 hours p.r.n., vitamin B12 of 1000 mcg IM monthly, Xopenex nebulizer 0.63 mg every 6 hours, Zetia 10 mg daily, Zofran 4 mg IV every 4 hours p.r.n. At present, the above intervention will be continued. The patient's further management will be continues to improve, patient will be considered for discharge within the next 24 to 48 hours. Dictated and electronically signed, not read. Britotn Ceballos MD
--- NOTE | 2017-08-28 03:28 | DS ---
FINAL PROGRESS NOTE AND DISCHARGE SUMMARY SUBJECTIVE: The patient is seen in room 365, bed 1. Patient is sitting up in the bed. Patient is alert, awake and responsive, does not appear to be in any distress, although having shortness of breath. Overnight nurse's notes were reviewed. Patient refused bed alarm according to the nurse's note. Patient slept overnight with BiPAP/CPAP on. PHYSICAL EXAMINATION: VITAL SIGNS: T-max 97.7, 97.6; heart rate 64 to 68, blood pressure 149/88, respirations 20 and O2 sat is 96%. HEENT: Head examination, normocephalic and atraumatic. HEENT examination shows pinkish conjunctivae. Anicteric sclerae. No oropharyngeal lesion. NECK: No neck rigidity. CHEST: Kyphosis. LUNGS: Show no wheezing, rhonchi or crackles. Improved air entry. CARDIOVASCULAR: S1, S2, regular rhythm. Questionable soft systolic murmur at left sternal border, right second intercostal space, left second intercostal space. ABDOMEN: Soft, protuberant. Positive bowel sound. No hepatosplenomegaly noted. GENITALIA: Male. RECTAL: Examination is deferred. EXTREMITIES: Show trace swelling of the lower extremity. No pitting edema, no calf tenderness. No Deny sign. NEUROLOGIC: The patient is alert, awake, oriented x3. Cranial nerves II through XII intact. Gait examination is not tested. There is no gross deficit noted. PSYCHIATRIC: Examination is not applicable. No labs noted. FINAL IMPRESSION, PLAN AND DISCHARGE DIAGNOSES: 1. Acute exacerbation of interstitial lung disease and acute exacerbation of stage III and stage IV sarcoidosis with bronchospasm, wheezing. 2. New onset paroxysmal atrial fibrillation converted to normal sinus rhythm. 3. Hypertension. 4. Microcytic anemia. 5. Granulocytosis. 6. Prerenal kidney injury. 7. Steroid-induced hyperglycemia. 8. Atrial fibrillation with rapid ventricular response. 9. Right bundle-branch block. 10. History of stage III, stage IV sarcoidosis. 11. History of coronary artery disease, history of coronary angioplasty. 12. Constipation. 13. Hypovitaminosis D. 14. Vitamin B12 deficiency. 15. Hypokalemia. 16. Hyperlipidemia. 17. Hypomagnesemia. 18. Stable angina. Plan at this time, patient was cleared for discharge by all subspecialties. Patient is to be discharged home on following discharge medications. 1. Mucomyst nebulizer 20% 4 mL every 6 hours with Xopenex nebulizer 0.63 mg every 6 hours and every 2 hours p.r.n. 2. Brovana nebulizer 15 mcg every 12 hours. 3. Ecotrin 325 mg daily. 4. Tessalon Perles 200 mg three times a day. 5. Pulmicort nebulizer 0.5 mg every 12 hours. 6. Patient is also on Symbicort 160/4.5 mcg inhaler. 7. Patient is on clonidine patch 0.3 mg weekly. 8. Vitamin B12 of 1000 mcg IM monthly. 9. Cardizem CD 180 mg daily. 10. Colace 100 mg three times a day. 11. Doxycycline 100 mg p.o. every 12 hours for 7 days. 12. Vitamin D 50,000 units once or twice a week. 13. Zetia 10 mg daily. 14. Folic acid 1 mg daily. 15. Linzess 290 mcg daily. 16. Magnesium oxide 400 mg twice a day. 17. Protonix 40 mg daily. 18. K-Dur 20 mEq three times a day. 19. Phenergan DM 5 mL four times daily p.r.n. 20. Ranexa 500 mg every 12 hours. 21. Zocor 20 mg daily. 22. Hytrin 2 mg at bedtime. 23. Diovan HCTZ 320/25 mg daily. The patient is to be discharged home. The patient is advised to stop Norvasc, amlodipine and Bystolic. Patient is also given prednisone tapering with prednisone taper 60 mg daily for 3 days and 50 mg daily for 3 days, then 40 mg daily for 3 days, 30 mg daily for 3 days and 20 mg daily for 3 days and to be maintained 10 mg p.o. daily. In addition, patient is to be followed up within [address] Ceballos's office. During this hospitalization, patient was extensively explained about the details of his medical condition; diagnoses, treatment plan, management plan were discussed and explained to the patient at length and all questions concerned answered. Time spent in the entire discharge process more than 45 minutes. Dictated and electronically signed, not read. Britton Ceballos MD
== END 2017-08-26 13:39 | disposition home or self-care (01) | DRG 310 ==
LOC: ED 13:24 → ERH 16:03 → 2RNO 17:43 → 3RNO 08-19 16:52
PROVIDERS: ADMIT Internal Medicine; ATTEND Internal Medicine
PROC: 3E033GC Introduction of Other Therapeutic Substance into Peripheral Vein, Percutaneous Approach (ICD-10-PCS; principal; 2017-08-16)
DX: I48.0 Paroxysmal atrial fibrillation (principal); D86.9 Sarcoidosis, unspecified; J84.10 Pulmonary fibrosis, unspecified; J47.9 Bronchiectasis, uncomplicated; I12.9 Hypertensive chronic kidney disease with stage 1 through stage 4 chronic kidney disease, or unspecified chronic kidney disease; N18.9 Chronic kidney disease, unspecified; E53.8 Deficiency of other specified B group vitamins; K58.9 Irritable bowel syndrome, unspecified; G47.33 Obstructive sleep apnea (adult) (pediatric); E55.9 Vitamin D deficiency, unspecified; I87.8 Other specified disorders of veins; D50.9 Iron deficiency anemia, unspecified; J44.9 Chronic obstructive pulmonary disease, unspecified; N40.0 Benign prostatic hyperplasia without lower urinary tract symptoms; I27.20 Pulmonary hypertension, unspecified; M47.814 Spondylosis without myelopathy or radiculopathy, thoracic region; E66.01 Morbid (severe) obesity due to excess calories; E83.42 Hypomagnesemia; I45.10 Unspecified right bundle-branch block; E78.5 Hyperlipidemia, unspecified; N28.1 Cyst of kidney, acquired; N20.0 Calculus of kidney; E78.00 Pure hypercholesterolemia, unspecified; R73.9 Hyperglycemia, unspecified; T38.0X5A Adverse effect of glucocorticoids and synthetic analogues, initial encounter; R09.02 Hypoxemia; I25.118 Atherosclerotic heart disease of native coronary artery with other forms of angina pectoris; R79.1 Abnormal coagulation profile; Z68.39 Body mass index [BMI] 39.0-39.9, adult; Z95.5 Presence of coronary angioplasty implant and graft; I25.2 Old myocardial infarction; Z85.46 Personal history of malignant neoplasm of prostate; Z79.52 Long term (current) use of systemic steroids; Z79.82 Long term (current) use of aspirin; Z99.81 Dependence on supplemental oxygen

== ENCOUNTER 2018-02-03 19:00 | Observation (INO) | payer MEDICARE ==
[2018-02-03 19:02] VITALS: PULSE 101; BMI 37.0
[2018-02-03 20:12] LABS: HEMOGLOBIN 11.3 g/dL (14.0-18.0); MEAN CELL VOLUME 76.9 fl (80.0-105.0); MEAN CORPUSCULAR HEMOGLOBIN 22.7 pg (25.0-35.0); MEAN CORPUSCULAR HGB CONC 29.5 g/dl (31.0-37.0); MEAN PLATELET VOLUME 9.9 fl (7.0-11.0); RBC 4.98 10^6/uL (3.5-6.1); RED CELL DISTRIBUTION WIDTH 16.7 % (11.5-14.5); WHITE BLOOD COUNT 7.7 10^3/uL (4.5-11.0)
[2018-02-03 20:23] LABS: ALB/GLOB RATIO 1.3 (1.1-1.8); ALBUMIN 3.9 g/dL (3.0-4.8); ALT/SGPT 18 U/L (7-56); AST/SGOT 21 U/L (17-59); BLOOD UREA NITROGEN 24 mg/dL (7-21); GFR NON-AFRICAN AMERICAN 48
[2018-02-03 20:26] LABS: INR 1.06; PARTIAL THROMBOPLASTIN TIME 33.8 Seconds (25.1-36.5); PROTHROMBIN TIME 12.1 SECONDS (9.4-12.5)
[2018-02-03 20:34] LABS: TROPONIN I < 0.01 ng/mL
--- NOTE | 2018-02-03 20:58 | ED PDOC ---
Arrival/HPI - General Chief Complaint: Syncope Time Seen by Provider: 02/03/18 19:26 Historian: Patient - History of Present Illness Narrative History of Present Illness (Text): 02/03/18 20:58 57 year old male, whose past medical history includes end stage sarcoidosis, CAD with 2 stents, hypertension, hyperlipidemia, and paraxysmal afib, presents to the emergency department for evaluation status post syncopal episode this even ing. Patient's daughter states while he was sitting at the table at home she noticed a blank stare on him, then he collapsed. Patient states he is unsure what happened. Patient karlene any urinary incontinence. Daughter denies any tonic-clonic movements. Patient states he just felt funny before it happened, like his heartbeat was irregular. Patient denies any fevers, chills, headache, dizziness, chest pain, shortness of breath, cough, abdominal pain, nausea, vomiting, diarrhea, back pain, neck pain, urinary/bowel changes, or any other complaint. Time/Duration: 4-6 hours Symptom Onset: Sudden Symptom Course: Unchanged Past Medical History - Provider Review Nursing Documentation Reviewed: Yes - Past History Past History: No Previous - Infectious Disease Hx of Infectious Diseases: None - Tetanus Immunization Tetanus Immunization: Unknown - Cardiac Hx Cardiac Disorders: Yes Hx Hypertension: Yes - Pulmonary Hx Respiratory Disorders: Yes Hx Chronic Obstructive Pulmonary Disease (COPD): Yes (sarcoidosis) - Neurological Hx Neurological Disorder: No - HEENT Hx HEENT Disorder: No - Renal Hx Renal Disorder: Yes Hx Kidney Stones: Yes - Endocrine/Metabolic Hx Endocrine Disorders: No - Hematological/Oncological Hx Blood Disorders: Yes Hx Anemia: Yes (iron deficiency) Hx Cancer: Yes - Integumentary Hx Dermatological Disorder: Yes - Musculoskeletal/Rheumatological Hx Falls: No - Gastrointestinal Hx Gastrointestinal Disorders: Yes (obese) - Genitourinary/Gynecological Hx Genitourinary Disorders: Yes Hx Prostate Problems: Yes - Psychiatric Hx Psychophysiologic Disorder: No Hx Substance Use: No - Surgical History Hx Cardiac Catheterization: Yes Hx Coronary Stent: Yes Other/Comment: prostatectomy - Anesthesia Hx Anesthesia: Yes Hx Anesthesia Reactions: Yes - Suicidal Assessment Feels Threatened In Home Enviroment: No Family/Social History - Physician Review Nursing Documentation Reviewed: Yes Family/Social History: No Known Family HX Smoking Status: Never Smoked Hx Alcohol Use: No Hx Substance Use: No Hx Substance Use Treatment: No Allergies/Home Meds Allergies/Adverse Reactions: Allergies No Known Allergies Allergy (Verified 02/03/18 19:03) Home Medications: Home Meds Medication Instructions Recorded Confirmed Benzonatate 200 mg PO TID PRN 11/01/15 02/03/18 Cyanocobalamin [Vitamin B12 1000 1 ml IM Q30D 11/01/15 02/03/18 mcg/ml Inj] Linaclotide [Linzess] 290 mcg PO DAILY 11/01/15 02/03/18 Terazosin [Hytrin] 2 mg PO HS 11/01/15 02/03/18 Potassium Chloride [K-Dur 20 mEq 20 meq PO TID 11/18/16 02/03/18 ER Tab] Valsartan/Hydrochlorothiazide 1 tab PO DAILY 11/18/16 02/03/18 [Valsartan-Hctz 320-25 mg Tab] Ranolazine [Ranexa] 500 mg PO Q12H 08/16/17 02/03/18 Simvastatin [Zocor] 1 tab PO HS 08/16/17 02/03/18 Review of Systems - Physician Review All systems were reviewed & negative as marked: Yes - Review of Systems Constitutional: absent: Fevers, Night Sweats Respiratory: absent: SOB, Cough Cardiovascular: absent: Chest Pain Gastrointestinal: absent: Abdominal Pain, Diarrhea, Nausea, Vomiting Genitourinary Male: absent: Urinary Output Changes, Other (urinary incontinence) Musculoskeletal: absent: Back Pain, Neck Pain Neurological: absent: Headache, Dizziness, Other (tonic-clonic movements) Physical Exam Vital Signs Reviewed: Yes Vital Signs Temp Pulse Resp BP Pulse Ox 02/03/18 19:11 98.3 F 91 H 21 144/86 90 L Temperature: Afebrile Blood Pressure: Normal Pulse: Regular Respiratory Rate: Normal Appearance: Positive for: Well-Appearing, Non-Toxic, Comfortable Pain Distress: None Mental Status: Positive for: Alert and Oriented X 3 - Systems Exam Head: Present: Atraumatic, Normocephalic Pupils: Present: PERRL Extroacular Muscles: Present: EOMI Conjunctiva: Present: Normal Mouth: Present: Moist Mucous Membranes Neck: Present: Normal Range of Motion Respiratory/Chest: Present: Clear to Auscultation, Good Air Exchange. No: Respiratory Distress, Accessory Muscle Use Cardiovascular: Present: Regular Rate and Rhythm, Normal S1, S2. No: Murmurs Abdomen: No: Tenderness, Distention, Peritoneal Signs Back: Present: Normal Inspection Upper Extremity: Present: Normal Inspection. No: Cyanosis, Edema Lower Extremity: Present: Normal Inspection. No: Edema Neurological: Present: GCS=15, CN II-XII Intact, Speech Normal Skin: Present: Warm, Dry, Normal Color. No: Rashes Psychiatric: Present: Alert, Oriented x 3, Normal Insight, Normal Concentration Medical Decision Making ED Course and Treatment: 02/03/18 21:05 Impression: 57 year old male presents for evaluation status post syncopal episode. Plan: -- CT Head -- Chest X-ray -- EKG -- Reassess and disposition Prior Visits: Notes and results from previous visits were reviewed. Progress Notes: 02/03/18 21:36 Chest X-ray reviewed, shows: Chronic interstitial infiltrates 02/03/18 22:17 CT Head reviewed by radiologist, shows: 1. There is generalized parenchymal atrophy noted as demonstrated by symmetrical dilatation of ventricles and sulci. 2. Chronic periventricular and subcortical microvascular disease is seen. 3. Slitlike hypodensity is present in the right external capsule possibly related to old hemorrhage. 4. No acute intracranial pathology. 02/04/18 01:17 Case was d/w who accepted the patient to his service.compensation vice president notified. - Lab Interpretations Lab Results: 02/03/18 20:00 02/03/18 20:00 Lab Results 02/03/18 20:00: WBC 7.7, RBC 4.98, Hgb 11.3 L, Hct 38.3 L, MCV 76.9 L, MCH 22.7 L, MCHC 29.5 L, RDW 16.7 H, Plt Count 260, MPV 9.9 02/03/18 20:00: Sodium 143, Potassium 4.1, Chloride 102, Carbon Dioxide 33, Anion Gap 12, BUN 24 H, Creatinine 1.5, Est GFR ( Amer) 58, Est GFR (Non- Af Amer) 48, Random Glucose 104, Calcium 9.0, Total Bilirubin 0.2, AST 21, ALT 18, Alkaline Phosphatase 79, Lactate Dehydrogenase 527, Total Creatine Kinase 49, Troponin I < 0.01 D, Total Protein 7.0, Albumin 3.9, Globulin 3.0, Al bumin/Globulin Ratio 1.3 02/03/18 20:00: PT 12.1, INR 1.06, APTT 33.8 - RAD Interpretation Radiology Orders: 02/03/18 19:41 HEAD W/O CONTRAST [CT] Stat CHEST PORTABLE [RAD] Stat - EKG Interpretation EKG Interpretation (Text): 02/03/18 21:06 Normal sinus rhythm @ 78 bpm Prolonged QT Nonspecific ST changes Interpreted by ED Physician: Yes Type: 12 lead EKG - Scribe Statement The provider has reviewed the documentation as recorded by the Nusrat Lindsey Provider Scribe Attestation: All medical record entries made by the Nusrat were at my direction and personally dictated by me. I have reviewed the chart and agree that the record accurately reflects my personal performance of the history, physical exam, medical decision making, and the department course for this patient. I have also personally directed, reviewed, and agree with the discharge instructions and disposition. Disposition/Present on Arrival - Present on Arrival Any Indicators Present on Arrival: No History of DVT/PE: No History of Uncontrolled Diabetes: No Urinary Catheter: No History of Decub. Ulcer: No History Surgical Site Infection Following: None - Disposition Have Diagnosis and Disposition been Completed?: Yes Diagnosis: Syncope Disposition: HOSPITALIZED Disposition Time: 23:15 Patient Plan: Observation Condition: STABLE
[2018-02-04] MEDS: RANOLAZINE 500 MG PO SCH ×4 (01:45→22:45)
--- NOTE | 2018-02-04 01:55 | CP.PCM.HP ---
History of Present Illness - History of Present Illness History of Present Illness: Minh De La Rosa DO, PGY-1 Hospitalist Admission History and Physical for Dr. Ceballos's service CC: syncope HPI: Mr. Rabago is a 57 year old male with PMH of sarcoidosis, CAD (s/p PCI with 2 stents), HTN, HLD, paroxysmal AFib, and LAYLA who presented to ED following a syncopal episode yesterday evening. He was sitting at the dinner table talking with his daughter and grand-daughter when they witnessed him collapse. Prior to his collapsing, he had a blank stair on his face. His daughter reports that he did not have any shaking or tremor-type movements prior to the event. He does recall feeling light-headed prior to the event. He states that he has not had any prior episodes of syncope. He did not have any palpitations prior to or after the syncopal event. Currently he states he feels fine and denies fever/chills, CP, SOB, abdominal pain/nausea/vomiting, or peripheral numbness/tingling. Past Medical Hx: sarcoidosis, CAD (s/p PCI with 2 stents), HTN, HLD, paroxysmal AFib, and LAYLA Past Surgical Hx: PCI Allergies: NKA Home medications: reviewed, list in MAR updated Family Hx: reviewed, non-contributory Social Hx: denies current or prior tobacco, alcohol, or drug use. Pharmacy: [facility] [place] pharmacy Present on Admission - Present on Admission Any Indicators Present on Admission: No History of DVT/PE: No History of Uncontrolled Diabetes: No Urinary Catheter: No Decubitus Ulcer Present: No Review of Systems - Constitutional Constitutional: absent: Chills, Fever - EENT Eyes: absent: Blurred Vision, Change in Vision - Cardiovascular Cardiovascular: absent: Chest Pain, Chest Pain with Activity, Dyspnea, Dyspnea on Exertion, Edema, Palpitations - Respiratory Respiratory: absent: Cough, Dyspnea - Gastrointestinal Gastrointestinal: absent: Abdominal Pain, Nausea, Vomiting - Genitourinary Genitourinary: absent: Change in Urinary Stream, Difficulty Urinating Past Patient History - Infectious Disease Hx of Infectious Diseases: None - Tetanus Immunizations Tetanus Immunization: Unknown - Past Social History Smoking Status: Never Smoked - CARDIAC Hx Cardiac Disorders: Yes Hx Hypertension: Yes - PULMONARY Hx Respiratory Disorders: Yes Hx Chronic Obstructive Pulmonary Disease (COPD): Yes (sarcoidosis) - NEUROLOGICAL Hx Neurological Disorder: No - HEENT Hx HEENT Problems: No - RENAL Hx Chronic Kidney Disease: Yes Hx Kidney Stones: Yes - ENDOCRINE/METABOLIC Hx Endocrine Disorders: No - HEMATOLOGICAL/ONCOLOGICAL Hx Blood Disorders: Yes Hx Anemia: Yes (iron deficiency) Hx Cancer: Yes - INTEGUMENTARY Hx Dermatological Problems: Yes - MUSCULOSKELETAL/RHEUMATOLOGICAL Hx Falls: No - GASTROINTESTINAL Hx Gastrointestinal Disorders: Yes (obese) - GENITOURINARY/GYNECOLOGICAL Hx Genitourinary Disorders: Yes Hx Prostate Problems: Yes - PSYCHIATRIC Hx Psychophysiologic Disorder: No Hx Substance Use: No - SURGICAL HISTORY Hx Cardiac Catheterization: Yes Hx Coronary Stent: Yes Other/Comment: prostatectomy - ANESTHESIA Hx Anesthesia: Yes Hx Anesthesia Reactions: Yes Meds Allergies/Adverse Reactions: Allergies Allergy/AdvReac Type Severity Reaction Status Date / Time No Known Allergies Allergy Verified 02/03/18 19:03 Physical Exam - Constitutional Appears: Non-toxic, No Acute Distress - Head Exam Head Exam: ATRAUMATIC, NORMOCEPHALIC - Eye Exam Eye Exam: EOMI, Normal appearance, PERRL - ENT Exam ENT Exam: Mucous Membranes Moist - Neck Exam Neck exam: Positive for: Full Rom, Normal Inspection - Respiratory Exam Respiratory Exam: Clear to Auscultation Bilateral, NORMAL BREATHING PATTERN. absent: Accessory Muscle Use, Rales, Rhonchi, Wheezes, Respiratory Distress - Cardiovascular Exam Cardiovascular Exam: REGULAR RHYTHM, RRR, +S1, +S2. absent: Diastolic murmur, Gallop, Rubs, Systolic Murmur - GI/Abdominal Exam GI & Abdominal Exam: Normal Bowel Sounds, Soft. absent: Guarding, Rebound, Tenderness - Extremities Exam Extremities exam: Positive for: normal inspection. Negative for: pedal edema - Back Exam Back exam: NORMAL INSPECTION - Neurological Exam Neurological exam: Alert, Oriented x3 Additional comments: no horizontal or vertical nystagmus noted with [id number] and lateral gaze, - Psychiatric Exam Psychiatric exam: Normal Affect, Normal Mood - Skin Skin Exam: Dry, Intact, Warm Results - Vital Signs Recent Vital Signs: Last Vital Signs Temp 97.6 F 02/04/18 00:54 Pulse 66 02/04/18 00:54 Resp 20 02/04/18 00:54 BP 151/96 H 02/04/18 00:54 Pulse Ox 94 L 02/04/18 00:54 - Labs Result Diagrams: 02/03/18 20:00 11/08/18 20:00 Labs: Laboratory Results - last 24 hr 02/03/18 02/03/18 02/03/18 20:00 20:00 20:00 WBC 7.7 RBC 4.98 Hgb 11.3 L Hct 38.3 L MCV 76.9 L MCH 22.7 L MCHC 29.5 L RDW 16.7 H Plt Count 260 MPV 9.9 PT 12.1 INR 1.06 APTT 33.8 Sodium 143 Potassium 4.1 Chloride 102 Carbon Dioxide 33 Anion Gap 12 BUN 24 H Creatinine 1.5 Est GFR ( Amer) 58 Est GFR (Non-Af Amer) 48 Random Glucose 104 Calcium 9.0 Total Bilirubin 0.2 AST 21 ALT 18 Alkaline Phosphatase 79 Lactate Dehydrogenase 527 Total Creatine Kinase 49 Troponin I < 0.01 D NT-Pro-B Natriuret Pep Total Protein 7.0 Albumin 3.9 Globulin 3.0 Albumin/Globulin Ratio 1.3 02/03/18 21:18 WBC RBC Hgb Hct MCV MCH MCHC RDW Plt Count MPV PT INR APTT Sodium Potassium Chloride Carbon Dioxide Anion Gap BUN Creatinine Est GFR ( Amer) Est GFR (Non-Af Amer) Random Glucose Calcium Total Bilirubin AST ALT Alkaline Phosphatase Lactate Dehydrogenase Total Creatine Kinase Troponin I NT-Pro-B Natriuret Pep 241 Total Protein Albumin Globulin Albumin/Globulin Ratio Assessment & Plan - Assessment and Plan (Free Text) Assessment: 57 yo M with PMH of sarcoidosis, CAD (s/p PCI with 2 stents), HTN, HLD, paroxysmal AFib, and LAYLA is admitted for syncope. Plan: 1. Syncopal episode Likely 2/2 cardiogenic vs vasovagal syncope vs seizure CT head and CTA chest negative for acute findings Will also get MRI brain, MRA neck, TTE O2 via NC PRN to maintain SpO2 > 95% Continue CPAP use at night, same settings as home Cardiology, neurology consulted, recs appreciated 2. Hx CAD, HTN, HLD Continue home meds F/u additional cardiology recs 3. Hx sarcoidosis, LAYLA O2 via NC PRN to maintain SpO2 > 95% Continue CPAP use at night, same settings as home DVT/GI PPX: SC heparin, protonix Full Code HHD Monitor on telemetry Case and plan reviewed and discussed with my attending Dr. Tucker De La Rosa, DO IM Resident PGY-1
[2018-02-04] MEDS: Pantoprazole 40 mg EC Tab PO SCH (05:52)
[2018-02-04] MEDS: Levalbuterol 0.63 MG/3 ML Inhal Soln UD IH SCH ×2 (07:00→13:34)
[2018-02-04 07:14] LABS: BASO # 0.03 K/mm3 (0.0-2.0); BASO % 0.4 % (0.0-3.0); EOS # 0.3 (0.0-0.7); EOS % 3.8 % (1.5-5.0); GRAN # 5.53 (1.4-6.5); GRAN % 65.5 % (50.0-68.0); HEMOGLOBIN 10.7 g/dL (14.0-18.0); LYMPH # 1.7 (1.2-3.4); LYMPH % 20.1 % (22.0-35.0); MEAN CELL VOLUME 76.4 fl (80.0-105.0); MEAN CORPUSCULAR HEMOGLOBIN 22.5 pg (25.0-35.0); MEAN CORPUSCULAR HGB CONC 29.5 g/dl (31.0-37.0); MEAN PLATELET VOLUME 10.5 fl (7.0-11.0); MONO # 0.9 (0.1-0.6); MONO % 10.2 % (1.0-6.0); RBC 4.75 10^6/uL (3.5-6.1); RED CELL DISTRIBUTION WIDTH 16.6 % (11.5-14.5); WHITE BLOOD COUNT 8.4 10^3/uL (4.5-11.0)
[2018-02-04 07:34] LABS: ALB/GLOB RATIO 1.2 (1.1-1.8); ALBUMIN 3.6 g/dL (3.0-4.8); ALT/SGPT 22 U/L (7-56); AST/SGOT 23 U/L (17-59); BLOOD UREA NITROGEN 22 mg/dL (7-21); GFR NON-AFRICAN AMERICAN 52
[2018-02-04] MEDS: Arformoterol 15 mcg/2 ml Inh Sol IH SCH ×2 (07:52→21:25)
[2018-02-04] MEDS: Budesonide 0.5 mg/2 ml Inhal Susp UD IH SCH ×2 (07:52→21:25)
[2018-02-04] MEDS ORDERED: Potassium Chloride 20 mEq ER Tab PO ONE (07:55)
[2018-02-04] MEDS ORDERED: Arformoterol 15 mcg/2 ml Inh Sol IH SCH (08:00)
[2018-02-04 08:27] LABS: FREE T4 0.83 ng/dL (0.78-2.19); T4 5.5 ug/dL (5.5-11.0)
--- NOTE | 2018-02-04 09:17 | CT ---
Date of service: 02/03/2018 PROCEDURE: CT HEAD WITHOUT CONTRAST. HISTORY: syncope COMPARISON: 10/31/2013 TECHNIQUE: Axial computed tomography images were obtained through the head/brain without intravenous contrast. Radiation dose: Total exam DLP = 931.34 mGy-cm. This CT exam was performed using one or more of the following dose reduction techniques: Automated exposure control, adjustment of the mA and/or kV according to patient size, and/or use of iterative reconstruction technique. FINDINGS: HEMORRHAGE: No intracranial hemorrhage. BRAIN: No mass effect or edema. Severe chronic microvascular changes are seen in the periventricular white matter and basal ganglia. VENTRICLES: Unremarkable. No hydrocephalus. CALVARIUM: Unremarkable. PARANASAL SINUSES: Unremarkable as visualized. No significant inflammatory changes. MASTOID AIR CELLS: Unremarkable as visualized. No inflammatory changes. OTHER FINDINGS: The report concurs with the preliminary [facility] report IMPRESSION: No acute intracranial findings
[2018-02-04 09:19] LABS: TROPONIN I < 0.01 ng/mL
[2018-02-04 09:20] LABS: ALB/GLOB RATIO 1.2 (1.1-1.8); ALBUMIN 3.6 g/dL (3.0-4.8); ALT/SGPT 19 U/L (7-56); AST/SGOT 89 U/L (17-59); BILIRUBIN,DIRECT 0.2 mg/dL (0.0-0.4); HDL CHOLESTEROL 46 mg/dL (29-60); LDL CHOLESTEROL 56 mg/dL (0-129)
--- NOTE | 2018-02-04 09:24 | CT ---
Date of service: 02/03/2018 PROCEDURE: CT Chest with contrast (Pulmonary Angiogram) HISTORY: sob COMPARISON: None available. TECHNIQUE: Axial computed tomography images were obtained of the chest in the pulmonary arterial phase of enhancement. Coronal and sagittal reformatted images were created and reviewed. Intravenous contrast dose: 150 cc of Omni 350 Radiation dose: Total exam DLP = 566.52 mGy-cm. This CT exam was performed using one or more of the following dose reduction techniques: Automated exposure control, adjustment of the mA and/or kV according to patient size, and/or use of iterative reconstruction technique. FINDINGS: PULMONARY ARTERIES: There is no evidence of pulmonary embolus. The pulmonary arteries are enlarged. The main pulmonary artery measures 42 mm in diameter. This is consistent with pulmonary hypertension. AORTA: No acute findings. No thoracic aortic aneurysm. No aortic atherosclerotic calcification or mural plaque present. LUNGS: There is severe interstitial fibrosis with a honeycomb pattern in both upper lobes right greater than left PLEURAL SPACES: Unremarkable. No effusion or pneumothorax. HEART: Unremarkable. No cardiomegaly. No significant pericardial effusion. LYMPH NODES: No lymphadenopathy. BONES, CHEST WALL: Unremarkable. No fracture or destructive lesion OTHER FINDINGS: The report concurs with the preliminary [facility] report IMPRESSION: Enlarged pulmonary arteries consistent with pulmonary artery hypertension. No evidence of pulmonary embolus Pulmonary fibrosis with a honeycomb pattern in both upper lobes
--- NOTE | 2018-02-04 10:06 | CARD ---
APPROVED REPORT Date of service: 02/03/2018 EKG Measurement Heart [id number] <Conclusion> Normal sinus rhythm Possible Left atrial enlargement Incomplete RBBB.
[2018-02-04] MEDS: diltiaZEM 180 mg/24 Hours CD Cap PO SCH (10:09)
[2018-02-04] MEDS: Magnesium Oxide 400 mg Tab UD PO SCH ×2 (10:09→17:11)
[2018-02-04] MEDS: Potassium Chloride 20 mEq ER Tab PO SCH ×3 (11:11→17:11)
--- NOTE | 2018-02-04 11:59 | RAD ---
Date of service: 02/03/2018 HISTORY: Shortness of breath, palpitations and chest pain. 07/19/2015, 08/16/2017. COMPARISON: No prior. FINDINGS: LUNGS: Chronic interstitial lung disease. No superimposed acute infiltrates. PLEURA: No significant pleural effusion identified, no pneumothorax apparent. CARDIOVASCULAR: No atherosclerotic calcification present No radiographic findings to suggest acute or significant cardiovascular disease. OSSEOUS STRUCTURES: No significant abnormalities. VISUALIZED UPPER ABDOMEN: Normal. OTHER FINDINGS: None. IMPRESSION: Stable, chronic interstitial lung disease. No superimposed acute findings.
--- NOTE | 2018-02-04 13:08 | MRI ---
Date of service: 02/04/2018 PROCEDURE: MRI BRAIN WITHOUT CONTRAST HISTORY: syncope COMPARISON: None available. TECHNIQUE: Multiplanar, multisequence MR images of the brain were obtained without intravenous contrast enhancement. FINDINGS: HEMORRHAGE: None DWI: No evidence of an acute or early subacute infarction. BRAIN PARENCHYMA: No mass effect or edema. Severe chronic microvascular changes are seen in the periventricular white matter and basal ganglia bilaterally. VENTRICLES: Unremarkable. No hydrocephalus. CRANIUM: Unremarkable. ORBITS: Grossly unremarkable. PARANASAL SINUSES/MASTOIDS: Clear VASCULAR SYSTEM: Skull base flow voids intact. OTHER FINDINGS: None. IMPRESSION: No acute intracranial findings.
--- NOTE | 2018-02-04 13:39 | MRI ---
Date of service: 02/04/2018 PROCEDURE: MR Angiography of the neck without contrast HISTORY: syncope COMPARISON: None available. TECHNIQUE: 3D [id number] angiography of the neck was performed. Rotating maximum intensity projection images of the cervical carotid and vertebral arteries were generated. The origins of the common carotid arteries were not visualized, which is a limitation inherent to the non-contrast time of flight technique. FINDINGS: RIGHT CAROTID ARTERIES: Common Carotid Artery: Normal. Carotid Bifurcation: Normal. Internal Carotid Artery:Normal. External Carotid Artery (proximal branches): Normal. LEFT CAROTID ARTERIES: Common Carotid Artery: Normal. Carotid Bifurcation: Normal. Internal Carotid Artery:Normal. External Carotid Artery (proximal branches): Normal. VERTEBRAL ARTERIES: Right Vertebral Artery: Normal. Left Vertebral Artery: Normal. OTHER FINDINGS: None. IMPRESSION: Negative study
[2018-02-04 14:18] LABS: FOLATE 6.3 ng/mL
--- NOTE | 2018-02-04 14:53 | PN ---
DATE: 02/04/2018 SUBJECTIVE: The patient was seen in room 264, bed 1. The patient was admitted yesterday because of syncopal episode which was witnessed by the patient's daughter. Prior to the syncopal episode, the patient had a blank stare. There was no tongue biting noted. Overnight there was no syncopal event documented or noted or reported by the patient. Overnight nurse's notes were reviewed. The patient slept well with use of his home BiPap. PHYSICAL EXAMINATION: VITAL SIGNS: T-max 97.7, pulse 86-88. Telemetry normal sinus rhythm, blood pressure 147/93, 150/90, O2 sat 97% on 2 liters, respirations 20. HEAD: Normocephalic, atraumatic. HEENT examination shows pinkish conjunctivae. Anicteric sclerae. No oropharyngeal lesion. No neck rigidity. CHEST: Kyphosis. LUNGS: Shows decreased breath sounds at the bases. Positive rhonchi in upper lung shipman. CARDIOVASCULAR: S1, S2, regular rhythm. Positive systolic murmur In left sternal border, right second intercostal space. ABDOMEN: Obese, protuberant. Positive bowel sounds. No palpable hepatosplenomegaly. GENITALIA: Male. RECTAL: Deferred. EXTREMITIES: Shows positive swelling of the lower extremity. MUSCULOSKELETAL: Shows an elevated body mass index. NEUROLOGIC: The patient is alert, awake, oriented x3. Cranial nerves II-XII intact. Gait examination not tested. MUSCULOSKELETAL: Shows an elevated body mass index. DIAGNOSTICS: on 02/04/2018: WBC 8.4, hemoglobin/hematocrit 10.7/36.3, platelet 267. Sodium 141, potassium 3.5, chloride 102, CO2 of 34, BUN 22, creatinine 1.4, glucose 97 and calcium 9, phosphorus 3.3, magnesium 2.2, AST 89, cholesterol 146, triglyceride 53, LDL 56, HDL 46. TSH 1.39, T4 of 5.5. CT of the chest shows severe interstitial fibrosis and honeycomb pattern of the upper lobe with pulmonary hypertension and dilated and prominent pulmonary artery. EKG shows normal sinus rhythm, incomplete right bundle-branch block. IMPRESSION AND PLAN: 1. Syncope, etiology undetermined. 2. History of multivessel coronary artery disease, history of angioplasty and stent placement. 3. History of myocardial infarction. 4. History of code heart. 5. Iron-deficiency anemia. 6. Hypokalemia. 7. Mild acute kidney injury. 8. Transaminitis. 9. Hypertension. 10. Obesity. 11. Hyperlipidemia. 12. Incomplete right bundle-branch block. 13. Severe advanced sarcoidosis. 14. Severe interstitial fibrosis. 15. Bilateral upper lobe honeycomb pattern secondary to advanced sarcoidosis. 16. Pulmonary hypertension. 17. Oxygen-dependent interstitial fibrosis secondary to sarcoidosis. 18. History of iron-deficiency anemia. 19. History of vitamin B12 deficiency. 20. Bilateral lower extremity venous stasis. 21. History of constipation. PLAN: At this time, the patient has been supplemented for potassium of 3.5. The patient is given an extra dose of potassium. The patient will be continued on gentle IV diuresis of Lasix 20 mg IV daily. The patient is to be continued on potassium 20 mEq three times a day. The patient is to be continued on both GI, DVT prophylaxis. The patient is to be continued on telemetry monitoring. The patient is awaiting Cardiology and Neurology evaluation. The patient is to be continued on bronchodilator treatment. The patient is to be continued on antihypertensive. At present, the patient's MRI of the brain, MRA of the neck, echocardiogram all are pending. Cardiac enzymes are negative. At present, further, the patient will be continued to be monitored on telemetry. Awaiting Cardiology, Neurology evaluation and further diagnostic therapeutic intervention. The patient updated about his condition, diagnosis, treatment plan, management plan at length and all questions concerned answered to the patient's satisfaction. Dictated and electronically signed, not read. Britton Ceballos MD
--- NOTE | 2018-02-04 16:56 | CARD ---
APPROVED REPORT Date of service: 02/04/2018 EXAM: Two-dimensional and M-mode echocardiogram with Doppler and color Doppler. INDICATION Syncope 2D DIMENSIONS Left Atrium (2D)4.2 (1.6-4.0cm)IVSd1.4 (0.7-1.1cm) LVDd5.1 (3.9-5.9cm)PWd1.6 (0.7-1.1cm) LVDs3.0 (2.5-4.0cm)FS (%) 41.7 % LVEF (%)72.2 (>50%) M-Mode DIMENSIONS Aortic Root2.90 (2.2-3.7cm)Aortic Cusp Exc.1.60 (1.5-2.0cm) Aortic Valve AoV Peak Pxxylrfj726.0cm/Denita Peak GR.13mmHg Mitral Valve MV E Ugzsthlm75.7cm/sMV A Wjpsznpr97.3cm/sE/A ratio0.7 TDI E/Lateral E'0.0E/Medial E'0.0 Tricuspid Valve TR Peak [id number]/sRAP [id number] Peak Gr.30mmHg [id number] LEFT VENTRICLE The left ventricle is normal size. There is mild concentric left ventricular hypertrophy. The left ventricular function is normal. The left ventricular ejection fraction is within the normal range. Ej.Fr: 72%. RIGHT VENTRICLE The right ventricle is normal size. The right ventricular systolic function is normal. ATRIA The left atrium is mildly dilated. The right atrium size is normal. AORTIC VALVE Aortic Valve Thickened but Opening is Normal. MITRAL VALVE Mitral Leaflets Thickened but Valve Opening is Normal. Mitral regurgitation is trace to mild. TRICUSPID VALVE The tricuspid valve is normal in structure. There is trace to mild tricuspid regurgitation.RVSP 40mm Hg. PULMONIC VALVE Mild Pulmonic Regurge. PERICARDIAL EFFUSION There is no pericardial effusion. <Conclusion> The left ventricle is normal size. There is mild concentric left ventricular hypertrophy. The left ventricular function is normal. The left ventricular ejection fraction is within the normal range. Ej.Fr: 72%. The right ventricle is normal size. The right ventricular systolic function is normal. The left atrium is mildly dilated. The right atrium size is normal. Aortic Valve Thickened but Opening is Normal. Mitral Leaflets Thickened but Valve Opening is Normal. Mitral regurgitation is trace to mild. The tricuspid valve is normal in structure. There is trace to mild tricuspid regurgitation.RVSP 40mm Hg. Mild Pulmonic Regurge. There is no pericardial effusion.
--- NOTE | 2018-02-04 17:17 | EEG ---
Copied To: Cade Fisher MD Attending MD: Cade Fisher MD DATE: 02/04/2018 DIAGNOSIS: Syncope. MEDICATIONS: Reviewed by nurses' reconciliation sheet. INTERPRETATION: This is a 16-channel [employer] recording. Background activity of this tracing was composed of 6 to 7 cycles per second. There was a small amount of beta activity of 15 to 20 cycles per second. There was a small amount of theta activity of 5 to 7 cycles per seconds seen in this tracing. Drowsiness was characterized by mixed beta and theta activities. Sleep was characterized by vertex transient waves, sleep spindles and bilateral slowing. Photic stimulation showed no changes in the tracing. No paroxysmal activity noted in the recording. CONCLUSION: Normal drowsy electroencephalogram. No evidence of epileptiform activity. Please clinically correlate. Cade Fisher MD
[2018-02-04 19:08] LABS: LYME IGG NEGATIVE (NEGATIVE)
[2018-02-04 21:35] LABS: LYME IGM NEGATIVE (NEGATIVE)
[2018-02-04] MEDS ORDERED: TERAZOSIN 2 MG PO SCH (22:00)
[2018-02-04 23:38] VITALS: TEMP 98
[2018-02-05] MEDS: Pantoprazole 40 mg EC Tab PO SCH (06:39)
[2018-02-05 06:46] VITALS: O2SAT 94
[2018-02-05 06:56] LABS: BASO # 0.03 K/mm3 (0.0-2.0); BASO % 0.4 % (0.0-3.0); EOS # 0.5 (0.0-0.7); EOS % 6.2 % (1.5-5.0); GRAN # 4.63 (1.4-6.5); GRAN % 59.9 % (50.0-68.0); LYMPH # 1.5 (1.2-3.4); LYMPH % 19.4 % (22.0-35.0); MEAN CELL VOLUME 76.2 fl (80.0-105.0); MEAN CORPUSCULAR HGB CONC 30.2 g/dl (31.0-37.0); MEAN PLATELET VOLUME 9.9 fl (7.0-11.0); MONO # 1.1 (0.1-0.6); MONO % 14.1 % (1.0-6.0); RBC 4.78 10^6/uL (3.5-6.1); RED CELL DISTRIBUTION WIDTH 16.8 % (11.5-14.5); WHITE BLOOD COUNT 7.7 10^3/uL (4.5-11.0)
[2018-02-05 07:35] LABS: ALB/GLOB RATIO 1.2 (1.1-1.8); ALBUMIN 3.5 g/dL (3.0-4.8); ALT/SGPT 18 U/L (7-56); AST/SGOT 16 U/L (17-59); BILIRUBIN,DIRECT 0.1 mg/dL (0.0-0.4); BLOOD UREA NITROGEN 23 mg/dL (7-21); CALCIUM 8.8 mg/dL (8.4-10.5); GFR NON-AFRICAN AMERICAN 57
[2018-02-05] MEDS ORDERED: Potassium Chloride 20 mEq ER Tab PO ONE (07:36)
[2018-02-05] MEDS: Levalbuterol 0.63 MG/3 ML Inhal Soln UD IH SCH ×2 (09:05→14:41)
[2018-02-05] MEDS: Arformoterol 15 mcg/2 ml Inh Sol IH SCH (09:05)
[2018-02-05] MEDS: Budesonide 0.5 mg/2 ml Inhal Susp UD IH SCH (09:05)
[2018-02-05] MEDS: Magnesium Oxide 400 mg Tab UD PO SCH (10:37)
[2018-02-05] MEDS: RANOLAZINE 500 MG PO SCH (10:38)
[2018-02-05] MEDS: Potassium Chloride 20 mEq ER Tab PO SCH (10:39)
[2018-02-05] MEDS: diltiaZEM 180 mg/24 Hours CD Cap PO SCH (11:09)
[2018-02-05 14:05] VITALS: BP 124/90; RESP 18
[2018-02-05 15:06] VITALS: PULSE 70
--- NOTE | 2018-02-05 17:14 | CON ---
DATE OF CONSULTATION: 02/05/2018 HISTORY OF PRESENT ILLNESS: The patient is a 57-year-old -[place] male who has a history of advanced pulmonary sarcoidosis, on steroid therapy, and history of coronary artery stenting in 2012. The patient underwent 2 coronary stents at that time. The patient was admitted because of syncopal episode. The patient stated that he was sitting on a couch, trying to open a ketchup for his granddaughter, he collapsed on the floor as witnessed by his daughter, and when the daughter woke him up, he remembered what he was doing, but did not recall the event of collapsing and does not recall experiencing dizziness prior to that. There was a questionable history of palpitations. The patient denies any prior similar episode. There were no reported seizures, tongue biting, or urine incontinence. SOCIAL HISTORY: The patient is a nonsmoker. He lives with his daughter. MEDICATIONS: Aspirin 325 mg once a day, Brovana 15 mcg inhalation every 12 hours, Cardizem CD 180 mg once a day, clonidine patch 0.3 mg weekly, Colace 100 mg t.i.d, Cozaar 100 mg once a day, folic acid 1 mg once a day, subcutaneous heparin 5000 units every 8 hours, K-Dur 20 mEq t.i.d., Lipitor 10 mg once a day, Lasix 20 mg intravenously daily, magnesium oxide 400 mg twice a day, Xopenex inhaler every 6 hours p.r.n., and Zofran 4 mg intravenously every 4 hours p.r.n. REVIEW OF SYSTEMS: No recent vomiting or diarrhea. No fever or chills. No retrosternal chest pain. PHYSICAL EXAMINATION: GENERAL: The patient is a middle-aged male, who does not appear to be in acute distress. VITAL SIGNS: Blood pressure 158/97, heart rate 81, temperature 98, and respirations 20. HEENT: Normocephalic. CHEST: Minimal basilar rhonchi. HEART: S1, S2 regular. ABDOMEN: Soft. EXTREMITIES: 1+ pitting edema. LABORATORY DATA: Hemoglobin and hematocrit 11 and 36.4, white count and platelet count are within normal limits. SMA-7: Sodium 141, potassium 3.5, chloride 104, CO2 of 31, glucose 101, BUN 23, and creatinine 1.3. Two sets of troponins are negative. Sleep and awake EEG is a normal study. No evidence of epileptiform activity. Brain CT scan without contrast: No acute finding. Neck MRA without contrast: Negative study. Echocardiograph study: Normal ejection fraction. Chest CT scan: No evidence of pulmonary embolism. Enlarged pulmonary arteries consistent with pulmonary artery hypertension. Head CT scan without contrast: No acute findings. EKG: Normal sinus rhythm, possible left atrial enlargement, incomplete right bundle branch block. ASSESSMENT: 1. Presyncopal episode. 2. Pulmonary sarcoidosis. 3. History of coronary artery disease with chronic stenting 5 years ago. 4. Hypertension. 5. Mild hypokalemia. RECOMMENDATIONS: After reviewing the negative cardiac and neuro workup, the patient can be started on aspirin 325 mg once a day, Cardizem CD 180 mg once a day, Cozaar 100 mg once a day with potassium chloride replacement. Milo Johnson MD
--- NOTE | 2018-02-05 18:00 | DS ---
SUBJECTIVE: The patient is seen in Room 264, Bed 1. The patient is seen sitting up in the bed. There was no documented evidence of syncope or falls or loss of consciousness since admission. The patient is sitting up in the bed. PHYSICAL EXAMINATION: VITAL SIGNS: T-max 98. Telemetry normal sinus rhythm. Heart rate 81, blood pressure 156/97, respirations 20, O2 sat 94% on room air. HEENT: Head: Normocephalic, atraumatic. Nephi conjunctivae. Anicteric sclera. No oropharyngeal lesion. NECK: No neck rigidity. CHEST: Kyphosis. LUNGS: Positive rhonchi in the upper lung shipman. CARDIOVASCULAR: S1, S2, regular rhythm. Questionable soft systolic ejection murmur at the left sternal border, first intercostal space and left second intercostal space. ABDOMEN: Obese, protuberant. Positive bowel sounds. GENITALIA: Male. RECTAL: Deferred. EXTREMITIES: No pitting edema, no calf tenderness, no Homans sign. NEUROLOGIC: The patient is alert, awake, oriented x3. Cranial nerves II-XII intact. Gait examination not tested. VASCULAR: Palpable pulses. MUSCULOSKELETAL: Elevated body mass index. DIAGNOSTICS: On 02/05/2018, WBC 7.7, hemoglobin and hematocrit 11 and 36.4, platelets 45. Sodium 141, potassium at 3.5, which is low, chloride 104, CO2 of 31, BUN 43, creatinine 1.3, glucose 101, calcium 8.3, magnesium 2.0. LFTs are normal. Vitamin D 25-hydroxy 27.1. RPR is negative. Lyme antibody IgG and IgM negative. RPR negative. EEG is negative. Echocardiogram: Left ventricular ejection fraction 72%, right ventricular systolic pressure 40 mmHg, left ventricular hypertrophy, thickened aortic valve, mitral valve thickening, mild tricuspid mitral regurgitation. MRI of the brain shows chronic microvascular ischemic disease of the brain and the periventricular white matter and bilateral basal ganglia. The patient is seen by Neurology and cleared by Neurology and Cardiology. FINAL IMPRESSION, PLAN AND DISCHARGE DIAGNOSES: 1. Syncope, etiology undetermined, versus questionable vasovagal syncope. 2. Hypertension. 3. 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 4. Chronic microvascular ischemic disease of the brain and periventricular white matter and bilateral basal ganglia. 5. Left ventricular ejection fraction of 72%. 6. Hypertensive cardiovascular disease. 7. Aortic valve thickening. 8. Mitral valve leaflet thickening. 9. Mild tricuspid and mild mitral regurgitation. 10. Anemia. 11. Hypokalemia. 12. Hypovitaminosis D. 13. Hyperlipidemia. 14. Vitamin B12 deficiency. 15. History of coronary artery disease, coronary angioplasty. 16. Iron-deficiency anemia. 17. Advanced oxygen-dependent sarcoidosis. 18. Obstructive sleep apnea, CPAP dependent. 19. Obesity with elevated body mass index. 20. Deconditioning. PLAN: At this time, the patient has been cleared by Cardiology and Neurology for discharge. The patient will be discharged home with discharge followup on 02/07/2018. The patient is to resume all home medications as per the home medication list. Dictated and electronically signed, not read. Britton Ceballos MD
--- NOTE | 2018-02-07 08:13 | CON ---
DATE: 02/04/2018 CHIEF COMPLAINT: Syncope. HISTORY OF PRESENT ILLNESS: This is a 57-year-old man with history of sarcoidosis, coronary artery disease status post two stents, hypertension hyperlipidemia, paroxysmal AFib, obstructive sleep apnea on CPAP, who had a syncopal event while he was the table and fell, lightheadedness prior to the event and had passed out for a few seconds. The patient denied any seizure like movements. No witnessed seizure-like movements. No bowel or bladder incontinence. No tongue biting. MRI of the brain as well as neck MRA showed no acute intracranial abnormalities. EEG showed normal. Currently, no further seizures. No history of seizures. Possibly, it could have been a transient hypoxemia causing his syncopal event, this is most likely vasovagal. PAST MEDICAL HISTORY: As above. SOCIAL HISTORY: No illicit drug use, smoking, or EtOH abuse. MEDICATIONS: Reviewed by nurse's reconciliation sheet. REVIEW OF SYSTEMS: A 14-point review of systems is negative except as per the HPI. ALLERGIES: NO KNOWN DRUG ALLERGIES. PHYSICAL EXAMINATION GENERAL: The patient is sitting up in bed, in no acute distress. VITAL SIGNS: Temperature is afebrile, pulse rate of 86, blood pressure of 150/90, respirations 18. HEENT: Atraumatic, normocephalic. PERRLA. Extraocular muscles intact. NECK: Supple. No JVD. No adenopathy noted. LUNGS: Clear to auscultation. No adventitious sounds. HEART: S1 and S2. Normal rate and rhythm. No murmurs, rubs, or gallops. ABDOMEN: Soft, nontender, and nondistended. Bowel sounds are heard. EXTREMITIES: No clubbing, no cyanosis except for mild trace pedal edema. NEUROLOGICAL: The patient is alert and oriented to person, place, month, and year. Speech is fluent without any errors. Cranial nerves II through XII intact. Motor Exam: Moves all extremities equally. No pronator drift seen. Sensory: Light touch, pinprick, proprioception, and vibration are intact. DTRs are 2+ throughout, 1 in both knees and ankles. Coordination, [id number] intact. No dysmetria noted. Gait is deferred for now. LABORATORY DATA: Current labs; sodium is 141, potassium 3.5, chloride 102, carbon dioxide 34, BUN 22, creatinine 1.4. Random glucose of 97. IMPRESSION: Syncope, seems almost like a vasovagal rather than a seizure. EEG is normal as well as MRI of the brain showed no acute intracranial abnormality. RECOMMENDATIONS: At this time, I recommend: 1. Keep his blood pressure between 130s to 140s systolic and diastolic 70s to 80s. 2. Adequate hydration throughout the day and advised better sleep hygiene. 3. CPAP, advised daily to prevent hypoxemic events. 4. Continue with aspirin 325 and Lipitor 10 mg for stroke prevention. 5. If clinically stable, follow up with me in my office in 2 weeks. Thank you for this consult. Cade Fisher MD
[2018-02-09 10:18] LABS: 23 KD (IGG) BAND Nonreactive
== END 2018-02-05 15:00 | disposition home or self-care (01) ==
LOC: ED 19:00 → ERH 23:15 → 2RNO 02-04 01:16
PROVIDERS: ADMIT Internal Medicine; ATTEND Internal Medicine
DX: R55 Syncope and collapse (principal); D86.0 Sarcoidosis of lung; J84.10 Pulmonary fibrosis, unspecified; I48.0 Paroxysmal atrial fibrillation; I34.0 Nonrheumatic mitral (valve) insufficiency; N17.9 Acute kidney failure, unspecified; I11.9 Hypertensive heart disease without heart failure; I25.10 Atherosclerotic heart disease of native coronary artery without angina pectoris; G47.33 Obstructive sleep apnea (adult) (pediatric); E55.9 Vitamin D deficiency, unspecified; E53.8 Deficiency of other specified B group vitamins; I27.20 Pulmonary hypertension, unspecified; I45.10 Unspecified right bundle-branch block; I87.2 Venous insufficiency (chronic) (peripheral); D50.9 Iron deficiency anemia, unspecified; E78.5 Hyperlipidemia, unspecified; E87.6 Hypokalemia; I25.2 Old myocardial infarction; E66.9 Obesity, unspecified; Z99.81 Dependence on supplemental oxygen; Z95.5 Presence of coronary angioplasty implant and graft
CPT/HCPCS: 36415; 70450; 70547; 70551; 71045; 71275; 80053; 80061; 82248; 82306; 82550; 82607; 82746; 83615; 83735; 83880; 84100; 84439; 84443; 84484; 85025; 85027; 85610; 85730; 86592; 86617; 86618; 93005; 93306; 94640; 94760; 96372; 96374; 96376; 97116; 97161; 99285; G0378; G8978; G8979; G8980; J1644; J1940; Q9967

== ENCOUNTER 2018-07-01 17:46 | Inpatient (IN) | payer MEDICARE ==
[2018-07-01 17:46] VITALS: PULSE 101
[2018-07-01 17:52] VITALS: BMI 38.0
--- NOTE | 2018-07-01 18:36 | ED PDOC ---
Arrival/HPI - General Chief Complaint: Shortness Of Breath Time Seen by Provider: 07/01/18 18:32 Historian: Patient - History of Present Illness Narrative History of Present Illness (Text): 07/01/18 19:02 58 y/o male with PMH of CAD s/p stents, [place], sarcoidosis presents to the ED c/o worsening SOB x 3 weeks. He is on 4-5L continuous NC O2 at home. Associated intermittent lightheadedness that is worse with changes in position. States that he feels like his "pressure is high". Also c/o polyuria without dysuria or hematuria. Pt states he is compliant with his medications. Denies fever, chills, cough, congestion, chest pain, palpitations, headache, vision changes, abdominal pain, nausea, vomiting, diarrhea, or any other associated symptoms. PMD: Dr. Ceballos Acute Care Physician: Dr. Rainey Past Medical History - Past History Past History: No Previous - Infectious Disease Hx of Infectious Diseases: None - Tetanus Immunization Tetanus Immunization: Unknown - Cardiac Hx Cardiac Disorders: Yes Hx Atrial Fibrillation: Yes Hx Hypertension: Yes - Pulmonary Hx Chronic Obstructive Pulmonary Disease (COPD): Yes (sarcoidosis) Other/Comment: O2 dependent - 4LPM - Neurological Hx Neurological Disorder: No - HEENT Hx HEENT Disorder: No - Renal Hx Renal Disorder: Yes Hx Kidney Stones: Yes - Endocrine/Metabolic Hx Endocrine Disorders: No - Hematological/Oncological Hx Blood Disorders: Yes Hx Anemia: Yes (iron deficiency) Hx Cancer: Yes - Integumentary Hx Dermatological Disorder: Yes - Musculoskeletal/Rheumatological Hx Falls: No - Gastrointestinal Hx Gastrointestinal Disorders: Yes (obese) - Genitourinary/Gynecological Hx Genitourinary Disorders: Yes Hx Prostate Problems: Yes - Psychiatric Hx Psychophysiologic Disorder: No Hx Substance Use: No - Surgical History Hx Cardiac Catheterization: Yes Hx Coronary Stent: Yes Other/Comment: prostatectomy - Anesthesia Hx Anesthesia: Yes Hx Anesthesia Reactions: Yes - Suicidal Assessment Feels Threatened In Home Enviroment: No Family/Social History - Physician Review Nursing Documentation Reviewed: Yes Family/Social History: No Known Family HX Smoking Status: Never Smoked Hx Alcohol Use: No Hx Substance Use: No Hx Substance Use Treatment: No Allergies/Home Meds Allergies/Adverse Reactions: Allergies No Known Allergies Allergy (Verified 07/01/18 17:52) Home Medications: Home Meds Medication Instructions Recorded Confirmed Benzonatate 200 mg PO TID PRN 11/01/15 07/01/18 Cyanocobalamin [Vitamin B12 1000 1 ml IM Q30D 11/01/15 07/01/18 mcg/ml Inj] Linaclotide [Linzess] 290 mcg PO DAILY 11/01/15 07/01/18 Terazosin [Hytrin] 2 mg PO HS 11/01/15 07/01/18 Potassium Chloride [K-Dur 20 mEq 20 meq PO TID 11/18/16 07/01/18 ER Tab] Ranolazine [Ranexa] 500 mg PO Q12H 08/16/17 07/01/18 Simvastatin [Zocor] 1 tab PO HS 08/16/17 07/01/18 Irbesartan/Hydrochlorothiazide 1 tab PO DAILY 07/01/18 07/01/18 [Irbesartan-Hctz 300-12.5 mg Tb] Review of Systems - Review of Systems Constitutional: Normal. absent: Fevers Eyes: Normal. absent: Vision Changes, Photophobia, Eye Pain ENT: Normal. absent: Sore Throat, Epistaxis Respiratory: SOB. absent: Cough, Sputum, Wheezing Cardiovascular: Normal. absent: Chest Pain, Palpitations, Syncope Gastrointestinal: Normal. absent: Abdominal Pain, Stool Changes, Nausea, Vomiting, Appetite Changes Genitourinary Male: Urinary Output Changes (polyuria). absent: Dysuria, Frequency Musculoskeletal: Normal. absent: Back Pain, Neck Pain Skin: Normal. absent: Rash Neurological: Dizziness. absent: Headache, Focal Weakness, Facial Droop Physical Exam Vital Signs Reviewed: Yes Vital Signs Temp Pulse Resp BP Pulse Ox 07/01/18 18:20 18 93 L 07/01/18 17:55 98.5 F 103 H 26 H 169/88 H 94 L Temperature: Afebrile Blood Pressure: Hypertensive Pulse: Tachycardic Respiratory Rate: Tachypneic Appearance: Positive for: Well-Appearing, Non-Toxic, Uncomfortable (Short of breath ), Other (Obese) Pain Distress: None Mental Status: Positive for: Alert and Oriented X 3 - Systems Exam Head: Present: Atraumatic, Normocephalic Pupils: Present: PERRL Extroacular Muscles: Present: EOMI Conjunctiva: Present: Normal Mouth: Present: Moist Mucous Membranes Neck: Present: Normal Range of Motion. No: Meningeal Signs Respiratory/Chest: Present: Clear to Auscultation, Good Air Exchange. No: Respiratory Distress, Accessory Muscle Use, Wheezes, Decreased Breath Sounds Cardiovascular: Present: Regular Rate and Rhythm, Normal S1, S2, Peripheal Pulses Present Abdomen: Present: Normal Bowel Sounds. No: Tenderness, Distention, Peritoneal Signs, Rebound, Guarding Back: Present: Normal Inspection. No: CVA Tenderness, Paraspinal Tenderness Upper Extremity: Present: Normal Inspection, Normal ROM, NORMAL PULSES, Neur ovascularly Intact, Capillary Refill < 2s. No: Cyanosis, Edema, Temperature Abnormalties Lower Extremity: Present: Normal Inspection, Edema (mild bilateral edema), NORMAL PULSES, Normal ROM, Neurovascularly Intact, Capillary Refill < 2 s. No: Tenderness, Swelling, Temperature Abnormalties Neurological: Present: GCS=15, CN II-XII Intact, Speech Normal, Motor Func Grossly Intact, Normal Sensory Function, Gait Normal Skin: Present: Warm, Dry, Normal Color. No: Rashes Psychiatric: Present: Alert, Oriented x 3, Normal Insight, Normal Concentration, Normal Affect, Normal Mood Medical Decision Making ED Course and Treatment: 07/01/18 19:31 Initial Plan: * CBC, CMP * Cardiac Iso * Coags * CTA * Head CT * EKG * IVF EKG shows NSR at 93; prolonged QT; no STEMI, nonspecific ST/T wave changes Pt took ASA prior to arrival. Vitals have improved without intervention. Lactate 2.2, Pt not tachypneic, tachycardic, or febrile. No leukocytosis. No indication for code sepsis. Pt with mild metabolic alkalosis on vbg with pH 7.46. Bloodwork reviewed, remarkable for anemia, mild hypokalemia, mildly elevated CO2. ABG ordered. Potassium repleted with 40mEq KCl 07/01/18 22:[address] Ceballos who accepted patient for inpatient admission with diagnosis of hypoxia, shortness of breath, interstitial lung disease to remote telemetry floor. Asks for emergency medical services coordinator to be notified. Requests steroids and antibiotics. - Lab Interpretations Lab Results: 07/01/18 18:17 07/01/18 18:17 Lab Results 07/01/18 19:07: pO2 183 H, VBG pH 7.46 H, VBG pCO2 53.0, VBG HCO3 37.7 H, VBG Total CO2 39.3 H, VBG O2 Sat (Calc) 98.7 H, VBG Base Excess 11.8 H, VBG Potassium 3.6, Glucose 118 H, Lactate 2.2 H, FiO2 21.0, Sodium 143.0, Chloride 104.0, Venous Blood Potassium 3.6 07/01/18 18:17: Sodium 143, Potassium 3.5 L, Chloride 100, Carbon Dioxide 35 H, Anion Gap 12, BUN 26 H, Creatinine 1.2, Est GFR ( Amer) > 60, Est GFR (Non-Af Amer) > 60, Random Glucose 103, Calcium 9.6, Magnesium 1.9, Total Bilirubin 0.4, AST 28, ALT 15, Alkaline Phosphatase 68, Lactate Dehydrogenase 555, Total Creatine Kinase 57, Troponin I 0.01, NT-Pro-B Natriuret Pep 709 H, Total Protein 7.1, Albumin 3.6, Globulin 3.5, Albumin/Globulin Ratio 1.0 L 07/01/18 18:17: PT 12.4, INR 1.12, APTT 27.0 07/01/18 18:17: WBC 10.5 D, RBC 4.75, Hgb 11.4 L, Hct 37.4 L, MCV 78.7 L, MCH 24.0 L, MCHC 30.5 L, RDW 16.9 H, Plt Count 269, MPV 10.1, Neut % (Auto) 92.0 H, Lymph % (Auto) 5.4 L, Kern % (Auto) 2.6, Eos % (Auto) 0.0 L, Baso % (Auto) 0.0, Lymph # (Auto) 0.6 L, Kern # (Auto) 0.3, Eos # (Auto) 0.0, Baso # (Auto) 0.00, Absolute Neuts (auto) 9.65 H, Neutrophils % (Manual) 90 H, Band Neutrophils % 1, Lymphocytes % (Manual) 5 L, Monocytes % (Manual) 4, Toxic Granulation 2+, Platelet Evaluation Normal, Hypochromasia 1+, Rouleaux 2+ 07/01/18 10:00: pCO2 51 H, pO2 75.0 L, HCO3 34.6 H, ABG pH 7.44, ABG Total CO2 36.2 H, ABG O2 Saturation 96.2, ABG O2 Content 14.4 L, ABG Base Excess 9.1 H, ABG Hemoglobin 10.8 L, ABG Carboxyhemoglobin 1.5, POC ABG HHb (Measured) 3.7, ABG Methemoglobin 0.6, ABG O2 Capacity 15.0 L, Hgb O2 Saturation 94.2 L, FiO2 35.0 I have reviewed the lab results: Yes - RAD Interpretation Narrative RAD Interpretations (Text): 07/01/18 22:[address]: FINDINGS: BRAIN No acute intraparenchymal hemorrhage. No mass lesion. No CT evidence for acute territorial infarct. No midline shift or extra-axial collections. There is mild age-appropriate cerebral/cerebellar atrophy noted. An approximately 3.0 x 0.5 cm zone of decreased attenuation is again seen in the mid right periventricular white matter tracts thought compatible with old ischemic infarction.There are bilateral periventricular and subcortical white matter hypolucencies compatible with mild chronic microvascular disease. VENTRICLES: No hydrocephalus. VASCULAR: Atherosclerotic vascular plaquing seen within the carotid siphons bilaterally. ORBITS: The orbits are unremarkable. SINUSES AND MASTOIDS: Mucoperiosteal thickening noted in the maxillary sinuses bilaterally and within the anterior ethmoid sinuses bilaterally compatible with sinusitis. The rem aining paranasal sinuses and mastoid air cells are clear. BONES: No fracture. SOFT TISSUES: Unremarkable. IMPRESSION: 1. No acute intracranial abnormality. 2. Mild age-appropriate cerebral/cerebellar atrophy. 3. Mild chronic microvascular disease. 4. Old ischemic infarction in the mid right periventricular white matter tracts. 5. Vascular calcification in the carotid siphons bilaterally. 6. Bilateral maxillary and ethmoid sinusitis. Electronically signed on Jul 01, 2018 9:39:04 PM EDT by: Orion Garcia M.D., ELVIA Certified By ABR & CBC[employer] Fellowship Trained MRI and CT Specialist CTA Chest: FINDINGS: PULMONARY ARTERIES No evidence of central or segmental pulmonary embolism is seen. There is increased transverse diameter of the main pulmonary artery measuring 4.7 cm. This is indicative of underlying pulmonary arterial hypertension. AORTA There is no evidence for aneurysm or dissection of the thoracic aorta. LUNGS An interstitial honeycomb lung pattern is again seen in both lung shipman; more pronounced on the right; and most pronounced in the right upper lobe. This finding is indicative of interstitial pulmonary fibrosis. PLEURAL SPACES No evidence of pneumothorax. No pleural effusion. HEART Moderate cardiomegaly. A small pericardial effusion is identified. Minor atherosclerotic vascular plaquing is noted. LYMPH NODES No lymphadenopathy is evident. BONES No focal osseous abnormality or acute fracture. Mild levoscoliotic curvature of the upper thoracic spine with the apex at T3. UPPER ABDOMEN Images of the upper abdomen demonstrate hepatomegaly. The liver measured 18.1 cm in the midclavicular line. Several non-obstructing upper pole left renal calculi are identified. IMPRESSION: 1. No identification of PE. 2. Interstitial honeycomb lung pattern again seen in the pulmonary parenchyma bilaterally; more pronounced on the right and most pronounced in the right upper lobe. This is thought compatible with interstitial fibrosis. 3. Increased transverse diameter of the main pulmonary artery indicative of underlying pulmonary hypertension. 4. Moderate cardiomegaly. 5. A small pericardial effusion is noted. 6. Hepatomegaly. 7. Several non-obstructing upper pole left renal calculi are identified. Electronically signed on Jul 01, 2018 10:04:45 PM EDT by: Orion Garcia M.D., ELVIA Certified By ABR & CBC[employer] Fellowship Trained MRI and CT Specialist Tab Cutting Machine Operator: Radiologist - EKG Interpretation EKG Interpretation (Text): 07/01/18 22:29 Rate 93; NSR; Prolonged QT; no stemi. nonspecific ST/T wave changes Interpreted by ED Physician: Yes Type: 12 lead EKG Disposition/Present on Arrival - Present on Arrival Any Indicators Present on Arrival: No History of DVT/PE: No History of Uncontrolled Diabetes: No Urinary Catheter: No History of Decub. Ulcer: No History Surgical Site Infection Following: None - Disposition Have Diagnosis and Disposition been Completed?: Yes Diagnosis: Interstitial lung disease, Shortness of breath, Hypoxia Disposition: HOSPITALIZED Disposition Time: 22:20 Patient Plan: Admission Condition: STABLE
[2018-07-01 19:04] LABS: HEMOGLOBIN 11.4 g/dL (14.0-18.0); LYMPH # 0.6 (1.2-3.4); LYMPH % 5.4 % (22.0-35.0); MEAN CELL VOLUME 78.7 fl (80.0-105.0); MEAN CORPUSCULAR HGB CONC 30.5 g/dl (31.0-37.0); MEAN PLATELET VOLUME 10.1 fl (7.0-11.0); MONO # 0.3 (0.1-0.6); MONO % 2.6 % (1.0-6.0); PLATELET COUNT 269 10^3/uL (120.0-450.0); RBC 4.75 10^6/uL (3.5-6.1); RED CELL DISTRIBUTION WIDTH 16.9 % (11.5-14.5); WHITE BLOOD COUNT 10.5 10^3/uL (4.5-11.0)
[2018-07-01 19:14] LABS: ALBUMIN 3.6 g/dL (3.0-4.8); ALT/SGPT 15 U/L (7-56); AST/SGOT 28 U/L (17-59); BLOOD UREA NITROGEN 26 mg/dL (7-21); CALCIUM 9.6 mg/dL (8.4-10.5); GFR NON-AFRICAN AMERICAN > 60
[2018-07-01 19:16] LABS: VENOUS BLOOD GAS BASE EXCESS 11.8 mmol/L (0.0-2.0); VENOUS BLOOD GAS PO2 183 mm/Hg (30-55); VENOUS BLOOD PH 7.46 (7.32-7.43)
[2018-07-01] MEDS ORDERED: Potassium Chloride 20 mEq ER Tab PO STA (19:18)
[2018-07-01] MEDS ORDERED: Iohexol 350 MG/100 ML VIAL ONE (19:25)
[2018-07-01 19:26] LABS: B-TYPE NATRIURETIC PEPTIDE 709 pg/mL (0-450); TROPONIN I 0.01 ng/mL
[2018-07-01] MEDS: Sodium Chloride 0.9% 1,000 ML IV SCH (19:32)
[2018-07-01 19:38] LABS: BAND 1 % (0-2); LYMPHOCYTE 5 % (22.0-35.0); MONOCYTE 4 % (1.0-6.0); NEUTROPHIL 90 % (50.0-70.0)
[2018-07-01 19:39] LABS: HYPOCHROMIA 1+; PLATELET ESTIMATE NORMAL (NORMAL); ROULEAU 2+; TOXIC GRANULATION 2+
[2018-07-01 20:06] LABS: INR 1.12; PROTHROMBIN TIME 12.4 SECONDS (9.4-12.5)
[2018-07-01 22:08] LABS: ARTERIAL BLOOD GAS HCO3 34.6 mmol/L (21-28); ARTERIAL BLOOD GAS HEMOGLOBIN 10.8 g/dL (11.7-17.4); ARTERIAL BLOOD GAS O2 CONTENT 14.4 ML/dl (15-23); ARTERIAL BLOOD GAS O2 SAT 96.2 % (95-98); ARTERIAL BLOOD GAS PCO2 51 mm/Hg (35-45); ARTERIAL BLOOD GAS PH 7.44 (7.35-7.45); ARTERIAL BLOOD GAS TCO2 36.2 mmol.L (22-28)
--- NOTE | 2018-07-01 22:24 | CARD ---
APPROVED REPORT Date of service: 07/01/2018 EKG Measurement Heart [id number] [id number] <Conclusion> Normal sinus rhythm Biatrial enlargement NDSTT abnormalities Prolonged QT Abnormal ECG
[2018-07-01] MEDS ORDERED: Levalbuterol 0.63 MG/3 ML Inhal Soln UD IH PRN (22:36)
[2018-07-01 22:40] LABS: PH,URINE 6.5 (4.7-8.0); URINE BILIRUBIN NEGATIVE (NEGATIVE); URINE BLOOD NEGATIVE (NEGATIVE); URINE GLUCOSE (UA) NEGATIVE (NEGATIVE); URINE LEUKOCYTE ESTERASE NEGATIVE Leu/uL (NEGATIVE); URINE PROTEIN NEGATIVE mg/dL (<30 mg/dL); URINE UROBILINOGEN 0.2 E.U./dL (<1 E.U./dL)
[2018-07-01 22:41] LABS: URINE APPEARANCE CLEAR (CLEAR); URINE COLOR YELLOW (YELLOW)
[2018-07-01] MEDS: MethylPREDNISolone 40 mg Vial IVP SCH (22:51)
--- NOTE | 2018-07-01 23:02 | CP.PCM.HP ---
History of Present Illness - History of Present Illness History of Present Illness: Dr Rosales H&P Dr Ceballos Service 58M pmhx of sarcoidosis, CAD (s/p PCI with 2 stents), HTN, HLD, paroxysmal AFib, and LAYLA presents with an 8 day hx of gradually worsening SOB and dyspnea on exertion. Pt believes this was incited by staying outdoors in cold air for extended time last . Pt said he would have liked to see Dr Ceballos in office but was unable to get to see him in office. Pt was prompted to come in today because he was dyspnic doing minor home activities. Pt has had many episodes with similar symptoms of this before in the past. ROS: pos SOB, Wheezing, mild headache, mild tingling in hands neg cyanosis, syncope, CP FC NV Past Medical Hx: sarcoidosis, CAD (s/p PCI with 2 stents), HTN, HLD, paroxysmal AFib, and LAYLA Past Surgical Hx: PCI Allergies: NKA Home medications: reviewed, list in MAR updated Family Hx: reviewed, non-contributory Social Hx: denies current or prior tobacco, alcohol, or drug use. Pharmacy: [facility] Present on Admission - Present on Admission Any Indicators Present on Admission: No Review of Systems - Review of Systems All systems: reviewed and no additional remarkable complaints except (as per HPI) Past Patient History - Infectious Disease Hx of Infectious Diseases: None - Tetanus Immunizations Tetanus Immunization: Unknown - Past Social History Smoking Status: Never Smoked - CARDIAC Hx Cardiac Disorders: Yes Hx Atrial Fibrillation: Yes Hx Hypertension: Yes - PULMONARY Hx Chronic Obstructive Pulmonary Disease (COPD): Yes (sarcoidosis) Other/Comment: O2 dependent - 4LPM - NEUROLOGICAL Hx Neurological Disorder: No - HEENT Hx HEENT Problems: No - RENAL Hx Chronic Kidney Disease: Yes Hx Kidney Stones: Yes - ENDOCRINE/METABOLIC Hx Endocrine Disorders: No - HEMATOLOGICAL/ONCOLOGICAL Hx Blood Disorders: Yes Hx Anemia: Yes (iron deficiency) Hx Cancer: Yes - INTEGUMENTARY Hx Dermatological Problems: Yes - MUSCULOSKELETAL/RHEUMATOLOGICAL Hx Falls: No - GASTROINTESTINAL Hx Gastrointestinal Disorders: Yes (obese) - GENITOURINARY/GYNECOLOGICAL Hx Genitourinary Disorders: Yes Hx Prostate Problems: Yes - PSYCHIATRIC Hx Psychophysiologic Disorder: No Hx Substance Use: No - SURGICAL HISTORY Hx Cardiac Catheterization: Yes Hx Coronary Stent: Yes Other/Comment: prostatectomy - ANESTHESIA Hx Anesthesia: Yes Hx Anesthesia Reactions: Yes Meds Allergies/Adverse Reactions: Allergies Allergy/AdvReac Type Severity Reaction Status Date / Time No Known Allergies Allergy Verified 07/01/18 17:52 Physical Exam - Additional Findings Additional findings: - Constitutional Appears: Non-toxic, No Acute Distress - Head Exam Head Exam: ATRAUMATIC, NORMOCEPHALIC - Eye Exam Eye Exam: EOMI, Normal appearance, PERRL - ENT Exam ENT Exam: Mucous Membranes Moist - Neck Exam Neck exam: Positive for: Full Rom, Normal Inspection - Respiratory Exam Respiratory Exam: Wheezes in bilateral upper and lower shipman, mild absent: Accessory Muscle Use, Rales, Respiratory Distress - Cardiovascular Exam Cardiovascular Exam: REGULAR RHYTHM, RRR, +S1, +S2. absent: Diastolic murmur, Gallop, Rubs, Systolic Murmur - GI/Abdominal Exam GI & Abdominal Exam: Normal Bowel Sounds, Soft. absent: Guarding, Rebound, Tenderness - Extremities Exam Extremities exam: Positive for: normal inspection. Negative for: pedal edema - Back Exam Back exam: NORMAL INSPECTION - Neurological Exam Neurological exam: Alert, Oriented x3 Additional comments: no horizontal or vertical nystagmus noted with [id number] and lateral gaze, Results - Vital Signs Recent Vital Signs: Last Vital Signs Temp 98.5 F 07/01/18 17:55 Pulse 86 07/01/18 21:06 Resp 18 07/01/18 21:06 BP 164/88 H 07/01/18 21:06 Pulse Ox 96 07/01/18 21:06 - Labs Result Diagrams: 07/01/18 18:17 07/01/18 18:17 Labs: Laboratory Results - last 24 hr 07/01/18 07/01/18 07/01/18 10:00 18:17 18:17 WBC 10.5 D RBC 4.75 Hgb 11.4 L Hct 37.4 L MCV 78.7 L MCH 24.0 L MCHC 30.5 L RDW 16.9 H Plt Count 269 MPV 10.1 Neut % (Auto) 92.0 H Lymph % (Auto) 5.4 L [place] % (Auto) 2.6 Eos % (Auto) 0.0 L Baso % (Auto) 0.0 Lymph # (Auto) 0.6 L [place] # (Auto) 0.3 Eos # (Auto) 0.0 Baso # (Auto) 0.00 Absolute Neuts (auto) 9.65 H Neutrophils % (Manual) 90 H Band Neutrophils % 1 Lymphocytes % (Manual) 5 L Monocytes % (Manual) 4 Toxic Granulation 2+ Platelet Evaluation Normal Hypochromasia 1+ Rouleaux 2+ PT 12.4 INR 1.12 APTT 27.0 pCO2 51 H pO2 75.0 L HCO3 34.6 H ABG pH 7.44 ABG Total CO2 36.2 H ABG O2 Saturation 96.2 ABG O2 Content 14.4 L ABG Base Excess 9.1 H ABG Hemoglobin 10.8 L ABG Carboxyhemoglobin 1.5 POC ABG HHb (Measured) 3.7 ABG Methemoglobin 0.6 ABG O2 Capacity 15.0 L VBG pH VBG pCO2 VBG HCO3 VBG Total CO2 VBG O2 Sat (Calc) VBG Base Excess VBG Potassium Hgb O2 Saturation 94.2 L Glucose Lactate FiO2 35.0 Sodium Potassium Chloride Carbon Dioxide Anion Gap BUN Creatinine Est GFR ( Amer) Est GFR (Non-Af Amer) Random Glucose Calcium Magnesium Total Bilirubin AST ALT Alkaline Phosphatase Lactate Dehydrogenase Total Creatine Kinase Troponin I NT-Pro-B Natriuret Pep Total Protein Albumin Globulin Albumin/Globulin Ratio Venous Blood Potassium Urine Color Urine Appearance Urine pH Ur Specific [place] Urine Protein Urine Glucose (UA) Urine Ketones Urine Blood Urine Nitrate Urine Bilirubin Urine Urobilinogen Ur Leukocyte Esterase 07/01/18 07/01/18 07/01/18 18:17 19:07 22:20 WBC RBC Hgb Hct MCV MCH MCHC RDW Plt Count MPV Neut % (Auto) Lymph % (Auto) [place] % (Auto) Eos % (Auto) Baso % (Auto) Lymph # (Auto) [place] # (Auto) Eos # (Auto) Baso # (Auto) Absolute Neuts (auto) Neutrophils % (Manual) Band Neutrophils % Lymphocytes % (Manual) Monocytes % (Manual) Toxic Granulation Platelet Evaluation Hypochromasia Rouleaux PT INR APTT pCO2 pO2 183 H HCO3 ABG pH ABG Total CO2 ABG O2 Saturation ABG O2 Content ABG Base Excess ABG Hemoglobin ABG Carboxyhemoglobin POC ABG HHb (Measured) ABG Methemoglobin ABG O2 Capacity VBG pH 7.46 H VBG pCO2 53.0 VBG HCO3 37.7 H VBG Total CO2 39.3 H VBG O2 Sat (Calc) 98.7 H VBG Base Excess 11.8 H VBG Potassium 3.6 Hgb O2 Saturation Glucose 118 H Lactate 2.2 H FiO2 21.0 Sodium 143 143.0 Potassium 3.5 L Chloride 100 104.0 Carbon Dioxide 35 H Anion Gap 12 BUN 26 H Creatinine 1.2 Est GFR ( Amer) > 60 Est GFR (Non-Af Amer) > 60 Random Glucose 103 Calcium 9.6 Magnesium 1.9 Total Bilirubin 0.4 AST 28 ALT 15 Alkaline Phosphatase 68 Lactate Dehydrogenase 555 Total Creatine Kinase 57 Troponin I 0.01 NT-Pro-B Natriuret Pep 709 H Total Protein 7.1 Albumin 3.6 Globulin 3.5 Albumin/Globulin Ratio 1.0 L Venous Blood Potassium 3.6 Urine Color Yellow Urine Appearance Clear Urine pH 6.5 Ur Specific [place] 1.015 Urine Protein Negative Urine Glucose (UA) Negative Urine Ketones Negative Urine Blood Negative Urine Nitrate Negative Urine Bilirubin Negative Urine Urobilinogen 0.2 Ur Leukocyte Esterase Negative Assessment & Plan - Assessment and Plan (Free Text) Assessment: 58M admitted for SOB Plan: Sarcoidosis w/ SOB -Solumedrol 40 q8 ivp -brovana -xopenex -doxy ivpb q12, rocephin ivpb -tesslon perles -pulmicort Hx CAD, HTN, HLD -Clonidine patch -Cardizem 180 daily -Cozaar 100 po daily -HCTZ 12.5mg daily -Terazosin 2mg PO HS Hx sarcoidosis, LAYLA -O2 via NC PRN to maintain SpO2 > 95% -Continue CPAP use at night, same settings as home DVT/GI PPx: -SC lovenox, protonix -Full Code -HHD Case and plan reviewed and discussed with my attending Dr. Ceballos
[2018-07-02 00:32] LABS: VENOUS BLOOD GAS BASE EXCESS 10.5 mmol/L (0.0-2.0); VENOUS BLOOD GAS PO2 76 mm/Hg (30-55); VENOUS BLOOD PH 7.44 (7.32-7.43)
[2018-07-02] MEDS: Levalbuterol 0.63 MG/3 ML Inhal Soln UD IH SCH ×4 (01:00→20:08)
[2018-07-02] MEDS: Pantoprazole 40 mg EC Tab PO SCH (05:36)
[2018-07-02] MEDS: MethylPREDNISolone 40 mg Vial IVP SCH ×3 (05:36→17:55)
[2018-07-02 06:22] LABS: LYMPH # 0.4 (1.2-3.4); LYMPH % 4.3 % (22.0-35.0); MEAN CELL VOLUME 78.6 fl (80.0-105.0); MEAN CORPUSCULAR HEMOGLOBIN 23.4 pg (25.0-35.0); MEAN CORPUSCULAR HGB CONC 29.7 g/dl (31.0-37.0); MEAN PLATELET VOLUME 9.8 fl (7.0-11.0); MONO # 0.1 (0.1-0.6); MONO % 1.2 % (1.0-6.0); RBC 4.71 10^6/uL (3.5-6.1); WHITE BLOOD COUNT 8.3 10^3/uL (4.5-11.0)
[2018-07-02 06:23] LABS: ALB/GLOB RATIO 1.2 (1.1-1.8); ALBUMIN 3.7 g/dL (3.0-4.8); ALT/SGPT 16 U/L (7-56); AST/SGOT 23 U/L (17-59); BILIRUBIN,DIRECT 0.5 mg/dL (0.0-0.4); BLOOD UREA NITROGEN 30 mg/dL (7-21); CALCIUM 9.2 mg/dL (8.4-10.5); GFR NON-AFRICAN AMERICAN > 60
[2018-07-02 06:31] LABS: TROPONIN I 0.01 ng/mL
[2018-07-02] MEDS ORDERED: Arformoterol 15 mcg/2 ml Inh Sol IH SCH (08:00)
[2018-07-02] MEDS: Arformoterol 15 mcg/2 ml Inh Sol IH SCH ×2 (08:21→20:08)
[2018-07-02] MEDS: Budesonide 0.5 mg/2 ml Inhal Susp UD IH SCH ×2 (08:21→20:08)
--- NOTE | 2018-07-02 09:40 | CT ---
Date of service: 07/01/2018 PROCEDURE: CT HEAD WITHOUT CONTRAST. HISTORY: headache COMPARISON: Noncontrast head CT performed 02/03/18 TECHNIQUE: Axial computed tomography images were obtained through the head/brain without intravenous contrast. Radiation dose: Total exam DLP = 1416.29 mGy-cm. This CT exam was performed using one or more of the following dose reduction techniques: Automated exposure control, adjustment of the mA and/or kV according to patient size, and/or use of iterative reconstruction technique. FINDINGS: HEMORRHAGE: No intracranial hemorrhage. BRAIN: Diffuse atrophy with prominence of the ventricles and sulci noted. No mass effect or edema. Intracranial atherosclerosis. Decreased attenuation of the right periventricular white matter consistent remote ischemia. Scattered periventricular and subcortical white matter hypodensities, which are nonspecific, but often seen with chronic microvascular ischemic disease. Please note that MRI with diffusion imaging is more sensitive in the detection of acute ischemic event. VENTRICLES: No hydrocephalus. CALVARIUM: Unremarkable. PARANASAL SINUSES: Mucosal thickening of the bilateral maxillary sinuses and ethmoid air cells. MASTOID AIR CELLS: Unremarkable as visualized. No inflammatory changes. OTHER FINDINGS: None. IMPRESSION: Generalized atrophy. Nonspecific white matter changes. Decreased attenuation of the right periventricular white matter consistent remote ischemia. Preliminary impression was provided by [facility].
[2018-07-02] MEDS: Magnesium Oxide 400 mg Tab UD PO SCH ×2 (10:04→17:55)
[2018-07-02] MEDS: Potassium Chloride 20 mEq ER Tab PO SCH (10:04)
[2018-07-02] MEDS: diltiaZEM 180 mg/24 Hours CD Cap PO SCH (10:05)
[2018-07-02] MEDS: Enoxaparin 40 mg Syringe SC SCH (10:06)
[2018-07-02] MEDS: cefTRIAXone 1 gm 1 GM/100 ML BAG IVPB SCH (11:13)
--- NOTE | 2018-07-02 12:17 | CT ---
Date of service: 07/01/2018 CTA chest PE protocol Indication: SOB Technique: Contiguous axial images were obtained through the chest with intravenous contrast enhancement. Sagittal and coronal reconstructions were generated and reviewed. This CT exam was performed using 1 or more of the following dose reduction techniques: Automated exposure control, adjustment of the MAA and/or kV according to patient size, and/or use of iterative reconstruction technique. IV contrast: 100 mL Omnipaque 350 IV Radiation dose (DLP): 575.55 MGy-cm. Comparison: CT of the chest with IV contrast performed 02 13 Findings: Visualized portions of the inferior thyroid gland appear enlarged. The mediastinal and hilar vascular structures appear within normal limits. Cardiomegaly. Trace pericardial effusion. Prominent sub cm mediastinal/prevascular adenopathy. Dilated main pulmonary artery may be seen in the setting of portal venous hypertension. There is suboptimal opacification of the pulmonary arteries limiting evaluation for pulmonary embolus. Given this limitation, there are no visible intraluminal filling defects within the central pulmonary arteries to suggest central pulmonary embolism. Fibrotic changes including prominent honeycomb interstitial pattern bilaterally predominantly at the right upper greater than left upper lobes. No pleural effusion. No pneumothorax. Limited visualized portions of the upper abdomen: Hepatomegaly. Nonobstructing left renal calculi. Degenerative changes. Impression: Dilated main pulmonary artery may be seen in the setting of portal venous hypertension. There is suboptimal opacification of the pulmonary arteries limiting evaluation for pulmonary embolus. Given this limitation, there are no visible intraluminal filling defects within the central pulmonary arteries to suggest central pulmonary embolism. Cardiomegaly. Trace pericardial effusion. Prominent cm prevascular/mediastinal adenopathy, nonspecific. Fibrotic changes including prominent honeycomb interstitial pattern bilaterally predominantly at the right upper greater than left upper lobes. Enlarged appearance of the included inferior thyroid gland. Outpatient thyroid ultrasound may be considered for further evaluation if indicated. Limited visualized portions of the upper abdomen: Hepatomegaly. Nonobstructing left renal calculi. Preliminary impression was provided by [facility]. Study marked for PA review.
[2018-07-02] MEDS: Sodium Chloride 0.9% 1,000 ML IV SCH ×2 (13:54→17:51)
--- NOTE | 2018-07-02 19:11 | ED PDOC ---
ED Additional Note - Physician Additional Note Physician Additional Note: CTA: placed into pa review folder. Findings: Visualized portions of the inferior thyroid gland appear enlarged. The mediastinal and hilar vascular structures appear within normal limits. Cardiomegaly. Trace pericardial effusion. Prominent sub cm mediastinal/prevascular adenopathy. Dilated main pulmonary artery may be seen in the setting of portal venous hypertension. There is suboptimal opacification of the pulmonary arteries limiting evaluation for pulmonary embolus. Given this limitation, there are no visible intraluminal filling defects within the central pulmonary arteries to suggest central pulmonary embolism. Fibrotic changes including prominent honeycomb interstitial pattern bilaterally predominantly at the right upper greater than left upper lobes. No pleural effusion. No pneumothorax. Limited visualized portions of the upper abdomen: Hepatomegaly. Nonobstructing left renal calculi. Degenerative changes. Impression: Dilated main pulmonary artery may be seen in the setting of portal venous hypertension. There is suboptimal opacification of the pulmonary arteries limiting evaluation for pulmonary embolus. Given this limitation, there are no visible intraluminal filling defects within the central pulmonary arteries to suggest central pulmonary embolism. Cardiomegaly. Trace pericardial effusion. Prominent cm prevascular/mediastinal adenopathy, nonspecific. Fibrotic changes including prominent honeycomb interstitial pattern bilaterally predominantly at the right upper greater than left upper lobes. Enlarged appearance of the included inferior thyroid gland. Outpatient thyroid ultrasound may be considered for further evaluation if indicated. Limited visualized portions of the upper abdomen: Hepatomegaly. Nonobstructing left renal calculi. Preliminary impression was provided by [facility]. Study marked for PA review. I spoke with dr. boo. He states he reviewed the final CTA report. he states he is aware of all findings including suboptimal opacification of pulm arteries, and enlarged thyroid.
--- NOTE | 2018-07-02 20:59 | CARD ---
APPROVED REPORT Date of service: 07/02/2018 EKG Measurement Heart [id number] [id number] <Conclusion> Normal sinus rhythm Incomplete right bundle branch block NDSTT abnormalities Borderline ECG
[2018-07-02] MEDS: Ranolazine [Ranexa] 500 MG (HOME MED) PO SCH (22:04)
[2018-07-02] MEDS: TERAZOSIN 2 MG PO SCH (22:13)
[2018-07-03] MEDS: MethylPREDNISolone 40 mg Vial IVP SCH ×4 (01:30→22:03)
[2018-07-03] MEDS: Levalbuterol 0.63 MG/3 ML Inhal Soln UD IH SCH ×4 (02:11→19:42)
[2018-07-03] MEDS: Sodium Chloride 0.9% 1,000 ML IV SCH ×3 (03:07→11:38)
[2018-07-03] MEDS: Pantoprazole 40 mg EC Tab PO SCH (05:42)
[2018-07-03] MEDS: Budesonide 0.5 mg/2 ml Inhal Susp UD IH SCH ×2 (07:19→19:42)
[2018-07-03] MEDS: Arformoterol 15 mcg/2 ml Inh Sol IH SCH ×2 (07:19→19:42)
[2018-07-03 07:43] LABS: HEMOGLOBIN 11.4 g/dL (14.0-18.0); LYMPH # 0.8 (1.2-3.4); LYMPH % 6.6 % (22.0-35.0); MEAN CELL VOLUME 79.1 fl (80.0-105.0); MEAN CORPUSCULAR HEMOGLOBIN 23.1 pg (25.0-35.0); MEAN CORPUSCULAR HGB CONC 29.2 g/dl (31.0-37.0); MEAN PLATELET VOLUME 10.1 fl (7.0-11.0); MONO # 0.4 (0.1-0.6); MONO % 3.7 % (1.0-6.0); RBC 4.94 10^6/uL (3.5-6.1); RED CELL DISTRIBUTION WIDTH 17.3 % (11.5-14.5); WHITE BLOOD COUNT 11.5 10^3/uL (4.5-11.0)
[2018-07-03 08:13] LABS: ALB/GLOB RATIO 1.2 (1.1-1.8); ALBUMIN 3.7 g/dL (3.0-4.8); ALT/SGPT 13 U/L (7-56); AST/SGOT 21 U/L (17-59); BILIRUBIN,DIRECT 0.2 mg/dL (0.0-0.4); BLOOD UREA NITROGEN 36 mg/dL (7-21); GFR NON-AFRICAN AMERICAN > 60
[2018-07-03] MEDS: diltiaZEM 180 mg/24 Hours CD Cap PO SCH (09:20)
[2018-07-03] MEDS: Potassium Chloride 20 mEq ER Tab PO SCH (09:21)
[2018-07-03] MEDS: Magnesium Oxide 400 mg Tab UD PO SCH ×2 (09:21→18:03)
[2018-07-03] MEDS: Enoxaparin 40 mg Syringe SC SCH (09:22)
[2018-07-03] MEDS: cefTRIAXone 1 gm 1 GM/100 ML BAG IVPB SCH (09:22)
[2018-07-03] MEDS: Ranolazine [Ranexa] 500 MG (HOME MED) PO SCH ×2 (09:31→22:04)
--- NOTE | 2018-07-03 19:20 | PN ---
DATE: 07/03/2018 SUBJECTIVE: The patient is seen in room 376, bed 2. The patient is alert, awake, responsive, sitting up in the bed. The patient states that his breathing is significantly improved since admission. The patient denies any shortness of breath. Denies any wheezing. Denies any dyspnea on exertion. The patient denies any chest pain. Denies any hemoptysis, hematemesis or melena. Overnight nurse's notes were reviewed. PHYSICAL EXAMINATION: VITAL SIGNS: T-max 97.7, pulse 86-88, blood pressure 166/90- 166/97, respiration 22, O2 sat is 93%. HEENT: Head examination normocephalic, atraumatic. HEENT examination shows pink conjunctivae. Anicteric sclerae. No oropharyngeal lesions. No neck rigidity. CHEST: Symmetrical. LUNGS: Shows no audible crackle, rales or wheezing. Decreased air entry which is chronic. But no audible rales, wheezing or rhonchi. ABDOMEN: Obese, positive bowel sounds. No palpable hepatosplenomegaly. GENITALIA: Male. RECTAL: Deferred. EXTREMITY: Shows trace swelling of the lower extremity. Positive KEVIN stockings. MUSCULOSKELETAL: Shows a body mass index of 38. NEUROLOGIC: The patient is alert, awake, responsive, is able to move upper and lower extremities without assistance. The patient is presently using oxygen anywhere between 2-4 liters. No gross deficit noted. DIAGNOSTICS: 07/03/2018; WBC 11.5, hemoglobin/hematocrit 11.4, 39.1, platelets, 278, granulocytes 89% segs. Sodium 145, potassium 3.9, chloride 104, CO2 of 32, anion gap 13, BUN 36, creatinine 1.2, GFR greater than 60, glucose, 125. Calcium 9, magnesium 2.1. LFTs are normal. Troponin is negative. Urinalysis is negative. Blood cultures are negative. IMPRESSION: 1. Acute exacerbation of interstitial lung disease and acute exacerbation of probable stage 3 sarcoidosis. 2. Hypoxemia. 3. Hypertension. 4. Bronchospasm. 5. Leukocytosis with granulocytosis 6. Microcytic anemia. 7. Hypoxemia and hypercarbia. 8. Transient lactic acidosis. 9. Hypokalemia. 10. Prerenal kidney injury. 11. Steroid-induced hyperglycemia. 12. Cerebral cortical atrophy of the brain with ventriculomegaly 13. Decreased attenuation of the right periventricular white matter, questionable remote ischemia. 14. Chronic microvascular ischemic disease of the brain. 15. Bilateral maxillary sinus and ethmoid air cell mucosal thickening. 16. Cardiomegaly. 17. Trace pericardial effusion. 18. Subcentimeter mediastinal prevascular adenopathy. 19. Dilated main pulmonary artery, questionable pulmonary hypertension. 20. Prominent honeycomb interstitial bilateral lung pattern of right upper lobe greater than the left upper lobe. 21. Hepatomegaly. 22. Nonobstructive nephrolithiasis. 23. Degenerative joint disease of the spine. 24. Questionable thyromegaly. 25. History of obstructive sleep apnea. 26. History of coronary artery disease, myocardial infarction, coronary angioplasty. 27. History of hypertension. 28. Hyperlipidemia. 29. Pulmonary hypertension. 30. History of constipation. 31. Hypokalemia. 32. Hypomagnesemia. 33. History of vitamin B12 deficiency. 34. Incomplete right bundle branch block. 35. Advanced interstitial pulmonary disease secondary to advanced sarcoidosis. PLAN: At this time the patient is to be continued on aspirin 325 mg daily, Brovana 15 mcg every 12 hours, Cardizem CD 180 mg daily, clonidine 0.3 mg patch weekly, Colace 100 mg three times a day, Cozaar 100 mg daily, folic acid 1 mg daily, K-Dur 20 mEq daily, Lasix 20 mg IV every 12 hours, Lipitor 10 mg daily, Lovenox 40 mg subcutaneous daily, magnesium oxide 400 mg twice a day, Protonix 40 mg daily, Pulmicort nebulizer 0.5 ml every 12 hours, Ranexa 500 mg twice a day, Rocephin 1 g IV daily, Solu-Medrol decreased to 20 mg IV every 8 hours. The patient is on Cozaar 100 mg daily, folic acid 1 mg daily, Hytrin 2 mg h.s., Tessalon Perles 200 three times a day as scheduled.. The patient is on Tylenol 650 mg p.o. suppository every 6 hours p.r.n., Xopenex nebulizers every 6 hours [id number] every 2 hours p.r.n., Zofran 4 IV every 4 hours. The patient is on heart healthy diet. KEVIN monroy, PREMs, occupational therapy, physical therapy ordered. If the patient continues to improve, as he is improved in the last 2448 hours the patient will be considered for discharge in the next 24-48 hours. Dictated and electronically signed, not read. Britton Ceballos MD
[2018-07-03 20:24] VITALS: TEMP 97.4
[2018-07-04] MEDS: Levalbuterol 0.63 MG/3 ML Inhal Soln UD IH SCH ×3 (01:19→13:37)
[2018-07-04] MEDS: TERAZOSIN 2 MG PO SCH (03:02)
[2018-07-04] MEDS: MethylPREDNISolone 40 mg Vial IVP SCH ×2 (06:43→13:59)
[2018-07-04] MEDS: Pantoprazole 40 mg EC Tab PO SCH (06:44)
[2018-07-04 06:59] VITALS: RESP 22; O2SAT 95
[2018-07-04] MEDS: Budesonide 0.5 mg/2 ml Inhal Susp UD IH SCH (07:34)
[2018-07-04] MEDS: Arformoterol 15 mcg/2 ml Inh Sol IH SCH (07:34)
--- NOTE | 2018-07-04 07:47 | CP.PCM.PN ---
Subjective - Date & Time of Evaluation Date of Evaluation: 07/04/18 Time of Evaluation: 07:17 - Subjective Subjective: Nathan Chang PGY2 IM Progress Note for Dr. Ceballos Patient was seen and examined at bedside. He slept w/ CPAP overnight and denies any shortness of breath or wheezing this morning. He denies any cough, chest mihai n or fevers overnight. Objective - Vital Signs/Intake and Output Vital Signs (last 24 hours): Temp Pulse Resp BP Pulse Ox 97.4 F L 81 22 191/97 H 95 07/04/18 06:00 07/04/18 06:00 07/04/18 06:00 07/04/18 06:41 07/04/18 06:00 Intake and Output: 07/04/18 07/04/18 06:59 18:59 Intake Total 1560 Output Total 1400 Balance 160 - Medications Medications: Current Medications Acetaminophen (Tylenol 325mg Tab) 650 mg PO Q6 PRN PRN Reason: TEMP>=99.5F Acetaminophen (Tylenol 650 Mg Supp) 650 mg RC Q6H PRN PRN Reason: TEMP>=99.5F Arformoterol Tartrate (Brovana) 15 mcg IH [id number] [facility] Last Admin: 07/04/18 07:34 Dose: 15 mcg Aspirin (Aspirin) 325 mg PO DAILY [facility] Last Admin: 07/03/18 09:20 Dose: 325 mg Atorvastatin Calcium (Lipitor) 10 mg PO HS [facility] Last Admin: 07/03/18 22:02 Dose: 10 mg Benzonatate (Tessalon Perles) 200 mg PO TID [facility] Last Admin: 07/03/18 18:04 Dose: 200 mg Budesonide (Pulmicort Respules) 0.5 mg IH [id number] [facility] Last Admin: 07/04/18 07:34 Dose: 0.5 mg Clonidine HCl (Catapres-Tts3 0.3 Mg/24 Hr) 1 patch TD FRI [facility] Diltiazem HCl (Cardizem Cd) 180 mg PO DAILY [facility] Last Admin: 07/03/18 09:20 Dose: 180 mg Docusate Sodium (Colace) 100 mg PO TID [facility] Last Admin: 07/03/18 18:03 Dose: 100 mg Enoxaparin Sodium (Lovenox) 40 mg SC DAILY [facility]; Protocol Last Admin: 07/03/18 09:22 Dose: 40 mg Folic Acid (Folic Acid) 1 mg PO DAILY [facility] Last Admin: 07/03/18 09:24 Dose: 1 mg Furosemide (Lasix) 20 mg IVP 0600,1800 NATONIA Last Admin: 07/04/18 06:41 Dose: 20 mg Ceftriaxone Sodium (Rocephin 1 Gram Ivpb) 1 gm in 100 mls @ 100 mls/hr IVPB DAILY [facility]; Protocol Last Admin: 07/03/18 09:22 Dose: 100 mls/hr Levalbuterol HCl (Xopenex) 0.63 mg IH [id number] [facility] Last Admin: 07/04/18 07:34 Dose: 0.63 mg Levalbuterol HCl (Xopenex) 0.63 mg IH Q2H PRN PRN Reason: Shortness of Breath Losartan Potassium (Cozaar) 100 mg PO DAILY [facility] Last Admin: 07/03/18 09:21 Dose: 100 mg Magnesium Oxide (Mag-Ox) 400 mg PO BID [facility] Last Admin: 07/03/18 18:03 Dose: 400 mg Methylprednisolone (Solu-Medrol) 20 mg IVP Q8H [facility] Last Admin: 07/04/18 06:43 Dose: 20 mg Ranolazine [Ranexa] (500 Mg (Home Med)) 500 mg PO Q12H [facility] Last Admin: 07/03/18 22:04 Dose: Not Given Terazosin [Hytrin] 2 (Mg (Home Med)) 2 mg PO HS [facility] Last Admin: 07/04/18 03:02 Dose: Not Given Ondansetron HCl (Zofran Inj) 4 mg IVP Q4H PRN PRN Reason: Nausea/Vomiting Pantoprazole Sodium (Protonix Ec Tab) 40 mg PO 0600 [facility] Last Admin: 07/04/18 06:44 Dose: 40 mg Potassium Chloride (K-Dur 20 Meq Er Tab) 20 meq PO DAILY [facility] Last Admin: 07/03/18 09:21 Dose: 20 meq - Labs Labs: 07/03/18 07:32 07/03/18 07:32 PT 12.4 SECONDS (9.4-12.5) 07/01/18 18:17 INR 1.12 07/01/18 18:17 APTT 27.0 Seconds (26.9-38.3) 07/01/18 18:17 - Constitutional Appears: Well, Non-toxic, No Acute Distress - Head Exam Head Exam: ATRAUMATIC, NORMAL INSPECTION - Eye Exam Eye Exam: EOMI, Normal appearance, PERRL - ENT Exam ENT Exam: Mucous Membranes Moist, Normal Exam - Respiratory Exam Respiratory Exam: NORMAL BREATHING PATTERN. absent: Wheezes, Respiratory Distress - Cardiovascular Exam Cardiovascular Exam: RRR, +S1, +S2 - GI/Abdominal Exam GI & Abdominal Exam: Soft. absent: Distended, Tenderness - Extremities Exam Extremities Exam: Full ROM. absent: Pedal Edema - Neurological Exam Neurological Exam: Alert, Awake - Skin Skin Exam: Normal Color, Warm Assessment and Plan - Assessment and Plan (Free Text) Assessment: 58 year old AAM with a PMH of sarcoidosis, CAD (s/p PCI with 2 stents), HTN, HLD, paroxysmal AFib, and LAYLA who is admitted for dyspnea. Plan: 1. Dypsnea - CT chest reviewed, showing fibrotic changes indicating interstitial lung disease - EKG reviewed - cont Brovana - cont Tessalon Perles - on Rocephin empirically - Xopenex antonia and prn - cont Lasix - cont Solu-medrol 20mg IVP bid - likely d/c home 2. CAD - cont Ranexa - cont ASA 3. Paroxysmal Afib - cont cardizem 4. LAYLA - CPAP HS 5. HTN - cont clinidine patch - hydralazine prn - cont Losartan 6. HLD - cont Lipitor 7. PPX - Lovenox for DVT ppx - protonix for GI ppx Case was reviewed and discussed with Dr. Ceballos
[2018-07-04] MEDS: diltiaZEM 180 mg/24 Hours CD Cap PO SCH (09:55)
[2018-07-04] MEDS: Potassium Chloride 20 mEq ER Tab PO SCH (09:55)
[2018-07-04] MEDS: Magnesium Oxide 400 mg Tab UD PO SCH (09:55)
[2018-07-04] MEDS: Enoxaparin 40 mg Syringe SC SCH (09:56)
[2018-07-04] MEDS: cefTRIAXone 1 gm 1 GM/100 ML BAG IVPB SCH (09:56)
[2018-07-04 09:57] VITALS: BP 178/92; PULSE 80
[2018-07-04] MEDS: Ranolazine [Ranexa] 500 MG (HOME MED) PO SCH (09:57)
--- NOTE | 2018-07-04 12:58 | CP.PCM.DIS ---
Provider - Provider Date of Admission: 07/03/18 12:26 Attending physician: Britton Ceballos MD Primary care physician: Britton Ceballos MD Consults: 07/02/18 08:45 TCU [Evaluation for TRCU] DAILY Comment: TCU Physician Instructions: TCU Reason For Exam: TCU 07/03/18 08:45 TCU [Evaluation for TRCU] DAILY Comment: TCU Physician Instructions: TCU Reason For Exam: TCU 07/04/18 08:45 TCU [Evaluation for TRCU] DAILY Comment: TCU Physician Instructions: TCU Reason For Exam: TCU 07/05/18 08:45 TCU [Evaluation for TRCU] DAILY Comment: TCU Physician Instructions: TCU Reason For Exam: TCU 07/06/18 08:45 TCU [Evaluation for TRCU] DAILY Comment: TCU Physician Instructions: TCU Reason For Exam: TCU 07/07/18 08:45 TCU [Evaluation for TRCU] DAILY Comment: TCU Physician Instructions: TCU Reason For Exam: TCU 07/08/18 08:45 TCU [Evaluation for TRCU] DAILY Comment: TCU Physician Instructions: TCU Reason For Exam: TCU 07/09/18 08:45 TCU [Evaluation for TRCU] DAILY Comment: TCU Physician Instructions: TCU Reason For Exam: TCU 07/10/18 08:45 TCU [Evaluation for TRCU] DAILY Comment: TCU Physician Instructions: TCU Reason For Exam: TCU 07/11/18 08:45 TCU [Evaluation for TRCU] DAILY Comment: TCU Physician Instructions: TCU Reason For Exam: TCU 07/12/18 08:45 TCU [Evaluation for TRCU] DAILY Comment: TCU Physician Instructions: TCU Reason For Exam: TCU Time Spent in preparation of Discharge (in minutes): 40 Hospital Course - Lab Results Lab Results: Micro Results 07/02/18 08:30 Blood Blood Culture - Preliminary NO GROWTH AFTER 48 HOURS 07/02/18 08:00 Blood Blood Culture - Preliminary NO GROWTH AFTER 48 HOURS Most Recent Lab Values WBC 11.5 10^3/uL (4.5-11.0) H D 07/03/18 07:32 RBC 4.94 10^6/uL (3.5-6.1) 07/03/18 07:32 Hgb 11.4 g/dL (14.0-18.0) L 07/03/18 07:32 Hct 39.1 % (42.0-52.0) L 07/03/18 07:32 MCV 79.1 fl (80.0-105.0) L 07/03/18 07:32 MCH 23.1 pg (25.0-35.0) L 07/03/18 07:32 MCHC 29.2 g/dl (31.0-37.0) L 07/03/18 07:32 RDW 17.3 % (11.5-14.5) H 07/03/18 07:32 Plt Count 278 10^3/uL (120.0-450.0) 07/03/18 07:32 MPV 10.1 fl (7.0-11.0) 07/03/18 07:32 Neut % (Auto) 89.7 % (50.0-68.0) H 07/03/18 07:32 Lymph % (Auto) 6.6 % (22.0-35.0) L 07/03/18 07:32 [place] % (Auto) 3.7 % (1.0-6.0) 07/03/18 07:32 Eos % (Auto) 0.0 % (1.5-5.0) L 07/03/18 07:32 Baso % (Auto) 0.0 % (0.0-3.0) 07/03/18 07:32 Lymph # (Auto) 0.8 (1.2-3.4) L 07/03/18 07:32 [place] # (Auto) 0.4 (0.1-0.6) 07/03/18 07:32 Eos # (Auto) 0.0 (0.0-0.7) 07/03/18 07:32 Baso # (Auto) 0.00 K/mm3 (0.0-2.0) 07/03/18 07:32 Absolute Neuts (auto) 10.30 (1.4-6.5) H 07/03/18 07:32 Neutrophils % (Manual) 90 % (50.0-70.0) H 07/01/18 18:17 Band Neutrophils % 1 % (0-2) 07/01/18 18:17 Lymphocytes % (Manual) 5 % (22.0-35.0) L 07/01/18 18:17 Monocytes % (Manual) 4 % (1.0-6.0) 07/01/18 18:17 Toxic Granulation 2+ 07/01/18 18:17 Platelet Evaluation Normal (NORMAL) 07/01/18 18:17 Hypochromasia 1+ 07/01/18 18:17 Rouleaux 2+ 07/01/18 18:17 PT 12.4 SECONDS (9.4-12.5) 07/01/18 18:17 INR 1.12 07/01/18 18:17 APTT 27.0 Seconds (26.9-38.3) 07/01/18 18:17 pCO2 51 mm/Hg (35-45) H 07/01/18 10:00 pO2 76 mm/Hg (30-55) H 07/02/18 00:25 HCO3 34.6 mmol/L (21-28) H 07/01/18 10:00 ABG pH 7.44 (7.35-7.45) 07/01/18 10:00 ABG Total CO2 36.2 mmol.L (22-28) H 07/01/18 10:00 ABG O2 Saturation 96.2 % (95-98) 07/01/18 10:00 ABG O2 Content 14.4 ML/dl (15-23) L 07/01/18 10:00 ABG Base Excess 9.1 mmol/L (-2.0-3.0) H 07/01/18 10:00 ABG Hemoglobin 10.8 g/dL (11.7-17.4) L 07/01/18 10:00 ABG Carboxyhemoglobin 1.5 % (0.5-1.5) 07/01/18 10:00 POC ABG HHb (Measured) 3.7 % (0-5) 07/01/18 10:00 ABG Methemoglobin 0.6 % (0.0-3.0) 07/01/18 10:00 ABG O2 Capacity 15.0 mL/dl (16-24) L 07/01/18 10:00 VBG pH 7.44 (7.32-7.43) H 07/02/18 00:25 VBG pCO2 54.0 (40-60) 07/02/18 00:25 VBG HCO3 36.7 mmol/l (21-28) H 07/02/18 00:25 VBG Total CO2 38.4 mmol.L (22-28) H 07/02/18 00:25 VBG O2 Sat (Calc) 97.1 % (40-65) H 07/02/18 00:25 VBG Base Excess 10.5 mmol/L (0.0-2.0) H 07/02/18 00:25 VBG Potassium 3.9 mmol/L (3.6-5.2) 07/02/18 00:25 Hgb O2 Saturation 94.2 % (95.0-98.0) L 07/01/18 10:00 Sodium 142.0 mmol/L (132-148) 07/02/18 00:25 Chloride 104.0 mmol/L (98-107) 07/02/18 00:25 Glucose 161 mg/dl (75-110) H 07/02/18 00:25 Lactate 1.8 mmol/L (0.7-2.1) 07/02/18 00:25 FiO2 21.0 % 07/02/18 00:25 Sodium 145 mmol/L (132-148) 07/03/18 07:32 Potassium 3.9 mmol/L (3.6-5.0) 07/03/18 07:32 Chloride 104 mmol/L (98-107) 07/03/18 07:32 Carbon Dioxide 32 mmol/L (21-33) 07/03/18 07:32 Anion Gap 13 (10-20) 07/03/18 07:32 BUN 36 mg/dL (7-21) H 07/03/18 07:32 Creatinine 1.2 mg/dl (0.8-1.5) 07/03/18 07:32 Est GFR ( Amer) > 60 07/03/18 07:32 Est GFR (Non-Af Amer) > 60 07/03/18 07:32 Random Glucose 125 mg/dL (70-110) H 07/03/18 07:32 Calcium 9.0 mg/dL (8.4-10.5) 07/03/18 07:32 Magnesium 2.1 mg/dL (1.7-2.2) 07/03/18 07:32 Total Bilirubin 0.2 mg/dL (0.2-1.3) 07/03/18 07:32 Direct Bilirubin 0.2 mg/dL (0.0-0.4) 07/03/18 07:32 AST 21 U/L (17-59) 07/03/18 07:32 ALT 13 U/L (7-56) 07/03/18 07:32 Alkaline Phosphatase 64 U/L (38-126) 07/03/18 07:32 Lactate Dehydrogenase 555 U/L (333-699) 07/01/18 18:17 Total Creatine Kinase 57 U/L (35-230) 07/01/18 18:17 Troponin I 0.01 ng/mL D 07/02/18 05:45 NT-Pro-B Natriuret Pep 709 pg/mL (0-450) H 07/01/18 18:17 Total Protein 6.7 g/dL (5.8-8.3) 07/03/18 07:32 Albumin 3.7 g/dL (3.0-4.8) 07/03/18 07:32 Globulin 3.0 gm/dL 07/03/18 07:32 Albumin/Globulin Ratio 1.2 (1.1-1.8) 07/03/18 07:32 Venous Blood Potassium 3.9 mmol/L (3.6-5.2) 07/02/18 00:25 Urine Color Yellow (YELLOW) 07/01/18 22:20 Urine Appearance Clear (CLEAR) 07/01/18 22:20 Urine pH 6.5 (4.7-8.0) 07/01/18 22:20 Ur Specific [place] 1.015 (1.005-1.035) 07/01/18 22:20 Urine Protein Negative mg/dL (<30 mg/dL) 07/01/18 22:20 Urine Glucose (UA) Negative mg/dL (NEGATIVE) 07/01/18 22:20 Urine Ketones Negative mg/dL (NEGATIVE) 07/01/18 22:20 Urine Blood Negative (NEGATIVE) 07/01/18 22:20 Urine Nitrate Negative (NEGATIVE) 07/01/18 22:20 Urine Bilirubin Negative (NEGATIVE) 07/01/18 22:20 Urine Urobilinogen 0.2 E.U./dL (<1 E.U./dL) 07/01/18 22:20 Ur Leukocyte Esterase Negative Maximino/uL (NEGATIVE) 07/01/18 22:20 - Hospital Course Hospital Course: 58 year old male with a pmh of sarcoidosis, CAD (s/p PCI with 2 stents), HTN, HLD, paroxysmal AFib, and LAYLA presents with an 8 day hx of gradually worsening SOB and dyspnea on exertion. Patient was wheezing on exam at presentation. Chest CT was done showing signs of interstitial lung disease. Patient improved on steroid therapy while in patient as well as monitoring of his other medical co- moribidities. EKG was NSR. Patient is discharged with a steroid taper as outlined and with instructions to follow-up with Dr. Ceballos in office. Discharge Exam - Head Exam Head Exam: ATRAUMATIC, NORMAL INSPECTION - Eye Exam Eye Exam: EOMI, Normal appearance, PERRL Pupil Exam: NORMAL ACCOMODATION, PERRL - ENT Exam ENT Exam: Mucous Membranes Moist, Normal Exam - Neck Exam Neck exam: Full Rom, Normal Inspection - Respiratory Exam Respiratory Exam: Clear to PA & Lateral, NORMAL BREATHING PATTERN. absent: Wheezes, Respiratory Distress - Cardiovascular Exam Cardiovascular Exam: RRR, +S1, +S2 - GI/Abdominal Exam GI & Abdominal Exam: Normal Bowel Sounds, Soft. absent: Distended, Tenderness - Extremities Exam Extremities exam: full ROM, pedal pulses present - Neurological Exam Neurological exam: Alert, CN II-XII Intact, Normal Gait, Oriented x3, Reflexes Normal - Skin Skin Exam: Dry, Intact, Normal Color, Warm Discharge Plan - Discharge Medications Prescriptions: Doxycycline Hyclate 100 mg PO BID #14 capsule Prednisone 10 mg PO DAILY #100 tab.ds.pk - Follow Up Plan Condition: STABLE Disposition: HOME/ ROUTINE Instructions: Sarcoidosis (DC), Interstitial Lung Disease Additional Instructions: MAY DISCHARGE HOME RESUME ALL HOME MEDS PLUS PREDNISONE FOLLOWS 40MG DAILY X 5 DAYS 30MG DAILY X 5 DAYS 20 MG DAILY X 5 DAYS 10MG DAILY TO CONTINUE WITH FOOD Referrals: Britton Ceballos MD [Primary Care Provider] - 1 Week (MAY DISCHARGE HOME RESUME ALL HOME MEDS PLUS PREDNISONE FOLLOWS 40MG DAILY X 5 DAYS 30MG DAILY X 5 DAYS 20 MG DAILY X 5 DAYS 10MG DAILY TO CONTINUE WITH FOOD)
--- NOTE | 2018-07-05 04:54 | DS ---
FINAL PROGRESS NOTE AND DISCHARGE SUMMARY HISTORY OF PRESENT ILLNESS: The patient is in room 376, bed 2. Overnight nurses' notes were reviewed. No shortness of breath or respiratory discomfort or distress was documented. The patient was overnight stable. REVIEW OF SYSTEMS: A 14 system review was done, pertinent positive, negative dictated above. PHYSICAL EXAMINATION: VITAL SIGNS: T-max 97.4, pulse 81, respirations 22, O2 sat 95%, and blood pressure 175/100, 170/100, and 191/97. HEENT: Head; normocephalic and atraumatic. HEENT examination shows pink conjunctivae. Anicteric sclerae. No oropharyngeal lesion. NECK: No neck rigidity. CHEST: Kyphosis. LUNGS: Shows decreased breath sounds at the bases. Positive occasional rhonchi upper lung shipman. CARDIOVASCULAR: S1 and S2, regular rhythm. No audible murmur, gallop, or rub at this time. ABDOMEN: Protuberant and obese. Positive bowel sounds. No hepatosplenomegaly noted. GENITALIA: Male. RECTAL: Deferred. EXTREMITIES: Show trace swelling of the lower extremity. MUSCULOSKELETAL: Shows an elevated body mass index. NEUROLOGIC: The patient is alert, awake, and oriented x3. Cranial nerves II through XII grossly intact. PSYCHIATRIC: Negative for anxiety or depression. Negative for auditory or visual hallucination. Negative for suicidal or homicidal ideation. DIAGNOSTIC DATA: None from today. FINAL IMPRESSION, PLAN AND DISCHARGE DIAGNOSES: 1. Acute exacerbation of interstitial lung disease with hypoxemia and dyspnea on exertion and shortness of breath. 2. Acute exacerbation of sarcoidosis with hypoxemia and bronchospasm. 3. Uncontrolled hypertension. 4. Oxygen-dependent advanced sarcoidosis. 5. History of coronary artery disease, history of cold heart, and history of angioplasty and stent placement. 6. Morbid obesity. 7. Hyperlipidemia. 8. Mild normocytic anemia. 9. History of iron-deficiency anemia and vitamin B12 deficiency. 10. Advanced interstitial lung disease secondary to sarcoidosis. 11. History of coronary artery disease, myocardial infarction, history of unstable angina, history of angioplasty and stent placement. 12. Bilateral lower extremity venous stasis. 13. Possible pulmonary hypertension and right-sided diastolic dysfunction. Plan at this time, since the patient's respiratory status has improved significantly, the patient will be considered for discharge. DISCHARGE MEDICATIONS: As per updated ambulatory orders with prednisone dose modification as follows. The patient will resume all home medications as per the ambulatory orders plus the patient will start prednisone tapering 40 mg p.o. daily for 5 days and prednisone 30 mg p.o. daily for 5 days then prednisone 20 mg daily for 5 days then prednisone 10 mg daily to be maintained. Prednisone was advised to be taken with food. Discharge medications includes resumption of the home oxygen, which the patient already has. Discharge follow up with Dr. Ceballos within 1 week. Time spent in this entire discharge process 45 minutes. Dictated and electronically signed, not read. Britton Ceballos MD
== END 2018-07-04 16:45 | disposition home or self-care (01) | DRG 197 ==
LOC: ED 17:46 → ERH 22:22 → 3RSO 23:05 → OBSVTOIN 07-03 12:26
PROVIDERS: ADMIT Internal Medicine; ATTEND Internal Medicine
DX: D86.0 Sarcoidosis of lung (principal); J84.9 Interstitial pulmonary disease, unspecified; E87.2 Acidosis; I25.10 Atherosclerotic heart disease of native coronary artery without angina pectoris; I27.20 Pulmonary hypertension, unspecified; I48.0 Paroxysmal atrial fibrillation; E78.5 Hyperlipidemia, unspecified; E66.01 Morbid (severe) obesity due to excess calories; D50.9 Iron deficiency anemia, unspecified; G47.33 Obstructive sleep apnea (adult) (pediatric); R09.02 Hypoxemia; I10 Essential (primary) hypertension; E53.8 Deficiency of other specified B group vitamins; I87.2 Venous insufficiency (chronic) (peripheral); T38.0X5A Adverse effect of glucocorticoids and synthetic analogues, initial encounter; R73.9 Hyperglycemia, unspecified; M47.9 Spondylosis, unspecified; N20.0 Calculus of kidney; J98.01 Acute bronchospasm; E87.6 Hypokalemia; I25.2 Old myocardial infarction; Z99.81 Dependence on supplemental oxygen; Z95.5 Presence of coronary angioplasty implant and graft